=== PATIENT | female | born 1945 | race Caucasian/White ===

== ENCOUNTER → 2017-02-26 | Outpatient (CLI) | payer MEDICARE, OTHER ==
[2017-02-26 15:29] LABS: ALT 35 U/L (9-52); AST 38 U/L (14-36); Alkaline Phosphatase 56 U/L (38-126); Anion Gap 5 mmol/L; Blood Urea Nitrogen 11 mg/dL (7-17); Calcium 9.7 mg/dL (8.4-10.2); Carbon Dioxide 25 mmol/L (22-30); Chloride 109 mmol/L (98-107); Glucose 95 mg/dL (74-99); Non-African American GFR(MDRD) >60 (>60 ml/min/1.73 sqM); Potassium 4.2 mmol/L (3.5-5.1); Sodium 139 mmol/L (137-145); Total Bilirubin 0.4 mg/dL (0.2-1.3)
[2017-02-26 15:39] LABS: Basophils % (A) 1 %; CH 31.1; CHCM 33.1; Eosinophils # (A) 0.1 k/uL (0-0.7); Eosinophils % (A) 2 %; HCT 43.7 % (34.0-46.0); HDW 2.26; Luc # (Auto) 0.21; Luc % (Auto) 3; Lymphocytes # (A) 1.8 k/uL (1.0-4.8); Lymphocytes % (A) 27 %; MCH 30.2 pg (25.0-35.0); MCHC 32.1 g/dL (31.0-37.0); MCV 94.2 fL (80.0-100.0); Mean Platelet Volume 6.7; Monocytes # (A) 0.4 k/uL (0-1.0); Monocytes % (A) 6 %; Neutrophils # (A) 4.3 k/uL (1.3-7.7); Neutrophils % (A) 62 %; RBC 4.64 m/uL (3.80-5.40); RDW 14.4 % (11.5-15.5); WBC 6.8 k/uL (3.8-10.6); WBC (Perox) 6.38
== END | disposition home or self-care (01) ==
LOC: LABWHC1 14:59
PROVIDERS: ATTEND Internal Medicine Hematology & Oncology
DX: C50.919 Malignant neoplasm of unspecified site of unspecified female breast (principal); I67.89 Other cerebrovascular disease; I10 Essential (primary) hypertension; E78.5 Hyperlipidemia, unspecified
CPT/HCPCS: 36415; 80053; 85025; 86300

== ENCOUNTER → 2017-02-26 | Outpatient (CLI) | payer MEDICARE, OTHER ==
--- NOTE | 2017-02-26 14:30 | MM ---
Reason for exam: additional evaluation requested from prior study. Last mammogram was performed 1 year ago. History: Patient is postmenopausal, has history of breast cancer at age 61, and has history of high-risk lesion on a previous biopsy at age 56. Family history of breast cancer in paternal grandmother, breast cancer in 2 paternal aunts, and breast cancer in paternal cousin. Excisional biopsy of the left breast, June 22, 2008. Mastectomy of the left breast, July 01, 2007. Malignant excisional biopsy of the left breast, June 03, 2007. High risk excisional biopsy of the left breast, June 09, 2002. Excisional biopsy of the right breast, 2000. Benign stereotactic core biopsy of the left breast, January 22, 2000. Took estrogen for 20 years beginning at age 41. Took progesterone for 20 years beginning at age 41. Taking antineoplastic for 3 years beginning at age 65. Physical Findings: Nurse did not find any significant physical abnormalities on exam. MG 3D Diag Mammo W/Cad RT CC and MLO view(s) were taken of the right breast. Prior study comparison: February 20, 2016, right breast MG 3d diag mammo w/cad RT. February 14, 2015, right breast MG diagnostic mammo RT w CAD. August 12, 2014, right breast MG diagnostic mammo RT w CAD. There are scattered fibroglandular densities. No significant new findings when compared with previous films. These results were verbally communicated with the patient and result sheet given to the patient on 02/26/17. ASSESSMENT: Benign, BI-RAD 2 RECOMMENDATION: Follow-up diagnostic mammogram of the right breast in 1 year.
--- NOTE | 2017-02-26 15:15 | BD ---
EXAMINATION TYPE: MG DEXA axial skeleton. DATE OF EXAM: 02/26/2017 2:56 PM COMPARISON: NONE CLINICAL HISTORY: Osteoporosis, postmenopausal female Height: 64 IN Weight: 142 LBS FRAX RISK QUESTIONS: Alcohol (3 or more units per day): NO Family History (Parent hip fracture): NO Glucocorticoids (More than 3mos): NO (Ex: prednisone, prednisolone, methylprednisolone, dexamethasone, and hydrocortisone). History of Fracture in Adulthood: NO Secondary Osteoporosis: 1. Type 1 Diabetes: NO 2. Hyperthyroidism: NO 3. Menopause before 45: AGE 41 4. Malnutrition: NO 5. Chronic liver disease: NO Rheumatoid Arthritis: NO Current Tobacco Use: YES RISK FACTORS HISTORY OF: Smoke tobacco: YES Diet low in dairy products/other sources of calcium: YES Postmenopausal woman: AGE 41 Take estrogen and/or progesterone medications: NOT NOW How long: AGE 24 - 33 CONTROL Lost more than 2 inches in height since high school: PT IN [place] DID NOT MEASURE HER TODAY Frequent falls: PT IN [place] MEDICATIONS: BONE DENSITY MEDICATIONS: ALENDRONATE. PT HAS TAKEN FOR 2 YRS Additional Medications: ACCUPRIL, ADVAIR, AMOTRIPTOLINE, FLONASE, NAPROSYN, PLAVIX, RESTORIL, SINGULA IR, WELCHOL, ALENDRONATE, VIT B, FOLIC ACID, MAGNESIUM, VIT D3, VIT E, ZERTEC Additional History: BREAST CANCER WITH CHEMO EXAM MEASUREMENTS: Bone mineral densitometry was performed using the [employer] System. Bone mineral density as measured about the Lumbar spine is: ----- L1-L4(G/cm2): 1.220 T Score Values are as follows: ----- L2: -0.3 ----- L3: 1.2 ----- L4: 0.3 ----- L1-L4: 0.3 Bone mineral density has: Increased 3.7% since study of: 08/12/2014 Bone mineral density about the R hip (g/cm2): 0.881 Bone mineral density about the L hip (g/cm2): 0.673 T Score values are as follows: -----R Neck: -1.1 -----L Neck: -2.6 -----R Total: -0.9 -----L Total: -2.4 Bone mineral density has: Increased 3.6% since study of: 08/12/2014 IMPRESSION: Osteoporosis NOTE: T-SCORE=SD OF THE YOUNG ADULT MEAN.
== END | disposition home or self-care (01) ==
LOC: RADMAMWWP 13:39
PROVIDERS: ATTEND Family Medicine
DX: M81.0 Age-related osteoporosis without current pathological fracture (principal); Z85.3 Personal history of malignant neoplasm of breast
CPT/HCPCS: 77080; G0206; G0279

== ENCOUNTER → 2017-03-07 | Outpatient (CLI) | payer MEDICARE, OTHER ==
--- NOTE | 2017-03-08 06:49 | XR ---
EXAMINATION TYPE: XR chest 2V DATE OF EXAM: 03/07/2017 HISTORY: I10,E785,[id number],I6789 HTN,Hx breast Ca,CVA. REFERENCE: Previous study dated 12/28/2015. FINDINGS: The lungs are overinflated. Surgical clips project over the left side of the thorax as well as the left axilla. Lungs are clear. Pleural spaces are clear. Heart size is normal. IMPRESSION: COPD.
== END | disposition home or self-care (01) ==
LOC: RADXRYALE 10:53
PROVIDERS: ATTEND Internal Medicine Hematology & Oncology
DX: J44.9 Chronic obstructive pulmonary disease, unspecified (principal); C50.919 Malignant neoplasm of unspecified site of unspecified female breast; I10 Essential (primary) hypertension; E78.5 Hyperlipidemia, unspecified; I63.9 Cerebral infarction, unspecified
CPT/HCPCS: 71020

== ENCOUNTER → 2017-06-13 | Outpatient (CLI) | payer MEDICARE, OTHER ==
--- NOTE | 2017-06-13 13:48 | US ---
EXAMINATION TYPE: US pelvic complete DATE OF EXAM: 06/13/2017 COMPARISON: NONE CLINICAL HISTORY: N89.8 Vaginal Discharge. Greenish vaginal discharge, partial hysterectomy TECHNIQUE: Transvaginal (TV) and Transabdominal (TA) Date of LMP: unknown EXAM MEASUREMENTS: Uterus: Surgically absent Endometrial Stripe: Surgically absent Right Ovary: unable to visualize Left Ovary: unable to visualize Complex area noted ML pelvis during TV exam, unable to visualize any peristalsing at this time ? et iology IMPRESSION: 1. Postoperative pelvis. 2. Complex area deep within the pelvis may reflect nonperistalsing bowel however I cannot exclude mas s. CT of the abdomen and pelvis is advised.
== END | disposition home or self-care (01) ==
LOC: RADUSWWP 12:42
PROVIDERS: ATTEND Family Medicine
DX: N89.8 Other specified noninflammatory disorders of vagina (principal); Z98.890 Other specified postprocedural states
CPT/HCPCS: 76830; 76856

== ENCOUNTER 2023-09-07 01:29 | Inpatient (IN) | payer MEDICARE, OTHER ==
[2023-09-07 01:36] LABS: Glucose,Whole Blood 301 mg/dL (70-110)
[2023-09-07] MEDS ORDERED: DEXAMETHASONE SOD PHOSPHATE 10 MG/ML 1 ML VIAL IV STA (01:40)
[2023-09-07] MEDS ORDERED: DILTIAZEM DRIP BOLUS FROM BAG 1 MG SOLN IV ONE (01:42)
[2023-09-07] MEDS ORDERED: IPRATROPIUM 0.5 MG/2.5 ML NEBU INHALATION STA (01:52)
[2023-09-07] MEDS ORDERED: ALBUTEROL NEBULIZED 2.5 MG/3 ML INHALATION STA (01:52)
[2023-09-07 01:56] LABS: Basophils # (A) 0.1 k/uL (0-0.2); Basophils % (A) 0 %; Eosinophils # (A) 0.1 k/uL (0-0.7); Eosinophils % (A) 0 %; HCT 37.4 % (34.0-46.0); HGB 11.9 gm/dL (11.4-16.0); Hypochromasia Slight; Lymphocytes # (A) 2.1 k/uL (1.0-4.8); Lymphocytes % (A) 10 %; MCH 30.7 pg (25.0-35.0); MCHC 31.7 g/dL (31.0-37.0); MCV 96.9 fL (80.0-100.0); Mean Platelet Volume 7.5; Monocytes # (A) 0.7 k/uL (0-1.0); Monocytes % (A) 3 %; Neutrophils # (A) 18.9 k/uL (1.3-7.7); Neutrophils % (A) 85 %; Platelet Count 511 k/uL (150-450); RBC 3.86 m/uL (3.80-5.40); RDW 14.2 % (11.5-15.5); WBC 22.2 k/uL (3.8-10.6)
[2023-09-07] MEDS: DILTIAZEM 125 MG in SODIUM CHLORIDE 0.9% 100 ML IV SCH (01:56)
[2023-09-07] MEDS ORDERED: HEPARIN SODIUM 1,000 UN/ML (10ML VL) IV ONE (01:57)
[2023-09-07] MEDS ORDERED: HEPARIN SODIUM 1,000 UN/ML (10ML VL) IV PRN (01:57)
--- NOTE | 2023-09-07 01:59 | ED ---
General Adult HPI - General Chief complaint: Shortness of Breath Stated complaint: Difficulty Breathing Time Seen by Provider: 09/07/23 01:40 Source: EMS Mode of arrival: EMS - History of Present Illness Initial comments: Dictation was produced using [employer] dictation software. please excuse any grammatical, word or spelling errors. Chief Complaint: 77-year-old female presents emergency for dyspnea History of Present Illness: She is a 69-year-old female presents emergency department with dyspnea. [facility] She was sent here for respiratory failure. Patient allegedly has a history of COPD. She is brought in by EMS. He is concerned that patient was having a COPD exacerbation she was given multiple breathing treatments. States that her oxygenation was well maintained at a normal range. They report that patient has been intubated for this in the past. Patient denies any chest pain. She states that she has shortness of breath. She does also report cough. Patient is not taking any anticoagulation medications. The ROS documented in this emergency department record has been reviewed and confirmed by me. Those systems with pertinent positive or negative responses have been documented in the HPI. All other systems are other negative and/or noncontributory. - Related Data Allergies Allergy/AdvReac Type Severity Reaction Status Date / Time Penicillins Allergy Rash/Hives Verified 09/07/23 01:45 Review of Systems ROS Statement: Those systems with pertinent positive or pertinent negative responses have been documented in the HPI. ROS Other: All systems not noted in ROS Statement are negative. General Exam - General Exam Comments Initial Comments: PHYSICAL EXAM: General Impression: Dyspneic, alert HEENT: Normocephalic atraumatic, extra-ocular movements intact, pupils equal and reactive to light bilaterally, mucous membranes moist. Cardiovascular: Heart regular rate and rhythm Chest: Diffuse rhonchi, on BiPAP Abdomen: abdomen soft, non-tender, non-distended, no organomegaly Musculoskeletal: Pulses present and equal in all extremities, no peripheral edema Motor: no focal deficits noted Neurological: CN II-XII grossly intact, no focal motor or sensory deficits noted Skin: Intact with no visualized rashes Psych: Normal affect and mood Course Vital Signs 09/07/23 09/07/23 09/07/23 01:30 01:40 01:41 Temperature 97.6 F Pulse Rate 167 H Respiratory 45 H Rate Blood Pressure 133/70 O2 Sat by Pulse 98 Oximetry Fraction of 100 100 Inspired Oxygen (FIO2) 09/07/23 09/07/23 09/07/23 01:50 02:29 03:00 Temperature Pulse Rate 147 H 124 H Respiratory 32 H 22 Rate Blood Pressure 90/35 89/49 O2 Sat by Pulse 98 98 Oximetry Fraction of 80 Inspired Oxygen (FIO2) 09/07/23 09/07/23 09/07/23 03:58 04:00 04:02 Temperature Pulse Rate 126 H 126 H 128 H Respiratory 29 H Rate Blood Pressure O2 Sat by Pulse 99 Oximetry Fraction of Inspired Oxygen (FIO2) 09/07/23 09/07/23 09/07/23 04:08 05:00 06:09 Temperature Pulse Rate 133 H 121 H 131 H Respiratory 24 24 24 Rate Blood Pressure 127/71 90/55 114/62 O2 Sat by Pulse 97 99 98 Oximetry Fraction of Inspired Oxygen (FIO2) Medical Decision Making - Medical Decision Making Was pt. sent in by a medical professional or institution (, PA, CHIEF OF HOSPITAL MEDICINE, urgent ca re, hospital, or snf...) When possible be specific @ -correction Did you speak to anyone other than the patient for history (EMS, parent, family, police, friend...)? What history was obtained from this source @ -No Did you review nursing and triage notes (agree or disagree)? Why? @ -I reviewed and agree with nursing and triage notes Were old charts reviewed (outside hosp., previous admission, EMS record, old EKG, old radiological studies, urgent care reports/EKG's, snf records)? Report findings @ -No old charts were reviewed Differential Diagnosis (chest pain, altered mental status, abdominal pain women, abdominal pain men, vaginal bleeding, musculoskeletal, weakness, fever, dyspnea, syncope, headache, dizziness, GI bleed, back pain, seizure, CVA, palpatations, mental health)? @ -Differential Dyspnea: Coronary syndrome, arrhythmia, tamponade, asthma, COPD, pulmonary embolism, pneumonia, pneumothorax, pulmonary effusion, anaphylaxis, diabetic ketoacidosis, flailed chest, pulmonary contusion, diaphragmatic rupture, anemia, neuromuscular, this is not meant to be an all-inclusive list. EKG interpreted by me (3pts min.). @ -My EKG interpretation: Ventricular rate 133, sinus tachycardia,. Interval 34, QRS 85, QTc 431. No IN prolongation, no QTC prolongation, no ST or T-wave changes noted. No old EKG for comparison Overall, this EKG is unremarkable X-rays interpreted by me (1pt min.). @Chest x-ray shows left lower lobe opacity CT interpreted by me (1pt min.). @ -CT angiography shows no pulmonary embolism resume to be findings suspicious for pneumonia U/S interpreted by me (1pt. min.). @ -None done What testing was considered but not performed or refused? (CT, X-rays, U/S, labs)? Why? @ -None What meds were considered but not given or refused? Why? @ -None Did you discuss the management of the patient with other professionals (jaqueline zeng i.e. , PA, CHIEF OF HOSPITAL MEDICINE, lab, RT, psych nurse, health care social worker, esol instructor, teacher, wildlife officer, rifle case repairer)? Give summary @ with hospitalist for admission Was smoking cessation discussed for >3mins.? @ -No Was critical care preformed (if so, how long)? @ -yes, 33 minutes Were there social determinants of health that impacted care today? How? (Homelessness, low income, unemployed, alcoholism, drug addiction, transportation, low edu. Level, literacy, decrease access to med. care, senior living, rehab)? @ -No Was there de-escalation of care discussed even if they declined (Discuss DNR or withdrawal of care, Hospice)? DNR status @ -No What co-morbidities impacted this encounter? (DM, HTN, Smoking, COPD, CAD, Cancer, CVA, ARF, Chemo, Hep., AIDS, mental health diagnosis, sleep apnea, morbid obesity)? @ -None Was patient admitted / discharged? Hospital course, mention meds given and route, prescriptions, significant lab abnormalities, going to OR and other pertinent info. @ -69-year-old female presents emergency department with A. fib RVR and d yspnea. Patient's history of emphysema and COPD. Patient presented to the emergency Department with significant respiratory distress. She is placed on BiPAP. Patient given breathing treatments. After several minutes of BiPAP treatment her respiratory symptoms improved. Her presentation initially was A. fib with RVR however after some time with Cardizem her rhythm changed to sinus tachycardia. Laboratory evaluation obtained. Leukocytosis 22.2, crit panel is unremarkable. D-dimer is elevated 1.08. Patient has pCO2 52. Vital signs shows lactic acidosis of 4.9. Troponin of 0.136 of unclear significance likely is reactive from pulmonary infection. BNP of 9000. testing is negative. She started on antibiotics for infiltrate seen on imaging studies. Patient will be admitted to stepdown. Consultations made to cardiology and pulmonology Undiagnosed new problem with uncertain prognosis? @ -No Drug Therapy requiring intensive monitoring for toxicity (Heparin, Nitro, Insulin, Cardizem)? @ -No Were any procedures done? @ -No Diagnosis/symptom? Acute, or Chronic, or Acute on Chronic? Uncomplicated (without systemic symptoms) or Complicated (systemic symptoms)? @ -1. Pneumonia, 2. A. fib with RVR Side effects of treatment? @ -No Exacerbation, Progression, or Severe Exacerbation? @ -No Poses a threat to life or bodily function? How? (Chest pain, USA, ND, pneumonia, PE, COPD, DKA, ARF, appy, cholecystitis, CVA, Diverticulitis, Homicidal, Suicidal, threat to staff... and all critical care pts) @ -yes - Lab Data Result diagrams: 09/07/23 01:40 09/07/23 01:40 Lab Results 09/07/23 09/07/23 09/07/23 Range/Units 01:35 01:40 01:40 WBC 22.2 H (3.8-10.6) k/uL RBC 3.86 (3.80-5.40) m/uL Hgb 11.9 (11.4-16.0) gm/dL Hct 37.4 (34.0-46.0) % MCV 96.9 (80.0-100.0) fL MCH 30.7 (25.0-35.0) pg MCHC 31.7 (31.0-37.0) g/dL RDW 14.2 (11.5-15.5) % Plt Count 511 H (150-450) k/uL MPV 7.5 Neutrophils % 85 % Lymphocytes % 10 % Monocytes % 3 % Eosinophils % 0 % Basophils % 0 % Neutrophils # 18.9 H (1.3-7.7) k/uL Lymphocytes # 2.1 (1.0-4.8) k/uL Monocytes # 0.7 (0-1.0) k/uL Eosinophils # 0.1 (0-0.7) k/uL Basophils # 0.1 (0-0.2) k/uL Hypochromasia Slight PT 10.3 (10.0-12.5) sec INR 0.9 (<1.2) APTT 23.2 (22.0-30.0) sec D-Dimer 1.08 H (<0.60) mg/L FEU VBG pH (7.31-7.41) VBG pCO2 (37-51) mmHg VBG HCO3 (24-28) mmol/L Sodium (137-145) mmol/L Potassium (3.5-5.1) mmol/L Chloride (98-107) mmol/L Carbon Dioxide (22-30) mmol/L Anion Gap mmol/L BUN (7-17) mg/dL Creatinine (0.52-1.04) mg/dL Est GFR (CKD-EPI)AfAm (>60 ml/min/1.73 sqM) Est GFR (CKD-EPI)NonAf (>60 ml/min/1.73 sqM) Glucose (74-99) mg/dL POC Glucose (mg/dL) 301 H (70-110) mg/dL POC Glu Electro Plater ID Grant Evans Lactic Ac Sepsis Rflx Plasma Lactic Acid Thong (0.7-2.0) mmol/L Calcium (8.4-10.2) mg/dL Magnesium (1.6-2.3) mg/dL Total Bilirubin (0.2-1.3) mg/dL AST (14-36) U/L ALT (4-34) U/L Alkaline Phosphatase (38-126) U/L Troponin I (0.000-0.034) ng/mL NT-Pro-B Natriuret Pep pg/mL Total Protein (6.3-8.2) g/dL Albumin (3.5-5.0) g/dL Influenza Type A (PCR) (Not Detectd) Influenza Type B (PCR) (Not Detectd) RSV (PCR) (Not Detectd) SARS-CoV-2 (PCR) (Not Detectd) Blood Type Blood Type Confirm Blood Type Recheck Bld Type Recheck Status Antibody Screen Spec Expiration Date 09/07/23 09/07/23 09/07/23 Range/Units 01:40 01:40 01:40 WBC (3.8-10.6) k/uL RBC (3.80-5.40) m/uL Hgb (11.4-16.0) gm/dL Hct (34.0-46.0) % MCV (80.0-100.0) fL MCH (25.0-35.0) pg MCHC (31.0-37.0) g/dL RDW (11.5-15.5) % Plt Count (150-450) k/uL MPV Neutrophils % % Lymphocytes % % Monocytes % % Eosinophils % % Basophils % % Neutrophils # (1.3-7.7) k/uL Lymphocytes # (1.0-4.8) k/uL Monocytes # (0-1.0) k/uL Eosinophils # (0-0.7) k/uL Basophils # (0-0.2) k/uL Hypochromasia PT (10.0-12.5) sec INR (<1.2) APTT (22.0-30.0) sec D-Dimer (<0.60) mg/L FEU VBG pH (7.31-7.41) VBG pCO2 (37-51) mmHg VBG HCO3 (24-28) mmol/L Sodium 132 L (137-145) mmol/L Potassium 4.8 (3.5-5.1) mmol/L Chloride 93 L (98-107) mmol/L Carbon Dioxide 25 (22-30) mmol/L Anion Gap 14 mmol/L BUN 9 (7-17) mg/dL Creatinine 0.51 L (0.52-1.04) mg/dL Est GFR (CKD-EPI)AfAm >90 (>60 ml/min/1.73 sqM) Est GFR (CKD-EPI)NonAf >90 (>60 ml/min/1.73 sqM) Glucose 304 H (74-99) mg/dL POC Glucose (mg/dL) (70-110) mg/dL POC Glu Electro Plater ID Lactic Ac Sepsis Rflx Plasma Lactic Acid Thong 4.9 H* (0.7-2.0) mmol/L Calcium 8.7 (8.4-10.2) mg/dL Magnesium 1.8 (1.6-2.3) mg/dL Total Bilirubin 0.5 (0.2-1.3) mg/dL AST 29 (14-36) U/L ALT 19 (4-34) U/L Alkaline Phosphatase 67 (38-126) U/L Troponin I 0.136 H* (0.000-0.034) ng/mL NT-Pro-B Natriuret Pep 9530 pg/mL Total Protein 6.5 (6.3-8.2) g/dL Albumin 3.5 (3.5-5.0) g/dL Influenza Type A (PCR) (Not Detectd) Influenza Type B (PCR) (Not Detectd) RSV (PCR) (Not Detectd) SARS-CoV-2 (PCR) (Not Detectd) Blood Type Blood Type Confirm Blood Type Recheck Bld Type Recheck Status Antibody Screen Spec Expiration Date 09/07/23 09/07/23 09/07/23 Range/Units 01:53 02:33 03:29 WBC (3.8-10.6) k/uL RBC (3.80-5.40) m/uL Hgb (11.4-16.0) gm/dL Hct (34.0-46.0) % MCV (80.0-100.0) fL MCH (25.0-35.0) pg MCHC (31.0-37.0) g/dL RDW (11.5-15.5) % Plt Count (150-450) k/uL MPV Neutrophils % % Lymphocytes % % Monocytes % % Eosinophils % % Basophils % % Neutrophils # (1.3-7.7) k/uL Lymphocytes # (1.0-4.8) k/uL Monocytes # (0-1.0) k/uL Eosinophils # (0-0.7) k/uL Basophils # (0-0.2) k/uL Hypochromasia PT (10.0-12.5) sec INR (<1.2) APTT (22.0-30.0) sec D-Dimer (<0.60) mg/L FEU VBG pH 7.34 (7.31-7.41) VBG pCO2 52 H (37-51) mmHg VBG HCO3 28 (24-28) mmol/L Sodium (137-145) mmol/L Potassium (3.5-5.1) mmol/L Chloride (98-107) mmol/L Carbon Dioxide (22-30) mmol/L Anion Gap mmol/L BUN (7-17) mg/dL Creatinine (0.52-1.04) mg/dL Est GFR (CKD-EPI)AfAm (>60 ml/min/1.73 sqM) Est GFR (CKD-EPI)NonAf (>60 ml/min/1.73 sqM) Glucose (74-99) mg/dL POC Glucose (mg/dL) (70-110) mg/dL POC Glu Electro Plater ID Lactic Ac Sepsis Rflx Y Plasma Lactic Acid Thong (0.7-2.0) mmol/L Calcium (8.4-10.2) mg/dL Magnesium (1.6-2.3) mg/dL Total Bilirubin (0.2-1.3) mg/dL AST (14-36) U/L ALT (4-34) U/L Alkaline Phosphatase (38-126) U/L Troponin I (0.000-0.034) ng/mL NT-Pro-B Natriuret Pep pg/mL Total Protein (6.3-8.2) g/dL Albumin (3.5-5.0) g/dL Influenza Type A (PCR) Not Detected (Not Detectd) Influenza Type B (PCR) Not Detected (Not Detectd) RSV (PCR) Not Detected (Not Detectd) SARS-CoV-2 (PCR) Not Detected (Not Detectd) Blood Type Blood Type Confirm Blood Type Recheck Bld Type Recheck Status Antibody Screen Spec Expiration Date 09/07/23 09/07/23 Range/Units 03:36 04:01 WBC (3.8-10.6) k/uL RBC (3.80-5.40) m/uL Hgb (11.4-16.0) gm/dL Hct (34.0-46.0) % MCV (80.0-100.0) fL MCH (25.0-35.0) pg MCHC (31.0-37.0) g/dL RDW (11.5-15.5) % Plt Count (150-450) k/uL MPV Neutrophils % % Lymphocytes % % Monocytes % % Eosinophils % % Basophils % % Neutrophils # (1.3-7.7) k/uL Lymphocytes # (1.0-4.8) k/uL Monocytes # (0-1.0) k/uL Eosinophils # (0-0.7) k/uL Basophils # (0-0.2) k/uL Hypochromasia PT (10.0-12.5) sec INR (<1.2) APTT (22.0-30.0) sec D-Dimer (<0.60) mg/L FEU VBG pH (7.31-7.41) VBG pCO2 (37-51) mmHg VBG HCO3 (24-28) mmol/L Sodium (137-145) mmol/L Potassium (3.5-5.1) mmol/L Chloride (98-107) mmol/L Carbon Dioxide (22-30) mmol/L Anion Gap mmol/L BUN (7-17) mg/dL Creatinine (0.52-1.04) mg/dL Est GFR (CKD-EPI)AfAm (>60 ml/min/1.73 sqM) Est GFR (CKD-EPI)NonAf (>60 ml/min/1.73 sqM) Glucose (74-99) mg/dL POC Glucose (mg/dL) (70-110) mg/dL POC Glu Electro Plater ID Lactic Ac Sepsis Rflx Plasma Lactic Acid Thong (0.7-2.0) mmol/L Calcium (8.4-10.2) mg/dL Magnesium (1.6-2.3) mg/dL Total Bilirubin (0.2-1.3) mg/dL AST (14-36) U/L ALT (4-34) U/L Alkaline Phosphatase (38-126) U/L Troponin I (0.000-0.034) ng/mL NT-Pro-B Natriuret Pep pg/mL Total Protein (6.3-8.2) g/dL Albumin (3.5-5.0) g/dL Influenza Type A (PCR) (Not Detectd) Influenza Type B (PCR) (Not Detectd) RSV (PCR) (Not Detectd) SARS-CoV-2 (PCR) (Not Detectd) Blood Type O Positive Blood Type Confirm O Positive Blood Type Recheck No Previous Record Bld Type Recheck Status CABO Indicated Antibody Screen NEGATIVE Spec Expiration Date 09/10/2023 - 6681 Disposition Clinical Impression: Pneumonia, Atrial fibrillation with RVR Disposition: ADMITTED IP TO THIS [facility] Condition: Serious Referrals: Viktoria Calhoun DO [Primary Care Provider] - 1-2 days Decision Time: 06:21
[2023-09-07 02:14] LABS: VBG PH 7.34 (7.31-7.41)
[2023-09-07 02:25] LABS: ALT 19 U/L (4-34); AST 29 U/L (14-36); African American GFR (CKD) >90 (>60 ml/min/1.73 sqM); Albumin 3.5 g/dL (3.5-5.0); Alkaline Phosphatase 67 U/L (38-126); Anion Gap 14 mmol/L; Blood Urea Nitrogen 9 mg/dL (7-17); Calcium 8.7 mg/dL (8.4-10.2); Carbon Dioxide 25 mmol/L (22-30); Chloride 93 mmol/L (98-107); Glucose 304 mg/dL (74-99); Magnesium 1.8 mg/dL (1.6-2.3); Non-African American GFR(CKD) >90 (>60 ml/min/1.73 sqM); Potassium 4.8 mmol/L (3.5-5.1); Sodium 132 mmol/L (137-145); Total Bilirubin 0.5 mg/dL (0.2-1.3); Total Protein 6.5 g/dL (6.3-8.2)
[2023-09-07 02:29] LABS: INR 0.9 (<1.2); Partial Thromboplastin Time 23.2 sec (22.0-30.0); Prothrombin Time 10.3 sec (10.0-12.5)
[2023-09-07 02:34] LABS: NT-Pro-B-Type Natriuretic Pept 9530 pg/mL
[2023-09-07] MEDS: HEPARIN SOD,PORK IN 0.45% NACL 25,000 UNIT in 0.45% NACL 1 250ML.BAG IV SCH ×2 (02:36→11:25)
[2023-09-07] MEDS ORDERED: SODIUM CHLORIDE 0.9% 1,000 ML IV STA (03:25)
[2023-09-07] MEDS ORDERED: CEFEPIME 2 GM in SODIUM CHLORIDE 0.9% 100 ML IVPB STA (03:25)
--- NOTE | 2023-09-07 03:27 | XR ---
EXAM: XR Chest, 1 View CLINICAL HISTORY: ITS.REASON XR Reason: dyspnea TECHNIQUE: Frontal view of the chest. COMPARISON: 03/07/2017 FINDINGS: Lungs: Left lower lobe parenchymal opacity new from prior exam concerning for an infectious etiology. Lungs are hyperexpanded consistent with emphysema. Pleural space: Unremarkable. No pneumothorax. No pleural effusions. Heart: Unremarkable. No cardiomegaly. Mediastinum: Unremarkable. Normal mediastinal contour. Bones/joints: No acute osseous abnormalities. IMPRESSION: Left lower lobe parenchymal opacity new from prior exam concerning for an infectious etiology. Emphysema.
[2023-09-07] MEDS ORDERED: IPRATROPIUM-ALBUTEROL 3 ML NEB INHALATION STA (03:33)
--- NOTE | 2023-09-07 06:15 | CT ---
EXAM: CT Angiography Chest With Intravenous Contrast CLINICAL HISTORY: ITS.REASON CT Reason: positive D-dimer TECHNIQUE: Axial computed tomographic angiography images of the chest with intravenous contrast. CTDI is 20.2 mGy and DLP is 382.7 mGy-cm. This CT exam was performed using one or more of the following dose reduction techniques: automated exposure control, adjustment of the mA and/or kV according to patient size, and/or use of iterative reconstruction technique. MIP reconstructed images were created and reviewed. COMPARISON: No relevant prior studies available. FINDINGS: Pulmonary arteries: Unremarkable. No pulmonary arterial filling defects seen. Aorta: Significant atherosclerotic calcifications. No thoracic aortic aneurysm. Great vessels of aortic arch: Significant atherosclerotic calcification, possible severe stenosis at the origin of the left subclavian artery. Possible subclavian steal anatomy. Lungs: Ill-defined nodular opacities in the left lung base. Tree-in- bud opacities in the lingula. Proximally 10 mm right middle lobe nodule, partially obscured by motion artifact. Basal bronchial wall thickening, peribronchial stranding. Significant centrilobular emphysema changes. Apical subpleural scarring. Pleural space: Unremarkable. No significant effusion. No pneumothorax. Heart: Moderate coronary artery atherosclerotic calcifications. Mild thickening of the aortic valve with calcification. No cardiomegaly. No significant pericardial effusion. No evidence of RV dysfunction. Mediastinum: Scattered mediastinal and hilar lymph nodes, with the 8 x 20 mm right hilar node. Thyroid: Asymmetry of the thyroid, with a small right thyroid. Possible 17 mm left thyroid nodule, follow-up elective thyroid ultrasound recommended. Bones/joints: Significant degenerative changes. No acute fracture. No dislocation. Soft tissues: Ventral hernia containing transverse colon and mesentery, partially visualized. Lymph nodes: See above. Kidneys and ureters: Probable renal cortical cysts, partially included on chest CT. Stomach and bowel: Mild gastric distention. Other findings: Heterogeneous parenchyma. IMPRESSION: 1. No pulmonary embolus seen. 2. Probable basal pneumonia or aspiration pneumonitis changes, superimposed upon significant diffuse emphysema. 3. Right middle lobe nodule, difficult to further evaluate at this time, recommend follow-up evaluation when able. 4. Lingular tree-in-bud opacities, suspect unusual pneumonia. 5. Enlarged right hilar lymph node, presumably reactive. 6. Significant atherosclerosis, possible significant proximal left subclavian stenosis and vertebral steal anatomy. 7. Possible large left thyroid nodule, recommend follow-up elective ultrasound of the thyroid. 8. Ventral hernia containing the transverse colon and mesentery without CT evidence of acute complication, incompletely evaluated on chest CT.
[2023-09-07] MEDS ORDERED: NALOXONE 0.4 MG/ML 1 ML VIAL IV PRN (06:21)
--- NOTE | 2023-09-07 06:25 | ED ---
Medical Decision Making - Lab Data Result diagrams: 09/07/23 01:40 09/07/23 01:40 Lab Results 09/07/23 09/07/23 09/07/23 Range/Units 01:35 01:40 01:40 WBC 22.2 H (3.8-10.6) k/uL RBC 3.86 (3.80-5.40) m/uL Hgb 11.9 (11.4-16.0) gm/dL Hct 37.4 (34.0-46.0) % MCV 96.9 (80.0-100.0) fL MCH 30.7 (25.0-35.0) pg MCHC 31.7 (31.0-37.0) g/dL RDW 14.2 (11.5-15.5) % Plt Count 511 H (150-450) k/uL MPV 7.5 Neutrophils % 85 % Lymphocytes % 10 % Monocytes % 3 % Eosinophils % 0 % Basophils % 0 % Neutrophils # 18.9 H (1.3-7.7) k/uL Lymphocytes # 2.1 (1.0-4.8) k/uL Monocytes # 0.7 (0-1.0) k/uL Eosinophils # 0.1 (0-0.7) k/uL Basophils # 0.1 (0-0.2) k/uL Hypochromasia Slight PT 10.3 (10.0-12.5) sec INR 0.9 (<1.2) APTT 23.2 (22.0-30.0) sec D-Dimer 1.08 H (<0.60) mg/L FEU VBG pH (7.31-7.41) VBG pCO2 (37-51) mmHg VBG HCO3 (24-28) mmol/L Sodium (137-145) mmol/L Potassium (3.5-5.1) mmol/L Chloride (98-107) mmol/L Carbon Dioxide (22-30) mmol/L Anion Gap mmol/L BUN (7-17) mg/dL Creatinine (0.52-1.04) mg/dL Est GFR (CKD-EPI)AfAm (>60 ml/min/1.73 sqM) Est GFR (CKD-EPI)NonAf (>60 ml/min/1.73 sqM) Glucose (74-99) mg/dL POC Glucose (mg/dL) 301 H (70-110) mg/dL POC Glu Director Of Midwifery/Staff Midwife ID Grant Evans Lactic Ac Sepsis Rflx Plasma Lactic Acid Thong (0.7-2.0) mmol/L Calcium (8.4-10.2) mg/dL Magnesium (1.6-2.3) mg/dL Total Bilirubin (0.2-1.3) mg/dL AST (14-36) U/L ALT (4-34) U/L Alkaline Phosphatase (38-126) U/L Troponin I (0.000-0.034) ng/mL NT-Pro-B Natriuret Pep pg/mL Total Protein (6.3-8.2) g/dL Albumin (3.5-5.0) g/dL Influenza Type A (PCR) (Not Detectd) Influenza Type B (PCR) (Not Detectd) RSV (PCR) (Not Detectd) SARS-CoV-2 (PCR) (Not Detectd) Blood Type Blood Type Confirm Blood Type Recheck Bld Type Recheck Status Antibody Screen Spec Expiration Date 09/07/23 09/07/23 09/07/23 Range/Units 01:40 01:40 01:40 WBC (3.8-10.6) k/uL RBC (3.80-5.40) m/uL Hgb (11.4-16.0) gm/dL Hct (34.0-46.0) % MCV (80.0-100.0) fL MCH (25.0-35.0) pg MCHC (31.0-37.0) g/dL RDW (11.5-15.5) % Plt Count (150-450) k/uL MPV Neutrophils % % Lymphocytes % % Monocytes % % Eosinophils % % Basophils % % Neutrophils # (1.3-7.7) k/uL Lymphocytes # (1.0-4.8) k/uL Monocytes # (0-1.0) k/uL Eosinophils # (0-0.7) k/uL Basophils # (0-0.2) k/uL Hypochromasia PT (10.0-12.5) sec INR (<1.2) APTT (22.0-30.0) sec D-Dimer (<0.60) mg/L FEU VBG pH (7.31-7.41) VBG pCO2 (37-51) mmHg VBG HCO3 (24-28) mmol/L Sodium 132 L (137-145) mmol/L Potassium 4.8 (3.5-5.1) mmol/L Chloride 93 L (98-107) mmol/L Carbon Dioxide 25 (22-30) mmol/L Anion Gap 14 mmol/L BUN 9 (7-17) mg/dL Creatinine 0.51 L (0.52-1.04) mg/dL Est GFR (CKD-EPI)AfAm >90 (>60 ml/min/1.73 sqM) Est GFR (CKD-EPI)NonAf >90 (>60 ml/min/1.73 sqM) Glucose 304 H (74-99) mg/dL POC Glucose (mg/dL) (70-110) mg/dL POC Glu Director Of Midwifery/Staff Midwife ID Lactic Ac Sepsis Rflx Plasma Lactic Acid Thong 4.9 H* (0.7-2.0) mmol/L Calcium 8.7 (8.4-10.2) mg/dL Magnesium 1.8 (1.6-2.3) mg/dL Total Bilirubin 0.5 (0.2-1.3) mg/dL AST 29 (14-36) U/L ALT 19 (4-34) U/L Alkaline Phosphatase 67 (38-126) U/L Troponin I 0.136 H* (0.000-0.034) ng/mL NT-Pro-B Natriuret Pep 9530 pg/mL Total Protein 6.5 (6.3-8.2) g/dL Albumin 3.5 (3.5-5.0) g/dL Influenza Type A (PCR) (Not Detectd) Influenza Type B (PCR) (Not Detectd) RSV (PCR) (Not Detectd) SARS-CoV-2 (PCR) (Not Detectd) Blood Type Blood Type Confirm Blood Type Recheck Bld Type Recheck Status Antibody Screen Spec Expiration Date 09/07/23 09/07/23 09/07/23 Range/Units 01:53 02:33 03:29 WBC (3.8-10.6) k/uL RBC (3.80-5.40) m/uL Hgb (11.4-16.0) gm/dL Hct (34.0-46.0) % MCV (80.0-100.0) fL MCH (25.0-35.0) pg MCHC (31.0-37.0) g/dL RDW (11.5-15.5) % Plt Count (150-450) k/uL MPV Neutrophils % % Lymphocytes % % Monocytes % % Eosinophils % % Basophils % % Neutrophils # (1.3-7.7) k/uL Lymphocytes # (1.0-4.8) k/uL Monocytes # (0-1.0) k/uL Eosinophils # (0-0.7) k/uL Basophils # (0-0.2) k/uL Hypochromasia PT (10.0-12.5) sec INR (<1.2) APTT (22.0-30.0) sec D-Dimer (<0.60) mg/L FEU VBG pH 7.34 (7.31-7.41) VBG pCO2 52 H (37-51) mmHg VBG HCO3 28 (24-28) mmol/L Sodium (137-145) mmol/L Potassium (3.5-5.1) mmol/L Chloride (98-107) mmol/L Carbon Dioxide (22-30) mmol/L Anion Gap mmol/L BUN (7-17) mg/dL Creatinine (0.52-1.04) mg/dL Est GFR (CKD-EPI)AfAm (>60 ml/min/1.73 sqM) Est GFR (CKD-EPI)NonAf (>60 ml/min/1.73 sqM) Glucose (74-99) mg/dL POC Glucose (mg/dL) (70-110) mg/dL POC Glu Director Of Midwifery/Staff Midwife ID Lactic Ac Sepsis Rflx Y Plasma Lactic Acid Thong (0.7-2.0) mmol/L Calcium (8.4-10.2) mg/dL Magnesium (1.6-2.3) mg/dL Total Bilirubin (0.2-1.3) mg/dL AST (14-36) U/L ALT (4-34) U/L Alkaline Phosphatase (38-126) U/L Troponin I (0.000-0.034) ng/mL NT-Pro-B Natriuret Pep pg/mL Total Protein (6.3-8.2) g/dL Albumin (3.5-5.0) g/dL Influenza Type A (PCR) Not Detected (Not Detectd) Influenza Type B (PCR) Not Detected (Not Detectd) RSV (PCR) Not Detected (Not Detectd) SARS-CoV-2 (PCR) Not Detected (Not Detectd) Blood Type Blood Type Confirm Blood Type Recheck Bld Type Recheck Status Antibody Screen Spec Expiration Date 09/07/23 09/07/23 Range/Units 03:36 04:01 WBC (3.8-10.6) k/uL RBC (3.80-5.40) m/uL Hgb (11.4-16.0) gm/dL Hct (34.0-46.0) % MCV (80.0-100.0) fL MCH (25.0-35.0) pg MCHC (31.0-37.0) g/dL RDW (11.5-15.5) % Plt Count (150-450) k/uL MPV Neutrophils % % Lymphocytes % % Monocytes % % Eosinophils % % Basophils % % Neutrophils # (1.3-7.7) k/uL Lymphocytes # (1.0-4.8) k/uL Monocytes # (0-1.0) k/uL Eosinophils # (0-0.7) k/uL Basophils # (0-0.2) k/uL Hypochromasia PT (10.0-12.5) sec INR (<1.2) APTT (22.0-30.0) sec D-Dimer (<0.60) mg/L FEU VBG pH (7.31-7.41) VBG pCO2 (37-51) mmHg VBG HCO3 (24-28) mmol/L Sodium (137-145) mmol/L Potassium (3.5-5.1) mmol/L Chloride (98-107) mmol/L Carbon Dioxide (22-30) mmol/L Anion Gap mmol/L BUN (7-17) mg/dL Creatinine (0.52-1.04) mg/dL Est GFR (CKD-EPI)AfAm (>60 ml/min/1.73 sqM) Est GFR (CKD-EPI)NonAf (>60 ml/min/1.73 sqM) Glucose (74-99) mg/dL POC Glucose (mg/dL) (70-110) mg/dL POC Glu Director Of Midwifery/Staff Midwife ID Lactic Ac Sepsis Rflx Plasma Lactic Acid Thong (0.7-2.0) mmol/L Calcium (8.4-10.2) mg/dL Magnesium (1.6-2.3) mg/dL Total Bilirubin (0.2-1.3) mg/dL AST (14-36) U/L ALT (4-34) U/L Alkaline Phosphatase (38-126) U/L Troponin I (0.000-0.034) ng/mL NT-Pro-B Natriuret Pep pg/mL Total Protein (6.3-8.2) g/dL Albumin (3.5-5.0) g/dL Influenza Type A (PCR) (Not Detectd) Influenza Type B (PCR) (Not Detectd) RSV (PCR) (Not Detectd) SARS-CoV-2 (PCR) (Not Detectd) Blood Type O Positive Blood Type Confirm O Positive Blood Type Recheck No Previous Record Bld Type Recheck Status CABO Indicated Antibody Screen NEGATIVE Spec Expiration Date 09/10/2023 - 2335 Disposition Clinical Impression: Pneumonia, Atrial fibrillation with RVR Disposition: ADMITTED IP TO THIS HOSP Condition: Serious Referrals: Viktoria Calhoun DO [Primary Care Provider] - 1-2 days Procedures - Sepsis Sepsis Focused Exam #1 Time Sepsis Criteria Met: 06:24 Sepsis Focused Exam Date: 09/07/23 Sepsis Focused Exam Time: 06:24 Sepsis Focused Exam Complete: Yes Vital Signs & RN Notes Reviewed: Yes Capillary Refill: < 2 Seconds: Fingers, Toes Peripheral Pulses: Normal: Radial (R), Radial (L), Posterior Tibialis (R), Posterior Tibialis (L), Dorsalis Pedis (R), Dorsalis Pedis (L) Skin Color: Normal for Patient Respiratory Exam: respiratory distress, wheezes Cardiovascular Exam: tachycardia
[2023-09-07] MEDS: SODIUM CHLORIDE 0.9% 1,000 ML IV SCH (06:39)
[2023-09-07] MEDS ORDERED: PNEUMONIA PROTOCOL UTILIZED 1 EACH MISC PO PRN (10:44)
[2023-09-07] MEDS ORDERED: ACETAMINOPHEN TAB 325 MG TAB PO PRN ×2 (10:44→12:47)
[2023-09-07] MEDS ORDERED: IPRATROPIUM-ALBUTEROL 3 ML NEB INHALATION PRN (10:45)
[2023-09-07] MEDS ORDERED: ALBUTEROL NEBULIZED 2.5 MG/3 ML INHALATION PRN (10:45)
--- NOTE | 2023-09-07 11:19 | XR ---
EXAMINATION TYPE: XR chest 2V DATE OF EXAM: 09/07/2023 COMPARISON: 09/07/2023 INDICATION: Pneumonia TECHNIQUE: Frontal and lateral views of the chest are obtained. FINDINGS: The heart size is normal. The pulmonary vasculature is normal. On the lateral projection some mild infiltrate appears to be present at the lung base. Hyperinflation with flattening of the diaphragms is evident.. IMPRESSION: 1. Mild left lower lobe posterior infiltrate. Correlate for atelectasis and pneumonia. Continued foll ow-up is recommended. 2. COPD
[2023-09-07] MEDS ORDERED: ONDANSETRON 4 MG/2 ML VIAL IVP PRN (11:29)
[2023-09-07] MEDS: IPRATROPIUM-ALBUTEROL 3 ML NEB INHALATION SCH ×3 (11:33→21:22)
[2023-09-07] MEDS: metroNIDAZOLE-NS PMX 500 MG in SALINE 1 100ML.BAG IVPB SCH ×2 (11:35→21:09)
--- NOTE | 2023-09-07 12:20 | P.CNPUL ---
History of Present Illness Consult date: 09/07/23 Requesting physician: Dmitry Nevarez Reason for consult: dyspnea, COPD Chief complaint: Shortness of breath cough, congestion History of present illness: This is a 77-year-old female patient who resides at [facility] and has a history of oxygen dependent chronic obstructive pulmonary disease was brought into the emergency room early this morning with complaints of increasing shortness of breath or chest x-ray shows a mild left lower lobe posterior infiltrate. Evidence of COPD. CT angiogram ruled out pulmonary embolism. Probable basal pneumonia or aspiration pneumonitis changes upon significant diffuse emphysema. White count 22.2. Hemoglobin 11.9. Platelets 511. D-dimer 1.08. Potassium 4.8. Sodium 132. Bicarb 25. BUN 9. Creatinine 0.51. Glucose 301. Troponin 0.136. ProBNP 9530. Viral screen negative. She is seen today in consultation in the emergency department. Currently sitting up in a stretcher. Awake and alert. Maintaining O2 saturations in the upper 90s on 5 L/m per nasal cannula. Afebrile. Hemodynamically stable. Somewhat of a poor historian. EKG reveals atrial fibrillation with a rapid ventricular response, left bundle branch block. Review of Systems REVIEW OF SYSTEMS: CONSTITUTIONAL: Denies any recent significant weight loss or weight gain. EYES: Denies change in vision. EARS, NOSE, MOUTH, THROAT: Denies headaches, denies sore throat. CARDIOVASCULAR: Denies chest pain, palpitations or syncopal episodes. RESPIRATORY: Positive for shortness of breath, cough, congestion no hemoptysis. GASTROINTESTINAL: Denies change in appetite, denies abdominal pain GENITOURINARY: Denies hematuria, denies infections. MUSKULOSKELETAL: Denies pain, denies swelling. INTEGUMENTARY: Denies rash, denies eczema. NEUROLOGICAL: Denies recent memory loss, no recent seizure activity. PSYCHIATRIC: Denies anxiety, denies depression. HEMATOLOGIC/LYMPHATIC: Denies anemia, denies enlarged lymph nodes. Medications and Allergies Home Medications Medication Instructions Recorded Confirmed Type Acetaminophen [Tylenol 8 Hour] 650 mg PO BID 09/07/23 09/07/23 History Acetaminophen [Tylenol 8 Hour] 650 mg PO BID PRN 09/07/23 09/07/23 History Albuterol Inhaler [Ventolin Hfa 2 puff INHALATION RT-Q6H PRN 09/07/23 09/07/23 History Inhaler] Benzonatate [Tessalon Perle] 200 mg PO TID@0700,1300,1900 09/07/23 09/07/23 History Cetirizine HCl [Zyrtec] 10 mg PO DAILY 09/07/23 09/07/23 History Clopidogrel [Plavix] 75 mg PO Q2D 09/07/23 09/07/23 History Diclofenac Sodium Gel [Voltaren 1% 1 applic TOPICAL TID PRN 09/07/23 09/07/23 History Gel] Diltiazem Oral [Cardizem Oral] 30 mg PO TID@0700,1300,1900 09/07/23 09/07/23 History Famotidine [Pepcid] 20 mg PO DAILY 09/07/23 09/07/23 History Fluticasone Nasal [place] [Flonase 1 spr EA NOSTRIL DAILY@0700 09/07/23 09/07/23 History Nasal [place]] Fluticasone Propion/Salmeterol 1 puff INHALATION RT-BID@0700,1900 09/07/23 09/07/23 History [Advair 250-50 Diskus] Gabapentin [Neurontin] 200 mg PO TID@0700,1300,1900 09/07/23 09/07/23 History Healthshake 1 dose PO TID-W/MEALS 09/07/23 09/07/23 History Ipratropium-Albuterol Nebulize 3 ml INHALATION RT-Q4H PRN 09/07/23 09/07/23 History [Duoneb 0.5 mg-3 mg/3 ml Soln] L.acidoph,Paracasei, B.lactis 1 cap PO DAILY 09/07/23 09/07/23 History [Probiotic] Meclizine [Antivert] 12.5 mg PO Q8H PRN 09/07/23 09/07/23 History Melatonin 3 mg PO HS@199909/07/23 09/07/23 History Metoprolol Tartrate [Lopressor] 50 mg PO BID@0700,1900 09/07/23 09/07/23 History Montelukast [Singulair] 10 mg PO HS@199909/07/23 09/07/23 History Multivitamins, Thera [Multivitamin 1 tab PO DAILY 09/07/23 09/07/23 History (formulary)] Sodium Chloride [[place]] 1 spr EA NOSTRIL DIRECTED PRN 09/07/23 09/07/23 History guaiFENesin [guaiFENesin Oral 200 mg PO Q4H PRN 09/07/23 09/07/23 History Solution] Allergies Allergy/AdvReac Type Severity Reaction Status Date / Time adhesive tape Allergy Unknown Verified 09/07/23 10:52 atorvastatin [From Lipitor] Allergy Unknown Verified 09/07/23 10:52 bacitracin Allergy Unknown Verified 09/07/23 10:52 doxycycline Allergy Unknown Verified 09/07/23 10:52 lovastatin [From Mevacor] Allergy Unknown Verified 09/07/23 10:52 nitrofurantoin Allergy Unknown Verified 09/07/23 10:52 [From Macrobid] Penicillins Allergy Rash/Hives Verified 09/07/23 10:52 simvastatin [From Zocor] Allergy Unknown Verified 09/07/23 10:52 [id number] Reductase Allergy Unknown Verified 09/07/23 10:52 Inhibitor Physical Exam Vitals: Vital Signs Temp Pulse Resp BP Pulse Ox FiO2 09/07/23 12:05 97.7 F 114 H 18 111/61 98 09/07/23 11:45 123 H 20 127/70 96 09/07/23 11:44 123 H 09/07/23 11:33 122 H 09/07/23 10:10 120 H 20 123/71 97 09/07/23 09:13 123 H 18 95 09/07/23 08:41 96 09/07/23 08:14 97.8 F 122 H 20 130/80 98 09/07/23 06:09 131 H 24 114/62 98 09/07/23 05:00 121 H 24 90/55 99 09/07/23 04:08 133 H 24 127/71 97 09/07/23 04:02 128 H 09/07/23 04:00 126 H 29 H 99 09/07/23 03:58 126 H 09/07/23 03:00 124 H 22 89/49 98 09/07/23 02:29 147 H 32 H 90/35 98 09/07/23 01:50 80 09/07/23 01:41 100 09/07/23 01:40 97.6 F 167 H 45 H 133/70 98 09/07/23 01:30 100 Intake and Output 09/06/23 09/07/23 09/07/23 22:59 06:59 14:59 Intake Total 3.333 67.183 Balance 3.333 67.183 Intake: Intake, IV Titration 3.333 67.183 Amount Diltiazem 125 mg In 3.333 Sodium Chloride 0.9% 100 ml @ 5 MG/HR 5 mls/hr IV .Q24H GRACE Rx#:[id number] Heparin Sod,Pork in 0.45% 67.183 NaCl 25,000 unit In 0.45 % NaCl 1 250ml.bag @ 12 UNITS/KG/HR 7.62 mls/hr IV .Q24H GRACE Rx#: [id number] Other: Weight 63.503 kg GENERAL EXAM: Alert, 77-year-old female, on 5 L nasal cannula, comfortable in no apparent distress. HEAD: Normocephalic. EYES: Normal reaction of pupils, equal size. NOSE: Clear with pink turbinates. THROAT: No erythema or exudates. NECK: No masses, no JVD. CHEST: No chest wall deformity. LUNGS: Equal air entry with few scattered rhonchi, end expiratory wheeze, diminished. CVS: S1 and S2 normal with no audible murmur, regular rhythm. ABDOMEN: Ostomy in place. No hepatosplenomegaly, normal bowel sounds, no guarding or rigidity. SPINE: No scoliosis or deformity SKIN: No rashes CENTRAL NERVOUS SYSTEM: No focal deficits, tone is normal in all 4 extremities. EXTREMITIES: There is no peripheral edema. No clubbing, no cyanosis. Peripheral pulses are intact. Results - Laboratory Findings CBC and BMP: 09/07/23 01:40 09/07/23 01:40 PT/INR, D-dimer PT 10.3 sec (10.0-12.5) 09/07/23 01:40 INR 0.9 (<1.2) 09/07/23 01:40 D-Dimer 1.08 mg/L FEU (<0.60) H 09/07/23 01:40 Abnormal lab findings: Abnormal Labs 09/07/23 09/07/23 09/07/23 01:35 01:40 01:40 WBC 22.2 H Plt Count 511 H Neutrophils # 18.9 H APTT D-Dimer 1.08 H VBG pCO2 Sodium Chloride Creatinine Glucose POC Glucose (mg/dL) 301 H Plasma Lactic Acid Thong Troponin I 09/07/23 09/07/23 09/07/23 01:40 01:40 01:40 WBC Plt Count Neutrophils # APTT D-Dimer VBG pCO2 Sodium 132 L Chloride 93 L Creatinine 0.51 L Glucose 304 H POC Glucose (mg/dL) Plasma Lactic Acid Thong 4.9 H* Troponin I 0.136 H* 09/07/23 09/07/23 01:53 09:20 WBC Plt Count Neutrophils # APTT 40.4 H D-Dimer VBG pCO2 52 H Sodium Chloride Creatinine Glucose POC Glucose (mg/dL) Plasma Lactic Acid Thong Troponin I - Diagnostic Findings Chest x-ray: image reviewed CT scan - chest: image reviewed Assessment and Plan Assessment: Acute on chronic hypoxemic respiratory failure secondary to an acute exacerbation of chronic obstructive pulmonary disease possibly complicated by a left lower lobe pneumonia. Viral screen negative. Pulmonary embolism ruled out Leukocytosis secondary to above Hyperglycemia Atrial fibrillation with a rapid ventricular response Acute exacerbation of suspected systolic versus diastolic congestive heart failure Former smoker History of bowel resection status post ostomy Plan: The patient was seen and evaluated Chest x-ray, CT angiogram, labs and medications reviewed Add DuoNeb inhalations, add Symbicort Continue antibiotics for now Check a pro-calcitonin Currently on a heparin drip Cardiology consult pending Titrate the FiO2 as tolerated We will continue to follow and make further recommendations based on her clinical status I have personally seen and examined the patient, performed the documentation and the assessment and plan as written. Number of minutes spent on the visit: 20.
[2023-09-07] MEDS ORDERED: ALBUTEROL HFA INHALER INHALATION PRN (12:47)
[2023-09-07] MEDS ORDERED: guaiFENesin SYRUP 100MG/5ML 200 MG/10 ML CUP PO PRN (12:47)
--- NOTE | 2023-09-07 12:50 | P.HPIM ---
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 Workup initiated in ER included chest x-ray, CT angiogram which was negative for pulmonary embolism. CT chest did show basal pneumonia or changes consistent with aspiration pneumonitis, right middle lobe lung nodule was noted as well, large left thyroid nodule seen * Hard work obtained on admission showed WBC of 22.2 hemoglobin 11.9 platelet count of 511, INR of 0.9 d-dimer 1.08 * Venous blood gas obtained pH 7.34 pCO2 52 * Serum chemistry showed sodium 132 potassium 4.8 chloride 90 3B UN 9 creatinine 0.51 glucose of 304 plasma lactic to 1.7 magnesium of 1.8 * Further workup in ER included an EKG which showed atrial fibrillation with rapid monitor response * Patient was given IV Cardizem push, started on IV antibiotics, received IV steroids in ED and placed on 6 L of oxygen * Patient to be admitted to progressive care unit with consultation from cardiology as well as pulmonary medicine REVIEW OF SYSTEMS: Shortness of breath, cough, palpitations, weakness CONSTITUTIONAL: No fever, no malaise, no fatigue. HEENT: No recent visual problems or hearing problems. Denied any sore throat. CARDIOVASCULAR: No chest pain, orthopnea, PND, no palpitations, no syncope. PULMONARY: Shortness of breath, cough, palpitations, weakness GASTROINTESTINAL: No diarrhea, no nausea, no vomiting, no abdominal pain. NEUROLOGICAL: No headaches, no weakness, no numbness. HEMATOLOGICAL: Denies any bleeding or petechiae. GENITOURINARY: Denies any burning micturition, frequency, or urgency. MUSCULOSKELETAL/RHEUMATOLOGICAL: Denies any joint pain, swelling, or any muscle pain. ENDOCRINE: Denies any polyuria or polydipsia. The rest of the 14-point review of systems is negative. PHYSICAL EXAMINATION: GENERAL: The patient is alert and oriented x3, ill appearance, nasal cannula in place, respiratory distress noted HEENT: Pupils are round and equally reacting to light. EOMI. CARDIOVASCULAR: S1 and S2 present. Irregular, tachycardia noted, PULMONARY: Decreased breath sounds bilaterally, nasal cannula in place ABDOMEN: Soft, nontender, nondistended, colostomy in place MUSCULOSKELETAL: No joint swelling or deformity. EXTREMITIES: No cyanosis, clubbing, or pedal edema. NEUROLOGICAL: Gross neurological examination did not reveal any focal deficits. SKIN: No rashes. Medications and Allergies Home Medications Medication Instructions Recorded Confirmed Type Acetaminophen [Tylenol 8 Hour] 650 mg PO BID 09/07/23 09/07/23 History Acetaminophen [Tylenol 8 Hour] 650 mg PO BID PRN 09/07/23 09/07/23 History Albuterol Inhaler [Ventolin Hfa 2 puff INHALATION RT-Q6H PRN 09/07/23 09/07/23 History Inhaler] Benzonatate [Tessalon Perle] 200 mg PO TID@0700,1300,1900 09/07/23 09/07/23 History Cetirizine HCl [Zyrtec] 10 mg PO DAILY 09/07/23 09/07/23 History Clopidogrel [Plavix] 75 mg PO Q2D 09/07/23 09/07/23 History Diclofenac Sodium Gel [Voltaren 1% 1 applic TOPICAL TID PRN 09/07/23 09/07/23 History Gel] Diltiazem Oral [Cardizem Oral] 30 mg PO TID@0700,1300,1900 09/07/23 09/07/23 History Famotidine [Pepcid] 20 mg PO DAILY 09/07/23 09/07/23 History Fluticasone Nasal [place] [Flonase 1 spr EA NOSTRIL DAILY@0700 09/07/23 09/07/23 History Nasal [place]] Fluticasone Propion/Salmeterol 1 puff INHALATION RT-BID@0700,1900 09/07/23 09/07/23 History [Advair 250-50 Diskus] Gabapentin [Neurontin] 200 mg PO TID@0700,1300,1900 09/07/23 09/07/23 History Healthshake 1 dose PO TID-W/MEALS 09/07/23 09/07/23 History Ipratropium-Albuterol Nebulize 3 ml INHALATION RT-Q4H PRN 09/07/23 09/07/23 History [Duoneb 0.5 mg-3 mg/3 ml Soln] L.acidoph,Paracasei, B.lactis 1 cap PO DAILY 09/07/23 09/07/23 History [Probiotic] Meclizine [Antivert] 12.5 mg PO Q8H PRN 09/07/23 09/07/23 History Melatonin 3 mg PO HS@199909/07/23 09/07/23 History Metoprolol Tartrate [Lopressor] 50 mg PO BID@0700,1900 09/07/23 09/07/23 History Montelukast [Singulair] 10 mg PO HS@199909/07/23 09/07/23 History Multivitamins, Thera [Multivitamin 1 tab PO DAILY 09/07/23 09/07/23 History (formulary)] Sodium Chloride [[place]] 1 spr EA NOSTRIL DIRECTED PRN 09/07/23 09/07/23 History guaiFENesin [guaiFENesin Oral 200 mg PO Q4H PRN 09/07/23 09/07/23 History Solution] Allergies Allergy/AdvReac Type Severity Reaction Status Date / Time adhesive tape Allergy Unknown Verified 09/07/23 10:52 atorvastatin [From Lipitor] Allergy Unknown Verified 09/07/23 10:52 bacitracin Allergy Unknown Verified 09/07/23 10:52 doxycycline Allergy Unknown Verified 09/07/23 10:52 lovastatin [From Mevacor] Allergy Unknown Verified 09/07/23 10:52 nitrofurantoin Allergy Unknown Verified 09/07/23 10:52 [From Macrobid] Penicillins Allergy Rash/Hives Verified 09/07/23 10:52 simvastatin [From Zocor] Allergy Unknown Verified 09/07/23 10:52 Rycdjiz-[id number]-ZcF Reductase Allergy Unknown Verified 09/07/23 10:52 Inhibitor Physical Exam Vitals: Vital Signs Temp Pulse Resp BP Pulse Ox FiO2 09/07/23 12:05 97.7 F 114 H 18 111/61 98 09/07/23 11:45 123 H 20 127/70 96 09/07/23 11:44 123 H 09/07/23 11:33 122 H 09/07/23 10:10 120 H 20 123/71 97 09/07/23 09:13 123 H 18 95 09/07/23 08:41 96 12/02/23 08:14 97.8 F 122 H 20 130/80 98 09/07/23 06:09 131 H 24 114/62 98 09/07/23 05:00 121 H 24 90/55 99 09/07/23 04:08 133 H 24 127/71 97 09/07/23 04:02 128 H 09/07/23 04:00 126 H 29 H 99 09/07/23 03:58 126 H 09/07/23 03:00 124 H 22 89/49 98 09/07/23 02:29 147 H 32 H 90/35 98 09/07/23 01:50 80 09/07/23 01:41 100 09/07/23 01:40 97.6 F 167 H 45 H 133/70 98 09/07/23 01:30 100 Intake and Output 09/06/23 09/07/23 09/07/23 22:59 06:59 14:59 Intake Total 3.333 67.183 Balance 3.333 67.183 Intake: Intake, IV Titration 3.333 67.183 Amount Diltiazem 125 mg In 3.333 Sodium Chloride 0.9% 100 ml @ 5 MG/HR 5 mls/hr IV .Q24H [facility] Rx#:[id number] Heparin Sod,Pork in 0.45% 67.183 NaCl 25,000 unit In 0.45 % NaCl 1 250ml.bag @ 12 UNITS/KG/HR 7.62 mls/hr IV .Q24H [facility] Rx#: [id number] Other: Weight 63.503 kg Results CBC & Chem 7: 09/07/23 01:40 09/07/23 01:40 Labs: Abnormal Lab Results - Last 24 Hours (Table) 09/07/23 09/07/23 09/07/23 Range/Units 01:35 01:40 01:40 WBC 22.2 H (3.8-10.6) k/uL Plt Count 511 H (150-450) k/uL Neutrophils # 18.9 H (1.3-7.7) k/uL APTT (22.0-30.0) sec D-Dimer 1.08 H (<0.60) mg/L FEU VBG pCO2 (37-51) mmHg Sodium (137-145) mmol/L Chloride (98-107) mmol/L Creatinine (0.52-1.04) mg/dL Glucose (74-99) mg/dL POC Glucose (mg/dL) 301 H (70-110) mg/dL Plasma Lactic Acid Thong (0.7-2.0) mmol/L Troponin I (0.000-0.034) ng/mL 09/07/23 09/07/23 09/07/23 Range/Units 01:40 01:40 01:40 WBC (3.8-10.6) k/uL Plt Count (150-450) k/uL Neutrophils # (1.3-7.7) k/uL APTT (22.0-30.0) sec D-Dimer (<0.60) mg/L FEU VBG pCO2 (37-51) mmHg Sodium 132 L (137-145) mmol/L Chloride 93 L (98-107) mmol/L Creatinine 0.51 L (0.52-1.04) mg/dL Glucose 304 H (74-99) mg/dL POC Glucose (mg/dL) (70-110) mg/dL Plasma Lactic Acid Thong 4.9 H* (0.7-2.0) mmol/L Troponin I 0.136 H* (0.000-0.034) ng/mL 09/07/23 09/07/23 Range/Units 01:53 09:20 WBC (3.8-10.6) k/uL Plt Count (150-450) k/uL Neutrophils # (1.3-7.7) k/uL APTT 40.4 H (22.0-30.0) sec D-Dimer (<0.60) mg/L FEU VBG pCO2 52 H (37-51) mmHg Sodium (137-145) mmol/L Chloride (98-107) mmol/L Creatinine (0.52-1.04) mg/dL Glucose (74-99) mg/dL POC Glucose (mg/dL) (70-110) mg/dL Plasma Lactic Acid Thong (0.7-2.0) mmol/L Troponin I (0.000-0.034) ng/mL Assessment and Plan Assessment: Assessment and plan * Acute on chronic hypoxic respiratory failure with acute exacerbation of COPD * Left lower lobe pneumonia * Sepsis secondary to pneumonia * Elevated troponin rule out ACS versus type II MT * Atrial fibrillation with rapid ventricular response * History of bowel resection status post colostomy * Recent COVID-19 infection * In regards to hypoxic respiratory failure, COPD exacerbation, continue patient on IV antibiotics on Levaquin/azithromycin/Flagyl * In regards to left lower lobe pneumonia, follow-up on sputum cultures, urine Legionella continue antibiotic * In regards to elevated troponin, continue IV heparin, continue Plavix cardiology consulted, continue IV Cardizem drip * In regards to recent COVID-19 infection patient tested negative for Covid on admission, continue supportive treatment * CODE STATUS is full code Time with Patient: Greater than 30
[2023-09-07] MEDS: FAMOTIDINE 20 MG TAB PO SCH (13:12)
[2023-09-07] MEDS: GABAPENTIN 100 MG CAP PO SCH ×2 (13:12→20:55)
[2023-09-07] MEDS: BENZONATATE 100 MG CAP PO SCH ×2 (13:12→20:56)
[2023-09-07] MEDS: methylPREDNISolone SOD SUCCI 40 MG/ML 1 ML VIAL IV SCH ×2 (13:13→21:15)
--- NOTE | 2023-09-07 15:18 | P.CRDCN ---
History of Present Illness Consult date: 09/07/23 History of present illness: HISTORY OF PRESENTING ILLNESS 77-year-old with PMH of COPD, on chronic oxygen, recent coronary infection, severe asthma, protein calorie malnutrition, generalized weakness, history of CVA, resident of a long term. She was brought to the hospital because of worsening shortness of breath and generalized weakness. On admission she was noticed to be in atrial fibrillation with rapid ventricular response. She received IV Cardizem and her heart rate has been controlled since. Hemoglobin 11, W BC 22, sodium 132, potassium 4.8, BUN 9, creatinine 0.5. Troponin was elevated at 0.136. Repeat was 0.5 Admission admission lactate was 4.9, repeat 1.7, BNP was [address] chest showed concerns of pneumonia. It also showed left subclavian artery stenosis with concerns of left subclavian steal. Large thyroid nodule. REVIEW OF SYSTEMS 14 point review of system is negative except what is mentioned above in HPI. PHYSICAL EXAMINATION Vital signs reviewed. Head: Normocephalic. Eyes: Sclerae nonicteric. Neck: Brisk carotid upstroke, no jugular venous distention. Lungs: Clear to auscultation. Heart: Regular rate and rhythm, S1-S2, no S3, no murmur or rub. Abdomen: Soft nontender, positive bowel sounds no organomegaly. Extremities: No edema, intact distal pulses. Neuro: Alert, oritented, no focal deficits ASSESSMENT Nstemi, likely type II Atrial fibrillation with rapid ventricular response Shortness of breath and generalized weakness due to left lower lobe Pneumonia, suspect Post viral Frailty and debility Recent over 90 infection PLAN Continue IV Cardizem drip Continue IV heparin drip Obtain an echocardiogram Discontinue Plavix, start aspirin Betty metoprolol 50 mg twice a day Medications and Allergies Home Medications Medication Instructions Recorded Confirmed Type Acetaminophen [Tylenol 8 Hour] 650 mg PO BID 09/07/23 09/07/23 History Acetaminophen [Tylenol 8 Hour] 650 mg PO BID PRN 09/07/23 09/07/23 History Albuterol Inhaler [Ventolin Hfa 2 puff INHALATION RT-Q6H PRN 09/07/23 09/07/23 History Inhaler] Benzonatate [Tessalon Perle] 200 mg PO TID@0700,1300,1900 09/07/23 09/07/23 History Cetirizine HCl [Zyrtec] 10 mg PO DAILY 09/07/23 09/07/23 History Clopidogrel [Plavix] 75 mg PO Q2D 09/07/23 09/07/23 History Diclofenac Sodium Gel [Voltaren 1% 1 applic TOPICAL TID PRN 09/07/23 09/07/23 History Gel] Diltiazem Oral [Cardizem Oral] 30 mg PO TID@0700,1300,1900 09/07/23 09/07/23 History Famotidine [Pepcid] 20 mg PO DAILY 09/07/23 09/07/23 History Fluticasone Nasal [place] [Flonase 1 spr EA NOSTRIL DAILY@0700 09/07/23 09/07/23 History Nasal [place]] Fluticasone Propion/Salmeterol 1 puff INHALATION RT-BID@0700,1900 09/07/23 09/07/23 History [Advair 250-50 Diskus] Gabapentin [Neurontin] 200 mg PO TID@0700,1300,1900 09/07/23 09/07/23 History Healthshake 1 dose PO TID-W/MEALS 09/07/23 09/07/23 History Ipratropium-Albuterol Nebulize 3 ml INHALATION RT-Q4H PRN 09/07/23 09/07/23 History [Duoneb 0.5 mg-3 mg/3 ml Soln] L.acidoph,Paracasei, B.lactis 1 cap PO DAILY 09/07/23 09/07/23 History [Probiotic] Meclizine [Antivert] 12.5 mg PO Q8H PRN 09/07/23 09/07/23 History Melatonin 3 mg PO HS@199909/07/23 09/07/23 History Metoprolol Tartrate [Lopressor] 50 mg PO BID@0700,1900 09/07/23 09/07/23 History Montelukast [Singulair] 10 mg PO HS@199909/07/23 09/07/23 History Multivitamins, Thera [Multivitamin 1 tab PO DAILY 09/07/23 09/07/23 History (formulary)] Sodium Chloride [[place]] 1 spr EA NOSTRIL DIRECTED PRN 09/07/23 09/07/23 History guaiFENesin [guaiFENesin Oral 200 mg PO Q4H PRN 09/07/23 09/07/23 History Solution] Allergies Allergy/AdvReac Type Severity Reaction Status Date / Time adhesive tape Allergy Unknown Verified 09/07/23 10:52 atorvastatin [From Lipitor] Allergy Unknown Verified 09/07/23 10:52 bacitracin Allergy Unknown Verified 09/07/23 10:52 doxycycline Allergy Unknown Verified 09/07/23 10:52 lovastatin [From Mevacor] Allergy Unknown Verified 09/07/23 10:52 nitrofurantoin Allergy Unknown Verified 09/07/23 10:52 [From Macrobid] Penicillins Allergy Rash/Hives Verified 09/07/23 10:52 simvastatin [From Zocor] Allergy Unknown Verified 09/07/23 10:52 Jawnzos-IRY-WwX Reductase Allergy Unknown Verified 09/07/23 10:52 Inhibitor Physical Exam Vitals: Vital Signs Temp Pulse Resp BP Pulse Ox FiO2 09/07/23 14:08 98.4 F 115 H 18 115/66 97 09/07/23 13:07 121 H 20 101/61 97 09/07/23 12:05 97.7 F 114 H 18 111/61 98 09/07/23 11:45 123 H 20 127/70 96 09/07/23 11:44 123 H 09/07/23 11:33 122 H 09/07/23 10:10 120 H 20 123/71 97 09/07/23 09:13 123 H 18 95 09/07/23 08:41 96 09/07/23 08:14 97.8 F 122 H 20 130/80 98 09/07/23 06:09 131 H 24 114/62 98 09/07/23 05:00 121 H 24 90/55 99 09/07/23 04:08 133 H 24 127/71 97 09/07/23 04:02 128 H 09/07/23 04:00 126 H 29 H 99 09/07/23 03:58 126 H 09/07/23 03:00 124 H 22 89/49 98 09/07/23 02:29 147 H 32 H 90/35 98 09/07/23 01:50 80 09/07/23 01:41 100 09/07/23 01:40 97.6 F 167 H 45 H 133/70 98 09/07/23 01:30 100 Intake and Output 09/07/23 09/07/23 09/07/23 06:59 14:59 22:59 Intake Total 3.333 67.183 Balance 3.333 67.183 Intake: Intake, IV Titration 3.333 67.183 Amount Diltiazem 125 mg In 3.333 Sodium Chloride 0.9% 100 ml @ 5 MG/HR 5 mls/hr IV .Q24H [facility] Rx#:[id number] Heparin Sod,Pork in 0.45% 67.183 NaCl 25,000 unit In 0.45 % NaCl 1 250ml.bag @ 12 UNITS/KG/HR 7.62 mls/hr IV .Q24H [facility] Rx#: [id number] Other: Weight 63.503 kg Results 09/07/23 01:40 09/07/23 01:40 Cardiac Enzymes 09/07/23 09/07/23 09/07/23 Range/Units 01:40 01:40 13:24 AST 29 (14-36) U/L Troponin I 0.136 H* 0.534 H* (0.000-0.034) ng/mL Coagulation 09/07/23 09/07/23 Range/Units 01:40 09:20 PT 10.3 (10.0-12.5) sec APTT 23.2 40.4 H (22.0-30.0) sec CBC 09/07/23 Range/Units 01:40 WBC 22.2 H (3.8-10.6) k/uL RBC 3.86 (3.80-5.40) m/uL Hgb 11.9 (11.4-16.0) gm/dL Hct 37.4 (34.0-46.0) % Plt Count 511 H (150-450) k/uL Comprehensive Metabolic Panel 09/07/23 Range/Units 01:40 Sodium 132 L (137-145) mmol/L Potassium 4.8 (3.5-5.1) mmol/L Chloride 93 L (98-107) mmol/L Carbon Dioxide 25 (22-30) mmol/L BUN 9 (7-17) mg/dL Creatinine 0.51 L (0.52-1.04) mg/dL Glucose 304 H (74-99) mg/dL Calcium 8.7 (8.4-10.2) mg/dL AST 29 (14-36) U/L ALT 19 (4-34) U/L Alkaline Phosphatase 67 (38-126) U/L Total Protein 6.5 (6.3-8.2) g/dL Albumin 3.5 (3.5-5.0) g/dL Current Medications Generic Name Dose Route Start Last Admin Trade Name Freq PRN Reason Stop Dose Admin Acetaminophen 650 mg 09/07/23 10:44 Acetaminophen Tab 325 Mg Tab PO Q4HR PRN Fever and/ or Pain Albuterol Sulfate 2.5 mg 09/07/23 10:45 Albuterol Nebulized 2.5 Mg/3 Ml INHALATION RT-Q2H PRN Shortness Of Breath Or Wheezing Albuterol Sulfate 2 puff 09/07/23 12:47 Albuterol Hfa Inhaler INHALATION RT-Q6H PRN COPD Albuterol/Ipratropium 3 ml 09/07/23 12:00 09/07/23 11:33 Ipratropium-Albuterol 3 Ml Neb INHALATION 3 ml RT-QID [facility] Administration Albuterol/Ipratropium 3 ml 09/07/23 10:45 Ipratropium-Albuterol 3 Ml Neb INHALATION RT-Q2H PRN Shortness Of Breath Or Wheezing Aspirin 81 mg 09/08/23 09:00 Aspirin 81 Mg PO DAILY [facility] Azithromycin 500 mg 09/08/23 09:00 Azithromycin 500 Mg Tab PO 09/09/23 09:01 DAILY [facility] Protocol Benzonatate 200 mg 09/07/23 13:00 09/07/23 13:12 Benzonatate 100 Mg Cap PO 200 mg TID@0700,1300,1900 [facility] Administration Budesonide/Formoterol Fumarate 2 puff 09/07/23 20:00 Symbicort 160-4.5 Mcg Inhaler INHALATION RT-BID [facility] Famotidine 20 mg 09/07/23 13:00 09/07/23 13:12 Famotidine 20 Mg Tab PO 20 mg DAILY [facility] Administration Fluticasone Propionate 1 spray 09/08/23 07:00 Fluticasone 50mcg/[place] Nasal 16gm EA NOSTRIL DAILY@0700 [facility] Gabapentin 200 mg 09/07/23 13:00 09/07/23 13:12 Gabapentin 100 Mg Cap PO 200 mg TID@0700,1300,1900 [facility] Administration Guaifenesin 200 mg 09/07/23 12:47 Guaifenesin Syrup 100mg/5ml 200 Mg/10 Ml Cup PO Q4H PRN Cough Heparin Sodium (Porcine) 0 unit 09/07/23 01:57 09/07/23 11:23 Heparin Sodium 1,000 Un/Ml (10ml Vl) IV 1,587.5 unit PER PROTOCOL PRN Administration Low PTT Protocol Diltiazem HCl 125 mg/ Sodium 125 mls @ 5 mls/hr 09/07/23 01:45 09/07/23 02:36 Chloride IV 0 mg/hr .Q24H [facility] 0 mls/hr Infusion 5 MG/HR Heparin Sodium/Sodium Chloride 250 mls @ 7.62 mls/hr 09/07/23 02:00 09/07/23 11:25 25,000 unit/ Sodium Chloride IV 14 units/kg/hr .Q24H [facility] 8.89 mls/hr Administration Protocol 12 UNITS/KG/HR Sodium Chloride 1,000 mls @ 20 mls/hr 09/07/23 06:30 09/07/23 06:39 Saline 0.9% IV 20 mls/hr .Q24H [facility] Administration Metronidazole 500 mg/ IV 100 mls @ 100 mls/hr 09/07/23 11:00 09/07/23 11:35 Solution IVPB 100 mls/hr Q8H [facility] Administration Protocol Levofloxacin 750 mg 09/08/23 09:00 Levofloxacin 750 Mg Tab PO 09/11/23 09:01 Q24H [facility] Protocol Loratadine 10 mg 09/08/23 09:00 Loratadine 10 Mg Tab PO DAILY [facility] Melatonin 3 mg 09/07/23 20:00 Melatonin 3 Mg Tablet PO HS@1999 [facility] Methylprednisolone Sodium Succinate 40 mg 09/07/23 13:00 09/07/23 13:13 Methylprednisolone Sod Succi 40 Mg/Ml 1 Ml Vial IV 40 mg Q12HR [facility] Administration Metoprolol Tartrate 50 mg 09/07/23 19:00 Metoprolol Tartrate 50 Mg Tab PO BID@0700,1900 [facility] Miscellaneous Information 1 each 09/07/23 10:44 Pneumonia Protocol Utilized 1 Each Misc PO ONCE PRN Per Protocol Montelukast Sodium 10 mg 09/07/23 20:00 Montelukast 10 Mg Tab PO HS@1999 [facility] Naloxone HCl 0.2 mg 09/07/23 06:21 Naloxone 0.4 Mg/Ml 1 Ml Vial IV Q2M PRN Opioid Reversal Ondansetron HCl 4 mg 09/07/23 11:29 09/07/23 11:33 Ondansetron 4 Mg/2 Ml Vial IVP 4 mg Q6HR PRN Administration Nausea And Vomiting Intake and Output 09/07/23 09/07/23 09/07/23 06:59 14:59 22:59 Intake Total 3.333 67.183 Balance 3.333 67.183 Intake: Intake, IV Titration 3.333 67.183 Amount Diltiazem 125 mg In 3.333 Sodium Chloride 0.9% 100 ml @ 5 MG/HR 5 mls/hr IV .Q24H [facility] Rx#:[id number] Heparin Sod,Pork in 0.45% 67.183 NaCl 25,000 unit In 0.45 % NaCl 1 250ml.bag @ 12 UNITS/KG/HR 7.62 mls/hr IV .Q24H [facility] Rx#: [id number] Other: Weight 63.503 kg 09/07/23 01:40 09/07/23 01:40
[2023-09-07] MEDS ORDERED: SYMBICORT 80-4.5 MCG INHALER INHALATION SCH (20:00)
[2023-09-07] MEDS: MONTELUKAST 10 MG TAB PO SCH (20:56)
[2023-09-07] MEDS: METOPROLOL TARTRATE 50 MG TAB PO SCH (20:57)
[2023-09-07] MEDS: MELATONIN 3 MG TABLET PO SCH (20:57)
[2023-09-07] MEDS: SYMBICORT 160-4.5 MCG INHALER INHALATION SCH (21:22)
[2023-09-07 21:26] LABS: Glucose,Whole Blood 165 mg/dL (70-110)
[2023-09-08] MEDS: DILTIAZEM 125 MG in SODIUM CHLORIDE 0.9% 100 ML IV SCH (01:04)
[2023-09-08] MEDS: metroNIDAZOLE-NS PMX 500 MG in SALINE 1 100ML.BAG IVPB SCH ×3 (03:25→21:33)
[2023-09-08] MEDS ORDERED: SODIUM CHLORIDE 0.9% 500 ML 500 ML IV ONE (05:50)
[2023-09-08] MEDS: IPRATROPIUM-ALBUTEROL 3 ML NEB INHALATION SCH ×4 (07:58→19:45)
[2023-09-08] MEDS: SYMBICORT 160-4.5 MCG INHALER INHALATION SCH ×3 (07:58→19:45)
[2023-09-08] MEDS ORDERED: AZITHROMYCIN 500 MG TAB PO SCH (09:00)
[2023-09-08] MEDS ORDERED: CLOPIDOGREL 75 MG TAB PO SCH (09:00)
[2023-09-08] MEDS: SODIUM CHLORIDE 0.9% 1,000 ML IV SCH (09:34)
[2023-09-08] MEDS: BENZONATATE 100 MG CAP PO SCH ×3 (09:35→21:19)
[2023-09-08] MEDS: FAMOTIDINE 20 MG TAB PO SCH (09:35)
[2023-09-08] MEDS: methylPREDNISolone SOD SUCCI 40 MG/ML 1 ML VIAL IV SCH ×2 (09:35→21:30)
[2023-09-08] MEDS: LEVOFLOXACIN 750 MG TAB PO SCH (09:35)
[2023-09-08] MEDS: ASPIRIN 81 MG PO SCH (09:35)
[2023-09-08] MEDS: GABAPENTIN 100 MG CAP PO SCH ×3 (09:35→21:18)
[2023-09-08] MEDS: METOPROLOL TARTRATE 50 MG TAB PO SCH ×2 (09:35→21:21)
[2023-09-08] MEDS: LORATADINE 10 MG TAB PO SCH (09:35)
[2023-09-08] MEDS: FLUTICASONE 50MCG/SPRAY NASAL 16GM EA NOSTRIL SCH (09:36)
[2023-09-08 10:12] LABS: HCT 30.9 % (34.0-46.0); HGB 10.3 gm/dL (11.4-16.0); MCH 31.9 pg (25.0-35.0); MCHC 33.3 g/dL (31.0-37.0); MCV 95.7 fL (80.0-100.0); Mean Platelet Volume 8.2; Platelet Count 456 k/uL (150-450); RBC 3.23 m/uL (3.80-5.40); RDW 14.4 % (11.5-15.5); WBC 15.4 k/uL (3.8-10.6)
--- NOTE | 2023-09-08 12:34 | P.PN ---
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 Workup initiated in ER included chest x-ray, CT angiogram which was negative for pulmonary embolism. CT chest did show basal pneumonia or changes consistent with aspiration pneumonitis, right middle lobe lung nodule was noted as well, large left thyroid nodule seen * Hard work obtained on admission showed WBC of 22.2 hemoglobin 11.9 platelet count of 511, INR of 0.9 d-dimer 1.08 * Venous blood gas obtained pH 7.34 pCO2 52 * Serum chemistry showed sodium 132 potassium 4.8 chloride 90 3B UN 9 creatinine 0.51 glucose of 304 plasma lactic to 1.7 magnesium of 1.8 * Further workup in ER included an EKG which showed atrial fibrillation with rapid monitor response * Patient was given IV Cardizem push, started on IV antibiotics, received IV steroids in ED and placed on 6 L of oxygen * Patient to be admitted to progressive care unit with consultation from cardiology as well as pulmonary medicine * 09/08/2023: Patient seen and evaluated bedside patient in ER room 16, on 4 L of oxygen through nasal cannula, patient states her breathing has improved, patient was on Cardizem drip which will be weaned off cardiology following continue oral medications including metoprolol, continue IV antibiotics including Levaquin and Flagyl pointed QTC levels. Echocardiogram ordered as well. Blood work pending at this time including CBC and specimen metabolic panel REVIEW OF SYSTEMS: Shortness of breath, cough, palpitations, weakness improved CONSTITUTIONAL: No fever, no malaise, no fatigue. HEENT: No recent visual problems or hearing problems. Denied any sore throat. CARDIOVASCULAR: No chest pain, orthopnea, PND, no palpitations, no syncope. PULMONARY: Shortness of breath, cough, palpitations, weakness GASTROINTESTINAL: No diarrhea, no nausea, no vomiting, no abdominal pain. NEUROLOGICAL: No headaches, no weakness, no numbness. HEMATOLOGICAL: Denies any bleeding or petechiae. GENITOURINARY: Denies any burning micturition, frequency, or urgency. MUSCULOSKELETAL/RHEUMATOLOGICAL: Denies any joint pain, swelling, or any muscle pain. ENDOCRINE: Denies any polyuria or polydipsia. The rest of the 14-point review of systems is negative. PHYSICAL EXAMINATION: GENERAL: The patient is alert and oriented x3, ill appearance, nasal cannula in place, respiratory distress resolved HEENT: Pupils are round and equally reacting to light. EOMI. CARDIOVASCULAR: S1 and S2 present. Irregular, tachycardia noted, PULMONARY: Decreased breath sounds bilaterally, nasal cannula in place ABDOMEN: Soft, nontender, nondistended, colostomy in place MUSCULOSKELETAL: No joint swelling or deformity. EXTREMITIES: No cyanosis, clubbing, or pedal edema. NEUROLOGICAL: Gross neurological examination did not reveal any focal deficits. SKIN: No rashes. Objective - Vital Signs Vital signs: Vital Signs Temp 98.2 F 09/07/23 16:00 Pulse 96 09/08/23 12:20 Resp 18 09/08/23 10:00 BP 124/69 09/08/23 10:00 Pulse Ox 98 09/08/23 10:00 FiO2 80 09/07/23 01:50 Intake & Output 09/07/23 09/08/23 09/08/23 18:59 06:59 18:59 Intake Total 167.183 126.238 Balance 167.183 126.238 Weight 63.503 kg Intake: Intake, IV Titration 67.183 126.238 Amount Heparin Sod,Pork in 0.45% 67.183 126.238 NaCl 25,000 unit In 0.45 % NaCl 1 250ml.bag @ 12 UNITS/KG/HR 7.62 mls/hr IV .Q24H [facility] Rx#: [id number] Oral 100 Other: Voiding Method Diaper # Voids 2 - Labs CBC & Chem 7: 09/08/23 09:21 09/07/23 01:40 Labs: Abnormal Lab Results - Last 24 Hours (Table) 09/07/23 09/07/23 09/07/23 Range/Units 09:20 13:24 17:54 WBC (3.8-10.6) k/uL RBC (3.80-5.40) m/uL Hgb (11.4-16.0) gm/dL Hct (34.0-46.0) % Plt Count (150-450) k/uL APTT 57.2 H (22.0-30.0) sec POC Glucose (mg/dL) (70-110) mg/dL Troponin I 0.534 H* (0.000-0.034) ng/mL Procalcitonin 0.12 H (0.02-0.09) ng/mL 09/07/23 09/08/23 09/08/23 Range/Units 21:23 09:21 09:21 WBC 15.4 H (3.8-10.6) k/uL RBC 3.23 L (3.80-5.40) m/uL Hgb 10.3 L (11.4-16.0) gm/dL Hct 30.9 L (34.0-46.0) % Plt Count 456 H (150-450) k/uL APTT 77.2 H (22.0-30.0) sec POC Glucose (mg/dL) 165 H (70-110) mg/dL Troponin I (0.000-0.034) ng/mL Procalcitonin (0.02-0.09) ng/mL Assessment and Plan Assessment: Assessment and plan * Acute on chronic hypoxic respiratory failure with acute exacerbation of COPD * Left lower lobe pneumonia * Sepsis secondary to pneumonia * Elevated troponin rule out ACS versus type II CO * Atrial fibrillation with rapid ventricular response * History of bowel resection status post colostomy * Recent COVID-19 infection * In regards to hypoxic respiratory failure, COPD exacerbation, continue patient on IV antibiotics on Levaquin//Flagyl, IV Solu-Medrol. Appreciate input from pulmonary medicine * In regards to left lower lobe pneumonia, follow-up on sputum cultures, urine Legionella continue antibiotic, day 2 of antibiotic * In regards to elevated troponin, continue IV heparin, continue Plavix cardiology consulted, will wean off IV Cardizem drip as tolerated * In regards to recent COVID-19 infection patient tested negative for Covid on admission, continue supportive treatment * In regards to history of ostomy continue with ostomy care * CODE STATUS is full code Time with Patient: Greater than 30
--- NOTE | 2023-09-08 13:20 | P.PN ---
Subjective Progress Note Date: 09/08/23 Principal diagnosis: Shortness of breath. This is a 77-year-old female patient who resides at [facility] and has a history of oxygen dependent chronic obstructive pulmonary disease was brought into the emergency room early this morning with complaints of increasing short ness of breath or chest x-ray shows a mild left lower lobe posterior infiltrate. Evidence of COPD. CT angiogram ruled out pulmonary embolism. Probable basal pneumonia or aspiration pneumonitis changes upon significant diffuse emphysema. White count 22.2. Hemoglobin 11.9. Platelets 511. D-dimer 1.08. Potassium 4.8. Sodium 132. Bicarb 25. BUN 9. Creatinine 0.51. Glucose 301. Troponin 0.136. ProBNP 9530. Viral screen negative. She is seen today in consultation in the emergency department. Currently sitting up in a stretcher. Awake and alert. Maintaining O2 saturations in the upper 90s on 5 L/m per nasal cannula. Afebrile. Hemodynamically stable. Somewhat of a poor historian. EKG reveals atrial fibrillation with a rapid ventricular response, left bundle branch block. Progress note dated 09/08/2023. 77-year-old female seen in the emergency department again, room 16. She was seen in consultation yesterday. She has a history of oxygen-dependent COPD, and was brought to the emergency department with complaints of increasing shortness of breath. She actually thought that she was at [facility]. She was CT angiogram that ruled out pulmonary embolism. She had a chest x-ray which revealed a mild left lower lobe infiltrate. Currently, the patient is on 5 L of oxygen. She is receiving IV heparin. The patient is getting antibiotics in the form of Levaquin. Her pro-calcitonin level was 0.12. She was admitted with a diagnosis of COPD exacerbation, plus or minus pneumonia. White count was 15.4, hemoglobin 10.3, hematocrit 30.9, and platelet count 456,000. Objective - Vital Signs Vital signs: Vital Signs Temp 98.2 F 09/07/23 16:00 Pulse 96 09/08/23 12:20 Resp 20 09/08/23 12:00 BP 114/65 09/08/23 12:00 Pulse Ox 95 09/08/23 12:00 FiO2 80 09/07/23 01:50 Intake & Output 09/07/23 09/08/23 09/08/23 18:59 06:59 18:59 Intake Total 167.183 126.238 Balance 167.183 126.238 Weight 63.503 kg Intake: Intake, IV Titration 67.183 126.238 Amount Heparin Sod,Pork in 0.45% 67.183 126.238 NaCl 25,000 unit In 0.45 % NaCl 1 250ml.bag @ 12 UNITS/KG/HR 7.62 mls/hr IV .Q24H [facility] Rx#: [id number] Oral 100 Other: Voiding Method Diaper # Voids 2 - Exam Mild respiratory difficulty, oriented, currently on 5 L of oxygen. No audible wheezing. HEENT examination is grossly unremarkable. Neck supple. Full range of motion. No adenopathy thyromegaly or neck vein distention. Cardiovascular examination reveals regular rhythm rate. S1-S2 normal. No S3 or S4. No discernible murmur noted. Heart rate 90 bpm. Lungs reveal scattered expiratory rhonchi and wheezes. No crackles. Breath sounds equal bilaterally. Saturations are 95% on 5 L. Abdomen soft bowel sounds are heard. No masses or tenderness. Extremities are intact. No cyanosis clubbing or edema. Skin is without rash or lesion. Neurologic examination is brief but nonfocal. - Labs CBC & Chem 7: 09/08/23 09:21 09/07/23 01:40 Labs: Abnormal Lab Results - Last 24 Hours (Table) 09/07/23 09/07/23 09/07/23 Range/Units 09:20 13:24 17:54 WBC (3.8-10.6) k/uL RBC (3.80-5.40) m/uL Hgb (11.4-16.0) gm/dL Hct (34.0-46.0) % Plt Count (150-450) k/uL APTT 57.2 H (22.0-30.0) sec POC Glucose (mg/dL) (70-110) mg/dL Troponin I 0.534 H* (0.000-0.034) ng/mL Procalcitonin 0.12 H (0.02-0.09) ng/mL 09/07/23 09/08/23 09/08/23 Range/Units 21:23 09:21 09:21 WBC 15.4 H (3.8-10.6) k/uL RBC 3.23 L (3.80-5.40) m/uL Hgb 10.3 L (11.4-16.0) gm/dL Hct 30.9 L (34.0-46.0) % Plt Count 456 H (150-450) k/uL APTT 77.2 H (22.0-30.0) sec POC Glucose (mg/dL) 165 H (70-110) mg/dL Troponin I (0.000-0.034) ng/mL Procalcitonin (0.02-0.09) ng/mL Assessment and Plan Assessment: Acute on chronic hypoxemic respiratory failure secondary to an acute exacerbation of chronic obstructive pulmonary disease possibly complicated by a left lower lobe pneumonia. Viral screen negative. Pulmonary embolism ruled out. Leukocytosis secondary to above. Hyperglycemia. Atrial fibrillation with a rapid ventricular response. Acute exacerbation of suspected systolic versus diastolic congestive heart failure. Former smoker. History of bowel resection, status post ostomy. Plan: Plan dated 09/08/2023. The patient continues on oxygen, updrafts, Tessalon Perles, and antibiotics. The patient also continues on Solu-Medrol. Will continue to follow, and make recommendations were appropriate. 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 Actually, the patient thought she was at [facility], mostly for saw her in the emergency department yesterday. She was disappointed that she was at [facility]. Anyway, she appears to be a bit more stable today than yesterday. Prognosis is guarded. Time with Patient: Less than 30
[2023-09-08 13:21] LABS: African American GFR (CKD) >90 (>60 ml/min/1.73 sqM); Anion Gap 10 mmol/L; Blood Urea Nitrogen 20 mg/dL (7-17); Calcium 8.6 mg/dL (8.4-10.2); Carbon Dioxide 27 mmol/L (22-30); Chloride 103 mmol/L (98-107); Glucose 137 mg/dL (74-99); Non-African American GFR(CKD) 90 (>60 ml/min/1.73 sqM); Potassium 4.3 mmol/L (3.5-5.1); Sodium 140 mmol/L (137-145)
[2023-09-08 13:57] LABS: C Reactive Protein 13.7 mg/dL (<1.0)
--- NOTE | 2023-09-08 19:30 | CA ---
Transthoracic Echo Report Name: Dolly Cano Age: 77 Gender: F : 1945 Exam Date: 09/07/2023 13:41 Exam Location: [facility] Ht (in): 65 Wt (lb): 140 Ordering Physician: Kike Carballo MD [id number]) Attending/Referring Phys: Organizational Development Specialist Juana Henry RDCS Procedure CPT: Indications: CHF and NSTEMI Cardiac Hx: Technical Quality: Good Contrast 1: Total Dose (mL): Contrast 2: Total Dose (mL): MEASUREMENTS (Male / Female) Normal Values 2D ECHO LV Diastolic Diameter PLAX 4.6 cm 4.2 - 5.9 / 3.9 - 5.3 cm LV Systolic Diameter PLAX 3.0 cm IVS Diastolic Thickness 1.2 cm 0.6 - 1.0 / 0.6 - 0.9 cm LVPW Diastolic Thickness 1.2 cm 0.6 - 1.0 / 0.6 - 0.9 cm LV Relative Wall Thickness 0.5 RV Internal Dim ED PLAX 2.1 cm LVOT Diameter 2.0 cm LA Systolic Diameter LX 3.1 cm 3.0 - 4.0 / 2.7 - 3.8 cm LV Diastolic Volume MOD BP 65.1 cm??? 67 - 155 / 56 - 104 cm??? LV Systolic Volume MOD BP 38.0 cm??? 22 - 58 / 19 - 49 cm??? LV Ejection Fraction MOD BP 41.5 % >= 55 % LV Cardiac Index MOD BP 1862.1 cm???/min???m??? LV Diastolic Volume MOD 4C 70.9 cm??? LV Systolic Volume MOD 4C 39.7 cm??? LV Ejection Fraction MOD 4C 43.9 % LV Cardiac Index MOD 4C 2145.6 cm???/min???m??? LV Diastolic Length 4C 7.0 cm LV Systolic Length 4C 7.3 cm LV Diastolic Volume MOD 2C 55.9 cm??? LV Systolic Volume MOD 2C 37.3 cm??? LV Ejection Fraction MOD 2C 33.2 % LV Cardiac Index MOD 2C 1279.4 cm???/min???m??? LV Diastolic Length 2C 7.5 cm LV Systolic Length 2C 7.4 cm LA Volume 44.2 cm??? 18 - 58 / 22 - 52 cm??? LA Volume Index 25.8 cm???/m??? 16 - 28 cm???/m??? M-MODE Aortic Root Diameter MM 2.8 cm MV E Point Septal Separation 0.8 cm DOPPLER AV Peak Velocity 147.3 cm/s AV Peak Gradient 8.7 mmHg AV Mean Velocity 98.0 cm/s AV Mean Gradient 4.4 mmHg AV Velocity Time Integral 26.1 cm AI Peak Velocity 388.5 cm/s AI Peak Gradient 60.4 mmHg AI Pressure Half Time 331.8 ms MV Peak Velocity 184.5 cm/s MV Peak Gradient 13.6 mmHg MV Mean Velocity 91.5 cm/s MV Mean Gradient 4.7 mmHg MV Velocity Time Integral 31.0 cm MV Area PHT 5.7 cm??? MV Deceleration Time 73.3 ms MV E' Velocity 7.2 cm/s TR Peak Velocity 269.7 cm/s TR Peak Gradient 29.1 mmHg Right Ventricular Systolic Press 35.0 mmHg FINDINGS Left Ventricle Left ventricular ejection fraction is estimated at 35-40 %. Left ventricular cavity size normal. . Moderately decreased left ventricular ejection fraction. Anteroapical and Apical culp akinesis Right Ventricle Normal right ventricular size. Mild pulmonary hypertension. Right Atrium Normal right atrial size. Left Atrium Normal left atrial size. Mitral Valve Mitral valve thickened. Moderate mitral annular calcification. Mild mitral regurgitation. Aortic Valve Trileaflet aortic valve. Aortic valve sclerosis. Moderate aortic regurgitation. Tricuspid Valve Structurally normal tricuspid valve. Mild tricuspid regurgitation. Pulmonic Valve Pulmonic valve not well visualized. Pericardium No pericardial effusion. Aorta Normal size aortic root and proximal ascending aorta. CONCLUSIONS Left ventricular ejection fraction is estimated at 35 %. Normal LV cavity size Anteroapical and Apical culp akinesis. Moderate mitral annular calcification, mild MR Elevated LV filling pressures Sclerotic aortic valve with moderate aortic regurg Previewed by: Dr Kike Carballo (Electronically Signed) Final Date: 08 September 2023 19:29
--- NOTE | 2023-09-08 19:40 | P.PN ---
Subjective Progress Note Date: 09/08/23 Progress note Patient is seen and examined at bedside the same. She continues to be in atrial fibrillation with heart rate around 100 beats a minute. She still appears weak. She reports mild shortness of breath which is slightly getting better. HPI 77-year-old with PMH of COPD, on chronic oxygen, recent coronary infection, severe asthma, protein calorie malnutrition, generalized weakness, history of CVA, resident of a group home. She was brought to the hospital because of worsening shortness of breath and generalized weakness. On admission she was noticed to be in atrial fibrillation with rapid ventricular response. She received IV Cardizem and her heart rate has been controlled since. Hemoglobin 11, W BC 22, sodium 132, potassium 4.8, BUN 9, creatinine 0.5. Troponin was elevated at 0.136. Repeat was 0.5 Admission admission lactate was 4.9, repeat 1.7, BNP was [address] chest showed concerns of pneumonia. It also showed left subclavian artery stenosis with concerns of left subclavian steal. Large thyroid nodule. REVIEW OF SYSTEMS 14 point review of system is negative except what is mentioned above in HPI. PHYSICAL EXAMINATION Vital signs reviewed. Head: Normocephalic. Eyes: Sclerae nonicteric. Neck: Brisk carotid upstroke, no jugular venous distention. Lungs: Clear to auscultation. Heart: Regular rate and rhythm, S1-S2, no S3, no murmur or rub. Abdomen: Soft nontender, positive bowel sounds no organomegaly. Extremities: No edema, intact distal pulses. Neuro: Alert, oritented, no focal deficits ASSESSMENT Nstemi, likely type II Mild CHF exacerbation with elevated LV filling pressures Cardiomyopathy, unknown etiology, EF 35% anteroapical and apical hypokinesia Moderate aortic regurgitation Atrial fibrillation with rapid ventricular response Shortness of breath and generalized weakness due to left lower lobe Pneumonia, suspect Post viral and mild CHF exacerbation Anemia Frailty and debility Recent COVID-19 infection Echo Showed an EF of 35% with anteroapical and apical wall hypokinesia. Moderate aortic regurgitation, elevated LV filling pressures PLAN Suspected to be stress cardiomyopathy but ischemic cardiomyopathy cannot be ruled out. Patient will need an inpatient heart catheterization once optimized from respiratory stand point on Saturday. Discontinue Cardizem drip. Continue metoprolol 50 mg twice a day Aspirin and atorvastatin Continue IV heparin drip Start amiodarone 400 mg twice a day for 7 days for rhythm control strategy due to cardiomyopathy Monitor for QTC. Repeat ECG for next 2-3 days as patient is on Levaquin. Would request primary team to re-evaluate antibiotic Start Lasix 40 mg IV daily for next 2 days. Monitor renal function Objective - Vital Signs Vital signs: Vital Signs Temp 98.2 F 09/07/23 16:00 Pulse 101 H 09/08/23 15:48 Resp 20 09/08/23 12:00 BP 114/65 09/08/23 12:00 Pulse Ox 95 09/08/23 12:00 FiO2 80 09/07/23 01:50 Intake & Output 09/08/23 09/08/23 09/09/23 06:59 18:59 06:59 Intake Total 126.238 Balance 126.238 Weight 63.503 kg Intake: Intake, IV Titration 126.238 Amount Heparin Sod,Pork in 0.45% 126.238 NaCl 25,000 unit In 0.45 % NaCl 1 250ml.bag @ 12 UNITS/KG/HR 7.62 mls/hr IV .Q24H [facility] Rx#: [id number] - Labs CBC & Chem 7: 09/08/23 09:21 09/08/23 09:21 Labs: Abnormal Lab Results - Last 24 Hours (Table) 09/07/23 09/07/23 09/08/23 Range/Units 09:20 21:23 09:21 WBC 15.4 H (3.8-10.6) k/uL RBC 3.23 L (3.80-5.40) m/uL Hgb 10.3 L (11.4-16.0) gm/dL Hct 30.9 L (34.0-46.0) % Plt Count 456 H (150-450) k/uL APTT (22.0-30.0) sec BUN (7-17) mg/dL Glucose (74-99) mg/dL POC Glucose (mg/dL) 165 H (70-110) mg/dL C-Reactive Protein (<1.0) mg/dL Procalcitonin 0.12 H (0.02-0.09) ng/mL 09/08/23 09/08/23 Range/Units 09:21 09:21 WBC (3.8-10.6) k/uL RBC (3.80-5.40) m/uL Hgb (11.4-16.0) gm/dL Hct (34.0-46.0) % Plt Count (150-450) k/uL APTT 77.2 H (22.0-30.0) sec BUN 20 H (7-17) mg/dL Glucose 137 H (74-99) mg/dL POC Glucose (mg/dL) (70-110) mg/dL C-Reactive Protein 13.7 H (<1.0) mg/dL Procalcitonin (0.02-0.09) ng/mL
[2023-09-08] MEDS: MELATONIN 3 MG TABLET PO SCH (21:20)
[2023-09-08] MEDS: MONTELUKAST 10 MG TAB PO SCH (21:21)
[2023-09-08] MEDS: AMIODARONE 200 MG TAB PO SCH (21:21)
[2023-09-08] MEDS: FUROSEMIDE 10 MG/ML 4 ML VIAL IV SCH (21:27)
[2023-09-09] MEDS: HEPARIN SOD,PORK IN 0.45% NACL 25,000 UNIT in 0.45% NACL 1 250ML.BAG IV SCH (01:20)
[2023-09-09] MEDS: metroNIDAZOLE-NS PMX 500 MG in SALINE 1 100ML.BAG IVPB SCH ×3 (02:26→18:26)
[2023-09-09] MEDS: SODIUM CHLORIDE 0.9% 1,000 ML IV SCH (06:36)
[2023-09-09] MEDS: GABAPENTIN 100 MG CAP PO SCH ×3 (06:37→18:26)
[2023-09-09] MEDS: BENZONATATE 100 MG CAP PO SCH ×3 (06:37→18:26)
[2023-09-09] MEDS: METOPROLOL TARTRATE 50 MG TAB PO SCH ×2 (06:38→18:26)
[2023-09-09] MEDS: FLUTICASONE 50MCG/SPRAY NASAL 16GM EA NOSTRIL SCH (06:45)
[2023-09-09 07:51] LABS: HCT 32.3 % (34.0-46.0); HGB 10.3 gm/dL (11.4-16.0); Hypochromasia Slight; MCH 31.3 pg (25.0-35.0); MCHC 31.9 g/dL (31.0-37.0); MCV 97.9 fL (80.0-100.0); Mean Platelet Volume 7.6; Platelet Count 435 k/uL (150-450); RDW 14.1 % (11.5-15.5); WBC 11.5 k/uL (3.8-10.6)
[2023-09-09 08:08] LABS: African American GFR (CKD) >90 (>60 ml/min/1.73 sqM); Anion Gap 7 mmol/L; Blood Urea Nitrogen 18 mg/dL (7-17); Calcium 8.5 mg/dL (8.4-10.2); Carbon Dioxide 28 mmol/L (22-30); Chloride 102 mmol/L (98-107); Glucose 136 mg/dL (74-99); Non-African American GFR(CKD) 86 (>60 ml/min/1.73 sqM); Potassium 4.1 mmol/L (3.5-5.1); Sodium 137 mmol/L (137-145)
[2023-09-09] MEDS: SYMBICORT 160-4.5 MCG INHALER INHALATION SCH ×2 (08:51→20:23)
[2023-09-09] MEDS: IPRATROPIUM-ALBUTEROL 3 ML NEB INHALATION SCH ×4 (08:51→20:23)
[2023-09-09] MEDS: LEVOFLOXACIN 750 MG TAB PO SCH (09:18)
[2023-09-09] MEDS: FAMOTIDINE 20 MG TAB PO SCH (09:18)
[2023-09-09] MEDS: AMIODARONE 200 MG TAB PO SCH ×2 (09:18→21:14)
[2023-09-09] MEDS: LORATADINE 10 MG TAB PO SCH (09:18)
[2023-09-09] MEDS: ASPIRIN 81 MG PO SCH (09:18)
[2023-09-09] MEDS: FUROSEMIDE 10 MG/ML 4 ML VIAL IV SCH (09:27)
[2023-09-09] MEDS: methylPREDNISolone SOD SUCCI 40 MG/ML 1 ML VIAL IV SCH ×2 (09:30→21:14)
--- NOTE | 2023-09-09 10:03 | P.PN ---
Subjective Progress Note Date: 09/09/23 This is a 77-year-old female patient who resides at [facility] and has a history of oxygen dependent chronic obstructive pulmonary disease was brought into the emergency room early this morning with complaints of increasing shortness of breath or chest x-ray shows a mild left lower lobe posterior infiltrate. Evidence of COPD. CT angiogram ruled out pulmonary embolism. Probable basal pneumonia or aspiration pneumonitis changes upon significant diffuse emphysema. White count 22.2. Hemoglobin 11.9. Platelets 511. D-dimer 1.08. Potassium 4.8. Sodium 132. Bicarb 25. BUN 9. Creatinine 0.51. Glucose 301. Troponin 0.136. ProBNP 9530. Viral screen negative. She is seen today in consultation in the emergency department. Currently sitting up in a stretcher. Awake and alert. Maintaining O2 saturations in the upper 90s on 5 L/m per nasal cannula. Afebrile. Hemodynamically stable. Somewhat of a poor historian. EKG reveals atrial fibrillation with a rapid ventricular response, left bundle branch block. Progress note dated 09/08/2023. 77-year-old female seen in the emergency department again, room 16. She was seen in consultation yesterday. She has a history of oxygen-dependent COPD, and was brought to the emergency department with complaints of increasing shortness of breath. She actually thought that she was at [facility]. She was CT angiogram that ruled out pulmonary embolism. She had a chest x-ray which revealed a mild left lower lobe infiltrate. Currently, the patient is on 5 L of oxygen. She is receiving IV heparin. The patient is getting antibiotics in the form of Levaquin. Her pro-calcitonin level was 0.12. She was admitted with a diagnosis of COPD exacerbation, plus or minus pneumonia. White count was 15.4, hemoglobin 10.3, hematocrit 30.9, and platelet count 456,000. On today's evaluation of 09/09/2023, the patient is being seen for a follow-up that she is known to have advanced oxygen-dependent COPD and she was ho spitalized a few days ago for worsening shortness of breath and COPD exacerbation. I reviewed the CAT scan of the chest and it shows questionable limited infiltration of the left lung base. There is advanced emphysema changes bilaterally. The patient also has a ventral hernia containing the transverse colon enemas density without evidence of any obstruction. There is significant atherosclerotic changes of the proximal left subclavian area possibly stenosis and vertebral steal advanced to me. The patient also has a large left thyroid nodule. The patient has a WBC count of 11.5, hemoglobin of 10.3, the echocardiogram that was done on 09/07/2023 showed a ejection fraction of 30-45%. There is some antral septic in wall akinesis and moderate mitral annular calcification and regurgitation and elevated left ventricular end-diastolic pressure. There is also evidence of moderate aortic regurgitation. The patient is currently on DuoNeb updrafts, she is on IV Solu-Medrol 40 mg every 12 hours. She is on Levaquin and Flagyl combination. She is on anticoagulation with Eliquis 5 mg by mouth twice a day. That EKG showing a normal sinus rhythm. Objective - Vital Signs Vital signs: Vital Signs Temp 98.3 F 09/09/23 07:28 Pulse 91 09/09/23 09:21 Resp 18 09/09/23 09:21 BP 120/67 09/09/23 09:21 Pulse Ox 97 09/09/23 09:21 FiO2 80 09/07/23 01:50 Intake & Output 09/08/23 09/09/23 09/09/23 18:59 06:59 18:59 Intake Total 123.762 Balance 123.762 Intake: Intake, IV Titration 123.762 Amount Heparin Sod,Pork in 0.45% 123.762 NaCl 25,000 unit In 0.45 % NaCl 1 250ml.bag @ 12 UNITS/KG/HR 7.62 mls/hr IV .Q24H [facility] Rx#: [id number] - Exam Mild respiratory difficulty, oriented, currently on 5 L of oxygen. No audible wheezing. HEENT examination is grossly unremarkable. Neck supple. Full range of motion. No adenopathy thyromegaly or neck vein distention. Cardiovascular examination reveals regular rhythm rate. S1-S2 normal. No S3 or S4. No discernible murmur noted. Lungs reveal scattered expiratory rhonchi and wheezes. No crackles. Breath sounds equal bilaterally. Abdomen soft bowel sounds are heard. No masses or tenderness. Extremities are intact. No cyanosis clubbing or edema. Skin is without rash or lesion. Neurologic examination is brief but nonfocal. - Labs CBC & Chem 7: 09/09/23 07:16 09/09/23 07:16 Labs: Abnormal Lab Results - Last 24 Hours (Table) 09/08/23 09/08/23 09/08/23 Range/Units 09:21 09:21 09:21 WBC 15.4 H (3.8-10.6) k/uL RBC 3.23 L (3.80-5.40) m/uL Hgb 10.3 L (11.4-16.0) gm/dL Hct 30.9 L (34.0-46.0) % Plt Count 456 H (150-450) k/uL APTT 77.2 H (22.0-30.0) sec BUN 20 H (7-17) mg/dL Glucose 137 H (74-99) mg/dL C-Reactive Protein 13.7 H (<1.0) mg/dL 09/09/23 09/09/23 09/09/23 Range/Units 07:16 07:16 07:16 WBC 11.5 H (3.8-10.6) k/uL RBC 3.30 L (3.80-5.40) m/uL Hgb 10.3 L (11.4-16.0) gm/dL Hct 32.3 L (34.0-46.0) % Plt Count (150-450) k/uL APTT 39.6 H (22.0-30.0) sec BUN 18 H (7-17) mg/dL Glucose 136 H (74-99) mg/dL C-Reactive Protein (<1.0) mg/dL Assessment and Plan Plan: Acute on chronic hypoxemic respiratory failure secondary to an acute exacerbation of chronic obstructive pulmonary disease possibly complicated by a left lower lobe pneumonia. Viral screen negative. Pulmonary embolism ruled out. Acute on chronic hypoxic respiratory failure. The patient utilizes oxygen at 4 L at home. She was brought in for 5 L and currently she is weaned down to 4 L nasal cannula with a pulse ox of 97%. Leukocytosis secondary to above. Improving Hyperglycemia. Atrial fibrillation with a rapid ventricular response. Current cardiac rhythm is sinus and the patient is on anticoagulation with Eliquis and the patient is also on metoprolol at a dose of 50 mg by mouth twice a day and amiodarone 4 mg by mouth twice a day. Acute exacerbation of suspected systolic versus diastolic congestive heart failure. The patient has an ejection fraction of 35% and the patient has elevated lipids 2 and diastolic pressure and moderate aortic regurgitation Former smoker. History of bowel resection, status post ostomy. Plan: Continue same management Patient is on bronchodilators and steroids Patient is on Levaquin and Flagyl Patient is on oral Lasix 40 mg by mouth daily FiO2 has been weaned down to 4 L We'll follow
[2023-09-09] MEDS: APIXABAN 5 MG TAB PO SCH ×2 (10:26→21:14)
[2023-09-09] MEDS: lisinopriL 5 MG TAB PO SCH (10:26)
[2023-09-09] MEDS: DAPAGLIFLOZIN PROPANEDIOL 10 MG TABLET PO SCH (10:26)
--- NOTE | 2023-09-09 13:25 | P.PN ---
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 Workup initiated in ER included chest x-ray, CT angiogram which was negative for pulmonary embolism. CT chest did show basal pneumonia or changes consistent with aspiration pneumonitis, right middle lobe lung nodule was noted as well, large left thyroid nodule seen * Hard work obtained on admission showed WBC of 22.2 hemoglobin 11.9 platelet count of 511, INR of 0.9 d-dimer 1.08 * Venous blood gas obtained pH 7.34 pCO2 52 * Serum chemistry showed sodium 132 potassium 4.8 chloride 90 3B UN 9 creatinine 0.51 glucose of 304 plasma lactic to 1.7 magnesium of 1.8 * Further workup in ER included an EKG which showed atrial fibrillation with rapid monitor response * Patient was given IV Cardizem push, started on IV antibiotics, received IV steroids in ED and placed on 6 L of oxygen * Patient to be admitted to progressive care unit with consultation from cardiology as well as pulmonary medicine * 09/08/2023: Patient seen and evaluated bedside patient in ER room 16, on 4 L of oxygen through nasal cannula, patient states her breathing has improved, patient was on Cardizem drip which will be weaned off cardiology following continue oral medications including metoprolol, continue IV antibiotics including Levaquin and Flagyl pointed QTC levels. Echocardiogram ordered as well. Blood work pending at this time including CBC and specimen metabolic panel * 09/09/2023: Patient seen and evaluated bedside, patient is alert and oriented 4, seen by cardiology, patient seen by pulmonary medicine as well patient states her breathing has improved. Echocardiogram shows ejection fraction of 30-45%. Continue patient on IV steroids, continue current antibiotic Levaquin and Flagyl she is on anticoagulation with Eliquis. Followed by pulmonary medicine and cardiology REVIEW OF SYSTEMS: Shortness of breath, cough, palpitations, weakness improved CONSTITUTIONAL: No fever, no malaise, no fatigue. HEENT: No recent visual problems or hearing problems. Denied any sore throat. CARDIOVASCULAR: No chest pain, orthopnea, PND, no palpitations, no syncope. PULMONARY: Shortness of breath, cough, palpitations, weakness GASTROINTESTINAL: No diarrhea, no nausea, no vomiting, no abdominal pain. NEUROLOGICAL: No headaches, no weakness, no numbness. HEMATOLOGICAL: Denies any bleeding or petechiae. GENITOURINARY: Denies any burning micturition, frequency, or urgency. MUSCULOSKELETAL/RHEUMATOLOGICAL: Denies any joint pain, swelling, or any muscle pain. ENDOCRINE: Denies any polyuria or polydipsia. The rest of the 14-point review of systems is negative. PHYSICAL EXAMINATION: GENERAL: The patient is alert and oriented x3, ill appearance, nasal cannula in place, respiratory distress resolved HEENT: Pupils are round and equally reacting to light. EOMI. CARDIOVASCULAR: S1 and S2 present. Rate normal, rhythm irregular PULMONARY: Decreased breath sounds bilaterally, nasal cannula in place ABDOMEN: Soft, nontender, nondistended, colostomy in place MUSCULOSKELETAL: No joint swelling or deformity. EXTREMITIES: No cyanosis, clubbing, or pedal edema. NEUROLOGICAL: Gross neurological examination did not reveal any focal deficits. SKIN: No rashes. Objective - Vital Signs Vital signs: Vital Signs Temp 97.4 F L 09/09/23 11:05 Pulse 87 09/09/23 12:15 Resp 16 09/09/23 12:15 BP 104/64 09/09/23 12:15 Pulse Ox 99 09/09/23 12:15 FiO2 80 09/07/23 01:50 Intake & Output 09/08/23 09/09/23 09/09/23 18:59 06:59 18:59 Intake Total 123.762 Balance 123.762 Intake: Intake, IV Titration 123.762 Amount Heparin Sod,Pork in 0.45% 123.762 NaCl 25,000 unit In 0.45 % NaCl 1 250ml.bag @ 12 UNITS/KG/HR 7.62 mls/hr IV .Q24H [facility] Rx#: [id number] Other: Voiding Method Diaper - Labs CBC & Chem 7: 09/09/23 07:16 09/09/23 07:16 Labs: Abnormal Lab Results - Last 24 Hours (Table) 09/08/23 09/09/23 09/09/23 Range/Units 09:21 07:16 07:16 WBC 11.5 H (3.8-10.6) k/uL RBC 3.30 L (3.80-5.40) m/uL Hgb 10.3 L (11.4-16.0) gm/dL Hct 32.3 L (34.0-46.0) % APTT (22.0-30.0) sec BUN 20 H 18 H (7-17) mg/dL Glucose 137 H 136 H (74-99) mg/dL C-Reactive Protein 13.7 H (<1.0) mg/dL 09/09/23 Range/Units 07:16 WBC (3.8-10.6) k/uL RBC (3.80-5.40) m/uL Hgb (11.4-16.0) gm/dL Hct (34.0-46.0) % APTT 39.6 H (22.0-30.0) sec BUN (7-17) mg/dL Glucose (74-99) mg/dL C-Reactive Protein (<1.0) mg/dL Assessment and Plan Assessment: Assessment and plan * Acute on chronic hypoxic respiratory failure with acute exacerbation of COPD * Left lower lobe pneumonia * Sepsis secondary to pneumonia * Elevated troponin rule out ACS versus type II ND * Atrial fibrillation with rapid ventricular response * History of bowel resection status post colostomy * Recent COVID-19 infection * In regards to hypoxic respiratory failure, COPD exacerbation, continue patient on IV antibiotics on Levaquin//Flagyl, IV Solu-Medrol. Appreciate input from pulmonary medicine * In regards to left lower lobe pneumonia, follow-up on sputum cultures, urine Legionella negative continue antibiotic, day 3 of antibiotic * In regards to elevated troponin, continue IV heparin, continue Plavix cardiology consulted>> weaned off Cardizem, continue amiodarone aspirin, Eliquis, metoprolol * In regards to recent COVID-19 infection patient tested negative for Covid on admission, continue supportive treatment * In regards to history of ostomy continue with ostomy care * She will need physical therapy occupational therapy evaluation * CODE STATUS is full code Time with Patient: Greater than 30
--- NOTE | 2023-09-09 13:44 | CDI ---
Documentation Clarification Form Date: 09/09/2023 01:21:28 PM From: Mariluz Betancourt Phone: [phone] Admit Date: 09/07/2023 06:24:00 AM Patient Name: Dolly Cano Visit Number: [id number] Discharge Date: ATTENTION: The Clinical Documentation Specialists (CDI) and [facility] Coding Staff appreciate your assistance in clarifying documentation. Please respond to the clarification below the line at the bottom and electronically sign. The CDI & [facility] Coding staff will review the response and follow-up if needed. Please note: Queries are made part of the Legal Health Record. If you have any questions, please contact the author of this message via ITS. Dr. Kike Carballo Your patient has the documented diagnosis of unspecified CHF 07/09, Cardiology note. Additional information regarding the type, acuity of CHF is requested. History/Risk Factors: 77 year old female presents to the ED for with shortness of breath. Medical history of: Severe asthma, COPD and history of CVA. 09/07, Cardiology consult. Clinical Indicators: VS/Pulse OX: 09/07: B/P 133/70; HR 167; Temp 97.6 F Axillary; SpO2 98% CPAP BNP: 09/07 9530 Echocardiogram Results:09/07 Left ventricular ejection fraction is estimated 35% Normal LV cavity size Anteroapical and Apical culp akinesis. Moderat mitral calcification, mild MR. Elevated LV filling pressures. Sclerotic aortic valve with moderate aortic regurg. Chest X Ray: 09/07 Left lower lobe parenchymal opacity Treatment: 09/08 - 09/09 Lasix 40mg Daily, 09/07 Lopressor 50mg PO BID In your professional opinion, can you please clarify the type of CHF if known? [ x ] Acute Systolic Heart Failure (reduced EF) [ ] Other, please specify [ ] Unable to determine (Template Last Revised: November 2020) MTDD
--- NOTE | 2023-09-09 13:51 | P.PN ---
Subjective Progress Note Date: 09/09/23 HPI 77-year-old with PMH of COPD, on chronic oxygen, recent coronary infection, severe asthma, protein calorie malnutrition, generalized weakness, history of CVA, resident of a retirement. She was brought to the hospital because of worsening shortness of breath and generalized weakness. On admission she was noticed to be in atrial fibrillation with rapid ventricular response. She received IV Cardizem and her heart rate has been controlled since. Hemoglobin 11, W BC 22, sodium 132, potassium 4.8, BUN 9, creatinine 0.5. Troponin was elevated at 0.136. Repeat was 0.5 Admission admission lactate was 4.9, repeat 1.7, BNP was [address] chest showed concerns of pneumonia. It also showed left subclavian artery stenosis with concerns of left subclavian steal. Large thyroid nodule. Progress note Patient is seen and examined at bedside the same. She continues to be in atrial fibrillation with heart rate around 100 beats a minute. She still appears weak. She reports mild shortness of breath which is slightly getting better. 09/09 Patient is seen today in the emergency center as follow-up. Patient states that she is feeling better today. Case was discussed with Dr. ANISA Macias. Patient also gives history that she had Covid at the early August. She denies any previous [place]. She was a smoker for 53 years and quit 5 years ago. She is currently on O2 at 4 L which is her baseline at home. She denies any lower extremity edema. Patient has been afebrile, blood pressure 104/64, heart rate in the 80s and 90s, pulse ox 99% on 4 L nasal cannula. Repeat blood work today reveals WBC 11.5, hemoglobin 10.3, electrolytes are normal. BUN 18 creatinine 0.64. Patient is been maintained on IV Lasix 40 mg daily. PHYSICAL EXAMINATION Vital signs reviewed. Head: Normocephalic. Eyes: Sclerae nonicteric. Neck: Brisk carotid upstroke, no jugular venous distention. Lungs: Clear to auscultation. Heart: Regular rate and rhythm, S1-S2, no S3, no murmur or rub. Abdomen: Soft nontender, positive bowel sounds no organomegaly. Extremities: No edema, intact distal pulses. Neuro: Alert, oritented, no focal deficits ASSESSMENT Nstemi, likely type II Mild CHF exacerbation with elevated LV filling pressures Cardiomyopathy, unknown etiology, EF 35% anteroapical and apical hypokinesia Moderate aortic regurgitation Atrial fibrillation with rapid ventricular response Shortness of breath and generalized weakness due to left lower lobe Pneumonia, suspect Post viral and mild CHF exacerbation Anemia Frailty and debility Recent COVID-19 infection Echo Showed an EF of 35% with anteroapical and apical wall hypokinesia. Moderate aortic regurgitation, elevated LV filling pressures PLAN Suspected to be stress cardiomyopathy but ischemic cardiomyopathy cannot be ruled out. Patient will need an heart catheterization once optimized from respiratory stand point. Continue metoprolol 50 mg twice a day Aspirin and atorvastatin discontinueIV heparin drip and start patient on eliquis 5 mg twice daily Transition IV Lasix to oral Start patient on lisinopril 5 g daily and Farxiga 10 mg daily Continue amiodarone 400 mg twice a day for 7 days for rhythm control strategy due to cardiomyopathy Monitor for QTC. Repeat ECG for next 2-3 days as patient is on Levaquin. Would request primary team to re-evaluate antibiotic Monitor renal function Nurse practitioner note has been reviewed, I agree with the documented findings and plan of care. Patient was seen and examined. Objective - Vital Signs Vital signs: Vital Signs Temp 98.3 F 09/09/23 07:28 Pulse 94 09/09/23 07:28 Resp 18 09/09/23 07:28 BP 125/73 09/09/23 07:28 Pulse Ox 99 09/09/23 07:28 FiO2 80 09/07/23 01:50 Intake & Output 09/08/23 09/09/23 09/09/23 18:59 06:59 18:59 Intake Total 123.762 Balance 123.762 Intake: Intake, IV Titration 123.762 Amount Heparin Sod,Pork in 0.45% 123.762 NaCl 25,000 unit In 0.45 % NaCl 1 250ml.bag @ 12 UNITS/KG/HR 7.62 mls/hr IV .Q24H [facility] Rx#: [id number] - Labs CBC & Chem 7: 09/09/23 07:16 09/09/23 07:16 Labs: Abnormal Lab Results - Last 24 Hours (Table) 09/08/23 09/08/23 09/08/23 Range/Units 09:21 09:21 09:21 WBC 15.4 H (3.8-10.6) k/uL RBC 3.23 L (3.80-5.40) m/uL Hgb 10.3 L (11.4-16.0) gm/dL Hct 30.9 L (34.0-46.0) % Plt Count 456 H (150-450) k/uL APTT 77.2 H (22.0-30.0) sec BUN 20 H (7-17) mg/dL Glucose 137 H (74-99) mg/dL C-Reactive Protein 13.7 H (<1.0) mg/dL 09/09/23 09/09/23 09/09/23 Range/Units 07:16 07:16 07:16 WBC 11.5 H (3.8-10.6) k/uL RBC 3.30 L (3.80-5.40) m/uL Hgb 10.3 L (11.4-16.0) gm/dL Hct 32.3 L (34.0-46.0) % Plt Count (150-450) k/uL APTT 39.6 H (22.0-30.0) sec BUN 18 H (7-17) mg/dL Glucose 136 H (74-99) mg/dL C-Reactive Protein (<1.0) mg/dL
[2023-09-09] MEDS: MELATONIN 3 MG TABLET PO SCH (21:15)
[2023-09-09] MEDS: MONTELUKAST 10 MG TAB PO SCH (21:15)
[2023-09-10] MEDS: metroNIDAZOLE-NS PMX 500 MG in SALINE 1 100ML.BAG IVPB SCH ×3 (03:34→18:54)
[2023-09-10] MEDS: FLUTICASONE 50MCG/SPRAY NASAL 16GM EA NOSTRIL SCH (06:49)
[2023-09-10] MEDS: BENZONATATE 100 MG CAP PO SCH ×3 (06:49→18:54)
[2023-09-10] MEDS: METOPROLOL TARTRATE 50 MG TAB PO SCH ×2 (06:49→18:55)
[2023-09-10] MEDS: GABAPENTIN 100 MG CAP PO SCH ×3 (06:49→18:54)
[2023-09-10] MEDS: SODIUM CHLORIDE 0.9% 1,000 ML IV SCH (06:50)
[2023-09-10] MEDS: IPRATROPIUM-ALBUTEROL 3 ML NEB INHALATION SCH ×4 (08:48→20:54)
[2023-09-10] MEDS: SYMBICORT 160-4.5 MCG INHALER INHALATION SCH ×3 (08:48→21:02)
[2023-09-10] MEDS: lisinopriL 5 MG TAB PO SCH (09:11)
[2023-09-10] MEDS: LEVOFLOXACIN 750 MG TAB PO SCH (09:11)
[2023-09-10] MEDS: methylPREDNISolone SOD SUCCI 40 MG/ML 1 ML VIAL IV SCH ×2 (09:11→20:09)
[2023-09-10] MEDS: FUROSEMIDE 40 MG TAB PO SCH (09:11)
[2023-09-10] MEDS: ASPIRIN 81 MG PO SCH (09:11)
[2023-09-10] MEDS: DAPAGLIFLOZIN PROPANEDIOL 10 MG TABLET PO SCH (09:11)
[2023-09-10] MEDS: APIXABAN 5 MG TAB PO SCH ×2 (09:12→20:09)
[2023-09-10] MEDS: FAMOTIDINE 20 MG TAB PO SCH (09:12)
[2023-09-10] MEDS: AMIODARONE 200 MG TAB PO SCH ×2 (09:12→20:09)
[2023-09-10] MEDS: LORATADINE 10 MG TAB PO SCH (09:12)
--- NOTE | 2023-09-10 09:17 | P.PN ---
Subjective Progress Note Date: 09/10/23 This is a 77-year-old female patient who resides at [facility] and has a history of oxygen dependent chronic obstructive pulmonary disease was brought into the emergency room early this morning with complaints of increasing shortness of breath or chest x-ray shows a mild left lower lobe posterior infiltrate. Evidence of COPD. CT angiogram ruled out pulmonary embolism. Probable basal pneumonia or aspiration pneumonitis changes upon significant diffuse emphysema. White count 22.2. Hemoglobin 11.9. Platelets 511. D-dimer 1.08. Potassium 4.8. Sodium 132. Bicarb 25. BUN 9. Creatinine 0.51. Glucose 301. Troponin 0.136. ProBNP 9530. Viral screen negative. She is seen today in consultation in the emergency department. Currently sitting up in a stretcher. Awake and alert. Maintaining O2 saturations in the upper 90s on 5 L/m per nasal cannula. Afebrile. Hemodynamically stable. Somewhat of a poor historian. EKG reveals atrial fibrillation with a rapid ventricular response, left bundle branch block. Progress note dated 09/08/2023. 77-year-old female seen in the emergency department again, room 16. She was seen in consultation yesterday. She has a history of oxygen-dependent COPD, and was brought to the emergency department with complaints of increasing shortness of breath. She actually thought that she was at [facility]. She was CT angiogram that ruled out pulmonary embolism. She had a chest x-ray which revealed a mild left lower lobe infiltrate. Currently, the patient is on 5 L of oxygen. She is receiving IV heparin. The patient is getting antibiotics in the form of Levaquin. Her pro-calcitonin level was 0.12. She was admitted with a diagnosis of COPD exacerbation, plus or minus pneumonia. White count was 15.4, hemoglobin 10.3, hematocrit 30.9, and platelet count 456,000. On today's evaluation of 09/09/2023, the patient is being seen for a follow-up that she is known to have advanced oxygen-dependent COPD and she was ho spitalized a few days ago for worsening shortness of breath and COPD exacerbation. I reviewed the CAT scan of the chest and it shows questionable limited infiltration of the left lung base. There is advanced emphysema changes bilaterally. The patient also has a ventral hernia containing the transverse colon enemas density without evidence of any obstruction. There is significant atherosclerotic changes of the proximal left subclavian area possibly stenosis and vertebral steal advanced to me. The patient also has a large left thyroid nodule. The patient has a WBC count of 11.5, hemoglobin of 10.3, the echocardiogram that was done on 09/07/2023 showed a ejection fraction of 30-45%. There is some antral septic in wall akinesis and moderate mitral annular calcification and regurgitation and elevated left ventricular end-diastolic pressure. There is also evidence of moderate aortic regurgitation. The patient is currently on DuoNeb updrafts, she is on IV Solu-Medrol 40 mg every 12 hours. She is on Levaquin and Flagyl combination. She is on anticoagulation with Eliquis 5 mg by mouth twice a day. That EKG showing a normal sinus rhythm. On 09/10/2023, I'm seeing the patient for a follow-up. The patient is being treated for a COPD exacerbation and the patient also has a left lower lobe pneumonia. The patient's is currently on oxygen and she is on 4 L of O2 nasal cannula. The patient is on bronchodilators. The patient is also on steroids. She has significant emphysema with chronic hypoxic respiratory failure. She also has CHF with impaired ejection fraction of 35%. No nausea. No vomiting. No diarrhea. No altered mentation. Current antibiotic coverage includes a combination of Levaquin and Flagyl. Her blood work shows edematous count of 11.5, hemoglobin was 10.3, BUN is at 80 with a creatinine of 0.6 and a sodium level is at 137. Legionella urine antigen was negative. The viral screen was also negative. Echocardiogram done on 09/07/2023 showed ejection fraction of 35-40%, anteroapical and apical wall akinesis, moderate mitral valve annular calcification with mild regurgitation and elevation in the left ventricular end- diastolic pressure. Objective - Vital Signs Vital signs: Vital Signs Temp 98.0 F 09/10/23 09:08 Pulse 86 09/10/23 09:08 Resp 16 09/10/23 09:08 BP 93/48 09/10/23 09:08 Pulse Ox 96 09/10/23 09:08 FiO2 80 09/07/23 01:50 Intake & Output 09/09/23 09/10/23 09/10/23 18:59 06:59 18:59 Other: Voiding Method Diaper Diaper # Voids 1 2 - Exam Mild respiratory difficulty, oriented, currently on 5 L of oxygen. No audible wheezing. HEENT examination is grossly unremarkable. Neck supple. Full range of motion. No adenopathy thyromegaly or neck vein distention. Cardiovascular examination reveals regular rhythm rate. S1-S2 normal. No S3 or S4. No discernible murmur noted. Lungs reveal scattered expiratory rhonchi and wheezes. No crackles. Breath sounds equal bilaterally. Abdomen soft bowel sounds are heard. No masses or tenderness. Extremities are intact. No cyanosis clubbing or edema. Skin is without rash or lesion. Neurologic examination is brief but nonfocal. - Labs CBC & Chem 7: 09/09/23 07:16 09/09/23 07:16 Assessment and Plan Plan: Acute on chronic hypoxemic respiratory failure secondary to an acute exacerbation of chronic obstructive pulmonary disease possibly complicated by a left lower lobe pneumonia. Viral screen negative. Pulmonary embolism ruled out. She remains on 4 L of oxygen by nasal cannula. She is being she reports acute COPD exacerbation and a limited left basilar pneumonia. Acute on chronic hypoxic respiratory failure. The patient utilizes oxygen at 4 L at home. Oxygenation is back to its baseline Increase shortness of breath secondary to above along with some cough and congestion Leukocytosis secondary to above. Improving Hyperglycemia, related to steroid use Atrial fibrillation with a rapid ventricular response. Current cardiac rhythm is sinus and the patient is on anticoagulation with Eliquis and the patient is also on metoprolol at a dose of 50 mg by mouth twice a day and amiodarone 4 mg by mouth twice a day. Acute exacerbation of suspected systolic versus diastolic congestive heart failure. The patient has an ejection fraction of 35% and the patient has elevated lipids 2 and diastolic pressure and moderate aortic regurgitation Former smoker. History of bowel resection, status post ostomy. Plan: Clinically improved somewhat compared to yesterday We'll continue same management Collected sputum Gram stain and culture Incentive spirometer Continue same management Patient is on bronchodilators and steroids Patient is on Levaquin and Flagyl Patient is on oral Lasix 40 mg by mouth daily FiO2 has been weaned down to 4 L We'll follow
[2023-09-10 10:40] LABS: African American GFR (CKD) >90 (>60 ml/min/1.73 sqM); Anion Gap 11 mmol/L; Blood Urea Nitrogen 21 mg/dL (7-17); C Reactive Protein 2.9 mg/dL (<1.0); Calcium 8.5 mg/dL (8.4-10.2); Carbon Dioxide 29 mmol/L (22-30); Chloride 100 mmol/L (98-107); Glucose 121 mg/dL (74-99); Non-African American GFR(CKD) 87 (>60 ml/min/1.73 sqM); Sodium 140 mmol/L (137-145)
[2023-09-10 10:41] LABS: Potassium 4.3 mmol/L (3.5-5.1)
[2023-09-10 11:50] LABS: HCT 34.9 % (34.0-46.0); HGB 11.3 gm/dL (11.4-16.0); Hypochromasia Slight; MCH 31.6 pg (25.0-35.0); MCHC 32.3 g/dL (31.0-37.0); MCV 97.8 fL (80.0-100.0); Mean Platelet Volume 7.4; Platelet Count 424 k/uL (150-450); RBC 3.57 m/uL (3.80-5.40); RDW 14.2 % (11.5-15.5); WBC 10.4 k/uL (3.8-10.6)
[2023-09-10] MEDS: ATORVASTATIN 40 MG TAB PO SCH (11:55)
[2023-09-10] MEDS ORDERED: PSEUDOEPHEDRINE 30 MG TAB PO PRN (14:03)
--- NOTE | 2023-09-10 14:03 | P.PN ---
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 Workup initiated in ER included chest x-ray, CT angiogram which was negative for pulmonary embolism. CT chest did show basal pneumonia or changes consistent with aspiration pneumonitis, right middle lobe lung nodule was noted as well, large left thyroid nodule seen * Hard work obtained on admission showed WBC of 22.2 hemoglobin 11.9 platelet count of 511, INR of 0.9 d-dimer 1.08 * Venous blood gas obtained pH 7.34 pCO2 52 * Serum chemistry showed sodium 132 potassium 4.8 chloride 90 3B UN 9 creatinine 0.51 glucose of 304 plasma lactic to 1.7 magnesium of 1.8 * Further workup in ER included an EKG which showed atrial fibrillation with rapid monitor response * Patient was given IV Cardizem push, started on IV antibiotics, received IV steroids in ED and placed on 6 L of oxygen * Patient to be admitted to progressive care unit with consultation from cardiology as well as pulmonary medicine * 09/08/2023: Patient seen and evaluated bedside patient in ER room 16, on 4 L of oxygen through nasal cannula, patient states her breathing has improved, patient was on Cardizem drip which will be weaned off cardiology following continue oral medications including metoprolol, continue IV antibiotics including Levaquin and Flagyl pointed QTC levels. Echocardiogram ordered as well. Blood work pending at this time including CBC and specimen metabolic panel * 09/09/2023: Patient seen and evaluated bedside, patient is alert and oriented 4, seen by cardiology, patient seen by pulmonary medicine as well patient states her breathing has improved. Echocardiogram shows ejection fraction of 30-45%. Continue patient on IV steroids, continue current antibiotic Levaquin and Flagyl she is on anticoagulation with Eliquis. Followed by pulmonary medicine and cardiology * 09/10/2023: Patient seen and evaluated bedside, inflammation markers improving patient on 4 L of oxygen, continue Mucinex, WBC count improved as well care plan discussed with patient in detail, REVIEW OF SYSTEMS: Shortness of breath, cough, palpitations, weakness improved CONSTITUTIONAL: No fever, no malaise, no fatigue. HEENT: No recent visual problems or hearing problems. Denied any sore throat. CARDIOVASCULAR: No chest pain, orthopnea, PND, no palpitations, no syncope. PULMONARY: Shortness of breath, cough, palpitations, weakness GASTROINTESTINAL: No diarrhea, no nausea, no vomiting, no abdominal pain. NEUROLOGICAL: No headaches, no weakness, no numbness. HEMATOLOGICAL: Denies any bleeding or petechiae. GENITOURINARY: Denies any burning micturition, frequency, or urgency. MUSCULOSKELETAL/RHEUMATOLOGICAL: Denies any joint pain, swelling, or any muscle pain. ENDOCRINE: Denies any polyuria or polydipsia. The rest of the 14-point review of systems is negative. PHYSICAL EXAMINATION: GENERAL: The patient is alert and oriented x3, ill appearance, nasal cannula in place, respiratory distress resolved HEENT: Pupils are round and equally reacting to light. EOMI. CARDIOVASCULAR: S1 and S2 present. Rate normal, rhythm irregular PULMONARY: Decreased breath sounds bilaterally, nasal cannula in place ABDOMEN: Soft, nontender, nondistended, colostomy in place MUSCULOSKELETAL: No joint swelling or deformity. EXTREMITIES: No cyanosis, clubbing, or pedal edema. NEUROLOGICAL: Gross neurological examination did not reveal any focal deficits. SKIN: No rashes. Objective - Vital Signs Vital signs: Vital Signs Temp 98.0 F 09/10/23 09:08 Pulse 95 09/10/23 12:00 Resp 18 09/10/23 12:00 BP 112/65 09/10/23 12:00 Pulse Ox 97 09/10/23 12:00 FiO2 80 09/07/23 01:50 Intake & Output 09/09/23 09/10/23 09/10/23 18:59 06:59 18:59 Output Total 0 Balance 0 Output: Urine 0 Other: Voiding Method Diaper Diaper Diaper # Voids 1 2 - Labs CBC & Chem 7: 09/10/23 11:37 09/10/23 08:36 Labs: Abnormal Lab Results - Last 24 Hours (Table) 09/10/23 09/10/23 Range/Units 08:36 11:37 RBC 3.57 L (3.80-5.40) m/uL Hgb 11.3 L (11.4-16.0) gm/dL BUN 21 H (7-17) mg/dL Glucose 121 H (74-99) mg/dL C-Reactive Protein 2.9 H (<1.0) mg/dL Assessment and Plan Assessment: Assessment and plan * Acute on chronic hypoxic respiratory failure with acute exacerbation of COPD * Left lower lobe pneumonia * Sepsis secondary to pneumonia * Elevated troponin rule out ACS versus type II IA * Atrial fibrillation with rapid ventricular response * History of bowel resection status post colostomy * Recent COVID-19 infection * In regards to hypoxic respiratory failure, COPD exacerbation, continue patient on IV antibiotics on Levaquin//Flagyl, IV Solu-Medrol. Appreciate input from pulmonary medicine * In regards to left lower lobe pneumonia, follow-up on sputum cultures, urine Legionella negative continue antibiotic, day 4 of antibiotic total 5 day course * In regards to elevated troponin, continue IV heparin, continue Plavix cardiology consulted>> weaned off Cardizem, continue amiodarone aspirin, Eliquis, metoprolol * In regards to recent COVID-19 infection patient tested negative for Covid on admission, continue supportive treatment * In regards to history of ostomy continue with ostomy care * She will need physical therapy occupational therapy evaluation * CODE STATUS is full code
--- NOTE | 2023-09-10 14:41 | P.PN ---
Subjective Progress Note Date: 09/10/23 HPI 77-year-old with PMH of COPD, on chronic oxygen, recent coronary infection, severe asthma, protein calorie malnutrition, generalized weakness, history of CVA, resident of a care home. She was brought to the hospital because of worsening shortness of breath and generalized weakness. On admission she was noticed to be in atrial fibrillation with rapid ventricular response. She received IV Cardizem and her heart rate has been controlled since. Hemoglobin 11, W BC 22, sodium 132, potassium 4.8, BUN 9, creatinine 0.5. Troponin was elevated at 0.136. Repeat was 0.5 Admission admission lactate was 4.9, repeat 1.7, BNP was [address] chest showed concerns of pneumonia. It also showed left subclavian artery stenosis with concerns of left subclavian steal. Large thyroid nodule. Progress note Patient is seen and examined at bedside the same. She continues to be in atrial fibrillation with heart rate around 100 beats a minute. She still appears weak. She reports mild shortness of breath which is slightly getting better. 09/09 Patient is seen today in the emergency center as follow-up. Patient states that she is feeling better today. Patient also gives history that she had Covid at the early August. She denies any previous CA. She was a smoker for 53 years and quit 5 years ago. She is currently on O2 at 4 L which is her baseline at home. She denies any lower extremity edema. Patient has been afebrile, blood pressure 104/64, heart rate in the 80s and 90s, pulse ox 99% on 4 L nasal cannula. Repeat blood work today reveals WBC 11.5, hemoglobin 10.3, electrolytes are normal. BUN 18 creatinine 0.64. Patient is been maintained on IV Lasix 40 mg daily. 09/10 Patient is seen today on the cardiac stepdown unit. She states her shortness of breath is better. She denies having any chest pain. Repeat blood work reveals WBC 10.4, hemoglobin 11.3. Sodium 140, potassium 4.3, BUN 21 creatinine 0.62. Patient has been afebrile, heart rate 95, blood pressure 112/65, pulse ox 97% on 4 L nasal cannula. Patient is currently being treated for COPD exacerbation and left lower lobe pneumonia followed by pulmonary medicine. PHYSICAL EXAMINATION Vital signs reviewed. Head: Normocephalic. Eyes: Sclerae nonicteric. Neck: Brisk carotid upstroke, no jugular venous distention. Lungs: Clear to auscultation. Heart: Regular rate and rhythm, S1-S2, no S3, no murmur or rub. Abdomen: Soft nontender, positive bowel sounds no organomegaly. Extremities: No edema, intact distal pulses. Neuro: Alert, oritented, no focal deficits ASSESSMENT Nstemi, likely type II Acute on chronic systolic heart failure Cardiomyopathy, unknown etiology, EF 35% anteroapical and apical hypokinesia Moderate aortic regurgitation Atrial fibrillation with rapid ventricular response Shortness of breath and generalized weakness due to left lower lobe Pneumonia, suspect Post viral, COPD exacerbation and mild CHF exacerbation Anemia Frailty and debility Recent COVID-19 infection Echo Showed an EF of 35% with anteroapical and apical wall hypokinesia. Moderate aortic regurgitation, elevated LV filling pressures PLAN Continue patient's current cardiac medications: Amiodarone 400 mg twice daily, eliquis 5 mg twice daily, aspirin 81 mg daily, Lipitor 40 mg daily, Farxiga grams daily, Lasix 40 mg daily oral, lisinopril 5 mg daily, Lopressor 50 mg twice daily Possible stress cardiomyopathy but ischemic cardiomyopathy cannot be ruled out. Patient will need an heart catheterization once optimized from respiratory stand point. Monitor for QTC. Repeat ECG for next 2-3 days as patient is on Levaquin. Would request primary team to re-evaluate antibiotic Monitor renal function Nurse practitioner note has been reviewed, I agree with the documented findings and plan of care. Patient was seen and examined. Objective - Vital Signs Vital signs: Vital Signs Temp 98.0 F 09/10/23 09:08 Pulse 86 09/10/23 09:08 Resp 16 09/10/23 09:08 BP 93/48 09/10/23 09:08 Pulse Ox 96 09/10/23 09:08 FiO2 80 09/07/23 01:50 Intake & Output 09/09/23 09/10/23 09/10/23 18:59 06:59 18:59 Output Total 0 Balance 0 Output: Urine 0 Other: Voiding Method Diaper Diaper # Voids 1 2 - Labs CBC & Chem 7: 09/10/23 11:37 09/10/23 08:36 Labs: Abnormal Lab Results - Last 24 Hours (Table) 09/10/23 Range/Units 08:36 BUN 21 H (7-17) mg/dL Glucose 121 H (74-99) mg/dL C-Reactive Protein 2.9 H (<1.0) mg/dL
[2023-09-10] MEDS: MELATONIN 3 MG TABLET PO SCH (20:09)
[2023-09-10] MEDS: MONTELUKAST 10 MG TAB PO SCH (20:09)
[2023-09-11] MEDS: metroNIDAZOLE-NS PMX 500 MG in SALINE 1 100ML.BAG IVPB SCH ×3 (03:39→18:49)
[2023-09-11] MEDS: SODIUM CHLORIDE 0.9% 1,000 ML IV SCH (06:12)
[2023-09-11] MEDS: BENZONATATE 100 MG CAP PO SCH ×3 (06:37→18:49)
[2023-09-11] MEDS: FLUTICASONE 50MCG/SPRAY NASAL 16GM EA NOSTRIL SCH (06:37)
[2023-09-11] MEDS: GABAPENTIN 100 MG CAP PO SCH ×3 (06:37→18:49)
[2023-09-11] MEDS: METOPROLOL TARTRATE 50 MG TAB PO SCH ×2 (06:37→18:48)
[2023-09-11] MEDS: SYMBICORT 160-4.5 MCG INHALER INHALATION SCH ×2 (07:42→21:21)
[2023-09-11] MEDS: IPRATROPIUM-ALBUTEROL 3 ML NEB INHALATION SCH ×4 (07:42→21:21)
[2023-09-11] MEDS ORDERED: ALPRAZolam 0.5 MG TAB PO PRN (08:41)
[2023-09-11] MEDS ORDERED: NITROGLYCERIN SL TABS 0.4 MG TAB SUBLINGUAL PRN (08:41)
[2023-09-11] MEDS ORDERED: ALPRAZolam 0.25 MG TAB PO PRN (08:41)
[2023-09-11] MEDS: DAPAGLIFLOZIN PROPANEDIOL 10 MG TABLET PO SCH (09:02)
[2023-09-11] MEDS: FAMOTIDINE 20 MG TAB PO SCH (09:03)
[2023-09-11] MEDS: lisinopriL 5 MG TAB PO SCH (09:03)
[2023-09-11] MEDS: LEVOFLOXACIN 750 MG TAB PO SCH (09:03)
[2023-09-11] MEDS: FUROSEMIDE 40 MG TAB PO SCH (09:03)
[2023-09-11] MEDS: AMIODARONE 200 MG TAB PO SCH ×2 (09:03→20:02)
[2023-09-11] MEDS: ASPIRIN 81 MG PO SCH (09:03)
[2023-09-11] MEDS: ATORVASTATIN 40 MG TAB PO SCH (09:03)
[2023-09-11] MEDS: LORATADINE 10 MG TAB PO SCH (09:03)
[2023-09-11] MEDS: methylPREDNISolone SOD SUCCI 40 MG/ML 1 ML VIAL IV SCH ×2 (09:04→20:02)
[2023-09-11 10:36] LABS: HCT 31.6 % (34.0-46.0); HGB 10.5 gm/dL (11.4-16.0); Hypochromasia Slight; MCH 31.8 pg (25.0-35.0); MCHC 33.1 g/dL (31.0-37.0); MCV 96.1 fL (80.0-100.0); Mean Platelet Volume 7.7; Platelet Count 418 k/uL (150-450); RBC 3.29 m/uL (3.80-5.40); RDW 14.3 % (11.5-15.5)
[2023-09-11 10:45] LABS: African American GFR (CKD) >90 (>60 ml/min/1.73 sqM); Anion Gap 9 mmol/L; Blood Urea Nitrogen 18 mg/dL (7-17); Calcium 8.2 mg/dL (8.4-10.2); Carbon Dioxide 30 mmol/L (22-30); Chloride 99 mmol/L (98-107); Glucose 96 mg/dL (74-99); Non-African American GFR(CKD) 81 (>60 ml/min/1.73 sqM); Potassium 3.8 mmol/L (3.5-5.1); Sodium 138 mmol/L (137-145)
--- NOTE | 2023-09-11 11:53 | P.PN ---
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 Workup initiated in ER included chest x-ray, CT angiogram which was negative for pulmonary embolism. CT chest did show basal pneumonia or changes consistent with aspiration pneumonitis, right middle lobe lung nodule was noted as well, large left thyroid nodule seen * Hard work obtained on admission showed WBC of 22.2 hemoglobin 11.9 platelet count of 511, INR of 0.9 d-dimer 1.08 * Venous blood gas obtained pH 7.34 pCO2 52 * Serum chemistry showed sodium 132 potassium 4.8 chloride 90 3B UN 9 creatinine 0.51 glucose of 304 plasma lactic to 1.7 magnesium of 1.8 * Further workup in ER included an EKG which showed atrial fibrillation with rapid monitor response * Patient was given IV Cardizem push, started on IV antibiotics, received IV steroids in ED and placed on 6 L of oxygen * Patient to be admitted to progressive care unit with consultation from cardiology as well as pulmonary medicine * 09/08/2023: Patient seen and evaluated bedside patient in ER room 16, on 4 L of oxygen through nasal cannula, patient states her breathing has improved, patient was on Cardizem drip which will be weaned off cardiology following continue oral medications including metoprolol, continue IV antibiotics including Levaquin and Flagyl pointed QTC levels. Echocardiogram ordered as well. Blood work pending at this time including CBC and specimen metabolic panel * 09/09/2023: Patient seen and evaluated bedside, patient is alert and oriented 4, seen by cardiology, patient seen by pulmonary medicine as well patient states her breathing has improved. Echocardiogram shows ejection fraction of 30-45%. Continue patient on IV steroids, continue current antibiotic Levaquin and Flagyl she is on anticoagulation with Eliquis. Followed by pulmonary medicine and cardiology * 09/10/2023: Patient seen and evaluated bedside, inflammation markers improving patient on 4 L of oxygen, continue Mucinex, WBC count improved as well care plan discussed with patient in detail * 09/11/2023: Patient seen and evaluated and bedside, patient states her breathing has improved, she is on 4 L of oxygen which is close to baseline, follow-up hemoglobin 10.4, CBC 10, cardiology planning cardiac catheterization REVIEW OF SYSTEMS: Shortness of breath, cough, palpitations, weakness improved CONSTITUTIONAL: No fever, no malaise, no fatigue. HEENT: No recent visual problems or hearing problems. Denied any sore throat. CARDIOVASCULAR: No chest pain, orthopnea, PND, no palpitations, no syncope. PULMONARY: Shortness of breath, cough, palpitations, weakness GASTROINTESTINAL: No diarrhea, no nausea, no vomiting, no abdominal pain. NEUROLOGICAL: No headaches, no weakness, no numbness. HEMATOLOGICAL: Denies any bleeding or petechiae. GENITOURINARY: Denies any burning micturition, frequency, or urgency. MUSCULOSKELETAL/RHEUMATOLOGICAL: Denies any joint pain, swelling, or any muscle pain. ENDOCRINE: Denies any polyuria or polydipsia. PHYSICAL EXAMINATION: GENERAL: The patient is alert and oriented x3, ill appearance, nasal cannula in place, respiratory distress resolved HEENT: Pupils are round and equally reacting to light. EOMI. CARDIOVASCULAR: S1 and S2 present. Rate normal, rhythm irregular PULMONARY: Decreased breath sounds bilaterally, nasal cannula in place ABDOMEN: Soft, nontender, nondistended, colostomy in place MUSCULOSKELETAL: No joint swelling or deformity. EXTREMITIES: No cyanosis, clubbing, or pedal edema. NEUROLOGICAL: Gross neurological examination did not reveal any focal deficits. SKIN: No rashes. Objective - Vital Signs Vital signs: Vital Signs Temp 98.0 F 09/10/23 09:08 Pulse 84 09/11/23 11:19 Resp 18 09/11/23 04:00 BP 118/63 09/11/23 04:00 Pulse Ox 95 09/11/23 07:44 FiO2 80 09/07/23 01:50 Intake & Output 09/10/23 09/11/23 09/11/23 18:59 06:59 18:59 Intake Total 240 Output Total 400 500 200 Balance -400 -500 40 Intake: Oral 240 Output: Urine 400 500 200 Other: Voiding Method Diaper Diaper External Catheter - Labs CBC & Chem 7: 09/11/23 09:55 09/11/23 09:55 Labs: Abnormal Lab Results - Last 24 Hours (Table) 09/10/23 09/11/23 09/11/23 Range/Units 11:37 09:55 09:55 RBC 3.57 L 3.29 L (3.80-5.40) m/uL Hgb 11.3 L 10.5 L (11.4-16.0) gm/dL Hct 31.6 L (34.0-46.0) % BUN 18 H (7-17) mg/dL Calcium 8.2 L (8.4-10.2) mg/dL Microbiology - Last 24 Hours (Table) 09/10/23 11:20 Gram Stain - Preliminary Sputum Assessment and Plan Assessment: Assessment and plan * Acute on chronic hypoxic respiratory failure with acute exacerbation of COPD * Left lower lobe pneumonia * Sepsis secondary to pneumonia * Elevated troponin rule out ACS versus type II MO * Atrial fibrillation with rapid ventricular response * History of bowel resection status post colostomy * Recent COVID-19 infection * In regards to hypoxic respiratory failure, COPD exacerbation, continue patient on IV antibiotics on Levaquin//Flagyl COMPLETED>> IV Solu-Medrol. Appreciate input from pulmonary medicine * In regards to left lower lobe pneumonia, follow-up on sputum cultures, urine Legionella negative antibiotic course COMPLETED * In regards to elevated troponin, continue IV heparin, continue Plavix cardiology consulted>> weaned off Cardizem, continue amiodarone aspirin, Eliquis, metoprolol * In regards to recent COVID-19 infection patient tested negative for Covid on admission, continue supportive treatment * In regards to history of ostomy continue with ostomy care * She will need physical therapy occupational therapy evaluation>> will need discharge to subacute rehab * CODE STATUS is full code Time with Patient: Greater than 30
--- NOTE | 2023-09-11 12:47 | P.PN ---
Subjective Progress Note Date: 09/11/23 HPI 77-year-old with PMH of COPD, on chronic oxygen, recent coronary infection, severe asthma, protein calorie malnutrition, generalized weakness, history of CVA, resident of a alf. She was brought to the hospital because of worsening shortness of breath and generalized weakness. On admission she was noticed to be in atrial fibrillation with rapid ventricular response. She received IV Cardizem and her heart rate has been controlled since. Hemoglobin 11, W BC 22, sodium 132, potassium 4.8, BUN 9, creatinine 0.5. Troponin was elevated at 0.136. Repeat was 0.5 Admission admission lactate was 4.9, repeat 1.7, BNP was [address] chest showed concerns of pneumonia. It also showed left subclavian artery stenosis with concerns of left subclavian steal. Large thyroid nodule. Progress note Patient is seen and examined at bedside the same. She continues to be in atrial fibrillation with heart rate around 100 beats a minute. She still appears weak. She reports mild shortness of breath which is slightly getting better. 09/09 Patient is seen today in the emergency center as follow-up. Patient states that she is feeling better today. Patient also gives history that she had Covid at the early August. She denies any previous [facility]. She was a smoker for 53 years and quit 5 years ago. She is currently on O2 at 4 L which is her baseline at home. She denies any lower extremity edema. Patient has been afebrile, blood pressure 104/64, heart rate in the 80s and 90s, pulse ox 99% on 4 L nasal cannula. Repeat blood work today reveals WBC 11.5, hemoglobin 10.3, electrolytes are normal. BUN 18 creatinine 0.64. Patient is been maintained on IV Lasix 40 mg daily. 09/10 Patient is seen today on the cardiac stepdown unit. She states her shortness of breath is better. She denies having any chest pain. Repeat blood work reveals WBC 10.4, hemoglobin 11.3. Sodium 140, potassium 4.3, BUN 21 creatinine 0.62. Patient has been afebrile, heart rate 95, blood pressure 112/65, pulse ox 97% on 4 L nasal cannula. Patient is currently being treated for COPD exacerbation and left lower lobe pneumonia followed by pulmonary medicine. 09/11 Patient is seen today in follow-up. She states that she did not sleep well. She is complaining of some mid chest chest pain with tenderness. She continues to have a cough and chest pain is worse with coughing. She also complains of upper respiratory congestion. Telemetry is sinus rhythm. Heart rate is in the 70s and 80s, blood pressure 118/63, pulse ox 98% on 4 L. Repeat blood work reveals hemoglobin 10.5, potassium 3.8, BUN 18 creatinine 0.72. PHYSICAL EXAMINATION Vital signs reviewed. Head: Normocephalic. Eyes: Sclerae nonicteric. Neck: Brisk carotid upstroke, no jugular venous distention. Lungs: Clear to auscultation. Heart: Regular rate and rhythm, S1-S2, no S3, no murmur or rub. Abdomen: Soft nontender, positive bowel sounds no organomegaly. Extremities: No edema, intact distal pulses. Neuro: Alert, oritented, no focal deficits ASSESSMENT Nstemi, likely type II Acute on chronic systolic heart failure Cardiomyopathy, unknown etiology, EF 35% anteroapical and apical hypokinesia Moderate aortic regurgitation Atrial fibrillation with rapid ventricular response Shortness of breath and generalized weakness due to left lower lobe Pneumonia, suspect Post viral, COPD exacerbation and mild CHF exacerbation Anemia Frailty and debility Recent COVID-19 infection Echo Showed an EF of 35% with anteroapical and apical wall hypokinesia. Moderate aortic regurgitation, elevated LV filling pressures PLAN Continue patient's current cardiac medications: Amiodarone 400 mg twice daily, aspirin 81 mg daily, Lipitor 40 mg daily, Farxiga 10 mg daily, Lasix 40 mg daily oral, lisinopril 5 mg daily, Lopressor 50 mg twice daily Discontinue eliquis Nothing by mouth after midnight Patient scheduled for cardiac catheterization tomorrow with Dr. Carballo. Repeat blood work in the morning. Nurse practitioner note has been reviewed, I agree with the documented findings and plan of care. Patient was seen and examined. Objective - Vital Signs Vital signs: Vital Signs Temp 98.0 F 09/10/23 09:08 Pulse 84 09/11/23 07:54 Resp 18 09/11/23 04:00 BP 118/63 09/11/23 04:00 Pulse Ox 95 09/11/23 07:44 FiO2 80 09/07/23 01:50 Intake & Output 09/10/23 09/11/23 09/11/23 18:59 06:59 18:59 Output Total 400 500 Balance -400 -500 Output: Urine 400 500 Other: Voiding Method Diaper Diaper External Catheter - Labs CBC & Chem 7: 09/11/23 09:55 09/11/23 09:55 Labs: Abnormal Lab Results - Last 24 Hours (Table) 09/10/23 09/10/23 Range/Units 08:36 11:37 RBC 3.57 L (3.80-5.40) m/uL Hgb 11.3 L (11.4-16.0) gm/dL BUN 21 H (7-17) mg/dL Glucose 121 H (74-99) mg/dL C-Reactive Protein 2.9 H (<1.0) mg/dL Microbiology - Last 24 Hours (Table) 09/10/23 11:20 Gram Stain - Preliminary Sputum
[2023-09-11] MEDS ORDERED: guaiFENesin 600 MG TABLET.ER PO PRN (15:23)
--- NOTE | 2023-09-11 16:13 | P.PN ---
Subjective Progress Note Date: 09/11/23 This is a 77-year-old female patient who resides at [facility] and has a history of oxygen dependent chronic obstructive pulmonary disease was brought into the emergency room early this morning with complaints of increasing shortness of breath or chest x-ray shows a mild left lower lobe posterior infiltrate. Evidence of COPD. CT angiogram ruled out pulmonary embolism. Probable basal pneumonia or aspiration pneumonitis changes upon significant diffuse emphysema. White count 22.2. Hemoglobin 11.9. Platelets 511. D-dimer 1.08. Potassium 4.8. Sodium 132. Bicarb 25. BUN 9. Creatinine 0.51. Glucose 301. Troponin 0.136. ProBNP 9530. Viral screen negative. She is seen today in consultation in the emergency department. Currently sitting up in a stretcher. Awake and alert. Maintaining O2 saturations in the upper 90s on 5 L/m per nasal cannula. Afebrile. Hemodynamically stable. Somewhat of a poor historian. EKG reveals atrial fibrillation with a rapid ventricular response, left bundle branch block. Progress note dated 09/08/2023. 77-year-old female seen in the emergency department again, room 16. She was seen in consultation yesterday. She has a history of oxygen-dependent COPD, and was brought to the emergency department with complaints of increasing shortness of breath. She actually thought that she was at [facility]. She was CT angiogram that ruled out pulmonary embolism. She had a chest x-ray which revealed a mild left lower lobe infiltrate. Currently, the patient is on 5 L of oxygen. She is receiving IV heparin. The patient is getting antibiotics in the form of Levaquin. Her pro-calcitonin level was 0.12. She was admitted with a diagnosis of COPD exacerbation, plus or minus pneumonia. White count was 15.4, hemoglobin 10.3, hematocrit 30.9, and platelet count 456,000. On today's evaluation of 09/09/2023, the patient is being seen for a follow-up that she is known to have advanced oxygen-dependent COPD and she was ho spitalized a few days ago for worsening shortness of breath and COPD exacerbation. I reviewed the CAT scan of the chest and it shows questionable limited infiltration of the left lung base. There is advanced emphysema changes bilaterally. The patient also has a ventral hernia containing the transverse colon enemas density without evidence of any obstruction. There is significant atherosclerotic changes of the proximal left subclavian area possibly stenosis and vertebral steal advanced to me. The patient also has a large left thyroid nodule. The patient has a WBC count of 11.5, hemoglobin of 10.3, the echocardiogram that was done on 09/07/2023 showed a ejection fraction of 30-45%. There is some antral septic in wall akinesis and moderate mitral annular calcification and regurgitation and elevated left ventricular end-diastolic pressure. There is also evidence of moderate aortic regurgitation. The patient is currently on DuoNeb updrafts, she is on IV Solu-Medrol 40 mg every 12 hours. She is on Levaquin and Flagyl combination. She is on anticoagulation with Eliquis 5 mg by mouth twice a day. That EKG showing a normal sinus rhythm. On 09/10/2023, I'm seeing the patient for a follow-up. The patient is being treated for a COPD exacerbation and the patient also has a left lower lobe pneumonia. The patient's is currently on oxygen and she is on 4 L of O2 nasal cannula. The patient is on bronchodilators. The patient is also on steroids. She has significant emphysema with chronic hypoxic respiratory failure. She also has CHF with impaired ejection fraction of 35%. No nausea. No vomiting. No diarrhea. No altered mentation. Current antibiotic coverage includes a combination of Levaquin and Flagyl. Her blood work shows edematous count of 11.5, hemoglobin was 10.3, BUN is at 80 with a creatinine of 0.6 and a sodium level is at 137. Legionella urine antigen was negative. The viral screen was also negative. Echocardiogram done on 09/07/2023 showed ejection fraction of 35-40%, anteroapical and apical wall akinesis, moderate mitral valve annular calcification with mild regurgitation and elevation in the left ventricular end- diastolic pressure. On today's evaluation to 2022, the patient is being seen for a follow-up. Remains on 4 L of Oxymizer nasal cannula. Remains on a combination of Levaquin and Flagyl regarding left lower lobe pulmonary infiltrate and the patient also being treated for an acute COPD exacerbation. She remains on DuoNeb updrafts. She remains on IV Solu-Medrol 40 mg every 12 hours. Overall, she is feeling somewhat improved. Water Sander on the case and the patient is scheduled to undergo a cardiac catheterization tomorrow morning. Meanwhile, the patient remains on aspirin, metoprolol 50 mg twice a day. The patient lasix 40 mg by mouth daily, lipitor 40 mg by mouth daily and amiodarone 400 mg by mouth daily. the patient is also on farxiga. Echo of the heart showed impaired LV function with an ejection fraction of 35%. The patient has also moderate degree of aortic regurgitation. BUN is at 18 with a creatinine of 0.7. Hemoglobin is at 10.5. Hemodynamically stable. Blood pressure is stable. Objective - Vital Signs Vital signs: Vital Signs Temp 98.0 F 09/10/23 09:08 Pulse 84 09/11/23 07:54 Resp 18 09/11/23 04:00 BP 118/63 09/11/23 04:00 Pulse Ox 95 09/11/23 07:44 FiO2 80 09/07/23 01:50 Intake & Output 09/10/23 09/11/23 09/11/23 18:59 06:59 18:59 Intake Total 240 Output Total 400 500 200 Balance -400 -500 40 Intake: Oral 240 Output: Urine 400 500 200 Other: Voiding Method Diaper Diaper External Catheter - Exam Mild respiratory difficulty, oriented, currently on 5 L of oxygen. No audible wheezing. HEENT examination is grossly unremarkable. Neck supple. Full range of motion. No adenopathy thyromegaly or neck vein distention. Cardiovascular examination reveals regular rhythm rate. S1-S2 normal. No S3 or S4. No discernible murmur noted. Lungs reveal scattered expiratory rhonchi and wheezes. No crackles. Breath sounds equal bilaterally. Abdomen soft bowel sounds are heard. No masses or tenderness. Extremities are intact. No cyanosis clubbing or edema. Skin is without rash or lesion. Neurologic examination is brief but nonfocal. - Labs CBC & Chem 7: 09/11/23 09:55 09/11/23 09:55 Labs: Abnormal Lab Results - Last 24 Hours (Table) 09/10/23 09/10/23 09/11/23 Range/Units 08:36 11:37 09:55 RBC 3.57 L 3.29 L (3.80-5.40) m/uL Hgb 11.3 L 10.5 L (11.4-16.0) gm/dL Hct 31.6 L (34.0-46.0) % BUN 21 H (7-17) mg/dL Glucose 121 H (74-99) mg/dL C-Reactive Protein 2.9 H (<1.0) mg/dL Microbiology - Last 24 Hours (Table) 09/10/23 11:20 Gram Stain - Preliminary Sputum Assessment and Plan Plan: Acute on chronic hypoxemic respiratory failure secondary to an acute exacerbation of chronic obstructive pulmonary disease possibly complicated by a left lower lobe pneumonia. Viral screen negative. Pulmonary embolism ruled out. She remains on 4 L of oxygen by nasal cannula. She is being she reports acute COPD exacerbation and a limited left basilar pneumonia. Clinically improving Acute on chronic hypoxic respiratory failure. The patient utilizes oxygen at 4 L at home. Oxygenation is back to its baseline Increase shortness of breath secondary to above along with some cough and congestion Leukocytosis secondary to above. Improving Hyperglycemia, related to steroid use Atrial fibrillation with a rapid ventricular response. Current cardiac rhythm is sinus and the patient is on anticoagulation with Eliquis and the patient is also on metoprolol at a dose of 50 mg by mouth twice a day and amiodarone 4 mg by mouth twice a day. Acute exacerbation of suspected systolic versus diastolic congestive heart failure. The patient has an ejection fraction of 35% and the patient has rusty vated lipids 2 and diastolic pressure and moderate aortic regurgitation Former smoker. History of bowel resection, status post ostomy. Plan: Clinically stable and improving We'll continue same management Collected sputum Gram stain and culture, still negative Incentive spirometer Continue same management Patient is on bronchodilators and steroids Patient is on Levaquin and Flagyl Patient is on oral Lasix 40 mg by mouth daily FiO2 has been weaned down to 4 L Continue same cardiac medications including aspirin, metoprolol, amiodarone, and the patient is also on diuretics with Lasix. Cardiac catheterization for diagnostic purposes to be done tomorrow. We'll follow
[2023-09-11 18:37] LABS: Glucose,Whole Blood 209 mg/dL (70-110)
[2023-09-11] MEDS: MONTELUKAST 10 MG TAB PO SCH (20:02)
[2023-09-11] MEDS: MELATONIN 3 MG TABLET PO SCH (20:02)
[2023-09-12] MEDS ORDERED: ATORVASTATIN 80 MG TAB PO ONE (05:00)
[2023-09-12] MEDS ORDERED: ASPIRIN 325 MG TAB PO ONE (05:00)
[2023-09-12] MEDS: metroNIDAZOLE-NS PMX 500 MG in SALINE 1 100ML.BAG IVPB SCH ×3 (05:17→19:08)
[2023-09-12] MEDS: ATORVASTATIN 40 MG TAB PO SCH (06:15)
[2023-09-12] MEDS: ASPIRIN 81 MG PO SCH (06:15)
[2023-09-12] MEDS: METOPROLOL TARTRATE 50 MG TAB PO SCH ×2 (06:24→19:08)
[2023-09-12] MEDS: BENZONATATE 100 MG CAP PO SCH ×3 (06:25→19:07)
[2023-09-12] MEDS: FAMOTIDINE 20 MG TAB PO SCH (06:25)
[2023-09-12] MEDS: LORATADINE 10 MG TAB PO SCH (06:25)
[2023-09-12] MEDS: lisinopriL 5 MG TAB PO SCH (06:25)
[2023-09-12] MEDS: methylPREDNISolone SOD SUCCI 40 MG/ML 1 ML VIAL IV SCH ×2 (06:25→20:40)
[2023-09-12] MEDS ORDERED: HEPARIN SODIUM,PORCINE 10,000 UNIT in SODIUM CHLORIDE 0.9% 1,000 ML IRRIGATION PRN (07:00)
[2023-09-12] MEDS ORDERED: HEPARIN SODIUM,PORCINE (1 ML) 2,500 UNIT in SODIUM CHLORIDE 0.9% 250 ML IRRIGATION PRN (07:00)
[2023-09-12] MEDS ORDERED: HEPARIN SODIUM 1,000 UN/ML (10ML VL) ONE (07:36)
[2023-09-12] MEDS ORDERED: fentaNYL (PF) 50 MCG/ML 2 ML AMP ONE (07:37)
[2023-09-12] MEDS ORDERED: IV FLUID CONTINUATION 1,000 ML IV ONE (07:40)
[2023-09-12] MEDS ORDERED: fentaNYL (PF) 50 MCG/ML 2 ML AMP IVP ONE (07:56)
[2023-09-12] MEDS ORDERED: MIDAZOLAM 2 MG/2 ML VIAL IVP ONE (07:57)
[2023-09-12] MEDS ORDERED: LIDOCAINE 1% INJ 10MG/ML (20 ML MDV) SQ ONE (08:01)
[2023-09-12] MEDS ORDERED: VERAPAMIL SYRINGE (5 MG/10 ML) INTRAARTER ONE (08:03)
[2023-09-12] MEDS ORDERED: HEPARIN SODIUM 1,000 UN/ML (10ML VL) IV ONE (08:07)
[2023-09-12] MEDS ORDERED: IOPAMIDOL-370 100ML BTL INJ ONE (08:18)
[2023-09-12] MEDS ORDERED: RX INFO: IV CONTRAST WAS GIVEN 1 EACH MISC MISCELLANE PRN (08:37)
--- NOTE | 2023-09-12 08:37 | P.CARDCATH ---
Date of Procedure: 09/12/23 Description of Procedure: DIAGNOSTIC CORONARY ANGIOGRAPHY and LEFT HEART CATH REPORT PROCEDURES PERFORMED: Left heart catheterization Selective coronary angiography Moderate conscious sedation 24 mins Ultrasound assisted Right radial access INDICATION: Nstemi 77-year-old female who recently had COVID-19 pneumonia was readmitted to the hospital because of worsening shortness of breath. There was also concern of post viral pneumonia. Admission she had evidence of elevated troponin with nonspecific T-wave inversions. Her echocardiogram showed severely reduced EF in the range of 30-35% with anteroapical hypokinesia. CONSENT: I have discussed the risks, benefits and alternative therapies for the above-mentioned procedure, sedation/analgesia and necessary blood product administration (if indicated, as they pertain to this patient). The patient has indicated understanding and acceptance of the risks and procedures discussed. Conscious Sedation: Patient's ECG, heart rate, blood pressure, pulse oximetry was monitored throughout the duration of procedure under my direct supervision. [1] mg Versed and 25 mg Fentanyl were used for induction of moderate conscious sedation. Total duration of moderate concious sedation 24 minutes. PROCEDURE: After explaining the risks, benefits and alternatives of the above mentioned procedures in detail to the patient, informed consent was obtained. Patient was taken to the catheterization lab, prepped and draped in usual sterile fashion using universal precuations. Barbow and karma test were performed to confirm adequate perfusion to fingers. Ultrasound was used to identify the radial artery. 1% lidocaine was infiltrated over the right radial artery. A 6-Mosotho sheath was placed and secured in the right radial artery using modified Seldinger technique. The sheath was flushed and 5 mg verapamil was administered intra-arterially. J tipped wire was advanced under fluoroscopic guidance. Once the wire tip reached aortic root 3600 units of IV heparin was given. Over the wire JL3.5 diagnostic catheter was advanced. It could not engage the left coronary artery selectively. This catheter was exchanged for a JL 4.5 diagnostic catheter. Wire was removed, catheter was flushed and manipulated under fluoroscopy to selectively engaged the left coronary ostium. Left coronary angioplasty was performed in different angiographic projections. This catheter was exchanged for a JR4 diagnostic catheter over the wire. The catheter was flushed and manipulated to cross the aortic valve. LV pressures were obtained. Pullback was performed across aortic valve and catheter was manipulated to selectively engage the right coronary ostium under fluoroscopic guidance. Right coronary angiography was performed in different angiographic projections. Catheter was removed over the wire. Radial sheath was flushed. The right radial sheath was removed and a TR band was placed with excellent patent hemostasis was achieved. The patient tolerated the procedure well. Patient was transported back to the post catheterization holding area in stable condition. Angiographic images were reviewed in detail. HEMODYNAMICS: Aortic Pressure: 120/60 mmHg. LV pressure: 120/10 mmHg. LVEDP 20 mmHg. There was no gradient across aortic valve SELECTIVE CORONARY ARTERIOGRAPHY: LEFT MAIN: The left main is a large caliber vessel which triifurcates into the LAD, Ramus and circumflex. Distal left main has an eccentric calcific focal 20% disease. LEFT ANTERIOR DESCENDING CORONARY ARTERY: LAD is a large caliber vessel which wraps around to the apex. Proximal and mid LAD has calcific tender 20% luminal irregularities. It gives rise to a medium-sized diagonal branch which appears angiographically normal. LEFT CIRCUMFLEX CORONARY ARTERY: It is nondominant vessel. Left circumflex is a moderate caliber vessel. It appears angiographically normal. It gives a small OM1 branch which appears normal. LCx continues to form the second OM branch is medium-sized and appears angiographically normal RAMUS: 2 mm vessel appears angiographically normal. RIGHT CORONARY ARTERY: Dominant vessel. Ostial RCA has 20% calcific stenosis. Proximal RCA is angiographically normal. Mid RCA has calcific 10% luminal irregularities. Distal part of mid RCA has an eccentric 10-20% calcific disease. Still RCA appears angiographically normal. It gives rise to PDA and PL branches which appears to have mild luminal irregularities. It gives a small marginal branch The right coronary artery is a large caliber vessel which gives PDA and PLV branch. IMPRESSION: Mild nonobstructive coronary artery disease Elevated LVEDP of 20 mmHg Anteroapical hypokinesia, stress-induced cardiomyopathy. Cannot rule out COVID related Cardiomyopathy PLAN: Aggressive risk factor modification per most recent ACC/AHA guidelines. 100 cc fluids for 3 hours Follow-up in the office in 1-2 weeks after discharge. Performing Physician Kike Carballo MD
[2023-09-12] MEDS ORDERED: SODIUM CHLORIDE 0.9% 1,000 ML IV SCH (08:45)
[2023-09-12] MEDS: GABAPENTIN 100 MG CAP PO SCH ×3 (08:47→19:07)
[2023-09-12] MEDS: SYMBICORT 160-4.5 MCG INHALER INHALATION SCH ×2 (08:54→19:50)
[2023-09-12] MEDS: IPRATROPIUM-ALBUTEROL 3 ML NEB INHALATION SCH ×4 (08:54→19:50)
[2023-09-12 09:51] LABS: HCT 29.9 % (34.0-46.0); HGB 9.5 gm/dL (11.4-16.0); Hypochromasia Moderate; MCH 31.3 pg (25.0-35.0); MCHC 31.9 g/dL (31.0-37.0); MCV 98.2 fL (80.0-100.0); Mean Platelet Volume 8.3; Platelet Count 351 k/uL (150-450); RBC 3.05 m/uL (3.80-5.40); RDW 14.5 % (11.5-15.5); WBC 8.8 k/uL (3.8-10.6)
[2023-09-12 10:10] LABS: African American GFR (CKD) >90 (>60 ml/min/1.73 sqM); Anion Gap 7 mmol/L; Blood Urea Nitrogen 15 mg/dL (7-17); Carbon Dioxide 27 mmol/L (22-30); Chloride 107 mmol/L (98-107); Non-African American GFR(CKD) >90 (>60 ml/min/1.73 sqM); Potassium 3.1 mmol/L (3.5-5.1); Sodium 141 mmol/L (137-145)
[2023-09-12 10:15] LABS: Glucose 107 mg/dL (74-99)
[2023-09-12] MEDS: SODIUM CHLORIDE 0.9% 1,000 ML IV SCH (12:10)
[2023-09-12] MEDS: AMIODARONE 200 MG TAB PO SCH ×2 (12:27→20:40)
[2023-09-12] MEDS: FLUTICASONE 50MCG/SPRAY NASAL 16GM EA NOSTRIL SCH (12:27)
[2023-09-12] MEDS: FUROSEMIDE 40 MG TAB PO SCH (12:27)
[2023-09-12] MEDS: guaiFENesin 600 MG TABLET.ER PO SCH ×2 (12:33→20:40)
[2023-09-12] MEDS: DAPAGLIFLOZIN PROPANEDIOL 10 MG TABLET PO SCH (12:33)
--- NOTE | 2023-09-12 12:44 | P.PN ---
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 Workup initiated in ER included chest x-ray, CT angiogram which was negative for pulmonary embolism. CT chest did show basal pneumonia or changes consistent with aspiration pneumonitis, right middle lobe lung nodule was noted as well, large left thyroid nodule seen * Hard work obtained on admission showed WBC of 22.2 hemoglobin 11.9 platelet count of 511, INR of 0.9 d-dimer 1.08 * Venous blood gas obtained pH 7.34 pCO2 52 * Serum chemistry showed sodium 132 potassium 4.8 chloride 90 3B UN 9 creatinine 0.51 glucose of 304 plasma lactic to 1.7 magnesium of 1.8 * Further workup in ER included an EKG which showed atrial fibrillation with rapid monitor response * Patient was given IV Cardizem push, started on IV antibiotics, received IV steroids in ED and placed on 6 L of oxygen * Patient to be admitted to progressive care unit with consultation from cardiology as well as pulmonary medicine * 09/08/2023: Patient seen and evaluated bedside patient in ER room 16, on 4 L of oxygen through nasal cannula, patient states her breathing has improved, patient was on Cardizem drip which will be weaned off cardiology following continue oral medications including metoprolol, continue IV antibiotics including Levaquin and Flagyl pointed QTC levels. Echocardiogram ordered as well. Blood work pending at this time including CBC and specimen metabolic panel * 09/09/2023: Patient seen and evaluated bedside, patient is alert and oriented 4, seen by cardiology, patient seen by pulmonary medicine as well patient states her breathing has improved. Echocardiogram shows ejection fraction of 30-45%. Continue patient on IV steroids, continue current antibiotic Levaquin and Flagyl she is on anticoagulation with Eliquis. Followed by pulmonary medicine and cardiology * 09/10/2023: Patient seen and evaluated bedside, inflammation markers improving patient on 4 L of oxygen, continue Mucinex, WBC count improved as well care plan discussed with patient in detail * 09/11/2023: Patient seen and evaluated and bedside, patient states her breathing has improved, she is on 4 L of oxygen which is close to baseline, follow-up hemoglobin 10.4, CBC 10, cardiology planning cardiac catheterization * 09/12/2023: Patient seen and evaluated bedside, patient is status was cardiac catheterization, medical management recommended. Hemoglobin reviewed is 9.5, potassium 3.1 that is replaced, patient to be monitored overnight and discharged to rehab likely 09/13/23 REVIEW OF SYSTEMS: Shortness of breath, cough, palpitations, weakness improved CONSTITUTIONAL: No fever, no malaise, no fatigue. HEENT: No recent visual problems or hearing problems. Denied any sore throat. CARDIOVASCULAR: No chest pain, orthopnea, PND, no palpitations, no syncope. PULMONARY: Shortness of breath, cough, palpitations, weakness GASTROINTESTINAL: No diarrhea, no nausea, no vomiting, no abdominal pain. NEUROLOGICAL: No headaches, no weakness, no numbness. HEMATOLOGICAL: Denies any bleeding or petechiae. GENITOURINARY: Denies any burning micturition, frequency, or urgency. MUSCULOSKELETAL/RHEUMATOLOGICAL: Denies any joint pain, swelling, or any muscle pain. ENDOCRINE: Denies any polyuria or polydipsia. PHYSICAL EXAMINATION: GENERAL: The patient is alert and oriented x3, ill appearance, nasal cannula in place, respiratory distress resolved HEENT: Pupils are round and equally reacting to light. EOMI. CARDIOVASCULAR: S1 and S2 present. Rate normal, rhythm irregular PULMONARY: Decreased breath sounds bilaterally, nasal cannula in place ABDOMEN: Soft, nontender, nondistended, colostomy in place MUSCULOSKELETAL: No joint swelling or deformity. EXTREMITIES: No cyanosis, clubbing, or pedal edema. NEUROLOGICAL: Gross neurological examination did not reveal any focal deficits. SKIN: No rashes. Objective - Vital Signs Vital signs: Vital Signs Temp 98.4 F 09/11/23 16:00 Pulse 88 09/12/23 11:54 Resp 16 09/12/23 04:00 BP 133/63 09/12/23 04:00 Pulse Ox 98 09/12/23 04:00 FiO2 80 09/07/23 01:50 Intake & Output 09/11/23 09/12/23 09/12/23 18:59 06:59 18:59 Intake Total 420 200 Output Total 200 240 Balance 220 -240 200 Intake: IV 200 Oral 420 Output: Urine 200 240 Other: Voiding Method Diaper Diaper External Catheter External Catheter - Labs CBC & Chem 7: 09/12/23 08:57 09/12/23 08:57 Labs: Abnormal Lab Results - Last 24 Hours (Table) 09/11/23 09/12/23 09/12/23 Range/Units 18:36 08:57 08:57 RBC 3.05 L (3.80-5.40) m/uL Hgb 9.5 L (11.4-16.0) gm/dL Hct 29.9 L (34.0-46.0) % Potassium 3.1 L (3.5-5.1) mmol/L Creatinine 0.50 L (0.52-1.04) mg/dL Glucose 107 H (74-99) mg/dL POC Glucose (mg/dL) 209 H (70-110) mg/dL Calcium 7.0 L (8.4-10.2) mg/dL Microbiology - Last 24 Hours (Table) 09/10/23 11:20 Gram Stain - Preliminary Sputum Assessment and Plan 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% * Atrial fibrillation with rapid ventricular response * History of bowel resection status post colostomy * Recent COVID-19 infection * In regards to hypoxic respiratory failure, COPD exacerbation, continue patient on IV antibiotics on Levaquin//Flagyl COMPLETED>> IV Solu-Medrol. Appreciate input from pulmonary medicine * In regards to left lower lobe pneumonia, follow-up on sputum cultures, urine Legionella negative antibiotic course COMPLETED * In regards to elevated troponin,, IV heparin discontinued, continue medical management continue amiodarone aspirin, metoprolol * In regards to recent COVID-19 infection patient tested negative for Covid on admission, continue supportive treatment * In regards to history of ostomy continue with ostomy care * She will need physical therapy occupational therapy evaluation>> will need discharge to subacute rehab * CODE STATUS is full code Time with Patient: Greater than 30
--- NOTE | 2023-09-12 14:43 | P.PN ---
Subjective Progress Note Date: 09/12/23 This is a 77-year-old female patient who resides at [facility] and has a history of oxygen dependent chronic obstructive pulmonary disease was brought into the emergency room early this morning with complaints of increasing shortness of breath or chest x-ray shows a mild left lower lobe posterior infiltrate. Evidence of COPD. CT angiogram ruled out pulmonary embolism. Probable basal pneumonia or aspiration pneumonitis changes upon significant diffuse emphysema. White count 22.2. Hemoglobin 11.9. Platelets 511. D-dimer 1.08. Potassium 4.8. Sodium 132. Bicarb 25. BUN 9. Creatinine 0.51. Glucose 301. Troponin 0.136. ProBNP 9530. Viral screen negative. She is seen today in consultation in the emergency department. Currently sitting up in a stretcher. Awake and alert. Maintaining O2 saturations in the upper 90s on 5 L/m per nasal cannula. Afebrile. Hemodynamically stable. Somewhat of a poor historian. EKG reveals atrial fibrillation with a rapid ventricular response, left bundle branch block. Progress note dated 09/08/2023. 77-year-old female seen in the emergency department again, room 16. She was seen in consultation yesterday. She has a history of oxygen-dependent COPD, and was brought to the emergency department with complaints of increasing shortness of breath. She actually thought that she was at [facility]. She was CT angiogram that ruled out pulmonary embolism. She had a chest x-ray which revealed a mild left lower lobe infiltrate. Currently, the patient is on 5 L of oxygen. She is receiving IV heparin. The patient is getting antibiotics in the form of Levaquin. Her pro-calcitonin level was 0.12. She was admitted with a diagnosis of COPD exacerbation, plus or minus pneumonia. White count was 15.4, hemoglobin 10.3, hematocrit 30.9, and platelet count 456,000. On today's evaluation of 09/09/2023, the patient is being seen for a follow-up that she is known to have advanced oxygen-dependent COPD and she was ho spitalized a few days ago for worsening shortness of breath and COPD exacerbation. I reviewed the CAT scan of the chest and it shows questionable limited infiltration of the left lung base. There is advanced emphysema changes bilaterally. The patient also has a ventral hernia containing the transverse colon enemas density without evidence of any obstruction. There is significant atherosclerotic changes of the proximal left subclavian area possibly stenosis and vertebral steal advanced to me. The patient also has a large left thyroid nodule. The patient has a WBC count of 11.5, hemoglobin of 10.3, the echocardiogram that was done on 09/07/2023 showed a ejection fraction of 30-45%. There is some antral septic in wall akinesis and moderate mitral annular calcification and regurgitation and elevated left ventricular end-diastolic pressure. There is also evidence of moderate aortic regurgitation. The patient is currently on DuoNeb updrafts, she is on IV Solu-Medrol 40 mg every 12 hours. She is on Levaquin and Flagyl combination. She is on anticoagulation with Eliquis 5 mg by mouth twice a day. That EKG showing a normal sinus rhythm. On 09/10/2023, I'm seeing the patient for a follow-up. The patient is being treated for a COPD exacerbation and the patient also has a left lower lobe pneumonia. The patient's is currently on oxygen and she is on 4 L of O2 nasal cannula. The patient is on bronchodilators. The patient is also on steroids. She has significant emphysema with chronic hypoxic respiratory failure. She also has CHF with impaired ejection fraction of 35%. No nausea. No vomiting. No diarrhea. No altered mentation. Current antibiotic coverage includes a combination of Levaquin and Flagyl. Her blood work shows edematous count of 11.5, hemoglobin was 10.3, BUN is at 80 with a creatinine of 0.6 and a sodium level is at 137. Legionella urine antigen was negative. The viral screen was also negative. Echocardiogram done on 09/07/2023 showed ejection fraction of 35-40%, anteroapical and apical wall akinesis, moderate mitral valve annular calcification with mild regurgitation and elevation in the left ventricular end- diastolic pressure. On today's evaluation to 2022, the patient is being seen for a follow-up. Remains on 4 L of Oxymizer nasal cannula. Remains on a combination of Levaquin and Flagyl regarding left lower lobe pulmonary infiltrate and the patient also being treated for an acute COPD exacerbation. She remains on DuoNeb updrafts. She remains on IV Solu-Medrol 40 mg every 12 hours. Overall, she is feeling somewhat improved. Field Identification Specialist on the case and the patient is scheduled to undergo a cardiac catheterization tomorrow morning. Meanwhile, the patient remains on aspirin, metoprolol 50 mg twice a day. The patient lasix 40 mg by mouth daily, lipitor 40 mg by mouth daily and amiodarone 400 mg by mouth daily. the patient is also on farxiga. Echo of the heart showed impaired LV function with an ejection fraction of 35%. The patient has also moderate degree of aortic regurgitation. BUN is at 18 with a creatinine of 0.7. Hemoglobin is at 10.5. Hemodynamically stable. Blood pressure is stable. On 09/12/2023, the patient is stable and the patient has no specific complaints. She is reporting less shortness of breath compared to yesterday. She is free of any chest pain. Cardiac catheterization was done and the patient was found to nonocclusive disease and the patient was not given any intervention. Medical treatment will be continued per cardiology recommendation. The patient is currently on oral Lasix 40 mg by mouth daily. Repeat blood work from today shows a WBC count of 8.8, hemoglobin 9.5, BUN is a 50 with a creatinine of 0.5 and a sodium level is at 141. The sputum sample was negative for any bacterial growth. She remains on bronchodilators. She remains on IV Solu-Medrol 40 mg every 12 hours. Objective - Vital Signs Vital signs: Vital Signs Temp 98.4 F 09/11/23 16:00 Pulse 85 09/12/23 04:00 Resp 16 09/12/23 04:00 BP 133/63 09/12/23 04:00 Pulse Ox 98 09/12/23 04:00 FiO2 80 09/07/23 01:50 Intake & Output 09/11/23 09/12/23 09/12/23 18:59 06:59 18:59 Intake Total 420 200 Output Total 200 240 Balance 220 -240 200 Intake: IV 200 Oral 420 Output: Urine 200 240 Other: Voiding Method Diaper Diaper External Catheter External Catheter - Exam Mild respiratory difficulty, oriented, currently on 5 L of oxygen. No audible wheezing. HEENT examination is grossly unremarkable. Neck supple. Full range of motion. No adenopathy thyromegaly or neck vein distention. Cardiovascular examination reveals regular rhythm rate. S1-S2 normal. No S3 or S4. No discernible murmur noted. Lungs reveal scattered expiratory rhonchi and wheezes. No crackles. Breath sounds equal bilaterally. Abdomen soft bowel sounds are heard. No masses or tenderness. Extremities are intact. No cyanosis clubbing or edema. Skin is without rash or lesion. Neurologic examination is brief but nonfocal. - Labs CBC & Chem 7: 09/12/23 08:57 09/12/23 08:57 Labs: Abnormal Lab Results - Last 24 Hours (Table) 09/11/23 09/12/23 09/12/23 Range/Units 18:36 08:57 08:57 RBC 3.05 L (3.80-5.40) m/uL Hgb 9.5 L (11.4-16.0) gm/dL Hct 29.9 L (34.0-46.0) % Potassium 3.1 L (3.5-5.1) mmol/L Creatinine 0.50 L (0.52-1.04) mg/dL Glucose 107 H (74-99) mg/dL POC Glucose (mg/dL) 209 H (70-110) mg/dL Calcium 7.0 L (8.4-10.2) mg/dL Microbiology - Last 24 Hours (Table) 09/10/23 11:20 Gram Stain - Preliminary Sputum Assessment and Plan Plan: Acute on chronic hypoxemic respiratory failure secondary to an acute exacerbation of chronic obstructive pulmonary disease possibly complicated by a left lower lobe pneumonia. Viral screen negative. Pulmonary embolism ruled out. She remains on 4 L of oxygen by nasal cannula. She is being she reports acute COPD exacerbation and a limited left basilar pneumonia. Clinically improving, the patient completed a course of Levaquin Acute on chronic hypoxic respiratory failure. The patient utilizes oxygen at 4 L at home. Oxygenation is back to its baseline Increase shortness of breath secondary to above along with some cough and congestion, improving Leukocytosis secondary to above. Improving Hyperglycemia, related to steroid use Atrial fibrillation with a rapid ventricular response. Current cardiac rhythm is sinus and the patient is on anticoagulation with Eliquis and the patient is also on metoprolol at a dose of 50 mg by mouth twice a day and amiodarone 4 mg by mouth twice a day. Acute exacerbation of suspected systolic versus diastolic congestive heart failure. The patient has an ejection fraction of 35% and diastolic pressure and moderate aortic regurgitation Former smoker. History of bowel resection, status post ostomy Nonocclusive coronary artery disease with elevated left ventricle end-diastolic pressure. This could be related to her CHF and valvular heart disease. Moderate degree of mitral regurgitation Plan: Clinically stable and improving We'll continue same management Collected sputum Gram stain and culture, still negative Incentive spirometer Continue same management Patient is on bronchodilators and steroids Discontinue Flagyl Patient is on oral Lasix 40 mg by mouth daily FiO2 has been weaned down to 4 L, wean FiO2 to maintain saturation 90% Continue same cardiac medications including aspirin, metoprolol, amiodarone, and the patient is also on diuretics with Lasix. Cardiac catheterization for diagnostic purposes and the patient was found to have nonobstructive coronary artery disease We'll switch this patient to oral prednisone as of tomorrow We'll follow
[2023-09-12] MEDS: POTASSIUM CHLORIDE 10 MEQ in WATER FOR INJECTION 1 100ML.BAG IVPB SCH ×2 (15:29→16:23)
[2023-09-12] MEDS ORDERED: Potassium Replacement Protocol 1 EACH MISC MISCELLANE PRN (17:42)
[2023-09-12] MEDS: POTASSIUM CHLORIDE ER 20 MEQ TAB.ER PO SCH ×2 (19:07→20:40)
[2023-09-12] MEDS: MONTELUKAST 10 MG TAB PO SCH (19:09)
[2023-09-12] MEDS: MELATONIN 3 MG TABLET PO SCH (19:13)
[2023-09-13] MEDS: metroNIDAZOLE-NS PMX 500 MG in SALINE 1 100ML.BAG IVPB SCH ×2 (03:55→14:10)
[2023-09-13] MEDS: BENZONATATE 100 MG CAP PO SCH ×2 (06:45→14:10)
[2023-09-13] MEDS: GABAPENTIN 100 MG CAP PO SCH ×2 (06:45→14:10)
[2023-09-13] MEDS: METOPROLOL TARTRATE 50 MG TAB PO SCH (06:46)
[2023-09-13] MEDS: FLUTICASONE 50MCG/SPRAY NASAL 16GM EA NOSTRIL SCH (06:46)
[2023-09-13] MEDS: SODIUM CHLORIDE 0.9% 1,000 ML IV SCH (07:00)
[2023-09-13] MEDS: SYMBICORT 160-4.5 MCG INHALER INHALATION SCH (07:45)
[2023-09-13] MEDS: IPRATROPIUM-ALBUTEROL 3 ML NEB INHALATION SCH ×3 (07:45→15:16)
[2023-09-13] MEDS ORDERED: APIXABAN 5 MG TAB PO SCH (09:00)
[2023-09-13] MEDS: ATORVASTATIN 40 MG TAB PO SCH (09:59)
[2023-09-13] MEDS: FAMOTIDINE 20 MG TAB PO SCH (09:59)
[2023-09-13] MEDS: ASPIRIN 81 MG PO SCH (09:59)
[2023-09-13] MEDS: FUROSEMIDE 40 MG TAB PO SCH (09:59)
[2023-09-13] MEDS: guaiFENesin 600 MG TABLET.ER PO SCH (09:59)
[2023-09-13] MEDS: lisinopriL 5 MG TAB PO SCH (09:59)
[2023-09-13] MEDS: LORATADINE 10 MG TAB PO SCH (09:59)
[2023-09-13] MEDS: DAPAGLIFLOZIN PROPANEDIOL 10 MG TABLET PO SCH (09:59)
[2023-09-13] MEDS: AMIODARONE 200 MG TAB PO SCH (09:59)
[2023-09-13] MEDS: methylPREDNISolone SOD SUCCI 40 MG/ML 1 ML VIAL IV SCH (10:00)
[2023-09-13] MEDS ORDERED: predniSONE 20 MG TAB PO SCH (11:00)
[2023-09-13 11:25] VITALS: TEMP 97.9
[2023-09-13 12:37] LABS: HCT 34.5 % (34.0-46.0); HGB 11.2 gm/dL (11.4-16.0); Hypochromasia Slight; MCH 31.7 pg (25.0-35.0); MCHC 32.4 g/dL (31.0-37.0); Mean Platelet Volume 7.9; Platelet Count 370 k/uL (150-450); RBC 3.52 m/uL (3.80-5.40); RDW 14.5 % (11.5-15.5)
[2023-09-13 12:40] VITALS: BMI 23.3
--- NOTE | 2023-09-13 12:43 | P.DS ---
Providers Date of admission: 09/07/23 06:24 Expected date of discharge: 09/13/23 Attending physician: Dmitry Nevarez Consults: 09/07/23 06:21 Consult Physician Routine Consulting Provider: Jasbir Perry Consult Reason/Comments: respiratory failure Do you want consulting provider notified?: Yes Consult Physician Routine Consulting Provider: René Antunez Consult Reason/Comments: elevated troponin, afib Do you want consulting provider notified?: Yes Primary care physician: Viktoria Calhoun DO Hospital Course: 77-year-old patient with past medical history significant for COPD oxygen dependent, history of recent Covid 19, history of severe asthma, severe protein calorie malnutrition, generalized muscle weakness, post COVID-19 condition, 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 Workup initiated in ER included chest x- ray, CT angiogram which was negative for pulmonary embolism. CT chest did show basal pneumonia or changes consistent with aspiration pneumonitis, right middle lobe lung nodule was noted as well, large left thyroid nodule seen * Hard work obtained on admission showed WBC of 22.2 hemoglobin 11.9 platelet count of 511, INR of 0.9 d-dimer 1.08 * Venous blood gas obtained pH 7.34 pCO2 52 * Serum chemistry showed sodium 132 potassium 4.8 chloride 90 3B UN 9 creatinine 0.51 glucose of 304 plasma lactic to 1.7 magnesium of 1.8 * Further workup in ER included an EKG which showed atrial fibrillation with rapid monitor response * Patient was given IV Cardizem push, started on IV antibiotics, received IV steroids in ED and placed on 6 L of oxygen * Patient to be admitted to progressive care unit with consultation from cardiology as well as pulmonary medicine * 09/08/2023: Patient seen and evaluated bedside patient in ER room 16, on 4 L of oxygen through nasal cannula, patient states her breathing has improved, patient was on Cardizem drip which will be weaned off cardiology following continue oral medications including metoprolol, continue IV antibiotics including Levaquin and Flagyl pointed QTC levels. Echocardiogram ordered as well. Blood work pending at this time including CBC and specimen metabolic panel * 09/09/2023: Patient seen and evaluated bedside, patient is alert and oriented 4, seen by cardiology, patient seen by pulmonary medicine as well patient states her breathing has improved. Echocardiogram shows ejection fraction of 30-45%. Continue patient on IV steroids, continue current antibiotic Levaquin and Flagyl she is on anticoagulation with Eliquis. Followed by pulmonary medicine and cardiology * 09/10/2023: Patient seen and evaluated bedside, inflammation markers improving patient on 4 L of oxygen, continue Mucinex, WBC count improved as well care plan discussed with patient in detail * 09/11/2023: Patient seen and evaluated and bedside, patient states her breathing has improved, she is on 4 L of oxygen which is close to baseline, follow-up hemoglobin 10.4, CBC 10, cardiology planning cardiac catheterization * 09/12/2023: Patient seen and evaluated bedside, patient is status was cardiac catheterization, medical management recommended. Hemoglobin reviewed is 9.5, potassium 3.1 that is replaced, patient to be monitored overnight and discharged to rehab likely 09/13/23 * 09/13/2023: Patient seen and evaluated bedside, symptoms have improved, plan to discharge to rehab facility. Patient on aspirin, Eliquis and amiodarone, further recommendations from cardiology. Patient completed course of antibiotic while inpatient. Patient had episode of hypokalemia 09/12., potassium was corrected REVIEW OF SYSTEMS: Shortness of breath, cough, palpitations, weakness improved CONSTITUTIONAL: No fever, no malaise, no fatigue. HEENT: No recent visual problems or hearing problems. Denied any sore throat. CARDIOVASCULAR: No chest pain, orthopnea, PND, no palpitations, no syncope. PULMONARY: Shortness of breath, cough, palpitations, weakness GASTROINTESTINAL: No diarrhea, no nausea, no vomiting, no abdominal pain. NEUROLOGICAL: No headaches, no weakness, no numbness. HEMATOLOGICAL: Denies any bleeding or petechiae. GENITOURINARY: Denies any burning micturition, frequency, or urgency. MUSCULOSKELETAL/RHEUMATOLOGICAL: Denies any joint pain, swelling, or any muscle pain. ENDOCRINE: Denies any polyuria or polydipsia. PHYSICAL EXAMINATION: GENERAL: The patient is alert and oriented x3, , nasal cannula in place, respiratory distress resolved HEENT: Pupils are round and equally reacting to light. EOMI. CARDIOVASCULAR: S1 and S2 present. Rate normal, rhythm irregular PULMONARY: Improved breath sounds bilaterally ABDOMEN: Soft, nontender, nondistended, colostomy in place MUSCULOSKELETAL: No joint swelling or deformity. EXTREMITIES: No cyanosis, clubbing, or pedal edema. NEUROLOGICAL: Gross neurological examination did not reveal any focal deficits. SKIN: No rashes. 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% * Atrial fibrillation with rapid ventricular response * History of bowel resection status post colostomy * Recent COVID-19 infection * In regards to hypoxic respiratory failure, COPD exacerbation, continue patient on IV antibiotics on Levaquin//Flagyl COMPLETED>> received IV Solu-Medrol, transition to prednisone, prescription provided upon discharge Appreciate input from pulmonary medicine * In regards to left lower lobe pneumonia, follow-up on sputum cultures, urine Legionella negative antibiotic course COMPLETED * In regards to elevated troponin,, IV heparin discontinued, continue medical management continue amiodarone aspirin, metoprolol * In regards to recent COVID-19 infection patient tested negative for Covid on admission, continue supportive treatment * In regards to atrial fibrillation patient was started on amiodarone 400 mg twice a day total 7 days, patient given 2 additional days upon discharge, then continue amiodarone 200 mg daily, continue metoprolol, Cardizem discontinued * In regards to history of ostomy continue with ostomy care * She will need physical therapy occupational therapy evaluation>> will need discharge to subacute rehab Patient Condition at Discharge: Serious Plan - Discharge Summary Discharge Rx Participant: No New Discharge Prescriptions: New Furosemide [Lasix] 40 mg PO DAILY tab lisinopriL [Zestril] 5 mg PO DAILY tab Amiodarone [Cordarone] See Taper PO DAILY 30 Days #34 tab Potassium Chloride [K-Tab ER] 20 meq PO DAILY 30 Days #30 tab Aspirin 81 mg PO DAILY tab Apixaban [Eliquis] 5 mg PO BID tab predniSONE [Deltasone] 40 mg PO DAILY 5 Days #10 tab Continue Diclofenac Sodium Gel [Voltaren 1% Gel] 1 applic TOPICAL TID PRN PRN Reason: Right Hand Pain guaiFENesin [guaiFENesin Oral Solution] 200 mg PO Q4H PRN PRN Reason: Cough Meclizine [Antivert] 12.5 mg PO Q8H PRN PRN Reason: Vertigo Albuterol Inhaler [Ventolin Hfa Inhaler] 2 puff INHALATION RT-Q6H PRN PRN Reason: COPD Healthshake 1 dose PO TID-W/MEALS Montelukast [Singulair] 10 mg PO HS@1999 L.acidoph,Paracasei, B.lactis [Probiotic] 1 cap PO DAILY Multivitamins, Thera [Multivitamin (formulary)] 1 tab PO DAILY Fluticasone Nasal Grace [Flonase Nasal Grace] 1 spr EA NOSTRIL DAILY@0700 Famotidine [Pepcid] 20 mg PO DAILY Gabapentin [Neurontin] 200 mg PO TID@0700,1300,1900 3 Days #18 cap Sodium Chloride [[place] Grace] 1 spr EA NOSTRIL DIRECTED PRN PRN Reason: Congestion Acetaminophen [Tylenol 8 Hour] 650 mg PO BID PRN PRN Reason: Pain Ipratropium-Albuterol Nebulize [Duoneb 0.5 mg-3 mg/3 ml Soln] 3 ml INHALATION RT-Q4H PRN PRN Reason: Shortness Of Breath Or Wheezing Benzonatate [Tessalon Perle] 200 mg PO TID@0700,1300,1900 Metoprolol Tartrate [Lopressor] 50 mg PO BID@0700,1900 Acetaminophen [Tylenol 8 Hour] 650 mg PO BID Fluticasone Propion/Salmeterol [Advair 250-50 Diskus] 1 puff INHALATION RT- BID@0700,1900 Melatonin 3 mg PO HS@2000 Cetirizine HCl [Zyrtec] 10 mg PO DAILY Discontinued Diltiazem Oral [Cardizem Oral] 30 mg PO TID@0700,1300,1900 Clopidogrel [Plavix] 75 mg PO Q2D Discharge Medication List Acetaminophen [Tylenol 8 Hour] 650 mg PO BID 09/07/23 [History] Acetaminophen [Tylenol 8 Hour] 650 mg PO BID PRN 09/07/23 [History] Albuterol Inhaler [Ventolin Hfa Inhaler] 2 puff INHALATION RT-Q6H PRN 09/07/23 [History] Benzonatate [Tessalon Perle] 200 mg PO TID@0700,1300,1900 09/07/23 [History] Cetirizine HCl [Zyrtec] 10 mg PO DAILY 09/07/23 [History] Diclofenac Sodium Gel [Voltaren 1% Gel] 1 applic TOPICAL TID PRN 09/07/23 [History] Famotidine [Pepcid] 20 mg PO DAILY 09/07/23 [History] Fluticasone Nasal Grace [Flonase Nasal Grace] 1 spr EA NOSTRIL DAILY@0700 09/07/23 [History] Fluticasone Propion/Salmeterol [Advair 250-50 Diskus] 1 puff INHALATION RT- BID@0700,1900 09/07/23 [History] Healthshake 1 dose PO TID-W/MEALS 09/07/23 [History] Ipratropium-Albuterol Nebulize [Duoneb 0.5 mg-3 mg/3 ml Soln] 3 ml INHALATION RT-Q4H PRN 09/07/23 [History] L.acidoph,Paracasei, B.lactis [Probiotic] 1 cap PO DAILY 09/07/23 [History] Meclizine [Antivert] 12.5 mg PO Q8H PRN 09/07/23 [History] Melatonin 3 mg PO HS@199909/07/23 [History] Metoprolol Tartrate [Lopressor] 50 mg PO BID@0700,1900 09/07/23 [History] Montelukast [Singulair] 10 mg PO HS@199909/07/23 [History] Multivitamins, Thera [Multivitamin (formulary)] 1 tab PO DAILY 09/07/23 [History] Sodium Chloride [[place] Grace] 1 spr EA NOSTRIL DIRECTED PRN 09/07/23 [History] guaiFENesin [guaiFENesin Oral Solution] 200 mg PO Q4H PRN 09/07/23 [History] Amiodarone [Cordarone] See Taper PO DAILY 30 Days #34 tab 09/13/23 [Rx] Apixaban [Eliquis] 5 mg PO BID tab 09/13/23 [Rx] Aspirin 81 mg PO DAILY tab 09/13/23 [Rx] Furosemide [Lasix] 40 mg PO DAILY tab 09/13/23 [Rx] Gabapentin [Neurontin] 200 mg PO TID@0700,1300,1900 3 Days #18 cap 09/13/23 [Rx] Potassium Chloride [K-Tab ER] 20 meq PO DAILY 30 Days #30 tab 09/13/23 [Rx] lisinopriL [Zestril] 5 mg PO DAILY tab 09/13/23 [Rx] predniSONE [Deltasone] 40 mg PO DAILY 5 Days #10 tab 09/13/23 [Rx] Follow up Appointment(s)/Referral(s): Viktoria Calhoun DO [Primary Care Provider] - 1-2 days Levy Cox MD [STAFF PHYSICIAN] - 1 Week Discharge Disposition: TRANSFER TO SNF/ECF
--- NOTE | 2023-09-13 12:51 | P.PN ---
Subjective Progress Note Date: 09/13/23 This is a 77-year-old female patient who resides at [facility] and has a history of oxygen dependent chronic obstructive pulmonary disease was brought into the emergency room early this morning with complaints of increasing shortness of breath or chest x-ray shows a mild left lower lobe posterior infiltrate. Evidence of COPD. CT angiogram ruled out pulmonary embolism. Probable basal pneumonia or aspiration pneumonitis changes upon significant diffuse emphysema. White count 22.2. Hemoglobin 11.9. Platelets 511. D-dimer 1.08. Potassium 4.8. Sodium 132. Bicarb 25. BUN 9. Creatinine 0.51. Glucose 301. Troponin 0.136. ProBNP 9530. Viral screen negative. She is seen today in consultation in the emergency department. Currently sitting up in a stretcher. Awake and alert. Maintaining O2 saturations in the upper 90s on 5 L/m per nasal cannula. Afebrile. Hemodynamically stable. Somewhat of a poor historian. EKG reveals atrial fibrillation with a rapid ventricular response, left bundle branch block. Progress note dated 09/08/2023. 77-year-old female seen in the emergency department again, room 16. She was seen in consultation yesterday. She has a history of oxygen-dependent COPD, and was brought to the emergency department with complaints of increasing shortness of breath. She actually thought that she was at [facility]. She was CT angiogram that ruled out pulmonary embolism. She had a chest x-ray which revealed a mild left lower lobe infiltrate. Currently, the patient is on 5 L of oxygen. She is receiving IV heparin. The patient is getting antibiotics in the form of Levaquin. Her pro-calcitonin level was 0.12. She was admitted with a diagnosis of COPD exacerbation, plus or minus pneumonia. White count was 15.4, hemoglobin 10.3, hematocrit 30.9, and platelet count 456,000. On today's evaluation of 09/09/2023, the patient is being seen for a follow-up that she is known to have advanced oxygen-dependent COPD and she was ho spitalized a few days ago for worsening shortness of breath and COPD exacerbation. I reviewed the CAT scan of the chest and it shows questionable limited infiltration of the left lung base. There is advanced emphysema changes bilaterally. The patient also has a ventral hernia containing the transverse colon enemas density without evidence of any obstruction. There is significant atherosclerotic changes of the proximal left subclavian area possibly stenosis and vertebral steal advanced to me. The patient also has a large left thyroid nodule. The patient has a WBC count of 11.5, hemoglobin of 10.3, the echocardiogram that was done on 09/07/2023 showed a ejection fraction of 30-45%. There is some antral septic in wall akinesis and moderate mitral annular calcification and regurgitation and elevated left ventricular end-diastolic pressure. There is also evidence of moderate aortic regurgitation. The patient is currently on DuoNeb updrafts, she is on IV Solu-Medrol 40 mg every 12 hours. She is on Levaquin and Flagyl combination. She is on anticoagulation with Eliquis 5 mg by mouth twice a day. That EKG showing a normal sinus rhythm. On 09/10/2023, I'm seeing the patient for a follow-up. The patient is being treated for a COPD exacerbation and the patient also has a left lower lobe pneumonia. The patient's is currently on oxygen and she is on 4 L of O2 nasal cannula. The patient is on bronchodilators. The patient is also on steroids. She has significant emphysema with chronic hypoxic respiratory failure. She also has CHF with impaired ejection fraction of 35%. No nausea. No vomiting. No diarrhea. No altered mentation. Current antibiotic coverage includes a combination of Levaquin and Flagyl. Her blood work shows edematous count of 11.5, hemoglobin was 10.3, BUN is at 80 with a creatinine of 0.6 and a sodium level is at 137. Legionella urine antigen was negative. The viral screen was also negative. Echocardiogram done on 09/07/2023 showed ejection fraction of 35-40%, anteroapical and apical wall akinesis, moderate mitral valve annular calcification with mild regurgitation and elevation in the left ventricular end- diastolic pressure. On today's evaluation to 2022, the patient is being seen for a follow-up. Remains on 4 L of Oxymizer nasal cannula. Remains on a combination of Levaquin and Flagyl regarding left lower lobe pulmonary infiltrate and the patient also being treated for an acute COPD exacerbation. She remains on DuoNeb updrafts. She remains on IV Solu-Medrol 40 mg every 12 hours. Overall, she is feeling somewhat improved. Joint Cutter on the case and the patient is scheduled to undergo a cardiac catheterization tomorrow morning. Meanwhile, the patient remains on aspirin, metoprolol 50 mg twice a day. The patient lasix 40 mg by mouth daily, lipitor 40 mg by mouth daily and amiodarone 400 mg by mouth daily. the patient is also on farxiga. Echo of the heart showed impaired LV function with an ejection fraction of 35%. The patient has also moderate degree of aortic regurgitation. BUN is at 18 with a creatinine of 0.7. Hemoglobin is at 10.5. Hemodynamically stable. Blood pressure is stable. On 09/12/2023, the patient is stable and the patient has no specific complaints. She is reporting less shortness of breath compared to yesterday. She is free of any chest pain. Cardiac catheterization was done and the patient was found to nonocclusive disease and the patient was not given any intervention. Medical treatment will be continued per cardiology recommendation. The patient is currently on oral Lasix 40 mg by mouth daily. Repeat blood work from today shows a WBC count of 8.8, hemoglobin 9.5, BUN is a 50 with a creatinine of 0.5 and a sodium level is at 141. The sputum sample was negative for any bacterial growth. She remains on bronchodilators. She remains on IV Solu-Medrol 40 mg every 12 hours. on today's evaluation of 09/13/2023, the patient is currently feeling much improved. She is recovering from COPD exacerbation left lower lobe pneumonia. Cardiac catheterization was completed and was essentially negative for any significant coronary artery disease and the patient is currently feeling the chest pain. The patient will be also taken off the IV Solu-Medrol started on a prednisone burst taper. Lactic to get discharged home today.White cell count at 16, hemoglobin 11.2 and a platelet count of 317. Electrolytes from yesterday were all within normal limits. Is currently on 4 L of O2 nasal cannula with a pulse ox of 99%. The rest of the hemodynamics are all stable at this point in time. Objective - Vital Signs Vital signs: Vital Signs Temp 98 F 09/13/23 04:00 Pulse 74 09/13/23 07:57 Resp 16 09/13/23 04:00 BP 117/66 09/13/23 04:00 Pulse Ox 100 09/13/23 04:00 FiO2 80 09/07/23 01:50 Intake & Output 09/12/23 09/13/23 09/13/23 18:59 06:59 18:59 Intake Total 680 780 240 Output Total 400 925 Balance 280 -145 240 Intake: IV 200 Intake, IV Titration 240 Amount Sodium Chloride 0.9% 1, 240 000 ml @ 20 mls/hr IV . Q24H [facility] Rx#:[id number] Oral 480 540 240 Output: Urine 400 650 Stool 275 Other: Voiding Method Diaper Diaper External Catheter External Catheter # Voids 1 - Exam Mild respiratory difficulty, oriented, currently on 5 L of oxygen. No audible wheezing. HEENT examination is grossly unremarkable. Neck supple. Full range of motion. No adenopathy thyromegaly or neck vein distention. Cardiovascular examination reveals regular rhythm rate. S1-S2 normal. No S3 or S4. No discernible murmur noted. Lungs reveal scattered expiratory rhonchi and wheezes. No crackles. Breath sounds equal bilaterally. Abdomen soft bowel sounds are heard. No masses or tenderness. Extremities are intact. No cyanosis clubbing or edema. Skin is without rash or lesion. Neurologic examination is brief but nonfocal. - Labs CBC & Chem 7: 09/13/23 11:32 09/12/23 08:57 Labs: Microbiology - Last 24 Hours (Table) 09/10/23 11:20 Gram Stain - Final Sputum Sputum Culture - Final Verenice sp,not albicans/galbr Assessment and Plan Plan: Acute on chronic hypoxemic respiratory failure secondary to an acute exacerbation of chronic obstructive pulmonary disease possibly complicated by a left lower lobe pneumonia. Viral screen negative. Pulmonary embolism ruled out. She remains on 4 L of oxygen by nasal cannula. She is being she reports acute COPD exacerbation and a limited left basilar pneumonia. Clinically improving, the patient completed a course of Levaquin Acute on chronic hypoxic respiratory failure. The patient utilizes oxygen at 4 L at home. Oxygenation is back to its baseline Increase shortness of breath secondary to above along with some cough and congestion, improving Leukocytosis secondary to above. Improving Hyperglycemia, related to steroid use Atrial fibrillation with a rapid ventricular response. Current cardiac rhythm is sinus and the patient is on anticoagulation with Eliquis and the patient is also on metoprolol at a dose of 50 mg by mouth twice a day and amiodarone 4 mg by mouth twice a day. Acute exacerbation of suspected systolic versus diastolic congestive heart failure. The patient has an ejection fraction of 35% and diastolic pressure and moderate aortic regurgitation Former smoker. History of bowel resection, status post ostomy Nonocclusive coronary artery disease with elevated left ventricle end-diastolic pressure. This could be related to her CHF and valvular heart disease. Moderate degree of mitral regurgitation Plan: Clinically stable and ipatient is much improved at this point in time. Stop the IV Solu-Medrol and start the patient prednisone burst taper starting with 40 mg Completed the course of antibiotics Patient has home O2 and bronchodilators The patient follows up with Dr. Macias, her contract associate manager. Continue same cardiac medications including aspirin, metoprolol, amiodarone, and the patient is also on diuretics with Lasix. Cardiac catheterization for diagnostic purposes and the patient was found to have nonobstructive coronary artery disease Patient is stable for discharge from pulmonary standpoint.
[2023-09-13 13:03] LABS: African American GFR (CKD) >90 (>60 ml/min/1.73 sqM); Anion Gap 9 mmol/L; Blood Urea Nitrogen 19 mg/dL (7-17); Calcium 8.1 mg/dL (8.4-10.2); Carbon Dioxide 28 mmol/L (22-30); Chloride 101 mmol/L (98-107); Glucose 124 mg/dL (74-99); Non-African American GFR(CKD) 88 (>60 ml/min/1.73 sqM); Potassium 3.8 mmol/L (3.5-5.1); Sodium 138 mmol/L (137-145)
--- NOTE | 2023-09-13 13:09 | P.DS ---
Providers Date of admission: 09/07/23 06:24 Expected date of discharge: 09/13/23 Attending physician: Dmitry Nevarez Consults: 09/07/23 06:21 Consult Physician Routine Consulting Provider: Jasbir Perry Consult Reason/Comments: respiratory failure Do you want consulting provider notified?: Yes Consult Physician Routine Consulting Provider: René Antunez Consult Reason/Comments: elevated troponin, afib Do you want consulting provider notified?: Yes Primary care physician: Viktoria Calhoun DO Hospital Course: 77-year-old patient with past medical history significant for COPD oxygen dependent, history of recent Covid 19, history of severe asthma, severe protein calorie malnutrition, generalized muscle weakness, post COVID-19 condition, 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 Workup initiated in ER included chest x- ray, CT angiogram which was negative for pulmonary embolism. CT chest did show basal pneumonia or changes consistent with aspiration pneumonitis, right middle lobe lung nodule was noted as well, large left thyroid nodule seen * Hard work obtained on admission showed WBC of 22.2 hemoglobin 11.9 platelet count of 511, INR of 0.9 d-dimer 1.08 * Venous blood gas obtained pH 7.34 pCO2 52 * Serum chemistry showed sodium 132 potassium 4.8 chloride 90 3B UN 9 creatinine 0.51 glucose of 304 plasma lactic to 1.7 magnesium of 1.8 * Further workup in ER included an EKG which showed atrial fibrillation with rapid monitor response * Patient was given IV Cardizem push, started on IV antibiotics, received IV steroids in ED and placed on 6 L of oxygen * Patient to be admitted to progressive care unit with consultation from cardiology as well as pulmonary medicine * 09/08/2023: Patient seen and evaluated bedside patient in ER room 16, on 4 L of oxygen through nasal cannula, patient states her breathing has improved, patient was on Cardizem drip which will be weaned off cardiology following continue oral medications including metoprolol, continue IV antibiotics including Levaquin and Flagyl pointed QTC levels. Echocardiogram ordered as well. Blood work pending at this time including CBC and specimen metabolic panel * 09/09/2023: Patient seen and evaluated bedside, patient is alert and oriented 4, seen by cardiology, patient seen by pulmonary medicine as well patient states her breathing has improved. Echocardiogram shows ejection fraction of 30-45%. Continue patient on IV steroids, continue current antibiotic Levaquin and Flagyl she is on anticoagulation with Eliquis. Followed by pulmonary medicine and cardiology * 09/10/2023: Patient seen and evaluated bedside, inflammation markers improving patient on 4 L of oxygen, continue Mucinex, WBC count improved as well care plan discussed with patient in detail * 09/11/2023: Patient seen and evaluated and bedside, patient states her breathing has improved, she is on 4 L of oxygen which is close to baseline, follow-up hemoglobin 10.4, CBC 10, cardiology planning cardiac catheterization * 09/12/2023: Patient seen and evaluated bedside, patient is status was cardiac catheterization, medical management recommended. Hemoglobin reviewed is 9.5, potassium 3.1 that is replaced, patient to be monitored overnight and discharged to rehab likely 09/13/23 * 09/13/2023: Patient seen and evaluated bedside, symptoms have improved, plan to discharge to rehab facility. Patient on aspirin, Eliquis and amiodarone, further recommendations from cardiology. Patient recieved course of antibiotic while inpatient. Patient had episode of hypokalemia 09/12., potassium was corrected, Given Lavequin for 2 more days REVIEW OF SYSTEMS: Shortness of breath, cough, palpitations, weakness improved CONSTITUTIONAL: No fever, no malaise, no fatigue. HEENT: No recent visual problems or hearing problems. Denied any sore throat. CARDIOVASCULAR: No chest pain, orthopnea, PND, no palpitations, no syncope. PULMONARY: Shortness of breath, cough, palpitations, weakness GASTROINTESTINAL: No diarrhea, no nausea, no vomiting, no abdominal pain. NEUROLOGICAL: No headaches, no weakness, no numbness. HEMATOLOGICAL: Denies any bleeding or petechiae. GENITOURINARY: Denies any burning micturition, frequency, or urgency. MUSCULOSKELETAL/RHEUMATOLOGICAL: Denies any joint pain, swelling, or any muscle pain. ENDOCRINE: Denies any polyuria or polydipsia. PHYSICAL EXAMINATION: GENERAL: The patient is alert and oriented x3, , nasal cannula in place, respiratory distress resolved HEENT: Pupils are round and equally reacting to light. EOMI. CARDIOVASCULAR: S1 and S2 present. Rate normal, rhythm irregular PULMONARY: Improved breath sounds bilaterally ABDOMEN: Soft, nontender, nondistended, colostomy in place MUSCULOSKELETAL: No joint swelling or deformity. EXTREMITIES: No cyanosis, clubbing, or pedal edema. NEUROLOGICAL: Gross neurological examination did not reveal any focal deficits. SKIN: No rashes. 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% * Atrial fibrillation with rapid ventricular response * History of bowel resection status post colostomy * Recent COVID-19 infection * In regards to hypoxic respiratory failure, COPD exacerbation, continue patient on IV antibiotics on Levaquin 2 more days on DC //Flagyl COMPLETED>> received IV Solu-Medrol, transition to prednisone, prescription provided upon discharge Appreciate input from pulmonary medicine, * In regards to left lower lobe pneumonia, follow-up on sputum cultures, urine Legionella negative antibiotic course 2 more days post DC * In regards to elevated troponin,, IV heparin discontinued, continue medical management continue amiodarone aspirin, metoprolol * In regards to recent COVID-19 infection patient tested negative for Covid on admission, continue supportive treatment * In regards to atrial fibrillation patient was started on amiodarone 400 mg twice a day total 7 days, patient given 2 additional days upon discharge, then continue amiodarone 200 mg BID , continue metoprolol, Cardizem discontinued * In regards to history of ostomy continue with ostomy care * She will need physical therapy occupational therapy evaluation>> will need discharge to subacute rehab Patient Condition at Discharge: Serious Plan - Discharge Summary Discharge Rx Participant: No New Discharge Prescriptions: New Furosemide [Lasix] 40 mg PO DAILY tab lisinopriL [Zestril] 5 mg PO DAILY tab Potassium Chloride [K-Tab ER] 20 meq PO DAILY 30 Days #30 tab Amiodarone [Cordarone] See Rx Instructions .ROUTE .COMPLEX 30 Days #34 tab Aspirin 81 mg PO DAILY tab Apixaban [Eliquis] 5 mg PO BID tab predniSONE [Deltasone] 40 mg PO DAILY 5 Days #10 tab Levofloxacin [Levaquin] 750 mg PO DAILY 2 Days #2 tab Continue Diclofenac Sodium Gel [Voltaren 1% Gel] 1 applic TOPICAL TID PRN PRN Reason: Right Hand Pain guaiFENesin [guaiFENesin Oral Solution] 200 mg PO Q4H PRN PRN Reason: Cough Meclizine [Antivert] 12.5 mg PO Q8H PRN PRN Reason: Vertigo Albuterol Inhaler [Ventolin Hfa Inhaler] 2 puff INHALATION RT-Q6H PRN PRN Reason: COPD Healthshake 1 dose PO TID-W/MEALS Montelukast [Singulair] 10 mg PO HS@1999 L.acidoph,Paracasei, B.lactis [Probiotic] 1 cap PO DAILY Multivitamins, Thera [Multivitamin (formulary)] 1 tab PO DAILY Fluticasone Nasal Pheba [Flonase Nasal Pheba] 1 spr EA NOSTRIL DAILY@0700 Famotidine [Pepcid] 20 mg PO DAILY Gabapentin [Neurontin] 200 mg PO TID@0700,1300,1900 3 Days #18 cap Sodium Chloride [[place]] 1 spr EA NOSTRIL DIRECTED PRN PRN Reason: Congestion Acetaminophen [Tylenol 8 Hour] 650 mg PO BID PRN PRN Reason: Pain Ipratropium-Albuterol Nebulize [Duoneb 0.5 mg-3 mg/3 ml Soln] 3 ml INHALATION RT-Q4H PRN PRN Reason: Shortness Of Breath Or Wheezing Benzonatate [Tessalon Perle] 200 mg PO TID@0700,1300,1900 Metoprolol Tartrate [Lopressor] 50 mg PO BID@0700,1900 Acetaminophen [Tylenol 8 Hour] 650 mg PO BID Fluticasone Propion/Salmeterol [Advair 250-50 Diskus] 1 puff INHALATION RT- BID@0700,1900 Melatonin 3 mg PO HS@1999 Cetirizine HCl [Zyrtec] 10 mg PO DAILY Discontinued Diltiazem Oral [Cardizem Oral] 30 mg PO TID@0700,1300,1900 Clopidogrel [Plavix] 75 mg PO Q2D Discharge Medication List Acetaminophen [Tylenol 8 Hour] 650 mg PO BID 09/07/23 [History] Acetaminophen [Tylenol 8 Hour] 650 mg PO BID PRN 09/07/23 [History] Albuterol Inhaler [Ventolin Hfa Inhaler] 2 puff INHALATION RT-Q6H PRN 09/07/23 [History] Benzonatate [Tessalon Perle] 200 mg PO TID@0700,1300,1900 09/07/23 [History] Cetirizine HCl [Zyrtec] 10 mg PO DAILY 09/07/23 [History] Diclofenac Sodium Gel [Voltaren 1% Gel] 1 applic TOPICAL TID PRN 09/07/23 [History] Famotidine [Pepcid] 20 mg PO DAILY 09/07/23 [History] Fluticasone Nasal [place]heba [Flonase Nasal [place]he[place]] 1 spr EA NOSTRIL DAILY@0700 09/07/23 [History] Fluticasone Propion/Salmeterol [Advair 250-50 Diskus] 1 puff INHALATION RT- BID@0700,1900 09/07/23 [History] Healthshake 1 dose PO TID-W/MEALS 09/07/23 [History] Ipratropium-Albuterol Nebulize [Duoneb 0.5 mg-3 mg/3 ml Soln] 3 ml INHALATION RT-Q4H PRN 09/07/23 [History] L.acidoph,Paracasei, B.lactis [Probiotic] 1 cap PO DAILY 09/07/23 [History] Meclizine [Antivert] 12.5 mg PO Q8H PRN 09/07/23 [History] Melatonin 3 mg PO HS@199909/07/23 [History] Metoprolol Tartrate [Lopressor] 50 mg PO BID@0700,1900 09/07/23 [History] Montelukast [Singulair] 10 mg PO HS@199909/07/23 [History] Multivitamins, Thera [Multivitamin (formulary)] 1 tab PO DAILY 09/07/23 [History] Sodium Chloride [[place]] 1 spr EA NOSTRIL DIRECTED PRN 09/07/23 [History] guaiFENesin [guaiFENesin Oral Solution] 200 mg PO Q4H PRN 09/07/23 [History] Amiodarone [Cordarone] See Rx Instructions .ROUTE .COMPLEX 30 Days #34 tab 09/13/23 [Rx] Apixaban [Eliquis] 5 mg PO BID tab 09/13/23 [Rx] Aspirin 81 mg PO DAILY tab 09/13/23 [Rx] Furosemide [Lasix] 40 mg PO DAILY tab 09/13/23 [Rx] Gabapentin [Neurontin] 200 mg PO TID@0700,1300,1900 3 Days #18 cap 09/13/23 [Rx] Levofloxacin [Levaquin] 750 mg PO DAILY 2 Days #2 tab 09/13/23 [Rx] Potassium Chloride [K-Tab ER] 20 meq PO DAILY 30 Days #30 tab 09/13/23 [Rx] lisinopriL [Zestril] 5 mg PO DAILY tab 09/13/23 [Rx] predniSONE [Deltasone] 40 mg PO DAILY 5 Days #10 tab 09/13/23 [Rx] Follow up Appointment(s)/Referral(s): Kike Carballo MD [Medical Doctor] - 1 Week Viktoria Calhoun DO [Primary Care Provider] - 1-2 days Discharge Disposition: TRANSFER TO SNF/ECF
--- NOTE | 2023-09-13 13:46 | P.PN ---
Subjective Progress Note Date: 09/13/23 HPI 77-year-old with PMH of COPD, on chronic oxygen, recent coronary infection, severe asthma, protein calorie malnutrition, generalized weakness, history of CVA, resident of a retirement. She was brought to the hospital because of worsening shortness of breath and generalized weakness. On admission she was noticed to be in atrial fibrillation with rapid ventricular response. She received IV Cardizem and her heart rate has been controlled since. Hemoglobin 11, W BC 22, sodium 132, potassium 4.8, BUN 9, creatinine 0.5. Troponin was elevated at 0.136. Repeat was 0.5 Admission admission lactate was 4.9, repeat 1.7, BNP was [address] chest showed concerns of pneumonia. It also showed left subclavian artery stenosis with concerns of left subclavian steal. Large thyroid nodule. Progress note Patient is seen and examined at bedside the same. She continues to be in atrial fibrillation with heart rate around 100 beats a minute. She still appears weak. She reports mild shortness of breath which is slightly getting better. 09/09 Patient is seen today in the emergency center as follow-up. Patient states that she is feeling better today. Patient also gives history that she had Covid at the early August. She denies any previous OH. She was a smoker for 53 years and quit 5 years ago. She is currently on O2 at 4 L which is her baseline at home. She denies any lower extremity edema. Patient has been afebrile, blood pressure 104/64, heart rate in the 80s and 90s, pulse ox 99% on 4 L nasal cannula. Repeat blood work today reveals WBC 11.5, hemoglobin 10.3, electrolytes are normal. BUN 18 creatinine 0.64. Patient is been maintained on IV Lasix 40 mg daily. 09/10 Patient is seen today on the cardiac stepdown unit. She states her shortness of breath is better. She denies having any chest pain. Repeat blood work reveals WBC 10.4, hemoglobin 11.3. Sodium 140, potassium 4.3, BUN 21 creatinine 0.62. Patient has been afebrile, heart rate 95, blood pressure 112/65, pulse ox 97% on 4 L nasal cannula. Patient is currently being treated for COPD exacerbation and left lower lobe pneumonia followed by pulmonary medicine. 09/11 Patient is seen today in follow-up. She states that she did not sleep well. She is complaining of some mid chest chest pain with tenderness. She continues to have a cough and chest pain is worse with coughing. She also complains of upper respiratory congestion. Telemetry is sinus rhythm. Heart rate is in the 70s and 80s, blood pressure 118/63, pulse ox 98% on 4 L. Repeat blood work reveals hemoglobin 10.5, potassium 3.8, BUN 18 creatinine 0.72. 09/13 Yesterday, patient underwent left heart catheterization with Dr. Carballo that revealed mild nonobstructive coronary artery disease. Elevated LVEDP of 20 mmHg. Anterior apical hypokinesia, stress-induced cardiomyopathy. Cannot rule out Covid related cardiomyopathy. Blood pressure 117/66, heart rate and then 70s, afebrile, pulse ox 100% on 4 L nasal cannula. It has been resumed on eliquis. Patient denies any new complaints today. She is scheduled for discharge home. PHYSICAL EXAMINATION Vital signs reviewed. Head: Normocephalic. Eyes: Sclerae nonicteric. Neck: Brisk carotid upstroke, no jugular venous distention. Lungs: Clear to auscultation. Heart: Regular rate and rhythm, S1-S2, no S3, no murmur or rub. Abdomen: Soft nontender, positive bowel sounds no organomegaly. Extremities: No edema, intact distal pulses. Neuro: Alert, oritented, no focal deficits ASSESSMENT Nstemi, likely type II Acute on chronic systolic heart failure Cardiomyopathy, unknown etiology, EF 35% anteroapical and apical hypokinesia Moderate aortic regurgitation Atrial fibrillation with rapid ventricular response Shortness of breath and generalized weakness due to left lower lobe Pneumonia, suspect Post viral, COPD exacerbation and mild CHF exacerbation Anemia Frailty and debility Recent COVID-19 infection Echo Showed an EF of 35% with anteroapical and apical wall hypokinesia. Moderate aortic regurgitation, elevated LV filling pressures PLAN Continue patient's cardiac medications: Amiodarone 400 mg twice daily, aspirin 81 mg daily, Lipitor 40 mg daily, Farxiga 10 mg daily, Lasix 40 mg daily oral, lisinopril 5 mg daily, Lopressor 50 mg twice daily Eliquis has been resumed Follow-up with Dr. Carballo in one to 2 weeks. Patient is cleared from cardiology for discharge. Nurse practitioner note has been reviewed, I agree with the documented findings and plan of care. Patient was seen and examined. Objective - Vital Signs Vital signs: Vital Signs Temp 98 F 09/13/23 04:00 Pulse 74 09/13/23 07:57 Resp 16 09/13/23 04:00 BP 117/66 09/13/23 04:00 Pulse Ox 100 09/13/23 04:00 FiO2 80 09/07/23 01:50 Intake & Output 09/12/23 09/13/23 09/13/23 18:59 06:59 18:59 Intake Total 680 780 240 Output Total 400 925 Balance 280 -145 240 Intake: IV 200 Intake, IV Titration 240 Amount Sodium Chloride 0.9% 1, 240 000 ml @ 20 mls/hr IV . Q24H [facility] Rx#:[id number] Oral 480 540 240 Output: Urine 400 650 Stool 275 Other: Voiding Method Diaper Diaper External Catheter External Catheter # Voids 1 - Labs CBC & Chem 7: 09/13/23 11:32 09/13/23 11:32 Labs: Abnormal Lab Results - Last 24 Hours (Table) 09/12/23 09/12/23 Range/Units 08:57 08:57 RBC 3.05 L (3.80-5.40) m/uL Hgb 9.5 L (11.4-16.0) gm/dL Hct 29.9 L (34.0-46.0) % Potassium 3.1 L (3.5-5.1) mmol/L Creatinine 0.50 L (0.52-1.04) mg/dL Glucose 107 H (74-99) mg/dL Calcium 7.0 L (8.4-10.2) mg/dL Microbiology - Last 24 Hours (Table) 09/10/23 11:20 Gram Stain - Final Sputum Sputum Culture - Final Verenice sp,not albicans/galbr
[2023-09-13 17:21] VITALS: BP 136/64; PULSE 70; RESP 18
== END 2023-09-13 16:34 | DRG 871 ==
LOC: EC 01:29 → 3SCARD 06:24
PROVIDERS: ADMIT Hospitalist; ATTEND Hospitalist
PROC: 5A09357 Assistance with Respiratory Ventilation, Less than 24 Consecutive Hours, Continuous Positive Airway Pressure (ICD-10-PCS; principal; 2023-09-07)
PROC: B2111ZZ Fluoroscopy of Multiple Coronary Arteries using Low Osmolar Contrast (ICD-10-PCS; 2023-09-12)
PROC: 4A023N7 Measurement of Cardiac Sampling and Pressure, Left Heart, Percutaneous Approach (ICD-10-PCS; 2023-09-12 07:30)
DX: A41.9 Sepsis, unspecified organism (principal); I21.A1 Myocardial infarction type 2; J69.0 Pneumonitis due to inhalation of food and vomit; J96.21 Acute and chronic respiratory failure with hypoxia; I50.23 Acute on chronic systolic (congestive) heart failure; I42.9 Cardiomyopathy, unspecified; J44.0 Chronic obstructive pulmonary disease with (acute) lower respiratory infection; J44.1 Chronic obstructive pulmonary disease with (acute) exacerbation; I11.0 Hypertensive heart disease with heart failure; I48.91 Unspecified atrial fibrillation; Z43.3 Encounter for attention to colostomy; J43.9 Emphysema, unspecified; R54 Age-related physical debility; U09.9 Post COVID-19 condition, unspecified; I08.0 Rheumatic disorders of both mitral and aortic valves; D64.9 Anemia, unspecified; E04.1 Nontoxic single thyroid nodule; R91.1 Solitary pulmonary nodule; E87.6 Hypokalemia; I70.8 Atherosclerosis of other arteries; I25.10 Atherosclerotic heart disease of native coronary artery without angina pectoris; I44.7 Left bundle-branch block, unspecified; K43.9 Ventral hernia without obstruction or gangrene; R73.9 Hyperglycemia, unspecified; T38.0X5A Adverse effect of glucocorticoids and synthetic analogues, initial encounter; Z99.81 Dependence on supplemental oxygen; Z79.02 Long term (current) use of antithrombotics/antiplatelets; Z79.51 Long term (current) use of inhaled steroids; Z79.82 Long term (current) use of aspirin; Z79.899 Other long term (current) drug therapy; Z87.891 Personal history of nicotine dependence; Z86.73 Personal history of transient ischemic attack (TIA), and cerebral infarction without residual deficits; Z71.3 Dietary counseling and surveillance; Z88.0 Allergy status to penicillin; Z88.1 Allergy status to other antibiotic agents; Z88.3 Allergy status to other anti-infective agents; Z88.8 Allergy status to other drugs, medicaments and biological substances
CPT/HCPCS: 36415; 71045; 71046; 71275; 76937; 80048; 80053; 82803; 83605; 83735; 83880; 84145; 84443; 84484; 85025; 85027; 85379; 85610; 85730; 86140; 86850; 86900; 86901; 87070; 87205; 87449; 87636; 93005; 93306; 93458; 94640; 94660; 94760; 96365; 96366; 96367; 96368; 96375; 96376; 99291

== ENCOUNTER 2023-10-03 16:07 | Inpatient (IN) | payer MEDICARE, OTHER ==
--- NOTE | 2023-10-03 16:20 | ED ---
SOB HPI - General Chief Complaint: Shortness of Breath Stated Complaint: ADRIENNE Time Seen by Provider: 10/03/23 16:09 Source: EMS Mode of arrival: EMS Limitations: no limitations - History of Present Illness Initial Comments: This patient is a 77-year-old woman with history of COPD who reportedly had COVID-19 infection in August and they state that her respiratory status has not really improved since the end of covid. She noted that the breathing wors ened over the course of today and EMS was called. The patient requested to basically be placed on BiPAP as she is feeling very fatigued from breathing. Patient denies chest pain. Fever was noted. She does have cough with a little bit of sputum. No leg pain or swelling. MD Complaint: shortness of breath Onset/Timin -: days(s) Severity scale (1-10): 0 Consistency: constant Improves With: oxygen Worsens With: exertion Known History Of: COPD Associated Symptoms: cough, sputum production, orthopnea Treatments Prior to Arrival: oxygen, NIPPV - Related Data Home Medications Medication Instructions Recorded Confirmed Albuterol Inhaler [Ventolin Hfa 2 puff INHALATION RT-Q6H PRN 09/07/23 10/03/23 Inhaler] Benzonatate [Tessalon [place]] 200 mg PO TID@0700,1300,1900 09/07/23 10/03/23 Cetirizine HCl [Zyrtec] 10 mg PO DAILY 09/07/23 10/03/23 Famotidine [Pepcid] 20 mg PO DAILY 09/07/23 10/03/23 Fluticasone Nasal [place] [Flonase 1 spr EA NOSTRIL DAILY 09/07/23 10/03/23 Nasal [place]] Fluticasone Propion/Salmeterol 1 puff INHALATION RT-BID@0700,1900 09/07/23 10/03/23 [Advair 250-50 Diskus] Healthshake 1 dose PO TID-W/MEALS 09/07/23 10/03/23 Ipratropium-Albuterol Nebulize 3 ml INHALATION RT-Q4H PRN 09/07/23 10/03/23 [Duoneb 0.5 mg-3 mg/3 ml Soln] Meclizine [Antivert] 12.5 mg PO Q8HR@0700,1300,1900 09/07/23 10/03/23 Melatonin 3 mg PO HS@199909/07/23 10/03/23 Metoprolol Tartrate [Lopressor] 50 mg PO Q12HR@0700,1900 09/07/23 10/03/23 Montelukast [Singulair] 10 mg PO HS@199909/07/23 10/03/23 Multivitamins, Thera [Multivitamin 1 tab PO DAILY 09/07/23 10/03/23 (formulary)] Sodium Chloride [[place]] 1 spr EA NOSTRIL Q2H PRN 09/07/23 10/03/23 Acetaminophen Tab [Tylenol Tab] 500 mg PO BID 10/03/23 10/03/23 Acetaminophen Tab [Tylenol Tab] 500 mg PO BID PRN 10/03/23 10/03/23 Amiodarone [Cordarone] 200 mg PO BID 10/03/23 10/03/23 Apixaban [Eliquis] 5 mg PO Q12HR@0700,1900 10/03/23 10/03/23 Aspirin 81 mg PO HS 10/03/23 10/03/23 Furosemide [Lasix] 20 mg PO DAILY 10/03/23 10/03/23 guaiFENesin [Mucinex] 600 mg PO BID@0700,1900 10/03/23 10/03/23 guaiFENesin-DM 100-10MG/5ML 10 ml PO Q4H PRN 10/03/23 10/03/23 [Robitussin DM] Previous Rx's Medication Instructions Recorded Gabapentin [Neurontin] 200 mg PO TID@0700,1300,1900 3 09/13/23 Days #18 cap Potassium Chloride [K-Tab ER] 20 meq PO DAILY 30 Days #30 tab 09/13/23 lisinopriL [Zestril] 5 mg PO DAILY tab 09/13/23 predniSONE [Deltasone] 40 mg PO DAILY 5 Days #10 tab 09/13/23 Allergies Allergy/AdvReac Type Severity Reaction Status Date / Time adhesive tape Allergy Unknown Verified 10/03/23 17:31 atorvastatin [From Lipitor] Allergy Unknown Verified 10/03/23 17:31 bacitracin Allergy Unknown Verified 10/03/23 17:31 doxycycline Allergy Unknown Verified 10/03/23 17:31 lovastatin [From Mevacor] Allergy Unknown Verified 10/03/23 17:31 nitrofurantoin Allergy Unknown Verified 10/03/23 17:31 [From Macrobid] Penicillins Allergy Rash/Hives Verified 10/03/23 17:31 simvastatin [From Zocor] Allergy Unknown Verified 10/03/23 17:31 Yvdxyen-CUM-[id number] Reductase Allergy Unknown Verified 10/03/23 17:31 Inhibitor Review of Systems ROS Statement: Those systems with pertinent positive or pertinent negative responses have been documented in the HPI. ROS Other: All systems not noted in ROS Statement are negative. Past Medical History Past Medical History: Asthma, COPD, Hyperlipidemia, Hypertension, Respiratory Disorder Additional Past Medical History / Comment(s): asthma, fistulae, colostomy, pulmonary nodule, breast cancer, acute respiratory failure, post covid 10/2022 History of Any Multi-Drug Resistant Organisms: None Reported Past Surgical History: Bowel Resection, Breast Surgery Smoking Status: Former smoker Past Alcohol Use History: None Reported Past Drug Use History: None Reported - Past Family History Mother Family Medical History: AICD/Pacemaker, Dementia Father Family Medical History: Dementia General Exam Limitations: no limitations General appearance: alert, in no apparent distress Head exam: Present: atraumatic, normocephalic Eye exam: Present: normal appearance. Absent: scleral icterus, conjunctival injection Neck exam: Present: normal inspection Respiratory exam: Present: respiratory distress, wheezes, rhonchi, accessory muscle use. Absent: rales, stridor Cardiovascular Exam: Present: normal rhythm, irregular rhythm, normal heart sounds. Absent: systolic murmur, diastolic murmur, rubs, gallop GI/Abdominal exam: Present: soft. Absent: distended, tenderness, guarding, rebound, rigid, mass Extremities exam: Present: normal inspection, normal capillary refill. Absent: pedal edema, calf tenderness Back exam: Present: normal inspection. Absent: CVA tenderness (R), CVA tenderness (L) Neurological exam: Present: alert Skin exam: Present: warm, dry, intact, normal color. Absent: rash Course Vital Signs 10/03/23 10/03/23 10/03/23 16:10 16:14 16:15 Temperature 100.1 F H Pulse Rate 94 Respiratory 31 H 31 H Rate Blood Pressure 112/92 O2 Sat by Pulse 99 Oximetry Fraction of 100 Inspired Oxygen (FIO2) 10/03/23 10/03/23 10/03/23 16:18 16:30 17:30 Temperature Pulse Rate 80 81 105 H Respiratory 22 22 20 Rate Blood Pressure 112/92 117/35 95/36 O2 Sat by Pulse 100 100 Oximetry Fraction of 100 Inspired Oxygen (FIO2) 10/03/23 10/03/23 10/03/23 18:00 18:30 19:15 Temperature 99.8 F H Pulse Rate 101 H 100 94 Respiratory 22 28 H 19 Rate Blood Pressure 113/91 95/63 97/70 O2 Sat by Pulse 100 98 Oximetry Fraction of Inspired Oxygen (FIO2) 10/03/23 10/03/23 10/03/23 20:00 21:14 23:09 Temperature Pulse Rate 102 H 92 Respiratory 18 19 Rate Blood Pressure 95/69 96/48 O2 Sat by Pulse 92 L 99 Oximetry Fraction of 80 Inspired Oxygen (FIO2) 10/03/23 10/04/23 10/04/23 23:23 00:35 03:15 Temperature Pulse Rate 90 91 Respiratory 17 17 Rate Blood Pressure 96/48 101/47 O2 Sat by Pulse 100 97 Oximetry Fraction of 45 Inspired Oxygen (FIO2) 10/04/23 10/04/23 10/04/23 03:54 04:44 04:54 Temperature Pulse Rate 110 H 107 H 103 H Respiratory 20 Rate Blood Pressure 166/96 O2 Sat by Pulse 95 Oximetry Fraction of Inspired Oxygen (FIO2) 10/04/23 05:21 Temperature Pulse Rate 97 Respiratory 20 Rate Blood Pressure 123/67 O2 Sat by Pulse 96 Oximetry Fraction of Inspired Oxygen (FIO2) Medical Decision Making - Medical Decision Making This patient is 77-year-old woman who presents in respiratory distress. The dyspnea appears to be multifactorial. There is deftly component of COPD. I interpreted the chest x-ray as showing possible early right lower lobe infiltrate. The patient also suspected to have some component of underlying CHF. Finally the workup does show RSV infection which seems to be exacerbating patient's underlying COPD. Case discussed with admitting physician and also with the mica spreader on-call, Dr. Ashlee ring was in the department and saw the patient. Was pt. sent in by a medical professional or institution (, PA, PAPER CORE MACHINE OPERATOR, urgent care, hospital, or custodial...) When possible be specific @ -[No] Did you speak to anyone other than the patient for history (EMS, parent, family, police, friend...)? What history was obtained from this source @ -[EMS did give history Did you review nursing and triage notes (agree or disagree)? Why? @ -[I reviewed and agree with nursing and triage notes] Were old charts reviewed (outside hosp., previous admission, EMS record, old EKG, old radiological studies, urgent care reports/EKG's, custodial records)? Report findings @ - old charts were reviewed] Differential Diagnosis (chest pain, altered mental status, abdominal pain women, abdominal pain men, vaginal bleeding, weakness, fever, dyspnea, syncope, headache, dizziness, GI bleed, back pain, seizure, CVA, palpatations, mental health, musculoskeletal)? @ -[Differential Dyspnea: Coronary syndrome, arrhythmia, tamponade, asthma, COPD, pulmonary embolism, pneumonia, pneumothorax, pulmonary effusion, anaphylaxis, diabetic ketoacidosis, flailed chest, pulmonary contusion, diaphragmatic rupture, anemia, neuromuscular, this is not meant to be an all-inclusive list. EKG interpreted by me (3pts min.). @ -[As above] X-rays interpreted by me (1pt min.). @ -[I interpreted as above CT interpreted by me (1pt min.). @ -[None done] U/S interpreted by me (1pt. min.). @ -[None done] What testing was considered but not performed or refused? (CT, X-rays, U/S, labs)? Why? @ -[None] What meds were considered but not given or refused? Why? @ -[None] Did you discuss the management of the patient with other professionals (prof syed i.e. , PA, PAPER CORE MACHINE OPERATOR, lab, RT, psych nurse, mental health social worker, bogger operator, teacher, unarmed security officer, case worker)? Give summary @ -[As above Was smoking cessation discussed for >3mins.? @ -[No] Was critical care preformed (if so, how long)? @ -[No] Were there social determinants of health that impacted care today? How? (Homelessness, low income, unemployed, alcoholism, drug addiction, transportation, low edu. Level, literacy, decrease access to med. care, skilled nursing, rehab)? @ -[No] Was there de-escalation of care discussed even if they declined (Discuss DNR or withdrawal of care, Hospice)? DNR status @ -[No] What co-morbidities impacted this encounter? (DM, HTN, Smoking, COPD, CAD, Cancer, CVA, ARF, Chemo, Hep., AIDS, mental health diagnosis, sleep apnea, morbid obesity)? @ -[COPD. CHF history Was patient admitted / discharged? Hospital course, mention meds given and route, prescriptions, significant lab abnormalities, going to OR and other pertinent info. @ -[See above Undiagnosed new problem with uncertain prognosis? @ -[No] Drug Therapy requiring intensive monitoring for toxicity (Heparin, Nitro, Insulin, Cardizem)? @ -[No] Were any procedures done? @ -[No] Diagnosis/symptom? @ -[Acute dyspnea COPD exacerbation Acute RSV infection Acute, or Chronic, or Acute on Chronic? @ -[Acute on chronic Uncomplicated (without systemic symptoms) or Complicated (systemic symptoms)? @ -[The above conditions, complicated by dyspnea Side effects of treatment? @ -[No] Exacerbation, Progression, or Severe Exacerbation? @ -[Severe exacerbation Poses a threat to life or bodily function? How? (Chest pain, [place], [place], pneumonia, PE, COPD, DKA, ARF, appy, cholecystitis, CVA, Diverticulitis, Homicidal, Suicidal, threat to staff... and all critical care pts) @ -[Yes - Lab Data Result diagrams: 10/03/23 16:23 10/03/23 16:23 Lab Results 10/03/23 10/03/23 10/03/23 Range/Units 16:23 16:23 16:23 WBC 8.9 (3.8-10.6) k/uL RBC 3.52 L (3.80-5.40) m/uL Hgb 11.2 L (11.4-16.0) gm/dL Hct 34.4 (34.0-46.0) % MCV 97.8 (80.0-100.0) fL MCH 31.7 (25.0-35.0) pg MCHC 32.5 (31.0-37.0) g/dL RDW 14.3 (11.5-15.5) % Plt Count 383 (150-450) k/uL MPV 7.6 Neutrophils % 83 % Lymphocytes % 7 % Monocytes % 8 % Eosinophils % 1 % Basophils % 0 % Neutrophils # 7.3 (1.3-7.7) k/uL Lymphocytes # 0.6 L (1.0-4.8) k/uL Monocytes # 0.7 (0-1.0) k/uL Eosinophils # 0.0 (0-0.7) k/uL Basophils # 0.0 (0-0.2) k/uL Hypochromasia Slight PT 10.6 (10.0-12.5) sec INR 1.0 (<1.2) APTT 24.3 (22.0-30.0) sec D-Dimer 0.57 (<0.60) mg/L FEU VBG pH (7.31-7.41) VBG pCO2 (37-51) mmHg VBG HCO3 (24-28) mmol/L Sodium 136 L (137-145) mmol/L Potassium 5.5 H (3.5-5.1) mmol/L Chloride 100 (98-107) mmol/L Carbon Dioxide 27 (22-30) mmol/L Anion Gap 9 mmol/L BUN 24 H (7-17) mg/dL Creatinine 0.83 (0.52-1.04) mg/dL Est GFR (CKD-EPI)AfAm 79 (>60 ml/min/1.73 sqM) Est GFR (CKD-EPI)NonAf 68 (>60 ml/min/1.73 sqM) Glucose 162 H (74-99) mg/dL Lactic Ac Sepsis Rflx Plasma Lactic Acid Thong (0.7-2.0) mmol/L Calcium 9.1 (8.4-10.2) mg/dL Magnesium 2.3 (1.6-2.3) mg/dL Total Bilirubin 0.6 (0.2-1.3) mg/dL AST 33 (14-36) U/L ALT 20 (4-34) U/L Alkaline Phosphatase 44 (38-126) U/L Troponin I (0.000-0.034) ng/mL NT-Pro-B Natriuret Pep 20473 pg/mL Total Protein 6.7 (6.3-8.2) g/dL Albumin 3.8 (3.5-5.0) g/dL Influenza Type A (PCR) (Not Detectd) Influenza Type B (PCR) (Not Detectd) RSV (PCR) (Not Detectd) SARS-CoV-2 (PCR) (Not Detectd) 10/03/23 10/03/23 10/03/23 Range/Units 16:23 16:23 16:23 WBC (3.8-10.6) k/uL RBC (3.80-5.40) m/uL Hgb (11.4-16.0) gm/dL Hct (34.0-46.0) % MCV (80.0-100.0) fL MCH (25.0-35.0) pg MCHC (31.0-37.0) g/dL RDW (11.5-15.5) % Plt Count (150-450) k/uL MPV Neutrophils % % Lymphocytes % % Monocytes % % Eosinophils % % Basophils % % Neutrophils # (1.3-7.7) k/uL Lymphocytes # (1.0-4.8) k/uL Monocytes # (0-1.0) k/uL Eosinophils # (0-0.7) k/uL Basophils # (0-0.2) k/uL Hypochromasia PT (10.0-12.5) sec INR (<1.2) APTT (22.0-30.0) sec D-Dimer (<0.60) mg/L FEU VBG pH (7.31-7.41) VBG pCO2 (37-51) mmHg VBG HCO3 (24-28) mmol/L Sodium (137-145) mmol/L Potassium (3.5-5.1) mmol/L Chloride (98-107) mmol/L Carbon Dioxide (22-30) mmol/L Anion Gap mmol/L BUN (7-17) mg/dL Creatinine (0.52-1.04) mg/dL Est GFR (CKD-EPI)AfAm (>60 ml/min/1.73 sqM) Est GFR (CKD-EPI)NonAf (>60 ml/min/1.73 sqM) Glucose (74-99) mg/dL Lactic Ac Sepsis Rflx Plasma Lactic Acid Thong 2.9 H* (0.7-2.0) mmol/L Calcium (8.4-10.2) mg/dL Magnesium (1.6-2.3) mg/dL Total Bilirubin (0.2-1.3) mg/dL AST (14-36) U/L ALT (4-34) U/L Alkaline Phosphatase (38-126) U/L Troponin I 0.053 H* (0.000-0.034) ng/mL NT-Pro-B Natriuret Pep pg/mL Total Protein (6.3-8.2) g/dL Albumin (3.5-5.0) g/dL Influenza Type A (PCR) Not Detected (Not Detectd) Influenza Type B (PCR) Not Detected (Not Detectd) RSV (PCR) Detected A (Not Detectd) SARS-CoV-2 (PCR) Not Detected (Not Detectd) 10/03/23 10/03/23 10/03/23 Range/Units 16:23 17:47 21:14 WBC (3.8-10.6) k/uL RBC (3.80-5.40) m/uL Hgb (11.4-16.0) gm/dL Hct (34.0-46.0) % MCV (80.0-100.0) fL MCH (25.0-35.0) pg MCHC (31.0-37.0) g/dL RDW (11.5-15.5) % Plt Count (150-450) k/uL MPV Neutrophils % % Lymphocytes % % Monocytes % % Eosinophils % % Basophils % % Neutrophils # (1.3-7.7) k/uL Lymphocytes # (1.0-4.8) k/uL Monocytes # (0-1.0) k/uL Eosinophils # (0-0.7) k/uL Basophils # (0-0.2) k/uL Hypochromasia PT (10.0-12.5) sec INR (<1.2) APTT (22.0-30.0) sec D-Dimer (<0.60) mg/L FEU VBG pH 7.29 L (7.31-7.41) VBG pCO2 60 H (37-51) mmHg VBG HCO3 28 (24-28) mmol/L Sodium (137-145) mmol/L Potassium (3.5-5.1) mmol/L Chloride (98-107) mmol/L Carbon Dioxide (22-30) mmol/L Anion Gap mmol/L BUN (7-17) mg/dL Creatinine (0.52-1.04) mg/dL Est GFR (CKD-EPI)AfAm (>60 ml/min/1.73 sqM) Est GFR (CKD-EPI)NonAf (>60 ml/min/1.73 sqM) Glucose (74-99) mg/dL Lactic Ac Sepsis Rflx Y Plasma Lactic Acid Thong 1.0 (0.7-2.0) mmol/L Calcium (8.4-10.2) mg/dL Magnesium (1.6-2.3) mg/dL Total Bilirubin (0.2-1.3) mg/dL AST (14-36) U/L ALT (4-34) U/L Alkaline Phosphatase (38-126) U/L Troponin I (0.000-0.034) ng/mL NT-Pro-B Natriuret Pep pg/mL Total Protein (6.3-8.2) g/dL Albumin (3.5-5.0) g/dL Influenza Type A (PCR) (Not Detectd) Influenza Type B (PCR) (Not Detectd) RSV (PCR) (Not Detectd) SARS-CoV-2 (PCR) (Not Detectd) - EKG Data -: EKG Interpreted by [place] EKG shows normal: axis (Normal), intervals (QRS duration 141 ms, QTC 418 ms.), QRS complexes (Intraventricular conduction delay.) Rate: normal Interpretation: other (Rhythm appears to be atrial fibrillation with rate approximately 96 bpm) Disposition Clinical Impression: Pneumonia, Atrial fibrillation with RVR, RSV infection, COPD (chronic obstructive pulmonary disease) Disposition: ADMITTED IP TO THIS HOSP Condition: Poor Is patient prescribed a controlled substance at d/c from ED?: No
--- NOTE | 2023-10-03 16:40 | XR ---
EXAMINATION TYPE: XR chest 1V portable DATE OF EXAM: 10/03/2023 4:33 PM CLINICAL INDICATION:Female, 77 years old with history of dyspnea; [facility] COMPARISON: Chest radiographs from 09/07/2023. TECHNIQUE: XR chest 1V portable Frontal view of the chest. FINDINGS: Lungs/Pleura: Airspace opacities project over the right lower lobe. There is flattening of the diaphr agm with increased lucency of the lungs. No evidence of pneumothorax, pleural effusion. Pulmonary vascularity: Unremarkable. Heart/mediastinum: Cardiomediastinal silhouette is unremarkable. Atherosclerotic calcifications are seen in the aorta. Musculoskeletal: No acute osseous pathology. Left axillary surgical clips present. IMPRESSION: 1. Right lower lobe airspace opacities correlate for pneumonia. 2. COPD.
[2023-10-03] MEDS ORDERED: ACETAMINOPHEN TAB 325 MG TAB PO STA (17:06)
[2023-10-03 17:07] LABS: VBG PH 7.29 (7.31-7.41)
[2023-10-03 17:09] LABS: Basophils % (A) 0 %; Eosinophils % (A) 1 %; HCT 34.4 % (34.0-46.0); HGB 11.2 gm/dL (11.4-16.0); Hypochromasia Slight; Lymphocytes # (A) 0.6 k/uL (1.0-4.8); Lymphocytes % (A) 7 %; MCH 31.7 pg (25.0-35.0); MCHC 32.5 g/dL (31.0-37.0); MCV 97.8 fL (80.0-100.0); Mean Platelet Volume 7.6; Monocytes # (A) 0.7 k/uL (0-1.0); Monocytes % (A) 8 %; Neutrophils # (A) 7.3 k/uL (1.3-7.7); Neutrophils % (A) 83 %; Platelet Count 383 k/uL (150-450); RBC 3.52 m/uL (3.80-5.40); RDW 14.3 % (11.5-15.5); WBC 8.9 k/uL (3.8-10.6)
[2023-10-03 17:21] LABS: ALT 20 U/L (4-34); AST 33 U/L (14-36); African American GFR (CKD) 79 (>60 ml/min/1.73 sqM); Albumin 3.8 g/dL (3.5-5.0); Alkaline Phosphatase 44 U/L (38-126); Anion Gap 9 mmol/L; Blood Urea Nitrogen 24 mg/dL (7-17); Calcium 9.1 mg/dL (8.4-10.2); Carbon Dioxide 27 mmol/L (22-30); Chloride 100 mmol/L (98-107); Glucose 162 mg/dL (74-99); Magnesium 2.3 mg/dL (1.6-2.3); Non-African American GFR(CKD) 68 (>60 ml/min/1.73 sqM); Potassium 5.5 mmol/L (3.5-5.1); Sodium 136 mmol/L (137-145); Total Bilirubin 0.6 mg/dL (0.2-1.3); Total Protein 6.7 g/dL (6.3-8.2)
[2023-10-03] MEDS ORDERED: AZITHROMYCIN 500 MG in SODIUM CHLORIDE 0.9% 250 ML IVPB STA (17:21)
[2023-10-03 17:25] LABS: Partial Thromboplastin Time 24.3 sec (22.0-30.0); Prothrombin Time 10.6 sec (10.0-12.5)
[2023-10-03 17:30] LABS: NT-Pro-B-Type Natriuretic Pept 15700 pg/mL
--- NOTE | 2023-10-03 18:26 | P.CNPUL ---
History of Present Illness Consult date: 10/03/23 Reason for consult: dyspnea History of present illness: 77-year-old female patient who presented to the emergency department because of worsening shortness of breath. The patient was in the hospital in early September when she was treated for an acute on top of chronic hypoxic respiratory failure due to COPD exacerbation suspected left lower lobe pneumonia. At that time, the patient underwent a CT angiogram and pulmonary embolism was ruled out. The patient typically utilizes oxygen at 4 L on outpatient basis. She has chronic A. fib, and she has undergone previous bowel resection and she has a functional colostomy. The patient was discharged to a nursing and she was brought back to the hospital because of worsening shortness of breath and she tested positive for RSV. The patient was actively bronchospastic and wheezy. The patient was also placed on a BiPAP at a pressure of 12/5 and FiO2 is being titrated to maintain saturation above 90%. Minimal sputum production. No chest pain. No major swelling lower extremity. She is weak and debilitated. She was febrile. Her blood work showed edematous count of 8.9, hemoglobin 11.2 and platelet count of 383. Troponin was 0.04. Sodium is at 136 with a potassium level of 5.5, BUN is 24 with a creatinine of 0.8. Coagulation profile was within normal. D-dimer was not elevated. Review of the chest x-ray and there is no clear indication for pneumonia although some increased haziness is seen in the right lung base. No signs of any CO2 narcosis and the patient is able to to lerate the BiPAP reasonably well at this point in time. She is a [facility] resident and she is residing in [facility] in [place]. Patient is also known to have CHF with impaired ejection fraction of 35%. The patient had a cardiac catheterization during her last admission the patient was found to have nonocclusive coronary artery disease. Echo Cardizem also revealed moderate degree of aortic regurgitation. She has chronic A. fib. Maintain anticoagulation with Eliquis. Review of Systems CONSTITUTIONAL: Denies any recent significant weight loss or weight gain. EYES: Denies change in vision. EARS, NOSE, MOUTH, THROAT: Denies headaches, denies sore throat. CARDIOVASCULAR: Denies chest pain, palpitations or syncopal episodes. RESPIRATORY: Positive for shortness of breath, cough, congestion no hemoptysis. GASTROINTESTINAL: Denies change in appetite, denies abdominal pain GENITOURINARY: Denies hematuria, denies infections. MUSKULOSKELETAL: Denies pain, denies swelling. INTEGUMENTARY: Denies rash, denies eczema. NEUROLOGICAL: Denies recent memory loss, no recent seizure activity. PSYCHIATRIC: Denies anxiety, denies depression. HEMATOLOGIC/LYMPHATIC: Denies anemia, denies enlarged lymph nodes. Past Medical History Past Medical History: Coronary Artery Disease (CAD), Heart Failure, COPD, Hyperlipidemia, Hypertension, Respiratory Disorder Additional Past Medical History / Comment(s): colostomy, breast cancer, acute respiratory failure, post covid 10/2022 History of Any Multi-Drug Resistant Organisms: None Reported Past Surgical History: Bowel Resection, Breast Surgery Smoking Status: Former smoker Past Alcohol Use History: None Reported Past Drug Use History: None Reported - Past Family History Mother Family Medical History: AICD/Pacemaker, Dementia Father Family Medical History: Dementia Medications and Allergies Home Medications Medication Instructions Recorded Confirmed Type Albuterol Inhaler [Ventolin Hfa 2 puff INHALATION RT-Q6H PRN 09/07/23 10/03/23 History Inhaler] Benzonatate [Tessalon Perle] 200 mg PO TID@0700,1300,1900 09/07/23 10/03/23 History Cetirizine HCl [Zyrtec] 10 mg PO DAILY 09/07/23 10/03/23 History Famotidine [Pepcid] 20 mg PO DAILY 09/07/23 10/03/23 History Fluticasone Nasal [place] [Flonase 1 spr EA NOSTRIL DAILY 09/07/23 10/03/23 History Nasal [place]] Fluticasone Propion/Salmeterol 1 puff INHALATION RT-BID@0700,1900 09/07/23 10/03/23 History [Advair 250-50 Diskus] Healthshake 1 dose PO TID-W/MEALS 09/07/23 10/03/23 History Ipratropium-Albuterol Nebulize 3 ml INHALATION RT-Q4H PRN 09/07/23 10/03/23 History [Duoneb 0.5 mg-3 mg/3 ml Soln] Meclizine [Antivert] 12.5 mg PO Q8HR@0700,1300,1900 09/07/23 10/03/23 History Melatonin 3 mg PO HS@199909/07/23 10/03/23 History Metoprolol Tartrate [Lopressor] 50 mg PO Q12HR@0700,1900 09/07/23 10/03/23 Hi story Montelukast [Singulair] 10 mg PO HS@199909/07/23 10/03/23 History Multivitamins, Thera [Multivitamin 1 tab PO DAILY 09/07/23 10/03/23 History (formulary)] Sodium Chloride [[place]] 1 spr EA NOSTRIL Q2H PRN 09/07/23 10/03/23 History Gabapentin [Neurontin] 200 mg PO TID@0700,1300,1900 3 09/13/23 10/03/23 Rx Days #18 cap Potassium Chloride [K-Tab ER] 20 meq PO DAILY 30 Days #30 tab 09/13/23 10/03/23 Rx lisinopriL [Zestril] 5 mg PO DAILY tab 09/13/23 10/03/23 Rx predniSONE [Deltasone] 40 mg PO DAILY 5 Days #10 tab 09/13/23 10/03/23 Rx Acetaminophen Tab [Tylenol Tab] 500 mg PO BID 10/03/23 10/03/23 History Acetaminophen Tab [Tylenol Tab] 500 mg PO BID PRN 10/03/23 10/03/23 History Amiodarone [Cordarone] 200 mg PO BID 10/03/23 10/03/23 History Apixaban [Eliquis] 5 mg PO Q12HR@0700,1900 10/03/23 10/03/23 History Aspirin 81 mg PO HS 10/03/23 10/03/23 History Furosemide [Lasix] 20 mg PO DAILY 10/03/23 10/03/23 History guaiFENesin [Mucinex] 600 mg PO BID@0700,1900 10/03/23 10/03/23 History guaiFENesin-DM 100-10MG/5ML 10 ml PO Q4H PRN 10/03/23 10/03/23 History [Robitussin DM] Allergies Allergy/AdvReac Type Severity Reaction Status Date / Time adhesive tape Allergy Unknown Verified 10/03/23 17:31 atorvastatin [From Lipitor] Allergy Unknown Verified 10/03/23 17:31 bacitracin Allergy Unknown Verified 10/03/23 17:31 doxycycline Allergy Unknown Verified 10/03/23 17:31 lovastatin [From Mevacor] Allergy Unknown Verified 10/03/23 17:31 nitrofurantoin Allergy Unknown Verified 10/03/23 17:31 [From Macrobid] Penicillins Allergy Rash/Hives Verified 10/03/23 17:31 simvastatin [From Zocor] Allergy Unknown Verified 10/03/23 17:31 Phohonx-AME-VdY Reductase Allergy Unknown Verified 10/03/23 17:31 Inhibitor Physical Exam Vitals: Vital Signs Temp Pulse Resp BP Pulse Ox FiO2 10/03/23 16:30 81 22 117/35 10/03/23 16:18 80 22 112/92 100 100 10/03/23 16:15 100 10/03/23 16:14 31 H 10/03/23 16:10 100.1 F H 94 31 H 112/92 99 Intake and Output 10/03/23 10/03/23 10/03/23 06:59 14:59 22:59 Other: Weight 63.503 kg Mild respiratory difficulty, oriented, patient is having labored breathing and the patient's current on a BiPAP at a pressure of 12/5 cm of water Head exam was generally normal. There was no scleral icterus or corneal arcus. Mucous membranes were moist. HEENT examination is grossly unremarkable. Neck supple. Full range of motion. No adenopathy thyromegaly or neck vein distention. Cardiovascular examination reveals regular rhythm rate. S1-S2 normal. No S3 or S4. No discernible murmur noted. Lungs reveal scattered expiratory rhonchi and wheezes. No crackles. Breath sounds equal bilaterally. Abdomen soft bowel sounds are heard. No masses or tenderness. The patient has an abdominal wall ventral hernia in addition to a colostomy which is functional at this point in time. Extremities are intact. No cyanosis clubbing or edema. Skin is without rash or lesion. Neurologic examination is brief but nonfocal. There is generalized global weakness in all 4 extremities Results - Laboratory Findings CBC and BMP: 10/03/23 16:23 10/03/23 16:23 PT/INR, D-dimer PT 10.6 sec (10.0-12.5) 10/03/23 16: INR 1.0 (<1.2) 10/03/23 16:23 D-Dimer 0.57 mg/L FEU (<0.60) 10/03/23 16:23 Abnormal lab findings: Abnormal Labs 10/03/23 10/03/23 10/03/23 16:23 16:23 16:23 RBC 3.52 L Hgb 11.2 L Lymphocytes # 0.6 L VBG pH VBG pCO2 Sodium 136 L Potassium 5.5 H BUN 24 H Glucose 162 H Plasma Lactic Acid Thong 2.9 H* Troponin I RSV (PCR) 10/03/23 10/03/23 10/03/23 16:23 16:23 16:23 RBC Hgb Lymphocytes # VBG pH 7.29 L VBG pCO2 60 H Sodium Potassium BUN Glucose Plasma Lactic Acid Thong Troponin I 0.053 H* RSV (PCR) Detected A - Diagnostic Findings Chest x-ray: image reviewed Assessment and Plan Plan: Acute COPD exacerbation likely secondary to RSV infection. The patient is actively bronchospastic and wheezy. No clear indication for pneumonia at this point in time. Acute on chronic hypoxic respiratory failure and the patient is currently on a BiPAP at a pressure of 12/5 cm of water COPD, with recent hospitalization for an acute COPD exacerbation and this was back in 09/07/2023. The patient has been maintained on Advair discus and DuoNeb the blood treatments [id number] on outpatient basis. She is also auction dependent Chronic hypoxic respiratory failure maintain on oxygen at 4-5 L/m nasal cannula Hypertension Hyperlipidemia Previous history of Covid 19 infection general 2022 History of breast cancer with a previous mastectomy History of bowel resection and the patient has a colostomy. History of atrial fibrillation, chronic, discharge on a combination of amiodarone, metoprolol and anticoagulation with Eliquis History of congestion heart failure with ejection fraction of 35% along with segmental wall motion abnormalities involving the anteroapical and apical culp Moderate aortic regurgitation with elevated filling pressures based on recent echocardiogram Nonobstructive coronary artery disease based on recent cardiac catheterization that was done on 09/12/2023 Ventral abdominal wall hernia Thyroid nodule Right middle lobe pulmonary nodule measuring 1 cm, identified on a CAT scan of the chest that was done on 09/07/2023 Plan Continue BiPAP for now DuoNeb neb 4 times a day IV Solu-Medrol 60 mg every 6 hours IV fluids to KVO pro-BNP level is nonelevated Gentle diuresis Lasix 20 mg IV every 12 hours Resume all medications including metoprolol 50 mg twice a day, amiodarone 200 mg by mouth twice a day and anticoagulation with [facility] resident with poor baseline performance and functional status We'll continue to follow Time with Patient: Greater than 30
[2023-10-03] MEDS ORDERED: NALOXONE 0.4 MG/ML 1 ML VIAL IVP PRN (21:18)
[2023-10-03] MEDS ORDERED: ACETAMINOPHEN TAB 325 MG TAB PO PRN (21:18)
[2023-10-04] MEDS: IPRATROPIUM-ALBUTEROL 3 ML NEB INHALATION PRN (04:44)
[2023-10-04] MEDS: methylPREDNISolone SOD SUCCI 125 MG/2 ML VIAL IV SCH ×4 (05:24→22:45)
--- NOTE | 2023-10-04 07:14 | P.HPIM ---
History of Present Illness A pleasant 77 years old female with past medical history of stroke. Presents because of worsening dyspnea especially over one day duration. Associated with cough but no chest pain. No abdominal pain and looks soft and she has history of colostomy and back is working with brown stool. No headache dizziness weakness or numbness, no urinary complaints. She denies smoking alcohol or illicit drugs. Patient was hypoxic on admission, she usually wears 4 L of oxygen at home, currently she is on BiPAP which limits history patient A Provided. Rest of Vital Signs Stable Labs Showing WBC of 11.2, Sodium 136, Potassium 5.5 and Creatinine 0.8. Troponin Is Elevated at 0.05. Which Is Always Elevated before BNP Elevated [id number] Viruses back positive for RSV Chest x-ray shows COPD changes with a right lower opacity suspicious for pneumon ia EKG showing atrial fibrillation with a heart rate of 96. Review of Systems Review of systems CONSTITUTIONAL: No fever, no malaise, no fatigue. HEENT: No recent visual problems or hearing problems. Denied any sore throat. CARDIOVASCULAR: No orthopnea, PND, no palpitations, no syncope. PULMONARY: No chest wall tenderness, no hemoptysis. GASTROINTESTINAL: No diarrhea, no nausea, no vomiting, no abdominal pain. Normoactive bowel sounds. NEUROLOGICAL: No headaches, no weakness, no numbness. HEMATOLOGICAL: Denies any bleeding or petechiae. GENITOURINARY: Denies any burning micturition, frequency, or urgency. MUSCULOSKELETAL/RHEUMATOLOGICAL: Denies any joint pain, swelling, or any muscle pain. ENDOCRINE: Denies any polyuria or polydipsia. Past Medical History Past Medical History: Asthma, COPD, Hyperlipidemia, Hypertension, Respiratory Disorder Additional Past Medical History / Comment(s): asthma, fistulae, colostomy, pulmonary nodule, breast cancer, acute respiratory failure, post covid 10/2022 History of Any Multi-Drug Resistant Organisms: None Reported Past Surgical History: Bowel Resection, Breast Surgery Smoking Status: Former smoker Past Alcohol Use History: None Reported Past Drug Use History: None Reported - Past Family History Mother Family Medical History: AICD/Pacemaker, Dementia Father Family Medical History: Dementia Medications and Allergies Home Medications Medication Instructions Recorded Confirmed Type Albuterol Inhaler [Ventolin Hfa 2 puff INHALATION RT-Q6H PRN 09/07/23 10/03/23 History Inhaler] Benzonatate [Tessalon Perle] 200 mg PO TID@0700,1300,1900 09/07/23 10/03/23 History Cetirizine HCl [Zyrtec] 10 mg PO DAILY 09/07/23 10/03/23 History Famotidine [Pepcid] 20 mg PO DAILY 09/07/23 10/03/23 History Fluticasone Nasal [place] [Flonase 1 spr EA NOSTRIL DAILY 09/07/23 10/03/23 History Nasal [place]] Fluticasone Propion/Salmeterol 1 puff INHALATION RT-BID@0700,1900 09/07/23 10/03/23 History [Advair 250-50 Diskus] Healthshake 1 dose PO TID-W/MEALS 09/07/23 10/03/23 History Ipratropium-Albuterol Nebulize 3 ml INHALATION RT-Q4H PRN 09/07/23 10/03/23 History [Duoneb 0.5 mg-3 mg/3 ml Soln] Meclizine [Antivert] 12.5 mg PO Q8HR@0700,1300,1900 09/07/23 10/03/23 History Melatonin 3 mg PO HS@199909/07/23 10/03/23 History Metoprolol Tartrate [Lopressor] 50 mg PO Q12HR@0700,1900 09/07/23 10/03/23 History Montelukast [Singulair] 10 mg PO HS@199909/07/23 10/03/23 History Multivitamins, Thera [Multivitamin 1 tab PO DAILY 09/07/23 10/03/23 History (formulary)] Sodium Chloride [[place]] 1 spr EA NOSTRIL Q2H PRN 09/07/23 10/03/23 History Gabapentin [Neurontin] 200 mg PO TID@0700,1300,1900 3 09/13/23 10/03/23 Rx Days #18 cap Potassium Chloride [K-Tab ER] 20 meq PO DAILY 30 Days #30 tab 09/13/23 10/03/23 Rx lisinopriL [Zestril] 5 mg PO DAILY tab 09/13/23 10/03/23 Rx predniSONE [Deltasone] 40 mg PO DAILY 5 Days #10 tab 09/13/23 10/03/23 Rx Acetaminophen Tab [Tylenol Tab] 500 mg PO BID 10/03/23 10/03/23 History Acetaminophen Tab [Tylenol Tab] 500 mg PO BID PRN 10/03/23 10/03/23 History Amiodarone [Cordarone] 200 mg PO BID 10/03/23 10/03/23 History Apixaban [Eliquis] 5 mg PO Q12HR@0700,1900 10/03/23 10/03/23 History Aspirin 81 mg PO HS 10/03/23 10/03/23 History Furosemide [Lasix] 20 mg PO DAILY 10/03/23 10/03/23 History guaiFENesin [Mucinex] 600 mg PO BID@0700,1900 10/03/23 10/03/23 History guaiFENesin-DM 100-10MG/5ML 10 ml PO Q4H PRN 10/03/23 10/03/23 History [Robitussin DM] Allergies Allergy/AdvReac Type Severity Reaction Status Date / Time adhesive tape Allergy Unknown Verified 10/03/23 17:31 atorvastatin [From Lipitor] Allergy Unknown Verified 10/03/23 17:31 bacitracin Allergy Unknown Verified 10/03/23 17:31 doxycycline Allergy Unknown Verified 10/03/23 17:31 lovastatin [From Mevacor] Allergy Unknown Verified 10/03/23 17:31 nitrofurantoin Allergy Unknown Verified 10/03/23 17:31 [From Macrobid] Penicillins Allergy Rash/Hives Verified 10/03/23 17:31 simvastatin [From Zocor] Allergy Unknown Verified 10/03/23 17:31 Qcngull-[id number]-[id number] Reductase Allergy Unknown Verified 10/03/23 17:31 Inhibitor Physical Exam Vitals: Vital Signs Temp Pulse Resp BP Pulse Ox FiO2 10/04/23 05:21 97 20 123/67 96 10/04/23 04:54 103 H 10/04/23 04:44 107 H 10/04/23 03:54 110 H 20 166/96 95 10/04/23 03:15 45 10/04/23 00:35 91 17 101/47 97 10/03/23 23:23 90 17 96/48 100 10/03/23 23:09 92 19 96/48 99 10/03/23 21:14 102 H 18 95/69 92 L 10/03/23 20:00 80 10/03/23 19:15 94 19 97/70 98 10/03/23 18:30 99.8 F H 100 28 H 95/63 10/03/23 18:00 101 H 22 113/91 100 10/03/23 17:30 105 H 20 95/36 100 10/03/23 16:30 81 22 117/35 10/03/23 16:18 80 22 112/92 100 100 10/03/23 16:15 100 10/03/23 16:14 31 H 10/03/23 16:10 100.1 F H 94 31 H 112/92 99 Intake and Output 10/03/23 10/04/23 10/04/23 22:59 06:59 14:59 Other: Weight 63.503 kg 63.503 kg GENERAL: The patient is alert and oriented x3, not in any acute distress. Well developed, well nourished. HEENT: Pupils are round and equally reacting to light. EOMI. No scleral icterus. No conjunctival pallor. Normocephalic, atraumatic. No pharyngeal erythema. No thyromegaly. CARDIOVASCULAR: S1 and S2 present. No murmurs, rubs, or gallops. -PULMONARY: Chest is clear to auscultation, bilateral expiratory wheezing , no crackles. ABDOMEN: Soft, nontender, nondistended, normoactive bowel sounds. No palpable organomegaly. MUSCULOSKELETAL: No joint swelling or deformity. EXTREMITIES: No cyanosis, clubbing, or pedal edema. -NEUROLOGICAL: Gross neurological examination did not reveal any focal deficits. Currently, the patient to the left and left hemiparesis SKIN: No rashes. no petechiae. Results CBC & Chem 7: 10/03/23 16:23 10/03/23 16:23 Labs: Abnormal Lab Results - Last 24 Hours (Table) 10/03/23 10/03/23 10/03/23 Range/Units 16:23 16: 16: RBC 3.52 L (3.80-5.40) m/uL Hgb 11.2 L (11.4-16.0) gm/dL Lymphocytes # 0.6 L (1.0-4.8) k/uL VBG pH (7.31-7.41) VBG pCO2 (37-51) mmHg Sodium 136 L (137-145) mmol/L Potassium 5.5 H (3.5-5.1) mmol/L BUN 24 H (7-17) mg/dL Glucose 162 H (74-99) mg/dL Plasma Lactic Acid Thong 2.9 H* (0.7-2.0) mmol/L Troponin I (0.000-0.034) ng/mL RSV (PCR) (Not Detectd) 10/03/23 10/03/23 10/03/23 Range/Units 16:23 16:23 16: RBC (3.80-5.40) m/uL Hgb (11.4-16.0) gm/dL Lymphocytes # (1.0-4.8) k/uL VBG pH 7.29 L (7.31-7.41) VBG pCO2 60 H (37-51) mmHg Sodium (137-145) mmol/L Potassium (3.5-5.1) mmol/L BUN (7-17) mg/dL Glucose (74-99) mg/dL Plasma Lactic Acid Thong (0.7-2.0) mmol/L Troponin I 0.053 H* (0.000-0.034) ng/mL RSV (PCR) Detected A (Not Detectd) Thrombosis Risk Factor Assmnt - Choose All That Apply Other Risk Factors: Yes Each Risk Factor Represents 3 Points: Age 75 years or older Thrombosis Risk Factor Assessment Total Risk Factor Score: 3 Thrombosis Risk Factor Assessment Level: Moderate Risk Assessment and Plan Assessment: Acute COPD exacerbation Acute on chronic CHF Acute on chronic hypoxic hypercapnic respiratory failure Acute RSV bronchitis Respiratory acidosis, acute Chronically elevated troponin Chronic atrial fibrillation on a blood thinner History of stroke with left hemiparesis Hypertension. Hyperlipidemia History of breast cancer Plan: Continue with IV Solu-Medrol Continue with BiPAP treatments and oxygen therapy as needed Continue with antibiotic, currently on Zithromax Home dose of all Eliquis Pulmonary team consult, cardiology team consult Further recommendations as per clinical course of the patient DVT prophylaxis: Eliquis GI Prophylaxis: Pepcid PT/OT: Pending Prognosis is guarded
[2023-10-04 07:45] LABS: African American GFR (CKD) >90 (>60 ml/min/1.73 sqM); Anion Gap 11 mmol/L; Blood Urea Nitrogen 22 mg/dL (7-17); Calcium 8.8 mg/dL (8.4-10.2); Carbon Dioxide 26 mmol/L (22-30); Chloride 104 mmol/L (98-107); Glucose 84 mg/dL (74-99); Non-African American GFR(CKD) 84 (>60 ml/min/1.73 sqM); Potassium 4.7 mmol/L (3.5-5.1); Sodium 141 mmol/L (137-145)
[2023-10-04] MEDS: BUDESONIDE 1 MG/2 ML NEBU INHALATION SCH ×2 (08:28→20:41)
[2023-10-04] MEDS: FORMOTEROL FUMARATE 20 MCG/2 ML NEBU INHALATION SCH ×2 (08:28→20:41)
[2023-10-04] MEDS: IPRATROPIUM-ALBUTEROL 3 ML NEB INHALATION SCH ×4 (08:28→20:41)
[2023-10-04] MEDS ORDERED: predniSONE 20 MG TAB PO SCH (09:00)
[2023-10-04] MEDS ORDERED: AMIODARONE 200 MG TAB PO SCH (09:00)
[2023-10-04] MEDS: APIXABAN 5 MG TAB PO SCH ×2 (10:27→18:18)
[2023-10-04] MEDS: GABAPENTIN 100 MG CAP PO SCH ×3 (10:28→18:18)
[2023-10-04] MEDS: METOPROLOL TARTRATE 50 MG TAB PO SCH ×2 (10:28→18:18)
--- NOTE | 2023-10-04 11:38 | CONS ---
CONSULTATION CHIEF COMPLAINT: Elevated troponin. HISTORY OF PRESENT ILLNESS: Dolly is a 77-year-old lady who is admitted to hospital with progressively worsening shortness of breath of one-day duration. She is currently on a BiPAP. Her chest x-ray showed right lower lobe opacity suspicious for pneumonia. Her EKG showed atrial fibrillation with nonspecific ST-T wave changes and intraventricular conduction delay. Her troponin was 0.053 [place] [id number]. Chest x-ray did not show any evidence of congestive heart failure. I have been consulted for elevated troponin, which is probably related to the acute viral illness. The patient's history significant for atrial fibrillation, COPD, hypertension. The patient was admitted to hospital at the beginning of this month and was in atrial fibrillation at that time. She has peripheral arterial disease, including left subclavian stenosis. MEDICATIONS: Medications at home included: 1. Prednisone. 2. Zestril. 3. Robitussin. 4. Mucinex. 5. K-Dur. 6. Singulair. 7. Lopressor. 8. Antivert. 9. DuoNeb. 10.Neurontin. 11.Lasix. 12.Flonase. 13.Advair. 14.Pepcid. 15.Zyrtec. 16.Eliquis. 17.Cordarone. 18.Albuterol. ALLERGIES: Allergic to Lipitor, doxycycline, Mevacor, Macrobid, penicillin, simvastatin, and HMG- CoA reductase inhibitors. REVIEW OF SYSTEMS: I am unable to obtain from the patient who is in respiratory distress. PHYSICAL EXAMINATION: VITAL SIGNS: Heart rate is around 108 beats per minute, O2 saturation is 97%. CHEST: Reveals diminished air entry with bilateral rhonchi. HEART: Reveals first and second heart sounds and a systolic murmur at the apex. ABDOMEN: Soft. EXTREMITIES: Exam of extremities reveals mild edema. Peripheral pulses are felt. IMAGING STUDIES: An echocardiogram at the beginning of this month revealed cardiomyopathy with an ejection fraction of 35% with mild mitral regurgitation and moderate aortic regurgitation. ASSESSMENT: 1. Elevated troponin probably related to respiratory distress and supply demand mismatch, type 2 myocardial infarction. 2. Chronic obstructive pulmonary disease exacerbation secondary to RSV infection. 3. Persistent atrial fibrillation with controlled ventricular rate. PLAN: The patient remains in atrial fibrillation with controlled ventricular rate. She is on Eliquis, which I am going to continue. Use metoprolol for rate control. Stop the amiodarone as she is really not maintaining sinus rhythm. MMODL / IJN: [id number] /
[2023-10-04] MEDS: AZITHROMYCIN 500 MG TAB PO SCH (11:58)
[2023-10-04] MEDS: FAMOTIDINE 20 MG TAB PO SCH (11:58)
[2023-10-04] MEDS: lisinopriL 5 MG TAB PO SCH (11:58)
[2023-10-04] MEDS: FUROSEMIDE 10 MG/ML 2 ML VIAL IV SCH ×2 (15:35→22:44)
--- NOTE | 2023-10-04 16:44 | P.PN ---
Subjective Progress Note Date: 10/04/23 77-year-old female patient who presented to the emergency department because of worsening shortness of breath. The patient was in the hospital in early September when she was treated for an acute on top of chronic hypoxic respiratory failure due to COPD exacerbation suspected left lower lobe pneumonia. At that time, the patient underwent a CT angiogram and pulmonary embolism was ruled out. The patient typically utilizes oxygen at 4 L on outpatient basis. She has chronic A. fib, and she has undergone previous bowel resection and she has a functional colostomy. The patient was discharged to a nursing and she was brought back to the hospital because of worsening shortness of breath and she tested positive for RSV. The patient was actively bronchospastic and wheezy. The patient was also placed on a BiPAP at a pressure of 12/5 and FiO2 is being titrated to maintain saturation above 90%. Minimal sputum production. No chest pain. No major swelling lower extremity. She is weak and debilitated. She was febrile. Her blood work showed edematous count of 8.9, hemoglobin 11.2 and platelet count of 383. Troponin was 0.04. Sodium is at 136 with a potassium level of 5.5, BUN is 24 with a creatinine of 0.8. Coagulation profile was within normal. D-dimer was not elevated. Review of the chest x-ray and there is no clear indication for pneumonia although some increased haziness is seen in the right lung base. No signs of any CO2 narcosis and the patient is able to tolerate the BiPAP reasonably well at this point in time. She is a correction resident and she is residing in [facility] in [place]. Patient is also known to have CHF with impaired ejection fraction of 35%. The patient had a cardiac catheterization during her last admission the patient was found to have nonocclusive coronary artery disease. Echo Cardizem also revealed moderate degree of aortic regurgitation. She has chronic A. fib. Maintain anticoagulation with Eliquis. On today's evaluation of 10/04/2023, the patient was taken off the BiPAP and currently she is on 7 L of oxygen by nasal cannula. Her breathing is improved and she is less short of breath compared to yesterday. She is communicating. Denies having any cough or sputum production. She remains on bronchodilators patient remains on steroids. She has history of chronic A. fib maintained on anticoagulation with Eliquis. Her previous echo also showed moderate degree of regurgitation and she is also known to have nonocclusive coronary artery disease. The patient has a sodium level of 141, potassium level of 4.7, BUN is at 22 and a creatinine of 0.6. Pro-calcitonin level was at 1.96. The patient is in the emergency awaiting transfer to the medical floor. She is on Zithromax empiric antibiotic coverage. She is on bronchodilators with DuoNeb. She is also on accommodation Perforomist and Pulmicort and she is on IV Solu-Medrol. Will gently diurese this patient with Lasix 20 mg IV every 12 hours. The exacerbation of his COPD was related to an RSV infection. There is minimal troponin leak at 0.05. ProBNP level was 15,700. Objective - Vital Signs Vital signs: Vital Signs Temp 97.4 F L 10/04/23 12:02 Pulse 89 10/04/23 12:02 Resp 19 10/04/23 12:02 BP 139/93 10/04/23 12:02 Pulse Ox 98 10/04/23 12:02 FiO2 50 10/04/23 14:57 Intake & Output 10/03/23 10/04/23 10/04/23 18:59 06:59 18:59 Weight 63.503 kg 63.503 kg - Exam Mild respiratory difficulty, oriented, patient is having labored breathing and the patient's current off the BiPAP on 6 L of oxygen by nasal cannula Head exam was generally normal. There was no scleral icterus or corneal arcus. Mucous membranes were moist. HEENT examination is grossly unremarkable. Neck supple. Full range of motion. No adenopathy thyromegaly or neck vein distention. Cardiovascular examination reveals regular rhythm rate. S1-S2 normal. No S3 or S4. No discernible murmur noted. Lungs reveal scattered expiratory rhonchi and wheezes. No crackles. Breath sounds equal bilaterally. Abdomen soft bowel sounds are heard. No masses or tenderness. The patient has an abdominal wall ventral hernia in addition to a colostomy which is functional at this point in time. Extremities are intact. No cyanosis clubbing or edema. Skin is without rash or lesion. Neurologic examination is brief but nonfocal. There is generalized global weakness in all 4 extremities - Labs CBC & Chem 7: 10/03/23 16:23 10/04/23 06:50 Labs: Abnormal Lab Results - Last 24 Hours (Table) 10/03/23 10/03/23 10/03/23 Range/Units 16: 16: 16: RBC 3.52 L (3.80-5.40) m/uL Hgb 11.2 L (11.4-16.0) gm/dL Lymphocytes # 0.6 L (1.0-4.8) k/uL VBG pH (7.31-7.41) VBG pCO2 (37-51) mmHg Sodium 136 L (137-145) mmol/L Potassium 5.5 H (3.5-5.1) mmol/L BUN 24 H (7-17) mg/dL Glucose 162 H (74-99) mg/dL Plasma Lactic Acid Thong 2.9 H* (0.7-2.0) mmol/L Troponin I (0.000-0.034) ng/mL RSV (PCR) (Not Detectd) 10/03/23 10/03/23 10/03/23 Range/Units 16: 16: 16: RBC (3.80-5.40) m/uL Hgb (11.4-16.0) gm/dL Lymphocytes # (1.0-4.8) k/uL VBG pH 7.29 L (7.31-7.41) VBG pCO2 60 H (37-51) mmHg Sodium (137-145) mmol/L Potassium (3.5-5.1) mmol/L BUN (7-17) mg/dL Glucose (74-99) mg/dL Plasma Lactic Acid Thong (0.7-2.0) mmol/L Troponin I 0.053 H* (0.000-0.034) ng/mL RSV (PCR) Detected A (Not Detectd) 10/04/23 Range/Units 06:50 RBC (3.80-5.40) m/uL Hgb (11.4-16.0) gm/dL Lymphocytes # (1.0-4.8) k/uL VBG pH (7.31-7.41) VBG pCO2 (37-51) mmHg Sodium (137-145) mmol/L Potassium (3.5-5.1) mmol/L BUN 22 H (7-17) mg/dL Glucose (74-99) mg/dL Plasma Lactic Acid Thong (0.7-2.0) mmol/L Troponin I (0.000-0.034) ng/mL RSV (PCR) (Not Detectd) Assessment and Plan Plan: Acute COPD exacerbation likely secondary to RSV infection. The patient is actively bronchospastic and wheezy. No clear indication for pneumonia at this point in time. Pro-calcitonin level is elevated and this is essentially a nonspecific finding. Exacerbation essentially related to RSV infection. Acute on chronic hypoxic respiratory failure and the patient is currently on off the BiPAP and the patient is currently on 6 L of oxygen by nasal cannula Elevated proBNP level, consider underlying CHF as the patient is known to have some valvular heart disease. COPD, with recent hospitalization for an acute COPD exacerbation and this was back in 09/07/2023. The patient has been maintained on Advair discus and DuoNeb the blood treatments [id number] on outpatient basis. She is also auction dependent Chronic hypoxic respiratory failure maintain on oxygen at 4-5 L/m nasal cannula Hypertension Hyperlipidemia Previous history of Covid 19 infection general 2022 History of breast cancer with a previous mastectomy History of bowel resection and the patient has a colostomy. History of atrial fibrillation, chronic, discharge on a combination of amiodarone, metoprolol and anticoagulation with Eliquis History of congestion heart failure with ejection fraction of 35% along with segmental wall motion abnormalities involving the anteroapical and apical culp Moderate aortic regurgitation with elevated filling pressures based on recent echocardiogram Nonobstructive coronary artery disease based on recent cardiac catheterization that was done on 09/12/2023 Ventral abdominal wall hernia Thyroid nodule Right middle lobe pulmonary nodule measuring 1 cm, identified on a CAT scan of the chest that was done on 09/07/2023 Plan Keep the patient on 6 L of oxygen by nasal cannula DuoNeb neb 4 times a day Continue performance on Pulmicort IV Solu-Medrol 60 mg every 6 hours IV fluids to KVO pro-BNP level is elevated Continue diuresis Lasix 20 mg IV every 12 hours Resume all medications including metoprolol 50 mg twice a day, amiodarone 200 mg by mouth twice a day and anticoagulation with Eliquis long term resident with poor baseline performance and functional status We'll continue to follow
[2023-10-04] MEDS: ASPIRIN 81 MG PO SCH (22:45)
[2023-10-05] MEDS: IPRATROPIUM-ALBUTEROL 3 ML NEB INHALATION PRN (05:51)
[2023-10-05] MEDS: GABAPENTIN 100 MG CAP PO SCH ×3 (06:40→18:50)
[2023-10-05] MEDS: methylPREDNISolone SOD SUCCI 125 MG/2 ML VIAL IV SCH ×4 (06:41→23:59)
[2023-10-05] MEDS: APIXABAN 5 MG TAB PO SCH ×2 (06:41→18:51)
[2023-10-05] MEDS: METOPROLOL TARTRATE 50 MG TAB PO SCH ×2 (06:41→18:51)
[2023-10-05] MEDS: FORMOTEROL FUMARATE 20 MCG/2 ML NEBU INHALATION SCH ×2 (08:29→20:21)
[2023-10-05] MEDS: BUDESONIDE 1 MG/2 ML NEBU INHALATION SCH ×2 (08:29→20:21)
[2023-10-05] MEDS: IPRATROPIUM-ALBUTEROL 3 ML NEB INHALATION SCH ×4 (08:29→20:21)
[2023-10-05 09:24] LABS: ALT 25 U/L (4-34); AST 28 U/L (14-36); African American GFR (CKD) >90 (>60 ml/min/1.73 sqM); Albumin 3.3 g/dL (3.5-5.0); Alkaline Phosphatase 44 U/L (38-126); Anion Gap 12 mmol/L; Bilirubin, Delta 0.3 mg/dL (0.0-0.2); Blood Urea Nitrogen 24 mg/dL (7-17); Calcium 8.9 mg/dL (8.4-10.2); Carbon Dioxide 27 mmol/L (22-30); Chloride 99 mmol/L (98-107); Glucose 160 mg/dL (74-99); Non-African American GFR(CKD) 78 (>60 ml/min/1.73 sqM); Potassium 4.5 mmol/L (3.5-5.1); Sodium 138 mmol/L (137-145); Total Bilirubin 0.3 mg/dL (0.2-1.3); Total Protein 6.1 g/dL (6.3-8.2)
[2023-10-05 09:25] LABS: HCT 32.6 % (34.0-46.0); HGB 10.4 gm/dL (11.4-16.0); Hypochromasia Slight; MCH 31.3 pg (25.0-35.0); Mean Platelet Volume 8.2; Platelet Count 375 k/uL (150-450); RBC 3.33 m/uL (3.80-5.40); RDW 14.5 % (11.5-15.5)
[2023-10-05 10:36] LABS: Band Neutrophils % 2 %; Lymphocytes # (M) 0.55 k/uL (1.0-4.8); Monocytes # (M) 0.45 k/uL (0-1.0); Myelocytes # (M) 0.05 k/uL (0); Myelocytes % 1 %; Neutrophils % (M) 79 %; Nucleated Red Blood Cells 0 /100 WBC (0-0); Total Cells Counted 200
[2023-10-05] MEDS: FAMOTIDINE 20 MG TAB PO SCH (10:53)
[2023-10-05] MEDS: FUROSEMIDE 10 MG/ML 2 ML VIAL IV SCH (10:53)
[2023-10-05] MEDS: lisinopriL 5 MG TAB PO SCH (10:53)
[2023-10-05] MEDS: AZITHROMYCIN 500 MG TAB PO SCH (10:53)
--- NOTE | 2023-10-05 12:36 | P.PN ---
Subjective Progress Note Date: 10/05/23 77-year-old female patient who presented to the emergency department because of worsening shortness of breath. The patient was in the hospital in early September when she was treated for an acute on top of chronic hypoxic respiratory failure due to COPD exacerbation suspected left lower lobe pneumonia. At that time, the patient underwent a CT angiogram and pulmonary embolism was ruled out. The patient typically utilizes oxygen at 4 L on outpatient basis. She has chronic A. fib, and she has undergone previous bowel resection and she has a functional colostomy. The patient was discharged to a nursing and she was brought back to the hospital because of worsening shortness of breath and she tested positive for RSV. The patient was actively bronchospastic and wheezy. The patient was also placed on a BiPAP at a pressure of 12/5 and FiO2 is being titrated to maintain saturation above 90%. Minimal sputum production. No chest pain. No major swelling lower extremity. She is weak and debilitated. She was febrile. Her blood work showed edematous count of 8.9, hemoglobin 11.2 and platelet count of 383. Troponin was 0.04. Sodium is at 136 with a potassium level of 5.5, BUN is 24 with a creatinine of 0.8. Coagulation profile was within normal. D-dimer was not elevated. Review of the chest x-ray and there is no clear indication for pneumonia although some increased haziness is seen in the right lung base. No signs of any CO2 narcosis and the patient is able to tolerate the BiPAP reasonably well at this point in time. She is a prison resident and [facility] [place] Patient is also known to have CHF with impaired ejection fraction of 35%. The patient had a cardiac catheterization during her last admission the patient was found to have nonocclusive coronary artery disease. Echo Cardizem also revealed moderate degree of aortic regurgitation. She has chronic A. fib. Maintain anticoagulation with Eliquis. On today's evaluation of 10/04/2023, the patient was taken off the BiPAP and currently she is on 7 L of oxygen by nasal cannula. Her breathing is improved and she is less short of breath compared to yesterday. She is communicating. Denies having any cough or sputum production. She remains on bronchodilators patient remains on steroids. She has history of chronic A. fib maintained on anticoagulation with Eliquis. Her previous echo also showed moderate degree of regurgitation and she is also known to have nonocclusive coronary artery disease. The patient has a sodium level of 141, potassium level of 4.7, BUN is at 22 and a creatinine of 0.6. Pro-calcitonin level was at 1.96. The patient is in the emergency awaiting transfer to the medical floor. She is on Zithromax empiric antibiotic coverage. She is on bronchodilators with DuoNeb. She is also on accommodation Perforomist and Pulmicort and she is on IV Solu-Medrol. Will gently diurese this patient with Lasix 20 mg IV every 12 hours. The exacerbation of his COPD was related to an RSV infection. There is minimal troponin leak at 0.05. ProBNP level was 15,700. On today's evaluation of 10/05/2023, the patient is being seen for a follow-up. The patient is feeling better. She is off the BiPAP and the patient is currently on oxygen at 6 L nasal cannula. She is on DuoNeb nebulized treatments [id number]. She is on IV Solu-Medrol 60 mg every 6 hours. He is also on Lasix 20 mg IV every 12 hours. Urine output is not being accurately measured. BUN is at 24 with a creatinine 0.7. The risk was at 5 with a hemoglobin of 10.4 and a platelet count of 375. She is afebrile. She is hemodynamically stable. Noted the patient has chronic hypoxemic respiratory failure and she utilizes oxygen at 4 L/m. Cannula on an outpatient basis. She has also impaired left ventricular ejection fraction of 35%. She has nonocclusive coronary artery disease. Objective - Vital Signs Vital signs: Vital Signs Temp 98.5 F 10/05/23 03:53 Pulse 86 10/05/23 08:53 Resp 20 10/05/23 03:53 BP 136/67 10/05/23 03:53 Pulse Ox 98 10/05/23 03:53 FiO2 50 10/04/23 14:57 Intake & Output 10/04/23 10/05/23 10/05/23 18:59 06:59 18:59 Intake Total 10 30 Balance 10 30 Weight 65 kg Intake: IV 10 Invasive Line 1 10 Oral 30 Other: Voiding Method External Catheter External Catheter # Voids 1 - Exam Mild respiratory difficulty, oriented, patient is having labored breathing and the patient's current off the BiPAP on 6 L of oxygen by nasal cannula Head exam was generally normal. There was no scleral icterus or corneal arcus. Mucous membranes were moist. HEENT examination is grossly unremarkable. Neck supple. Full range of motion. No adenopathy thyromegaly or neck vein distention. Cardiovascular examination reveals regular rhythm rate. S1-S2 normal. No S3 or S4. No discernible murmur noted. Lungs reveal scattered expiratory rhonchi and wheezes. No crackles. Breath so unds equal bilaterally. Abdomen soft bowel sounds are heard. No masses or tenderness. The patient has an abdominal wall ventral hernia in addition to a colostomy which is functional at this point in time. Extremities are intact. No cyanosis clubbing or edema. Skin is without rash or lesion. Neurologic examination is brief but nonfocal. There is generalized global weakness in all 4 extremities - Labs CBC & Chem 7: 10/05/23 08:01 10/05/23 08:01 Labs: Abnormal Lab Results - Last 24 Hours (Table) 10/04/23 10/05/23 10/05/23 Range/Units 06:50 08:01 08:01 RBC 3.33 L (3.80-5.40) m/uL Hgb 10.4 L (11.4-16.0) gm/dL Hct 32.6 L (34.0-46.0) % Lymphocytes # (Manual) 0.55 L (1.0-4.8) k/uL Myelocytes # (Manual) 0.05 H (0) k/uL BUN 24 H (7-17) mg/dL Glucose 160 H (74-99) mg/dL Delta Bilirubin 0.3 H (0.0-0.2) mg/dL Total Protein 6.1 L (6.3-8.2) g/dL Albumin 3.3 L (3.5-5.0) g/dL Procalcitonin 1.96 H (0.02-0.09) ng/mL Microbiology - Last 24 Hours (Table) 10/03/23 16:23 Blood Culture - Preliminary Blood Assessment and Plan Plan: Acute COPD exacerbation likely secondary to RSV infection. The patient is actively bronchospastic and wheezy. No clear indication for pneumonia at this point in time. Pro-calcitonin level is elevated and this is essentially a n onspecific finding. Exacerbation essentially related to RSV infection. Acute on chronic hypoxic respiratory failure and the patient is currently on off the BiPAP and the patient is currently on 6 L of oxygen by nasal cannula Elevated proBNP level, consider underlying CHF as the patient is known to have some valvular heart disease. COPD, with recent hospitalization for an acute COPD exacerbation and this was back in 09/07/2023. The patient has been maintained on Advair discus and DuoNeb the blood treatments [id number] on outpatient basis. She is also auction dependent Chronic hypoxic respiratory failure maintain on oxygen at 4-5 L/m nasal cannula Hypertension Hyperlipidemia Previous history of Covid 19 infection general 2022 History of breast cancer with a previous mastectomy History of bowel resection and the patient has a colostomy. History of atrial fibrillation, chronic, discharge on a combination of amiodarone, metoprolol and anticoagulation with Eliquis History of congestion heart failure with ejection fraction of 35% along with segmental wall motion abnormalities involving the anteroapical and apical culp Moderate aortic regurgitation with elevated filling pressures based on recent echocardiogram Nonobstructive coronary artery disease based on recent cardiac catheterization that was done on 09/12/2023 Ventral abdominal wall hernia Thyroid nodule Right middle lobe pulmonary nodule measuring 1 cm, identified on a CAT scan of the chest that was done on 09/07/2023 Plan Keep the patient on 6 L of oxygen by nasal cannula, clinically improving and we'll continue same treatment for now. DuoNeb neb 4 times a day Continue performance on Pulmicort IV Solu-Medrol 60 mg every 6 hours IV fluids to KVO pro-BNP level is elevated Continue diuresis Lasix 20 mg IV every 12 hours Resume all medications including metoprolol 50 mg twice a day, amiodarone 200 mg by mouth twice a day and anticoagulation with Eliquis residential resident with poor baseline performance and functional status We'll continue to follow
[2023-10-05] MEDS ORDERED: FUROSEMIDE 10 MG/ML 2 ML VIAL IV ONE (12:45)
[2023-10-05] MEDS ORDERED: FUROSEMIDE 10 MG/ML 4 ML VIAL ONE (13:36)
[2023-10-05] MEDS ORDERED: FUROSEMIDE 10 MG/ML 4 ML VIAL IV STA (13:38)
[2023-10-05 13:41] LABS: Glucose,Whole Blood 204 mg/dL (70-110)
--- NOTE | 2023-10-05 14:25 | XR ---
EXAMINATION TYPE: XR chest 1V DATE OF EXAM: 10/05/2023 2:13 PM CLINICAL INDICATION:Female, 77 years old with history of fluid overload respiratory distress; [facility] COMPARISON: Chest radiographs from 10/03/2023. TECHNIQUE: XR chest 1V Frontal view of the chest. FINDINGS: Lungs/Pleura: There is flattening of the diaphragm with increased lucency of the lungs. No evidence o f pneumothorax, pleural effusion or focal consolidation. Pulmonary vascularity: Unremarkable. Heart/mediastinum: Cardiomediastinal silhouette is prominent in size. Left axillary surgical clips. Musculoskeletal: No acute osseous pathology. IMPRESSION: 1. Improved right lower lung airspace opacities. 2. COPD changes.
[2023-10-05] MEDS: LOSARTAN 25 MG TAB PO SCH (16:07)
[2023-10-05] MEDS: BUMETANIDE 1 MG TAB PO SCH (16:07)
--- NOTE | 2023-10-05 20:17 | P.PN ---
Subjective A pleasant 77 years old female with past medical history of stroke. Presents because of worsening dyspnea especially over one day duration. Associa sally with cough but no chest pain. No abdominal pain and looks soft and she has history of colostomy and back is working with brown stool. No headache dizziness weakness or numbness, no urinary complaints. She denies smoking alcohol or illicit drugs. Patient was hypoxic on admission, she usually wears 4 L of oxygen at home, currently she is on BiPAP which limits history patient A Provided. Rest of Vital Signs Stable Labs Showing WBC of 11.2, Sodium 136, Potassium 5.5 and Creatinine 0.8. Troponin Is Elevated at 0.05. Which Is Always Elevated before BNP Elevated [id number] Viruses back positive for RSV Chest x-ray shows COPD changes with a right lower opacity suspicious for pneumonia EKG showing atrial fibrillation with a heart rate of 96. 10/05/2023 Patient is improving slowly and gradually, however she had an episode of increased shortness of breath with some flow from her mouth per staff which was locked. She is on IV Lasix twice daily and extra doses provided. Also she remains on IV Solu-Medrol. Repeat chest x-ray showing improvement per radiologist of the right lower infiltrate however still there is significant therefore going to be labs tomorrow. She is also on Zithromax and home dose of all liquids. Review of systems CONSTITUTIONAL: No fever, no malaise, no fatigue. HEENT: No recent visual problems or hearing problems. Denied any sore throa GASTROINTESTINAL: No diarrhea, no nausea, no vomiting, no abdominal pain. Normoactive bowel sounds. NEUROLOGICAL: No headaches, no weakness, no numbness. HEMATOLOGICAL: Denies any bleeding or petechiae. GENITOURINARY: Denies any burning micturition, frequency, or urgency. Active Medications Generic Name Dose Route Start Last Admin Trade Name Freq PRN Reason Stop Dose Admin Acetaminophen 650 mg 10/03/23 21:18 Acetaminophen Tab 325 Mg Tab PO Q4HR PRN Mild Pain or Fever > 100.5 Albuterol/Ipratropium 3 ml 10/04/23 08:00 10/05/23 16:24 Ipratropium-Albuterol 3 Ml Neb INHALATION 3 ml RT-QID GRACE Administration Albuterol/Ipratropium 3 ml 10/03/23 21:18 10/05/23 05:51 Ipratropium-Albuterol 3 Ml Neb INHALATION 3 ml RT-Q2H PRN Administration Shortness Of Breath Or Wheezing Apixaban 5 mg 10/04/23 07:00 10/05/23 18:51 Apixaban 5 Mg Tab PO 5 mg Q12HR@0700,1900 GRACE Administration Protocol Aspirin 81 mg 10/04/23 21:00 10/04/23 22:45 Aspirin 81 Mg PO 81 mg HS GRACE Administration Azithromycin 500 mg 10/04/23 09:00 10/05/23 10:53 Azithromycin 500 Mg Tab PO 10/06/23 09:01 500 mg DAILY GRACE Administration Protocol Budesonide 1 mg 10/04/23 08:00 10/05/23 08:29 Budesonide 1 Mg/2 Ml Nebu INHALATION 1 mg RT-BID GRACE Administration Bumetanide 1 mg 10/05/23 16:00 10/05/23 16:07 Bumetanide 1 Mg Tab PO 1 mg DAILY GRACE Administration Famotidine 20 mg 10/04/23 09:00 10/05/23 10:53 Famotidine 20 Mg Tab PO 20 mg DAILY GRACE Administration Formoterol Fumarate 20 mcg 10/04/23 08:00 10/05/23 08:29 Formoterol Fumarate 20 Mcg/2 Ml Nebu INHALATION 20 mcg RT-BID GRACE Administration Gabapentin 200 mg 10/04/23 07:00 10/05/23 18:50 Gabapentin 100 Mg Cap PO 200 mg TID@0700,1300,1900 GRACE Administration Lisinopril 5 mg 10/04/23 09:00 10/05/23 10:53 Lisinopril 5 Mg Tab PO 5 mg DAILY GRACE Administration Loratadine 10 mg 10/05/23 19:15 Loratadine 10 Mg Tab PO DAILY [facility] Losartan Potassium 12.5 mg 10/05/23 16:00 10/05/23 16:07 Losartan 25 Mg Tab PO 12.5 mg DAILY GRACE Administration Melatonin 3 mg 10/03/23 21:18 Melatonin 3 Mg Tablet PO HS PRN Insomnia Methylprednisolone Sodium Succinate 60 mg 10/04/23 06:00 10/05/23 18:49 Methylprednisolone Sod Succi 125 Mg/2 Ml Vial IV 60 mg Q6HR GRACE Administration Metoprolol Tartrate 50 mg 10/04/23 07:00 10/05/23 18:51 Metoprolol Tartrate 50 Mg Tab PO 50 mg Q12HR@0700,1900 GRACE Administration Naloxone HCl 0.2 mg 10/03/23 21:18 Naloxone 0.4 Mg/Ml 1 Ml Vial IVP Q2M PRN Opioid Reversal Objective - Vital Signs Vital signs: Vital Signs Temp 98.5 F 10/05/23 03:53 Pulse 80 10/05/23 12:03 Resp 20 10/05/23 03:53 BP 136/67 10/05/23 03:53 Pulse Ox 98 10/05/23 03:53 FiO2 50 10/05/23 12:08 Intake & Output 10/04/23 10/05/23 10/05/23 18:59 06:59 18:59 Intake Total 10 30 Balance 10 30 Weight 65 kg Intake: IV 10 Invasive Line 1 10 Oral 30 Other: Voiding Method External Catheter External Catheter # Voids 1 - Labs CBC & Chem 7: 10/05/23 08:01 10/05/23 08:01 Labs: Abnormal Lab Results - Last 24 Hours (Table) 10/04/23 10/05/23 10/05/23 Range/Units 06:50 08:01 08:01 RBC 3.33 L (3.80-5.40) m/uL Hgb 10.4 L (11.4-16.0) gm/dL Hct 32.6 L (34.0-46.0) % Lymphocytes # (Manual) 0.55 L (1.0-4.8) k/uL Myelocytes # (Manual) 0.05 H (0) k/uL BUN 24 H (7-17) mg/dL Glucose 160 H (74-99) mg/dL POC Glucose (mg/dL) (70-110) mg/dL Delta Bilirubin 0.3 H (0.0-0.2) mg/dL Total Protein 6.1 L (6.3-8.2) g/dL Albumin 3.3 L (3.5-5.0) g/dL Procalcitonin 1.96 H (0.02-0.09) ng/mL 10/05/23 Range/Units 13:38 RBC (3.80-5.40) m/uL Hgb (11.4-16.0) gm/dL Hct (34.0-46.0) % Lymphocytes # (Manual) (1.0-4.8) k/uL Myelocytes # (Manual) (0) k/uL BUN (7-17) mg/dL Glucose (74-99) mg/dL POC Glucose (mg/dL) 204 H (70-110) mg/dL Delta Bilirubin (0.0-0.2) mg/dL Total Protein (6.3-8.2) g/dL Albumin (3.5-5.0) g/dL Procalcitonin (0.02-0.09) ng/mL Microbiology - Last 24 Hours (Table) 10/03/23 16:23 Blood Culture - Preliminary Blood Assessment and Plan Assessment: Acute COPD exacerbation Acute on chronic CHF Acute on chronic hypoxic hypercapnic respiratory failure Acute RSV bronchitis Respiratory acidosis, acute Chronically elevated troponin Chronic atrial fibrillation on a blood thinner History of stroke with left hemiparesis Hypertension. Hyperlipidemia History of breast cancer Plan: Continue with IV Solu-Medrol Continue with BiPAP treatments and oxygen therapy as needed Continue with antibiotic, currently on Zithromax Home dose of all Eliquis Pulmonary team consult, cardiology team consult Further recommendations as per clinical course of the patient DVT prophylaxis: Eliquis GI Prophylaxis: Pepcid PT/OT: Pending Prognosis is guarded
--- NOTE | 2023-10-05 21:16 | P.PN ---
Subjective Progress Note Date: 10/05/23 SUBJECTIVE: Reports slightly less short of breath since the time of admission. BP 126/65, heart rate 83 beats a minute Hemoglobin 10.8, sodium 138, potassium 4.5, creatinine 0.7 PHYSICAL EXAMINATION Vital signs reviewed. Head: Normocephalic. Eyes: Sclerae nonicteric. Neck: Brisk carotid upstroke, no jugular venous distention. Lungs: Clear to auscultation. Heart: Regular rate and rhythm, S1-S2, no S3, no murmur or rub. Abdomen: Soft nontender, positive bowel sounds no organomegaly. Extremities: No edema, intact distal pulses. ASSESSMENT Elevated troponin, likely type II nstemi from demand supply mismatch COPD exacerbation secondary to RSV infection Persistent atrial fibrillation, rate controlled Cardio myopathy with EF 35%, mild MR, moderate AR, normal cardiac cath, likely stress cardiomyopathy h/o CVA PLAN Continue Eliquis. aspirin continue metoprolol 50 mg twice a day Start losartan 12.5 mg for cardiomyopathy. We will uptitrate as blood pressure tolerates We will consider Farxiga prior to discharge discharged Lasix as needed Do not resume amiodarone as patient is maintained in atrial fibrillation and be were not able to achieve rhythm controlled with amiodarone in past Objective - Vital Signs Vital signs: Vital Signs Temp 97.6 F 10/05/23 15:55 Pulse 83 10/05/23 20:42 Resp 18 10/05/23 15:55 BP 131/68 10/05/23 15:55 Pulse Ox 96 10/05/23 16:26 FiO2 50 10/05/23 12:08 Intake & Output 10/05/23 10/05/23 10/06/23 06:59 18:59 06:59 Intake Total 10 150 Output Total 300 200 Balance 10 -150 -200 Weight 65 kg Intake: IV 10 Invasive Line 1 10 Oral 150 Output: Urine 300 200 Other: Voiding Method External Catheter Indwelling Catheter # Voids 1 - Labs CBC & Chem 7: 10/05/23 08:01 10/05/23 08:01 Labs: Abnormal Lab Results - Last 24 Hours (Table) 10/05/23 10/05/23 10/05/23 Range/Units 08:01 08:01 13:38 RBC 3.33 L (3.80-5.40) m/uL Hgb 10.4 L (11.4-16.0) gm/dL Hct 32.6 L (34.0-46.0) % Lymphocytes # (Manual) 0.55 L (1.0-4.8) k/uL Myelocytes # (Manual) 0.05 H (0) k/uL BUN 24 H (7-17) mg/dL Glucose 160 H (74-99) mg/dL POC Glucose (mg/dL) 204 H (70-110) mg/dL Delta Bilirubin 0.3 H (0.0-0.2) mg/dL Total Protein 6.1 L (6.3-8.2) g/dL Albumin 3.3 L (3.5-5.0) g/dL Microbiology - Last 24 Hours (Table) 10/03/23 16:23 Blood Culture - Preliminary Blood
[2023-10-05] MEDS: LORATADINE 10 MG TAB PO SCH (21:33)
[2023-10-05] MEDS: ASPIRIN 81 MG PO SCH (21:33)
[2023-10-06] MEDS: METOPROLOL TARTRATE 50 MG TAB PO SCH ×2 (06:17→17:06)
[2023-10-06] MEDS: APIXABAN 5 MG TAB PO SCH ×2 (06:17→17:06)
[2023-10-06] MEDS: methylPREDNISolone SOD SUCCI 125 MG/2 ML VIAL IV SCH ×3 (06:18→17:06)
[2023-10-06] MEDS: GABAPENTIN 100 MG CAP PO SCH ×3 (06:18→17:06)
[2023-10-06 07:43] LABS: ALT 21 U/L (4-34); AST 21 U/L (14-36); African American GFR (CKD) 51 (>60 ml/min/1.73 sqM); Albumin 3.3 g/dL (3.5-5.0); Alkaline Phosphatase 46 U/L (38-126); Anion Gap 11 mmol/L; Bilirubin, Delta 0.2 mg/dL (0.0-0.2); Bilirubin,Unconjugated 0.1 mg/dL (0.0-1.1); Blood Urea Nitrogen 33 mg/dL (7-17); Calcium 8.7 mg/dL (8.4-10.2); Carbon Dioxide 31 mmol/L (22-30); Chloride 96 mmol/L (98-107); Glucose 163 mg/dL (74-99); HCT 32.9 % (34.0-46.0); HGB 10.7 gm/dL (11.4-16.0); MCH 31.4 pg (25.0-35.0); MCHC 32.6 g/dL (31.0-37.0); MCV 96.4 fL (80.0-100.0); Mean Platelet Volume 8.2; Non-African American GFR(CKD) 44 (>60 ml/min/1.73 sqM); Platelet Count 420 k/uL (150-450); RBC 3.41 m/uL (3.80-5.40); RDW 14.6 % (11.5-15.5); Sodium 138 mmol/L (137-145); Total Bilirubin 0.3 mg/dL (0.2-1.3); WBC 5.9 k/uL (3.8-10.6)
[2023-10-06] MEDS: FORMOTEROL FUMARATE 20 MCG/2 ML NEBU INHALATION SCH ×2 (07:58→19:52)
[2023-10-06] MEDS: IPRATROPIUM-ALBUTEROL 3 ML NEB INHALATION SCH ×4 (07:58→19:52)
[2023-10-06] MEDS: BUDESONIDE 1 MG/2 ML NEBU INHALATION SCH ×2 (07:58→19:52)
[2023-10-06] MEDS: AZITHROMYCIN 500 MG TAB PO SCH (09:50)
[2023-10-06] MEDS: BUMETANIDE 1 MG TAB PO SCH (09:51)
[2023-10-06] MEDS: FAMOTIDINE 20 MG TAB PO SCH (09:51)
[2023-10-06] MEDS: LOSARTAN 25 MG TAB PO SCH (09:51)
[2023-10-06] MEDS: LORATADINE 10 MG TAB PO SCH (09:51)
[2023-10-06 09:58] LABS: Band Neutrophils % 1 %; Eosinophils # (M) 0.06 k/uL (0-0.7); Lymphocytes # (M) 0.65 k/uL (1.0-4.8); Metamyelocytes # (M) 0.12 k/uL (0); Metamyelocytes % 2 %; Monocytes # (M) 0.47 k/uL (0-1.0); Myelocytes # (M) 0.12 k/uL (0); Myelocytes % 2 %; Neutrophils % (M) 77 %; Nucleated Red Blood Cells 0 /100 WBC (0-0); RBC Morphology Normal; Total Cells Counted 200
--- NOTE | 2023-10-06 12:55 | P.PN ---
Subjective Progress Note Date: 10/06/23 77-year-old female patient who presented to the emergency department because of worsening shortness of breath. The patient was in the hospital in early September when she was treated for an acute on top of chronic hypoxic respiratory failure due to COPD exacerbation suspected left lower lobe pneumonia. At that time, the patient underwent a CT angiogram and pulmonary embolism was ruled out. The patient typically utilizes oxygen at 4 L on outpatient basis. She has chronic A. fib, and she has undergone previous bowel resection and she has a functional colostomy. The patient was discharged to a nursing and she was brought back to the hospital because of worsening shortness of breath and she tested positive for RSV. The patient was actively bronchospastic and wheezy. The patient was also placed on a BiPAP at a pressure of 12/5 and FiO2 is being titrated to maintain saturation above 90%. Minimal sputum production. No chest pain. No major swelling lower extremity. She is weak and debilitated. She was febrile. Her blood work showed edematous count of 8.9, hemoglobin 11.2 and platelet count of 383. Troponin was 0.04. Sodium is at 136 with a potassium level of 5.5, BUN is 24 with a creatinine of 0.8. Coagulation profile was within normal. D-dimer was not elevated. Review of the chest x-ray and there is no clear indication for pneumonia although some increased haziness is seen in the right lung base. No signs of any CO2 narcosis and the patient is able to tolerate the BiPAP reasonably well at this point in time. She is a half-way resident and she is residing in [facility] in [place]. Patient is also known to have CHF with impaired ejection fraction of 35%. The patient had a cardiac catheterization during her last admission the patient was found to have nonocclusive coronary artery disease. Echo Cardizem also revealed moderate degree of aortic regurgitation. She has chronic A. fib. Maintain anticoagulation with Eliquis. On today's evaluation of 10/04/2023, the patient was taken off the BiPAP and currently she is on 7 L of oxygen by nasal cannula. Her breathing is improved and she is less short of breath compared to yesterday. She is communicating. Denies having any cough or sputum production. She remains on bronchodilators patient remains on steroids. She has history of chronic A. fib maintained on anticoagulation with Eliquis. Her previous echo also showed moderate degree of regurgitation and she is also known to have nonocclusive coronary artery disease. The patient has a sodium level of 141, potassium level of 4.7, BUN is at 22 and a creatinine of 0.6. Pro-calcitonin level was at 1.96. The patient is in the emergency awaiting transfer to the medical floor. She is on Zithromax empiric antibiotic coverage. She is on bronchodilators with DuoNeb. She is also on accommodation Perforomist and Pulmicort and she is on IV Solu-Medrol. Will gently diurese this patient with Lasix 20 mg IV every 12 hours. The exacerbation of his COPD was related to an RSV infection. There is minimal troponin leak at 0.05. ProBNP level was 15,700. On today's evaluation of 10/05/2023, the patient is being seen for a follow-up. The patient is feeling better. She is off the BiPAP and the patient is currently on oxygen at 6 L nasal cannula. She is on DuoNeb nebulized treatments [id number]. She is on IV Solu-Medrol 60 mg every 6 hours. He is also on Lasix 20 mg IV every 12 hours. Urine output is not being accurately measured. BUN is at 24 with a creatinine 0.7. The risk was at 5 with a hemoglobin of 10.4 and a platelet count of 375. She is afebrile. She is hemodynamically stable. Noted the patient has chronic hypoxemic respiratory failure and she utilizes oxygen at 4 L/m. Cannula on an outpatient basis. She has also impaired left ventricular ejection fraction of 35%. She has nonocclusive coronary artery disease. On 10/06/2023, the patient's condition is stable. She remains on IV Solu- Medrol. She remains on bronchodilators. Oxygen flow is at 5 L with a pulse ox of 99%. Labs from today shows a white cell count of 5.9, hemoglobin of 10.7, platelets of 420, B is a 33 with a creatinine of 1.1 and a sodium level is at 138. The patient is on Bumex 1 mg by mouth daily. The patient is on bronchodilators with DuoNeb updrafts, Perforomist and Pulmicort and the patient is also on IV Solu-Medrol 60 mg every 6 hours. [facility] showed improvement right lower lobe airspace opacity. The patient is on no antibiotics. I'm going to repeat the pro calcitonin level in a.m. She remains on to coagulation with Eliquis. Objective - Vital Signs Vital signs: Vital Signs Temp 98.1 F 10/06/23 05:01 Pulse 89 10/06/23 08:24 Resp 22 10/06/23 05:01 BP 134/60 10/06/23 05:01 Pulse Ox 96 10/06/23 08:01 FiO2 50 10/05/23 12:08 Intake & Output 10/05/23 10/06/23 10/06/23 18:59 06:59 18:59 Intake Total 150 20 240 Output Total 300 350 Balance -150 -330 240 Weight 68 kg Intake: IV 20 Invasive Line 1 10 Invasive Line 2 10 Oral 150 240 Output: Urine 300 350 Other: Voiding Method Indwelling Catheter Indwelling Catheter - Exam Mild respiratory difficulty, oriented, patient is having labored breathing and the patient's current off the BiPAP on 5 L of oxygen by nasal cannula Head exam was generally normal. There was no scleral icterus or corneal arcus. Mucous membranes were moist. HEENT examination is grossly unremarkable. Neck supple. Full range of motion. No adenopathy thyromegaly or neck vein distention. Cardiovascular examination reveals regular rhythm rate. S1-S2 normal. No S3 or S4. No discernible murmur noted. Lungs reveal scattered expiratory rhonchi and wheezes. No crackles. Breath sounds equal bilaterally. Abdomen soft bowel sounds are heard. No masses or tenderness. The patient has an abdominal wall ventral hernia in addition to a colostomy which is functional at this point in time. Extremities are intact. No cyanosis clubbing or edema. Skin is without rash or lesion. Neurologic examination is brief but nonfocal. There is generalized global weakness in all 4 extremities - Labs CBC & Chem 7: 10/06/23 06:29 10/06/23 06:29 Labs: Abnormal Lab Results - Last 24 Hours (Table) 10/05/23 10/05/23 10/06/23 Range/Units 08:01 13:38 06:29 RBC 3.41 L (3.80-5.40) m/uL Hgb 10.7 L (11.4-16.0) gm/dL Hct 32.9 L (34.0-46.0) % Lymphocytes # (Manual) 0.55 L 0.65 L (1.0-4.8) k/uL Metamyelocytes # (Man) 0.12 H (0) k/uL Myelocytes # (Manual) 0.05 H 0.12 H (0) k/uL Chloride (98-107) mmol/L Carbon Dioxide (22-30) mmol/L BUN (7-17) mg/dL Creatinine (0.52-1.04) mg/dL Glucose (74-99) mg/dL POC Glucose (mg/dL) 204 H (70-110) mg/dL Total Protein (6.3-8.2) g/dL Albumin (3.5-5.0) g/dL 10/06/23 Range/Units 06:29 RBC (3.80-5.40) m/uL Hgb (11.4-16.0) gm/dL Hct (34.0-46.0) % Lymphocytes # (Manual) (1.0-4.8) k/uL Metamyelocytes # (Man) (0) k/uL Myelocytes # (Manual) (0) k/uL Chloride 96 L (98-107) mmol/L Carbon Dioxide 31 H (22-30) mmol/L BUN 33 H (7-17) mg/dL Creatinine 1.19 H (0.52-1.04) mg/dL Glucose 163 H (74-99) mg/dL POC Glucose (mg/dL) (70-110) mg/dL Total Protein 6.0 L (6.3-8.2) g/dL Albumin 3.3 L (3.5-5.0) g/dL Microbiology - Last 24 Hours (Table) 10/03/23 16:23 Blood Culture - Preliminary Blood Assessment and Plan Plan: Acute COPD exacerbation likely secondary to RSV infection. The patient is actively bronchospastic and wheezy. No clear indication for pneumonia at this point in time. Pro-calcitonin level is elevated and this is essentially a nonspecific finding. Exacerbation essentially related to RSV infection. The chest x-ray from yesterday showed improvement elevation of the right lung base and the patient remains on bronchodilators and steroids Acute on chronic hypoxic respiratory failure and the patient is currently on off the BiPAP and the patient is currently on 5 L of oxygen by nasal cannula Elevated proBNP level, consider underlying CHF as the patient is known to have some valvular heart disease. The patient is currently on oral Bumex COPD, with recent hospitalization for an acute COPD exacerbation and this was back in 09/07/2023. The patient has been maintained on Advair discus and DuoNeb the blood treatments [id number] on outpatient basis. She is also auction dependent Chronic hypoxic respiratory failure maintain on oxygen at 4-5 L/m nasal cannula Hypertension Hyperlipidemia Previous history of Covid 19 infection general 2022 History of breast cancer with a previous mastectomy History of bowel resection and the patient has a colostomy. History of atrial fibrillation, chronic, discharge on a combination of amiodarone, metoprolol and anticoagulation with Eliquis History of congestion heart failure with ejection fraction of 35% along with segmental wall motion abnormalities involving the anteroapical and apical culp Moderate aortic regurgitation with elevated filling pressures based on recent echocardiogram Nonobstructive coronary artery disease based on recent cardiac catheterization that was done on 09/12/2023 Ventral abdominal wall hernia Thyroid nodule Right middle lobe pulmonary nodule measuring 1 cm, identified on a CAT scan of the chest that was done on 09/07/2023 Plan Keep the patient on 5 L of oxygen by nasal cannula, clinically improving and we'll continue same treatment for now. DuoNeb neb 4 times a day Continue performance on Pulmicort IV Solu-Medrol 60 mg every 6 hours IV fluids to KVO pro-BNP level is elevated Continue diuresis with Bumex 1 mg by mouth daily Repeat pro-calcitonin level Resume all medications including metoprolol 50 mg twice a day, amiodarone 200 mg by mouth twice a day and anticoagulation with [facility] retirement resident with poor baseline performance and functional status We'll continue to follow
--- NOTE | 2023-10-06 15:51 | P.PN ---
Subjective A pleasant 77 years old female with past medical history of stroke. Presents because of worsening dyspnea especially over one day duration. Associa sally with cough but no chest pain. No abdominal pain and looks soft and she has history of colostomy and back is working with brown stool. No headache dizziness weakness or numbness, no urinary complaints. She denies smoking alcohol or illicit drugs. Patient was hypoxic on admission, she usually wears 4 L of oxygen at home, currently she is on BiPAP which limits history patient A Provided. Rest of Vital Signs Stable Labs Showing WBC of 11.2, Sodium 136, Potassium 5.5 and Creatinine 0.8. Troponin Is Elevated at 0.05. Which Is Always Elevated before BNP Elevated [id number] Viruses back positive for RSV Chest x-ray shows COPD changes with a right lower opacity suspicious for pneumonia EKG showing atrial fibrillation with a heart rate of 96. 10/05/2023 Patient is improving slowly and gradually, however she had an episode of increased shortness of breath with some flow from her mouth per staff which was locked. She is on IV Lasix twice daily and extra doses provided. Also she remains on IV Solu-Medrol. Repeat chest x-ray showing improvement per radiologist of the right lower infiltrate however still there is significant therefore going to be labs tomorrow. She is also on Zithromax and home dose of all liquids. 10/06/2023 Patient breathing is improving, her oxygen requirement down to 5 L with saturation of 95% Chest x-ray from yesterday showing improvement opacities in the right lower lobe. Her leukocytosis is also trending down. Patient remains on Zithromax with broadcalcitonin, down 1.9 down to 0.9, therefore we going to continue for 3 more days course. Patient also improving on IV Solu-Medrol 60 mg, IV Lasix 20 mg. And she is continued on home dose of liquids. Objective - Vital Signs Vital signs: Vital Signs Temp 97.3 F L 10/06/23 09:45 Pulse 85 10/06/23 15:21 Resp 16 10/06/23 12:00 BP 124/66 10/06/23 12:00 Pulse Ox 95 10/06/23 12:00 FiO2 50 10/05/23 12:08 Intake & Output 10/05/23 10/06/23 10/06/23 18:59 06:59 18:59 Intake Total 150 20 400 Output Total 300 350 600 Balance -150 -330 -200 Weight 68 kg Intake: IV 20 40 Invasive Line 1 10 20 Invasive Line 2 10 20 Oral 150 360 Output: Urine 300 350 600 Other: Voiding Method Indwelling Catheter Indwelling Catheter Indwelling Catheter - Exam GENERAL: The patient is alert and oriented x3, not in any acute distress. Well developed, well nourished. HEENT: Pupils are round and equally reacting to light. EOMI. No scleral icterus. No conjunctival pallor. Normocephalic, atraumatic. No pharyngeal erythema. No thyromegaly. CARDIOVASCULAR: S1 and S2 present. No murmurs, rubs, or gallops. -PULMONARY: Chest is clear to auscultation, lateral expiratory wheezing , base crackles. ABDOMEN: Soft, nontender, nondistended, normoactive bowel sounds. No palpable organomegaly. MUSCULOSKELETAL: No joint swelling or deformity. EXTREMITIES: No cyanosis, clubbing, or pedal edema. NEUROLOGICAL: Gross neurological examination did not reveal any focal deficits. SKIN: No rashes. no petechiae. - Labs CBC & Chem 7: 10/06/23 06:29 10/06/23 06:29 Labs: Abnormal Lab Results - Last 24 Hours (Table) 10/06/23 10/06/23 10/06/23 Range/Units 06:29 06:29 06:29 RBC 3.41 L (3.80-5.40) m/uL Hgb 10.7 L (11.4-16.0) gm/dL Hct 32.9 L (34.0-46.0) % Lymphocytes # (Manual) 0.65 L (1.0-4.8) k/uL Metamyelocytes # (Man) 0.12 H (0) k/uL Myelocytes # (Manual) 0.12 H (0) k/uL Chloride 96 L (98-107) mmol/L Carbon Dioxide 31 H (22-30) mmol/L BUN 33 H (7-17) mg/dL Creatinine 1.19 H (0.52-1.04) mg/dL Glucose 163 H (74-99) mg/dL Total Protein 6.0 L (6.3-8.2) g/dL Albumin 3.3 L (3.5-5.0) g/dL Procalcitonin 0.93 H (0.02-0.09) ng/mL Microbiology - Last 24 Hours (Table) 10/03/23 16:23 Blood Culture - Preliminary Blood Assessment and Plan Assessment: Acute COPD exacerbation Acute on chronic CHF Acute on chronic hypoxic hypercapnic respiratory failure Acute RSV bronchitis Respiratory acidosis, acute Chronically elevated troponin Chronic atrial fibrillation on a blood thinner History of stroke with left hemiparesis Hypertension. Hyperlipidemia History of breast cancer Plan: Continue with IV Solu-Medrol Continue with BiPAP treatments and oxygen therapy as needed Continue with antibiotic, currently on Zithromax Home dose of all Eliquis Pulmonary team consult, cardiology team consult Further recommendations as per clinical course of the patient DVT prophylaxis: Eliquis GI Prophylaxis: Pepcid PT/OT: Pending Prognosis is guarded
[2023-10-06] MEDS: ASPIRIN 81 MG PO SCH (22:08)
[2023-10-06] MEDS ORDERED: SCOPOLAMINE 1 MG/72 HR PATCH TRANSDERM SCH (22:15)
[2023-10-06] MEDS: MELATONIN 3 MG TABLET PO PRN (22:21)
[2023-10-06] MEDS: IPRATROPIUM-ALBUTEROL 3 ML NEB INHALATION PRN (23:55)
[2023-10-07] MEDS: methylPREDNISolone SOD SUCCI 125 MG/2 ML VIAL IV SCH ×4 (00:10→18:11)
[2023-10-07] MEDS: APIXABAN 5 MG TAB PO SCH ×2 (06:28→18:11)
[2023-10-07] MEDS: GABAPENTIN 100 MG CAP PO SCH ×3 (06:28→18:11)
[2023-10-07] MEDS: METOPROLOL TARTRATE 50 MG TAB PO SCH ×2 (06:28→18:11)
--- NOTE | 2023-10-07 07:39 | XR ---
EXAMINATION TYPE: XR chest 1V DATE OF EXAM: 10/07/2023 COMPARISON: 10/05/2023 INDICATION: Short of breath TECHNIQUE: Single frontal view of the chest is obtained. FINDINGS: The heart size is normal. The pulmonary vasculature is normal. Small left pleural effusion is present and appears stable. Multiple surgical clips are present of the left. Previous right lower lobe infiltrate has resolved IMPRESSION: 1. Small left pleural effusion, stable
[2023-10-07] MEDS: BUMETANIDE 1 MG TAB PO SCH (08:10)
[2023-10-07] MEDS: LOSARTAN 25 MG TAB PO SCH (08:10)
[2023-10-07] MEDS: LORATADINE 10 MG TAB PO SCH (08:11)
[2023-10-07] MEDS: FAMOTIDINE 20 MG TAB PO SCH (08:11)
[2023-10-07] MEDS: IPRATROPIUM-ALBUTEROL 3 ML NEB INHALATION SCH ×4 (08:57→20:25)
[2023-10-07] MEDS: FORMOTEROL FUMARATE 20 MCG/2 ML NEBU INHALATION SCH ×2 (08:58→20:25)
[2023-10-07] MEDS: BUDESONIDE 1 MG/2 ML NEBU INHALATION SCH ×2 (08:58→20:25)
[2023-10-07] MEDS ORDERED: AZITHROMYCIN 500 MG TAB PO SCH (09:00)
[2023-10-07 09:28] LABS: African American GFR (CKD) 40 (>60 ml/min/1.73 sqM); Anion Gap 13 mmol/L; Blood Urea Nitrogen 47 mg/dL (7-17); Calcium 8.7 mg/dL (8.4-10.2); Carbon Dioxide 26 mmol/L (22-30); Chloride 96 mmol/L (98-107); Glucose 198 mg/dL (74-99); Non-African American GFR(CKD) 35 (>60 ml/min/1.73 sqM); Potassium 4.1 mmol/L (3.5-5.1); Sodium 135 mmol/L (137-145)
[2023-10-07 09:47] LABS: Basophils % (A) 0 %; Eosinophils % (A) 0 %; HCT 34.8 % (34.0-46.0); HGB 11.2 gm/dL (11.4-16.0); Hypochromasia Slight; Lymphocytes # (A) 0.5 k/uL (1.0-4.8); Lymphocytes % (A) 7 %; MCH 31.3 pg (25.0-35.0); MCV 97.7 fL (80.0-100.0); Mean Platelet Volume 7.8; Monocytes # (A) 0.4 k/uL (0-1.0); Monocytes % (A) 5 %; Neutrophils # (A) 6.1 k/uL (1.3-7.7); Neutrophils % (A) 86 %; Platelet Count 444 k/uL (150-450); RBC 3.56 m/uL (3.80-5.40); RDW 14.3 % (11.5-15.5)
--- NOTE | 2023-10-07 11:40 | P.PN ---
Subjective A pleasant 77 years old female with past medical history of stroke. Presents because of worsening dyspnea especially over one day duration. Associa sally with cough but no chest pain. No abdominal pain and looks soft and she has history of colostomy and back is working with brown stool. No headache dizziness weakness or numbness, no urinary complaints. She denies smoking alcohol or illicit drugs. Patient was hypoxic on admission, she usually wears 4 L of oxygen at home, currently she is on BiPAP which limits history patient A Provided. Rest of Vital Signs Stable Labs Showing WBC of 11.2, Sodium 136, Potassium 5.5 and Creatinine 0.8. Troponin Is Elevated at 0.05. Which Is Always Elevated before BNP Elevated 20058 Viruses back positive for RSV Chest x-ray shows COPD changes with a right lower opacity suspicious for pneumonia EKG showing atrial fibrillation with a heart rate of 96. 10/05/2023 Patient is improving slowly and gradually, however she had an episode of increased shortness of breath with some flow from her mouth per staff which was locked. She is on IV Lasix twice daily and extra doses provided. Also she remains on IV Solu-Medrol. Repeat chest x-ray showing improvement per radiologist of the right lower infiltrate however still there is significant therefore going to be labs tomorrow. She is also on Zithromax and home dose of all liquids. 10/06/2023 Patient breathing is improving, her oxygen requirement down to 5 L with saturation of 95% Chest x-ray from yesterday showing improvement opacities in the right lower lobe. Her leukocytosis is also trending down. Patient remains on Zithromax with broadcalcitonin, down 1.9 down to 0.9, therefore we going to continue for 3 more days course. Patient also improving on IV Solu-Medrol 60 mg, IV Lasix 20 mg. And she is continued on home dose of liquids. 10/07/2023 Patient is still complaining of from dyspnea and wheezing Remains on 5-6 L oxygen via nasal cannula No chest pain She has Duong catheter in place. Colostomy back is working with a brown stool Patient had extensive secretions last night per bedside nurse and scopolamine patch was started first time for 1 day, this morning she feels little drowsy so we discontinued her scopolamine patch. Patient continue on his IV salmeterol 60 mg and IV Lasix 40 mg twice daily which is stopped now Creatinine went up to 0.9, 1.1 and 1.4 today, we'll check urine analysis. Duong catheter in place. Monitor creatinine of continue to worsen then may consider nephrology consult. No evidence of hypertension. Patient also on Eliquis. Zithromax (discontinued ) Objective - Vital Signs Vital signs: Vital Signs Temp 97.5 F L 10/07/23 08:06 Pulse 90 10/07/23 09:22 Resp 20 10/07/23 08:06 BP 112/55 10/07/23 08:06 Pulse Ox 96 10/07/23 08:06 FiO2 50 10/05/23 12:08 Intake & Output 10/06/23 10/07/23 10/07/23 18:59 06:59 18:59 Intake Total 760 560 Output Total 600 350 100 Balance 160 210 -100 Weight 71.5 kg Intake: IV 40 20 Invasive Line 1 20 10 Invasive Line 2 20 10 Oral 720 540 Output: Urine 600 350 Stool 100 Other: Voiding Method Indwelling Catheter Indwelling Catheter Indwelling Catheter - Exam GENERAL: The patient is alert and oriented x3, not in any acute distress. Well developed, well nourished. HEENT: Pupils are round and equally reacting to light. EOMI. No scleral icterus. No conjunctival pallor. Normocephalic, atraumatic. No pharyngeal erythema. No thyromegaly. CARDIOVASCULAR: S1 and S2 present. No murmurs, rubs, or gallops. -PULMONARY: Chest is clear to auscultation, lateral expiratory wheezing , base crackles. ABDOMEN: Soft, nontender, nondistended, normoactive bowel sounds. No palpable organomegaly. MUSCULOSKELETAL: No joint swelling or deformity. EXTREMITIES: No cyanosis, clubbing, or pedal edema. NEUROLOGICAL: Gross neurological examination did not reveal any focal deficits. SKIN: No rashes. no petechiae. - Labs CBC & Chem 7: 10/07/23 08:24 10/07/23 08:24 Labs: Abnormal Lab Results - Last 24 Hours (Table) 10/06/23 10/07/23 10/07/23 Range/Units 06:29 08:24 08:24 RBC 3.56 L (3.80-5.40) m/uL Hgb 11.2 L (11.4-16.0) gm/dL Lymphocytes # 0.5 L (1.0-4.8) k/uL Sodium 135 L (137-145) mmol/L Chloride 96 L (98-107) mmol/L BUN 47 H (7-17) mg/dL Creatinine 1.44 H (0.52-1.04) mg/dL Glucose 198 H (74-99) mg/dL Procalcitonin 0.93 H (0.02-0.09) ng/mL Microbiology - Last 24 Hours (Table) 10/03/23 16:23 Blood Culture - Preliminary Blood Assessment and Plan Assessment: Acute COPD exacerbation Acute on chronic CHF Acute on chronic hypoxic hypercapnic respiratory failure Acute RSV bronchitis Respiratory acidosis, acute Chronically elevated troponin Chronic atrial fibrillation on a blood thinner History of stroke with left hemiparesis Hypertension. Hyperlipidemia History of breast cancer Plan: Continue with IV Solu-Medrol Continue with BiPAP treatments and oxygen therapy as needed Continue with antibiotic, currently on Zithromax Home dose of all Eliquis Pulmonary team consult, cardiology team consult Further recommendations as per clinical course of the patient DVT prophylaxis: Eliquis GI Prophylaxis: Pepcid PT/OT: Pending Prognosis is guarded
[2023-10-07] MEDS: SODIUM CHLORIDE 0.9% 1,000 ML IV SCH (12:45)
--- NOTE | 2023-10-07 13:46 | P.PN ---
Subjective Progress Note Date: 10/07/23 77-year-old female patient who presented to the emergency department because of worsening shortness of breath. The patient was in the hospital in early September when she was treated for an acute on top of chronic hypoxic respiratory failure due to COPD exacerbation suspected left lower lobe pneumonia. At that time, the patient underwent a CT angiogram and pulmonary embolism was ruled out. The patient typically utilizes oxygen at 4 L on outpatient basis. She has chronic A. fib, and she has undergone previous bowel resection and she has a functional colostomy. The patient was discharged to a nursing and she was brought back to the hospital because of worsening shortness of breath and she tested positive for RSV. The patient was actively bronchospastic and wheezy. The patient was also placed on a BiPAP at a pressure of 12/5 and FiO2 is being titrated to maintain saturation above 90%. Minimal sputum production. No chest pain. No major swelling lower extremity. She is weak and debilitated. She was febrile. Her blood work showed edematous count of 8.9, hemoglobin 11.2 and platelet count of 383. Troponin was 0.04. Sodium is at 136 with a potassium level of 5.5, BUN is 24 with a creatinine of 0.8. Coagulation profile was within normal. D-dimer was not elevated. Review of the chest x-ray and there is no clear indication for pneumonia although some increased haziness is seen in the right lung base. No signs of any CO2 narcosis and the patient is able to tolerate the BiPAP reasonably well at this point in time. She is a senior care resident and she is residing in [facility] in [place]. Patient is also known to have CHF with impaired ejection fraction of 35%. The patient had a cardiac catheterization during her last admission the patient was found to have nonocclusive coronary artery disease. Echo Cardizem also revealed moderate degree of aortic regurgitation. She has chronic A. fib. Maintain anticoagulation with Eliquis. On today's evaluation of 10/04/2023, the patient was taken off the BiPAP and currently she is on 7 L of oxygen by nasal cannula. Her breathing is improved and she is less short of breath compared to yesterday. She is communicating. Denies having any cough or sputum production. She remains on bronchodilators patient remains on steroids. She has history of chronic A. fib maintained on anticoagulation with Eliquis. Her previous echo also showed moderate degree of regurgitation and she is also known to have nonocclusive coronary artery disease. The patient has a sodium level of 141, potassium level of 4.7, BUN is at 22 and a creatinine of 0.6. Pro-calcitonin level was at 1.96. The patient is in the emergency awaiting transfer to the medical floor. She is on Zithromax empiric antibiotic coverage. She is on bronchodilators with DuoNeb. She is also on accommodation Perforomist and Pulmicort and she is on IV Solu-Medrol. Will gently diurese this patient with Lasix 20 mg IV every 12 hours. The exacerbation of his COPD was related to an RSV infection. There is minimal troponin leak at 0.05. ProBNP level was 15,700. On today's evaluation of 10/05/2023, the patient is being seen for a follow-up. The patient is feeling better. She is off the BiPAP and the patient is currently on oxygen at 6 L nasal cannula. She is on DuoNeb nebulized treatments [id number]. She is on IV Solu-Medrol 60 mg every 6 hours. He is also on Lasix 20 mg IV every 12 hours. Urine output is not being accurately measured. BUN is at 24 with a creatinine 0.7. The risk was at 5 with a hemoglobin of 10.4 and a platelet count of 375. She is afebrile. She is hemodynamically stable. Noted the patient has chronic hypoxemic respiratory failure and she utilizes oxygen at 4 L/m. Cannula on an outpatient basis. She has also impaired left ventricular ejection fraction of 35%. She has nonocclusive coronary artery disease. On 10/06/2023, the patient's condition is stable. She remains on IV Solu- Medrol. She remains on bronchodilators. Oxygen flow is at 5 L with a pulse ox of 99%. Labs from today shows a white cell count of 5.9, hemoglobin of 10.7, platelets of 420, B is a 33 with a creatinine of 1.1 and a sodium level is at 138. The patient is on Bumex 1 mg by mouth daily. The patient is on bronchodilators with DuoNeb updrafts, Perforomist and Pulmicort and the patient is also on IV Solu-Medrol 60 mg every 6 hours. The chest x-ray from [facility] showed improvement right lower lobe airspace opacity. The patient is on no antibiotics. I'm going to repeat the pro calcitonin level in a.m. She remains on to coagulation with Eliquis. On 10/07/2023, patient is feeling essentially the same as yesterday. She has been infected with RSV. She has some occasional dizziness patient is also complaining of some urinary shows/retention. A Duong catheter inserted. She is stooling for colostomy. She remains on oxygen at 5 L with a pulse ox of 95%. She remains on bronchodilators. She remains on steroids. She is on oral Bumex. On her blood work, there is a increase in her BUN up to 47 with a creatinine of 1.44. Sodium is at 135. The white cycles at 7 with a hemoglobin of 11. Note that she has CHF and cardio myopathy and an echocardiogram showing an ejection fraction which is reduced at 35%. Moderate mitral annular calcification with mild regurgitation. Left ventricular diastolic pressure was elevated on the previous echocardiogram. Objective - Vital Signs Vital signs: Vital Signs Temp 97.5 F L 10/07/23 08:06 Pulse 78 10/07/23 11:32 Resp 20 10/07/23 11:37 BP 124/61 10/07/23 11:32 Pulse Ox 95 10/07/23 11:37 FiO2 50 10/05/23 12:08 Intake & Output 10/06/23 10/07/23 10/07/23 18:59 06:59 18:59 Intake Total 760 560 Output Total 600 350 100 Balance 160 210 -100 Weight 71.5 kg Intake: IV 40 20 Invasive Line 1 20 10 Invasive Line 2 20 10 Oral 720 540 Output: Urine 600 350 Stool 100 Other: Voiding Method Indwelling Catheter Indwelling Catheter Indwelling Catheter - Exam Mild respiratory difficulty, oriented, patient is having labored breathing and the patient's current off the BiPAP on 5 L of oxygen by nasal cannula Head exam was generally normal. There was no scleral icterus or corneal arcus. Mucous membranes were moist. HEENT examination is grossly unremarkable. Neck supple. Full range of motion. No adenopathy thyromegaly or neck vein distention. Cardiovascular examination reveals regular rhythm rate. S1-S2 normal. No S3 or S4. No discernible murmur noted. Lungs reveal scattered expiratory rhonchi and wheezes. No crackles. Breath sounds equal bilaterally. Abdomen soft bowel sounds are heard. No masses or tenderness. The patient has an abdominal wall ventral hernia in addition to a colostomy which is functional at this point in time. Extremities are intact. No cyanosis clubbing or edema. Skin is without rash or lesion. Neurologic examination is brief but nonfocal. There is generalized global weakness in all 4 extremities - Labs CBC & Chem 7: 10/07/23 08:24 10/07/23 08:24 Labs: Abnormal Lab Results - Last 24 Hours (Table) 10/06/23 10/07/23 10/07/23 Range/Units 06:29 08:24 08:24 RBC 3.56 L (3.80-5.40) m/uL Hgb 11.2 L (11.4-16.0) gm/dL Lymphocytes # 0.5 L (1.0-4.8) k/uL Sodium 135 L (137-145) mmol/L Chloride 96 L (98-107) mmol/L BUN 47 H (7-17) mg/dL Creatinine 1.44 H (0.52-1.04) mg/dL Glucose 198 H (74-99) mg/dL Procalcitonin 0.93 H (0.02-0.09) ng/mL Microbiology - Last 24 Hours (Table) 10/03/23 16:23 Blood Culture - Preliminary Blood Assessment and Plan Plan: Acute COPD exacerbation likely secondary to RSV infection. The patient is actively bronchospastic and wheezy. No clear indication for pneumonia at this point in time. Pro-calcitonin level is elevated and this is essentially a nonspecific finding. Exacerbation essentially related to RSV infection. The chest x-ray from yesterday showed improvement elevation of the right lung base and the patient remains on bronchodilators and steroids Acute on chronic hypoxic respiratory failure and the patient is currently on off the BiPAP and the patient is currently on 5 L of oxygen by nasal cannula Elevated proBNP level, consider underlying CHF as the patient is known to have some valvular heart disease. The patient is currently on oral Bumex COPD, with recent hospitalization for an acute COPD exacerbation and this was back in 09/07/2023. The patient has been maintained on Advair discus and DuoNeb the blood treatments [id number] on outpatient basis. She is also auction dependent Chronic hypoxic respiratory failure maintain on oxygen at 4-5 L/m nasal cannula Hypertension Hyperlipidemia Previous history of Covid 19 infection general 2022 History of breast cancer with a previous mastectomy History of bowel resection and the patient has a colostomy. History of atrial fibrillation, chronic, discharge on a combination of amiod arone, metoprolol and anticoagulation with Eliquis History of congestion heart failure with ejection fraction of 35% along with segmental wall motion abnormalities involving the anteroapical and apical culp Moderate aortic regurgitation with elevated filling pressures based on recent echocardiogram Nonobstructive coronary artery disease based on recent cardiac catheterization that was done on 09/12/2023 Ventral abdominal wall hernia Thyroid nodule Right middle lobe pulmonary nodule measuring 1 cm, identified on a CAT scan of the chest that was done on 09/07/2023 Acute kidney injury and the creatinine is up to 1.4 Plan Hydrate the patient gently with 50 mL an hour normal saline Keep oral Bumex Watch for any signs of pulmonary edema. Her ejection fraction is at 35% Keep the patient on 5 L of oxygen by nasal cannula, clinically improving and we'll continue same treatment for now. 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
[2023-10-07 14:03] LABS: Appearance,Urine Clear (Clear); Bilirubin,Urine Negative (Negative); Blood,Urine Negative (Negative); Color,Urine Colorless; Glucose,Urine (UA) Negative (Negative); Ketones,Urine Negative (Negative); Leukocyte Esterase,Urine Negative (Negative); Nitrite,Urine Negative (Negative); Protein,Urine Negative (Negative); Specific Gravity,Urine 1.008 (1.001-1.035); Urobilinogen,Urine <2.0 mg/dL (<2.0)
--- NOTE | 2023-10-07 16:09 | P.PN ---
Subjective Progress Note Date: 10/07/23 SUBJECTIVE: BP 118/61, heart rate 90 bpm, atrial fibrillation, rate controlled at present on telemetry Hemoglobin 11, creatinine 1.44. Yesterday it was 1.19, on admission it was 0.7. PHYSICAL EXAMINATION Lungs: Crackles audible in bilateral bases Heart: Irregularly irregular, S1-S2, no S3, no murmur or rub. Abdomen: Soft nontender, Extremities: No edema. 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 Aspirin continue metoprolol 50 mg twice a day Stop losartan 12.5 mg and bumex. 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 We will consider Farxiga prior to discharge discharged once kidney function improves Objective - Vital Signs Vital signs: Vital Signs Temp 97.8 F 10/07/23 15:12 Pulse 85 10/07/23 15:12 Resp 20 10/07/23 15:16 BP 118/61 10/07/23 15:12 Pulse Ox 95 10/07/23 15:16 FiO2 50 10/05/23 12:08 Intake & Output 10/06/23 10/07/23 10/07/23 18:59 06:59 18:59 Intake Total 760 560 Output Total 600 350 350 Balance 160 210 -350 Weight 71.5 kg Intake: IV 40 20 Invasive Line 1 20 10 Invasive Line 2 20 10 Oral 720 540 Output: Urine 600 350 250 Stool 100 Other: Voiding Method Indwelling Catheter Indwelling Catheter Indwelling Catheter - Labs CBC & Chem 7: 10/07/23 08:24 10/07/23 08:24 Labs: Abnormal Lab Results - Last 24 Hours (Table) 10/07/23 10/07/23 Range/Units 08:24 08:24 RBC 3.56 L (3.80-5.40) m/uL Hgb 11.2 L (11.4-16.0) gm/dL Lymphocytes # 0.5 L (1.0-4.8) k/uL Sodium 135 L (137-145) mmol/L Chloride 96 L (98-107) mmol/L BUN 47 H (7-17) mg/dL Creatinine 1.44 H (0.52-1.04) mg/dL Glucose 198 H (74-99) mg/dL Microbiology - Last 24 Hours (Table) 10/03/23 16:23 Blood Culture - Preliminary Blood
[2023-10-07] MEDS: MELATONIN 3 MG TABLET PO PRN (19:59)
[2023-10-07] MEDS: ASPIRIN 81 MG PO SCH (19:59)
[2023-10-08] MEDS: methylPREDNISolone SOD SUCCI 125 MG/2 ML VIAL IV SCH ×4 (00:32→17:25)
[2023-10-08] MEDS: METOPROLOL TARTRATE 50 MG TAB PO SCH (06:11)
[2023-10-08] MEDS: GABAPENTIN 100 MG CAP PO SCH ×3 (06:11→17:25)
[2023-10-08] MEDS: APIXABAN 5 MG TAB PO SCH ×2 (06:11→17:25)
[2023-10-08 07:56] LABS: African American GFR (CKD) 54 (>60 ml/min/1.73 sqM); Anion Gap 9 mmol/L; Blood Urea Nitrogen 47 mg/dL (7-17); Calcium 8.4 mg/dL (8.4-10.2); Carbon Dioxide 33 mmol/L (22-30); Chloride 96 mmol/L (98-107); Glucose 148 mg/dL (74-99); Non-African American GFR(CKD) 46 (>60 ml/min/1.73 sqM); Sodium 138 mmol/L (137-145)
[2023-10-08] MEDS: FORMOTEROL FUMARATE 20 MCG/2 ML NEBU INHALATION SCH ×2 (08:11→21:04)
[2023-10-08] MEDS: BUDESONIDE 1 MG/2 ML NEBU INHALATION SCH ×2 (08:11→21:04)
[2023-10-08] MEDS: IPRATROPIUM-ALBUTEROL 3 ML NEB INHALATION SCH ×4 (08:12→21:04)
[2023-10-08] MEDS: LORATADINE 10 MG TAB PO SCH (08:58)
[2023-10-08] MEDS: FAMOTIDINE 20 MG TAB PO SCH (08:58)
[2023-10-08] MEDS: SODIUM CHLORIDE 0.9% 1,000 ML IV SCH (09:00)
[2023-10-08 09:15] LABS: HCT 33.9 % (34.0-46.0); HGB 11.4 gm/dL (11.4-16.0); Hypochromasia Slight; MCH 32.8 pg (25.0-35.0); MCHC 33.6 g/dL (31.0-37.0); MCV 97.5 fL (80.0-100.0); Mean Platelet Volume 7.8; Platelet Count 408 k/uL (150-450); RBC 3.47 m/uL (3.80-5.40); RDW 14.2 % (11.5-15.5); WBC 7.8 k/uL (3.8-10.6)
[2023-10-08] MEDS ORDERED: METOPROLOL TARTRATE 25 MG TAB PO STA (10:26)
[2023-10-08 10:34] LABS: Potassium 4.2 mmol/L (3.5-5.1)
--- NOTE | 2023-10-08 11:12 | CDI ---
Documentation Clarification Form Date: 10/08/2023 10:39:52 AM From: Elva Palacio RN,CCDS Phone: [phone] Admit Date: 10/03/2023 09:18:00 PM Patient Name: Dolly Cano Visit Number: [id number] Discharge Date: ATTENTION: The Clinical Documentation Specialists (CDI) and [facility] Coding Staff appreciate your assistance in clarifying documentation. Please respond to the clarification below the line at the bottom and electronically sign. The CDI & [facility] Coding staff will review the response and follow-up if needed. Please note: Queries are made part of the Legal Health Record. If you have any questions, please contact the author of this message via ITS. Dr. Kellogg E Sheet Your patient has the documented diagnosis of unspecified CHF in the H/P and subsequent progress notes. Additional information regarding the type of CHF is requested. History/Risk Factors: Asthma, COPD, Hyperlipidemia, Hypertension, Respiratory Disorder, CVA, Former smoker Clinical Indicators: 77 years old female presents because of worsening dyspnea hypoxic on admission, she usually wears 4 L of oxygen at home, currently she is on BiPAP. 112/92 94 31 100.1 99% BIPAP BNP: 31421 Echocardiogram Results: (09/07/23) Left ventricular ejection fraction is estimated at 35% Sclerotic aortic valve with moderate aortic regurgitation. Chest X Ray: hypoxic on admission, she usually wears 4 L of oxygen at home, currently she is on BiPAP EKG showing atrial fibrillation with a heart rate of 96. 10/04 Cardiology consult: Chest x-ray did not show any evidence of congestive heart failure. Elevated troponin probably related to respiratory distress and supply demand mismatch, type 2 myocardial infarction. Chronic obstructive pulmonary disease exacerbation secondary to RSV infection. Persistent atrial fibrillation with controlled ventricular rate. Treatment: Monitor O2 Sat's (titrate) Lasix 20 MG IV Once then Q 12HR 10/04-10/05 Lasix 40MG Once 10/05 Bumex 1MG PO Daily 10/05-10/07 Lopressor 50MG PO 10/04-10/08 then 75 MG PO Q 10/08 Cozaar 12.5 MG PO Daily 10/05-10/07 In your professional opinion, can you please clarify the [acuity and type] of CHF if known? [ ] Acute Systolic Heart Failure (reduced EF) [ ] Chronic Systolic Heart Failure (reduced EF) [ x ] Acute on Chronic Systolic Heart Failure (reduced EF) 35-40% [ ] Acute Diastolic Heart Failure (preserved EF) [ ] Chronic Diastolic Heart Failure (preserved EF) [ ] Acute on Chronic Diastolic Heart Failure (preserved EF) [ ] Acute Systolic & Diastolic Heart Failure [ ] Chronic Systolic & Diastolic Heart Failure [ ] Acute on Chronic Heart Failure Systolic & Diastolic Heart Failure [ ] Other, please specify [ ] Unable to determine (Template Last Revised: November 2020) MTDD
[2023-10-08 11:37] LABS: Band Neutrophils % 1 %; Lymphocytes # (M) 0.62 k/uL (1.0-4.8); Metamyelocytes # (M) 0.16 k/uL (0); Metamyelocytes % 2 %; Monocytes # (M) 0.55 k/uL (0-1.0); Myelocytes # (M) 0.31 k/uL (0); Myelocytes % 4 %; Neutrophils % (M) 80 %; Nucleated Red Blood Cells 0 /100 WBC (0-0); Total Cells Counted 200
--- NOTE | 2023-10-08 14:22 | P.PN ---
Subjective Progress Note Date: 10/08/23 SUBJECTIVE: BP 118/61, heart rate 90 bpm, atrial fibrillation, rate controlled at present on telemetry Hemoglobin 11, creatinine 1.44. Yesterday it was 1.19, on admission it was 0.7. 1/ Patient is seen today in follow-up. She states that her breathing is a lot better from yesterday. Telemetry is sinus rhythm. Heart rate is in the 70s and 80s, blood pressure 152/66. Repeat blood work reveals hemoglobin of 11.4. BUN 47 creatinine 1.14. Patient is scheduled for modified barium swallow today. PHYSICAL EXAMINATION Lungs: Crackles audible in bilateral bases Heart: Irregularly irregular, S1-S2, no S3, no murmur or rub. Abdomen: Soft nontender, Extremities: No edema. 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 Aspirin Increase metoprolol to 75 mg twice a day Monitor renal function Further recommendations as patient progresses. Nurse practitioner note has been reviewed, I agree with the documented findings and plan of care. Patient was seen and examined. Objective - Vital Signs Vital signs: Vital Signs Temp 97.5 F L 10/08/23 09:00 Pulse 77 10/08/23 09:00 Resp 20 10/08/23 09:00 BP 149/67 10/08/23 09:00 Pulse Ox 91 L 10/08/23 09:00 FiO2 50 10/05/23 12:08 Intake & Output 10/07/23 10/08/23 10/08/23 18:59 06:59 18:59 Intake Total 240 Output Total 350 400 650 Balance -350 -400 -410 Intake: Oral 240 Output: Urine 250 400 650 Stool 100 Other: Voiding Method Indwelling Catheter External Catheter External Catheter - Labs CBC & Chem 7: 10/08/23 07:24 10/08/23 07:24 Labs: Abnormal Lab Results - Last 24 Hours (Table) 10/08/23 10/08/23 Range/Units 07:24 07:24 RBC 3.47 L (3.80-5.40) m/uL Hct 33.9 L (34.0-46.0) % Chloride 96 L (98-107) mmol/L Carbon Dioxide 33 H (22-30) mmol/L BUN 47 H (7-17) mg/dL Creatinine 1.14 H (0.52-1.04) mg/dL Glucose 148 H (74-99) mg/dL
--- NOTE | 2023-10-08 15:00 | FL ---
EXAMINATION TYPE: FL barium swallow w video DATE OF EXAM: 10/08/2023 COMPARISON: NONE HISTORY: Evaluation for silent aspiration TECHNIQUE: Fluoroscopy. FINDINGS: Fluoroscopic guidance was provided for the procedure performed in conjunction with the [facility] pathology department. Please see complete report forthcoming from the Speech Pathology departmen t. Various consistencies from thin liquid to solids were administered. Fluoroscopy time 3 minutes 54 seconds. DAP: 352.87 Number of images: 0. No aspiration or penetration was evident. No significant pooling was observed in the vallecula. There was normal propulsion of the bolus. Occasional hesitancy was observed during the swallowing. Th is cleared with thin liquids. IMPRESSION: 1. No aspiration or penetration during the exam. 2. Some hesitancy during swallowing with thicker and more solid consistencies.
--- NOTE | 2023-10-08 15:41 | P.PN ---
Subjective Progress Note Date: 10/08/23 77-year-old female patient who presented to the emergency department because of worsening shortness of breath. The patient was in the hospital in early September when she was treated for an acute on top of chronic hypoxic respiratory failure due to COPD exacerbation suspected left lower lobe pneumonia. At that time, the patient underwent a CT angiogram and pulmonary embolism was ruled out. The patient typically utilizes oxygen at 4 L on outpatient basis. She has chronic A. fib, and she has undergone previous bowel resection and she has a functional colostomy. The patient was discharged to a nursing and she was brought back to the hospital because of worsening shortness of breath and she tested positive for RSV. The patient was actively bronchospastic and wheezy. The patient was also placed on a BiPAP at a pressure of 12/5 and FiO2 is being titrated to maintain saturation above 90%. Minimal sputum production. No chest pain. No major swelling lower extremity. She is weak and debilitated. She was febrile. Her blood work showed edematous count of 8.9, hemoglobin 11.2 and platelet count of 383. Troponin was 0.04. Sodium is at 136 with a potassium level of 5.5, BUN is 24 with a creatinine of 0.8. Coagulation profile was within normal. D-dimer was not elevated. Review of the chest x-ray and there is no clear indication for pneumonia although some increased haziness is seen in the right lung base. No signs of any CO2 narcosis and the patient is able to tolerate the BiPAP reasonably well at this point in time. She is a [facility] resident and she is residing in [facility] in [place]. Patient is also known to have CHF with impaired ejection fraction of 35%. The patient had a cardiac catheterization during her last admission the patient was found to have nonocclusive coronary artery disease. Echo Cardizem also revealed moderate degree of aortic regurgitation. She has chronic A. fib. Maintain anticoagulation with Eliquis. On today's evaluation of 10/04/2023, the patient was taken off the BiPAP and currently she is on 7 L of oxygen by nasal cannula. Her breathing is improved and she is less short of breath compared to yesterday. She is communicating. Denies having any cough or sputum production. She remains on bronchodilators patient remains on steroids. She has history of chronic A. fib maintained on anticoagulation with Eliquis. Her previous echo also showed moderate degree of regurgitation and she is also known to have nonocclusive coronary artery disease. The patient has a sodium level of 141, potassium level of 4.7, BUN is at 22 and a creatinine of 0.6. Pro-calcitonin level was at 1.96. The patient is in the emergency awaiting transfer to the medical floor. She is on Zithromax empiric antibiotic coverage. She is on bronchodilators with DuoNeb. She is also on accommodation Perforomist and Pulmicort and she is on IV Solu-Medrol. Will gently diurese this patient with Lasix 20 mg IV every 12 hours. The exacerbation of his COPD was related to an RSV infection. There is minimal troponin leak at 0.05. ProBNP level was 15,700. On today's evaluation of 10/05/2023, the patient is being seen for a follow-up. The patient is feeling better. She is off the BiPAP and the patient is currently on oxygen at 6 L nasal cannula. She is on DuoNeb nebulized treatments [id number]. She is on IV Solu-Medrol 60 mg every 6 hours. He is also on Lasix 20 mg IV every 12 hours. Urine output is not being accurately measured. BUN is at 24 with a creatinine 0.7. The risk was at 5 with a hemoglobin of 10.4 and a platelet count of 375. She is afebrile. She is hemodynamically stable. Noted the patient has chronic hypoxemic respiratory failure and she utilizes oxygen at 4 L/m. Cannula on an outpatient basis. She has also impaired left ventricular ejection fraction of 35%. She has nonocclusive coronary artery disease. On 10/06/2023, the patient's condition is stable. She remains on IV Solu- Medrol. She remains on bronchodilators. Oxygen flow is at 5 L with a pulse ox of 99%. Labs from today shows a white cell count of 5.9, hemoglobin of 10.7, platelets of 420, B is a 33 with a creatinine of 1.1 and a sodium level is at 138. The patient is on Bumex 1 mg by mouth daily. The patient is on bronchodilators with DuoNeb updrafts, Perforomist and Pulmicort and the patient is also on IV Solu-Medrol 60 mg every 6 hours. [facility] showed improvement right lower lobe airspace opacity. The patient is on no antibiotics. I'm going to repeat the pro calcitonin level in a.m. She remains on to coagulation with Eliquis. On 10/07/2023, patient is feeling essentially the same as yesterday. She has been infected with RSV. She has some occasional dizziness patient is also complaining of some urinary shows/retention. A Duong catheter inserted. She is stooling for colostomy. She remains on oxygen at 5 L with a pulse ox of 95%. She remains on bronchodilators. She remains on steroids. She is on oral Bumex. On her blood work, there is a increase in her BUN up to 47 with a creatinine of 1.44. Sodium is at 135. The white cycles at 7 with a hemoglobin of 11. Note that she has CHF and cardio myopathy and an echocardiogram showing an ejection fraction which is reduced at 35%. Moderate mitral annular calcification with mild regurgitation. Left ventricular diastolic pressure was elevated on the previous echocardiogram. The patient is seen today 10/08/2023 in follow-up on the selective care unit. She is currently sitting up in bed. Awake and alert in no acute distress. She is breathing a bit easier today compared to yesterday. She did test positive for RSV. She also has a COPD exacerbation. Barium swallow revealed no evidence of aspiration or penetration during the exam. Blood culture revealed no growth. White count 7.8. Hemoglobin 11.4. Sodium 138. Potassium 4.2. Bicarb 33 BUN 47. Creatinine 1.14. Glucose 148. She remains on bronchodilators, steroids. Anticoagulated with Eliquis. Objective - Vital Signs Vital signs: Vital Signs Temp 98 F 10/08/23 11:27 Pulse 88 10/08/23 15:28 Resp 18 10/08/23 15:28 BP 152/66 10/08/23 11:27 Pulse Ox 94 L 10/08/23 11:27 FiO2 50 10/08/23 11:32 Intake & Output 10/07/23 10/08/23 10/08/23 18:59 06:59 18:59 Intake Total 240 Output Total 350 400 650 Balance -350 -400 -410 Intake: Oral 240 Output: Urine 250 400 650 Stool 100 Other: Voiding Method Indwelling Catheter External Catheter External Catheter - Exam GENERAL EXAM: Alert, 69-year-old female, 4 L nasal cannula, comfortable in no apparent distress. HEAD: Normocephalic. EYES: Normal reaction of pupils, equal size. NOSE: Clear with pink turbinates. THROAT: No erythema or exudates. NECK: No masses, no JVD. CHEST: No chest wall deformity. LUNGS: Equal air entry with faint crackles in left base. CVS: S1 and S2 normal with no audible murmur, regular rhythm. ABDOMEN: No hepatosplenomegaly, normal bowel sounds, no guarding or rigidity. SPINE: No scoliosis or deformity SKIN: No rashes CENTRAL NERVOUS SYSTEM: No focal deficits, tone is normal in all 4 extremities. EXTREMITIES: There is no peripheral edema. No clubbing, no cyanosis. Peripheral pulses are intact. - Labs CBC & Chem 7: 10/08/23 07:24 10/08/23 07:24 Labs: Abnormal Lab Results - Last 24 Hours (Table) 10/08/23 10/08/23 Range/Units 07:24 07:24 RBC 3.47 L (3.80-5.40) m/uL Hct 33.9 L (34.0-46.0) % Lymphocytes # (Manual) 0.62 L (1.0-4.8) k/uL Metamyelocytes # (Man) 0.16 H (0) k/uL Myelocytes # (Manual) 0.31 H (0) k/uL Chloride 96 L (98-107) mmol/L Carbon Dioxide 33 H (22-30) mmol/L BUN 47 H (7-17) mg/dL Creatinine 1.14 H (0.52-1.04) mg/dL Glucose 148 H (74-99) mg/dL Assessment and Plan Assessment: Acute COPD exacerbation likely secondary to RSV infection. The patient is actively bronchospastic and wheezy. No clear indication for pneumonia at this point in time. Pro-calcitonin level is elevated and this is essentially a n onspecific finding. Exacerbation essentially related to RSV infection. Chest x-ray showed improvement with continued elevation of the right lung base and the patient remains on bronchodilators and steroids Acute on chronic hypoxic respiratory failure and the patient is off the BiPAP and currently on 4 L of oxygen by nasal cannula Elevated proBNP level, consider underlying CHF as the patient is known to have some valvular heart disease. The patient is currently on oral Bumex COPD, with recent hospitalization for an acute COPD exacerbation and this was back in 09/07/2023. The patient has been maintained on Advair discus and DuoNeb the blood treatments [id number] on outpatient basis. She is also auction dependent Chronic hypoxic respiratory failure maintain on oxygen at 4-5 L/m nasal cannula Hypertension Hyperlipidemia Previous history of Covid 19 infection History of breast cancer with a previous mastectomy History of bowel resection and the patient has a colostomy. History of atrial fibrillation, chronic, discharge on a combination of amiodarone, metoprolol and anticoagulation with Eliquis History of congestion heart failure with ejection fraction of 35% along with segmental wall motion abnormalities involving the anteroapical and apical culp Moderate aortic regurgitation with elevated filling pressures based on recent echocardiogram Nonobstructive coronary artery disease based on recent cardiac catheterization that was done on 09/12/2023 Ventral abdominal wall hernia Thyroid nodule Right middle lobe pulmonary nodule measuring 1 cm, identified on a CAT scan of the chest that was done on 09/07/2023 Acute kidney injury and the creatinine is 1.14 Plan: The patient was seen and evaluated Labs and medications reviewed Continue with bronchodilators, steroids Anticoagulated with Eliquis Titrate down the FiO2 as tolerated The plan is to return to [facility] post discharge I have personally seen and examined the patient, performed the documentation and the assessment and plan as written. Number of minutes spent on the visit: 10.
[2023-10-08] MEDS: METOPROLOL TARTRATE 25 MG TAB PO SCH (17:25)
[2023-10-08] MEDS: ASPIRIN 81 MG PO SCH (20:29)
[2023-10-08] MEDS: MELATONIN 3 MG TABLET PO PRN (20:29)
[2023-10-09] MEDS: methylPREDNISolone SOD SUCCI 125 MG/2 ML VIAL IV SCH ×5 (00:17→23:24)
[2023-10-09] MEDS: SODIUM CHLORIDE 0.9% 1,000 ML IV SCH ×2 (04:59→17:36)
[2023-10-09] MEDS: GABAPENTIN 100 MG CAP PO SCH ×3 (06:03→17:35)
[2023-10-09] MEDS: APIXABAN 5 MG TAB PO SCH ×2 (06:03→17:35)
[2023-10-09] MEDS: METOPROLOL TARTRATE 25 MG TAB PO SCH ×2 (06:03→17:35)
[2023-10-09] MEDS: FORMOTEROL FUMARATE 20 MCG/2 ML NEBU INHALATION SCH ×2 (08:14→21:04)
[2023-10-09] MEDS: BUDESONIDE 1 MG/2 ML NEBU INHALATION SCH ×2 (08:14→21:04)
[2023-10-09] MEDS: IPRATROPIUM-ALBUTEROL 3 ML NEB INHALATION SCH ×4 (08:14→21:03)
[2023-10-09] MEDS: LORATADINE 10 MG TAB PO SCH (09:10)
[2023-10-09] MEDS: LOSARTAN 25 MG TAB PO SCH (09:10)
[2023-10-09] MEDS: FAMOTIDINE 20 MG TAB PO SCH (09:10)
--- NOTE | 2023-10-09 12:59 | P.PN ---
Subjective Progress Note Date: 10/09/23 Principal diagnosis: Acute exacerbation of COPD and RSV tracheobronchitis 77-year-old female patient who presented to the emergency department because of worsening shortness of breath. The patient was in the hospital in early September when she was treated for an acute on top of chronic hypoxic respiratory failure due to COPD exacerbation suspected left lower lobe pneumonia. At that time, the patient underwent a CT angiogram and pulmonary embolism was ruled out. The patient typically utilizes oxygen at 4 L on outpatient basis. She has chronic A. fib, and she has undergone previous bowel resection and she has a functional colostomy. The patient was discharged to a nursing and she was brought back to the hospital because of worsening shortness of breath and she tested positive for RSV. The patient was actively bronchospastic and wheezy. The patient was also placed on a BiPAP at a pressure of 12/5 and FiO2 is being titrated to maintain saturation above 90%. Minimal sputum production. No chest pain. No major swelling lower extremity. She is weak and debilitated. She was febrile. Her blood work showed edematous count of 8.9, hemoglobin 11.2 and platelet count of 383. Troponin was 0.04. Sodium is at 136 with a potassium level of 5.5, BUN is 24 with a creatinine of 0.8. Coagulation profile was within normal. D-dimer was not elevated. Review of the chest x-ray and there is no clear indication for pneumonia although some increased haziness is seen in the right lung base. No signs of any CO2 narcosis and the patient is able to tolerate the BiPAP reasonably well at this point in time. She is a [facility] resident and she is residing in [facility] in [place]. Patient is also known to have CHF with impaired ejection fraction of 35%. The patient had a cardiac catheterization during her last admission the patient was found to have nonocclusive coronary artery disease. Echo Cardizem also revealed moderate degree of aortic regurgitation. She has chronic A. fib. Maintain anticoagulation with Eliquis. On today's evaluation of 10/04/2023, the patient was taken off the BiPAP and currently she is on 7 L of oxygen by nasal cannula. Her breathing is improved and she is less short of breath compared to yesterday. She is communicating. Denies having any cough or sputum production. She remains on bronchodilators patient remains on steroids. She has history of chronic A. fib maintained on anticoagulation with Eliquis. Her previous echo also showed moderate degree of regurgitation and she is also known to have nonocclusive coronary artery disease. The patient has a sodium level of 141, potassium level of 4.7, BUN is at 22 and a creatinine of 0.6. Pro-calcitonin level was at 1.96. The patient is in the emergency awaiting transfer to the medical floor. She is on Zithromax empiric antibiotic coverage. She is on bronchodilators with DuoNeb. She is also on accommodation Perforomist and Pulmicort and she is on IV Solu-Medrol. Will gently diurese this patient with Lasix 20 mg IV every 12 hours. The exacerbation of his COPD was related to an RSV infection. There is minimal troponin leak at 0.05. ProBNP level was 15,700. On today's evaluation of 10/05/2023, the patient is being seen for a follow-up. The patient is feeling better. She is off the BiPAP and the patient is currently on oxygen at 6 L nasal cannula. She is on DuoNeb nebulized treatments [id number]. She is on IV Solu-Medrol 60 mg every 6 hours. He is also on Lasix 20 mg IV every 12 hours. Urine output is not being accurately measured. BUN is at 24 with a creatinine 0.7. The risk was at 5 with a hemoglobin of 10.4 and a platelet count of 375. She is afebrile. She is hemodynamically stable. Noted the patient has chronic hypoxemic respiratory failure and she utilizes oxygen at 4 L/m. Cannula on an outpatient basis. She has also impaired left ventricular ejection fraction of 35%. She has nonocclusive coronary artery disease. On 10/06/2023, the patient's condition is stable. She remains on IV Solu- Medrol. She remains on bronchodilators. Oxygen flow is at 5 L with a pulse ox of 99%. Labs from today shows a white cell count of 5.9, hemoglobin of 10.7, platelets of 420, B is a 33 with a creatinine of 1.1 and a sodium level is at 138. The patient is on Bumex 1 mg by mouth daily. The patient is on bronchodilators with DuoNeb updrafts, Perforomist and Pulmicort and the patient is also on IV Solu-Medrol 60 mg every 6 hours. The chest x-ray from yesterday showed improvement right lower lobe airspace opacity. The patient is on no antibiotics. I'm going to repeat the pro calcitonin level in a.m. She remains on to coagulation with Eliquis. On 10/07/2023, patient is feeling essentially the same as yesterday. She has been infected with RSV. She has some occasional dizziness patient is also complaining of some urinary shows/retention. A Duong catheter inserted. She is stooling for colostomy. She remains on oxygen at 5 L with a pulse ox of 95%. She remains on bronchodilators. She remains on steroids. She is on oral Bumex. On her blood work, there is a increase in her BUN up to 47 with a creatinine of 1.44. Sodium is at 135. The white cycles at 7 with a hemoglobin of 11. Note that she has CHF and cardio myopathy and an echocardiogram showing an ejection fraction which is reduced at 35%. Moderate mitral annular calcification with mild regurgitation. Left ventricular diastolic pressure was elevated on the previous echocardiogram. The patient is seen today 10/08/2023 in follow-up on the selective care unit. She is currently sitting up in bed. Awake and alert in no acute distress. She is breathing a bit easier today compared to yesterday. She did test positive for RSV. She also has a COPD exacerbation. Barium swallow revealed no evidence of aspiration or penetration during the exam. Blood culture revealed no growth. White count 7.8. Hemoglobin 11.4. Sodium 138. Potassium 4.2. Bicarb 33 BUN 47. Creatinine 1.14. Glucose 148. She remains on bronchodilators, steroids. Anticoagulated with Eliquis. Reevaluated today on 10/09/2023, patient is doing better, breathing easier, nonetheless she continues to have intermittent cough and wheezing. Her barium swallow showed no evidence of aspiration, patient is on 4 L nasal cannula, not in any distress, blood cultures have been negative since 10/03, patient remains on bronchodilators, she is also on methylprednisolone 60 mg every 6 hours, patient is maintained on eliquis. No nap, Perforomist, and Pulmicort steadily improving but not quite ready for discharge Objective - Vital Signs Vital signs: Vital Signs Temp 97.3 F L 10/09/23 08:00 Pulse 69 10/09/23 11:27 Resp 18 10/09/23 08:00 BP 145/83 10/09/23 08:00 Pulse Ox 98 10/09/23 08:15 FiO2 50 10/08/23 11:32 Intake & Output 10/08/23 10/09/23 10/09/23 18:59 06:59 18:59 Intake Total 480 240 Output Total 650 500 200 Balance -170 -500 40 Weight 72.2 kg Intake: Oral 480 240 Output: Urine 650 300 Stool 200 200 Other: Voiding Method External Catheter External Catheter External Catheter # Voids 1 # Bowel Movements 1 - Exam Physical Exam: Revealed 77-year-old female in no distress Head: Atraumatic normocephalic. HEENT:[Neck is supple.] [No neck masses.] [No thyromegaly.] [No JVD.] Chest: [Wheezing bilaterally on forced expiratory maneuver. Cardiac Exam: [Normal S1 and S2, no S3 gallop, no murmur.] Abdomen: [Soft, nontender, no megaly, no rebound, no guarding, normal bowel sounds.] Extremities: [No clubbing, no edema, no cyanosis.] Neurological Exam: [No focal neurologic deficit.] Alert oriented 3 Psychiatric: Normal mood affect and normal mental status examination. Skin: No rashes - Labs CBC & Chem 7: 10/08/23 07:24 10/08/23 07:24 Labs: Microbiology - Last 24 Hours (Table) 10/03/23 16:23 Blood Culture - Final Blood Assessment and Plan Assessment: Impression: Acute COPD exacerbation likely secondary to RSV infection. Acute on chronic hypoxic respiratory failure, secondary to above Elevated proBNP level, consider underlying CHF as the patient is known to have some valvular heart disease. The patient is currently on oral Bumex Chronic hypoxic respiratory failure maintain on oxygen at 4-5 L/m nasal cannula Hypertension Hyperlipidemia Previous history of Covid 19 infection History of breast cancer with a previous mastectomy History of bowel resection and the patient has a colostomy. History of atrial fibrillation, chronic, discharge on a combination of amiodarone, metoprolol and anticoagulation with Eliquis History of congestion heart failure with ejection fraction of 35% along with segmental wall motion abnormalities involving the anteroapical and apical culp Moderate aortic regurgitation with elevated filling pressures based on recent echocardiogram Nonobstructive coronary artery disease based on recent cardiac catheterization that was done on 09/12/2023 Ventral abdominal wall hernia Thyroid nodule Right middle lobe pulmonary nodule measuring 1 cm, identified on a CAT scan of the chest that was done on 09/07/2023 Acute kidney injury and the creatinine is 1.14 Recommendation: Continue bronchodilators Continue steroids continue eliquis Continue diuretics Consider discharge planning once cleared by all consultants, the plan is to return to the medical [facility]. Continue to follow in the meantime Time with Patient: Less than 30
--- NOTE | 2023-10-09 13:27 | P.PN ---
Subjective Progress Note Date: 10/09/23 SUBJECTIVE: BP 118/61, heart rate 90 bpm, atrial fibrillation, rate controlled at present on telemetry Hemoglobin 11, creatinine 1.44. Yesterday it was 1.19, on admission it was 0.7. 10/08 Patient is seen today in follow-up. She states that her breathing is a lot better from yesterday. Telemetry is sinus rhythm. Heart rate is in the 70s and 80s, blood pressure 152/66. Repeat blood work reveals hemoglobin of 11.4. BUN 47 creatinine 1.14. Patient is scheduled for modified barium swallow today. 10/09 Patient is seen today in follow-up. Telemetry has been a sinus rhythm in the 60s to 80s, blood pressure 149/76, pulse ox 95% on 4 L. Patient states that her breathing is okay. She did have a little bit of right-sided chest pain. PHYSICAL EXAMINATION Lungs: Bilateral rhonchi Heart: Irregularly irregular, S1-S2, no S3, no murmur or rub. Abdomen: Soft nontender, Extremities: No edema. 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 Aspirin Increase metoprolol to 75 mg twice a day Add losartan 25 mg daily for blood pressure control Increase Lopressor to 75 mg every 12 hours Monitor blood pressure and heart rate Further recommendations as patient progresses. Nurse practitioner note has been reviewed, I agree with the documented findings and plan of care. Patient was seen and examined. Objective - Vital Signs Vital signs: Vital Signs Temp 97.6 F 10/09/23 04:00 Pulse 68 10/09/23 08:37 Resp 20 10/09/23 04:00 BP 149/76 10/09/23 04:00 Pulse Ox 98 10/09/23 08:15 FiO2 50 10/08/23 11:32 Intake & Output 10/08/23 10/09/23 10/09/23 18:59 06:59 18:59 Intake Total 480 240 Output Total 650 500 Balance -170 -500 240 Weight 72.2 kg Intake: Oral 480 240 Output: Urine 650 300 Stool 200 Other: Voiding Method External Catheter External Catheter # Voids 1 # Bowel Movements 1 - Labs CBC & Chem 7: 10/08/23 07:24 10/08/23 07:24 Labs: Abnormal Lab Results - Last 24 Hours (Table) 10/08/23 Range/Units 07:24 RBC 3.47 L (3.80-5.40) m/uL Hct 33.9 L (34.0-46.0) % Lymphocytes # (Manual) 0.62 L (1.0-4.8) k/uL Metamyelocytes # (Man) 0.16 H (0) k/uL Myelocytes # (Manual) 0.31 H (0) k/uL Microbiology - Last 24 Hours (Table) 10/03/23 16:23 Blood Culture - Final Blood
[2023-10-09] MEDS: ASPIRIN 81 MG PO SCH (20:14)
--- NOTE | 2023-10-10 00:50 | P.PN ---
Subjective A pleasant 77 years old female with past medical history of stroke. Presents because of worsening dyspnea especially over one day duration. Associa sally with cough but no chest pain. No abdominal pain and looks soft and she has history of colostomy and back is working with brown stool. No headache dizziness weakness or numbness, no urinary complaints. She denies smoking alcohol or illicit drugs. Patient was hypoxic on admission, she usually wears 4 L of oxygen at home, currently she is on BiPAP which limits history patient A Provided. Rest of Vital Signs Stable Labs Showing WBC of 11.2, Sodium 136, Potassium 5.5 and Creatinine 0.8. Troponin Is Elevated at 0.05. Which Is Always Elevated before BNP Elevated [id number] Viruses back positive for RSV Chest x-ray shows COPD changes with a right lower opacity suspicious for pneumonia EKG showing atrial fibrillation with a heart rate of 96. 10/05/2023 Patient is improving slowly and gradually, however she had an episode of increased shortness of breath with some flow from her mouth per staff which was locked. She is on IV Lasix twice daily and extra doses provided. Also she remains on IV Solu-Medrol. Repeat chest x-ray showing improvement per radiologist of the right lower infiltrate however still there is significant therefore going to be labs tomorrow. She is also on Zithromax and home dose of all liquids. 10/06/2023 Patient breathing is improving, her oxygen requirement down to 5 L with saturation of 95% Chest x-ray from yesterday showing improvement opacities in the right lower lobe. Her leukocytosis is also trending down. Patient remains on Zithromax with broadcalcitonin, down 1.9 down to 0.9, therefore we going to continue for 3 more days course. Patient also improving on IV Solu-Medrol 60 mg, IV Lasix 20 mg. And she is continued on home dose of liquids. 10/07/2023 Patient is still complaining of from dyspnea and wheezing Remains on 5-6 L oxygen via nasal cannula No chest pain She has Duong catheter in place. Colostomy back is working with a brown stool Patient had extensive secretions last night per bedside nurse and scopolamine patch was started first time for 1 day, this morning she feels little drowsy so we discontinued her scopolamine patch. Patient continue on his IV salmeterol 60 mg and IV Lasix 40 mg twice daily which is stopped now Creatinine went up to 0.9, 1.1 and 1.4 today, we'll check urine analysis. Duong catheter in place. Monitor creatinine of continue to worsen then may consider nephrology consult. No evidence of hypertension. Patient also on Eliquis. Zithromax (discontinued ) 10/08/2023 Wheezing is improving while she is on steroids No chest pain, still has coughing She was placed on some gentle hydration and Lasix was stopped and goes creatinine went up 1.4 She remains on Eliquis and aspirin Objective - Vital Signs Vital signs: Vital Signs Temp 98 F 10/08/23 11:27 Pulse 88 10/08/23 15:28 Resp 18 10/08/23 15:28 BP 152/66 10/08/23 11:27 Pulse Ox 94 L 10/08/23 11:27 FiO2 50 10/08/23 11:32 Intake & Output 10/07/23 10/08/23 10/08/23 18:59 06:59 18:59 Intake Total 240 Output Total 350 400 650 Balance -350 -400 -410 Intake: Oral 240 Output: Urine 250 400 650 Stool 100 Other: Voiding Method Indwelling Catheter External Catheter External Catheter - Exam GENERAL: The patient is alert and oriented x3, not in any acute distress. Well developed, well nourished. HEENT: Pupils are round and equally reacting to light. EOMI. No scleral icterus. No conjunctival pallor. Normocephalic, atraumatic. No pharyngeal erythema. No thyromegaly. CARDIOVASCULAR: S1 and S2 present. No murmurs, rubs, or gallops. -PULMONARY: Chest is clear to auscultation, lateral expiratory wheezing , base crackles. ABDOMEN: Soft, nontender, nondistended, normoactive bowel sounds. No palpable organomegaly. MUSCULOSKELETAL: No joint swelling or deformity. EXTREMITIES: No cyanosis, clubbing, or pedal edema. NEUROLOGICAL: Gross neurological examination did not reveal any focal deficits. SKIN: No rashes. no petechiae. - Labs CBC & Chem 7: 10/08/23 07:24 10/08/23 07:24 Labs: Abnormal Lab Results - Last 24 Hours (Table) 10/08/23 10/08/23 Range/Units 07:24 07:24 RBC 3.47 L (3.80-5.40) m/uL Hct 33.9 L (34.0-46.0) % Lymphocytes # (Manual) 0.62 L (1.0-4.8) k/uL Metamyelocytes # (Man) 0.16 H (0) k/uL Myelocytes # (Manual) 0.31 H (0) k/uL Chloride 96 L (98-107) mmol/L Carbon Dioxide 33 H (22-30) mmol/L BUN 47 H (7-17) mg/dL Creatinine 1.14 H (0.52-1.04) mg/dL Glucose 148 H (74-99) mg/dL Assessment and Plan Assessment: Acute COPD exacerbation Acute on chronic CHF Acute on chronic hypoxic hypercapnic respiratory failure Acute RSV bronchitis Respiratory acidosis, acute Chronically elevated troponin Chronic atrial fibrillation on a blood thinner History of stroke with left hemiparesis Hypertension. Hyperlipidemia History of breast cancer Plan: Continue with IV Solu-Medrol Continue with BiPAP treatments and oxygen therapy as needed Home dose of all Eliquis Pulmonary team consult, cardiology team consult Further recommendations as per clinical course of the patient DVT prophylaxis: Eliquis GI Prophylaxis: Pepcid PT/OT: Pending Prognosis is guarded
--- NOTE | 2023-10-10 00:51 | P.PN ---
Subjective A pleasant 77 years old female with past medical history of stroke. Presents because of worsening dyspnea especially over one day duration. Associa sally with cough but no chest pain. No abdominal pain and looks soft and she has history of colostomy and back is working with brown stool. No headache dizziness weakness or numbness, no urinary complaints. She denies smoking alcohol or illicit drugs. Patient was hypoxic on admission, she usually wears 4 L of oxygen at home, currently she is on BiPAP which limits history patient A Provided. Rest of Vital Signs Stable Labs Showing WBC of 11.2, Sodium 136, Potassium 5.5 and Creatinine 0.8. Troponin Is Elevated at 0.05. Which Is Always Elevated before BNP Elevated [id number]/08/2023 Wheezing is improving while she is on steroids No chest pain, still has coughing She was placed on some gentle hydration and Lasix was stopped and goes creatinine went up 1.4 She remains on Eliquis and aspirin 10/08/2023 Wheezing is improving while she is on steroids No chest pain, still has coughing She was placed on some gentle hydration and Lasix was stopped and goes creatinine went up 1.4 She remains on Eliquis and aspirin Viruses back positive for RSV Chest x-ray shows COPD changes with a right lower opacity suspicious for pneumonia EKG showing atrial fibrillation with a heart rate of 96. 10/05/2023 Patient is improving slowly and gradually, however she had an episode of increased shortness of breath with some flow from her mouth per staff which was locked. She is on IV Lasix twice daily and extra doses provided. Also she remains on IV Solu-Medrol. Repeat chest x-ray showing improvement per radiologist of the right lower infiltrate however still there is significant therefore going to be labs tomorrow. She is also on Zithromax and home dose of all liquids. 10/06/2023 Patient breathing is improving, her oxygen requirement down to 5 L with saturation of 95% Chest x-ray from yesterday showing improvement opacities in the right lower lobe. Her leukocytosis is also trending down. Patient remains on Zithromax with broadcalcitonin, down 1.9 down to 0.9, therefore we going to continue for 3 more days course. Patient also improving on IV Solu-Medrol 60 mg, IV Lasix 20 mg. And she is continued on home dose of liquids. 10/07/2023 Patient is still complaining of from dyspnea and wheezing Remains on 5-6 L oxygen via nasal cannula No chest pain She has Duong catheter in place. Colostomy back is working with a brown stool Patient had extensive secretions last night per bedside nurse and scopolamine patch was started first time for 1 day, this morning she feels little drowsy so we discontinued her scopolamine patch. Patient continue on his IV salmeterol 60 mg and IV Lasix 40 mg twice daily which is stopped now Creatinine went up to 0.9, 1.1 and 1.4 today, we'll check urine analysis. Duong catheter in place. Monitor creatinine of continue to worsen then may consider nephrology consult. No evidence of hypertension. Patient also on Eliquis. Zithromax (discontinued ) 10/08/2023 Wheezing is improving while she is on steroids No chest pain, still has coughing She was placed on some gentle hydration and Lasix was stopped and goes creatinine went up 1.4 She remains on Eliquis and aspirin 10/09/2023 Patient still on 4 L/m which is her home dose. Wheezing is improving every day and today she is breathing easier but not quite ready for discharge She remains on IV Solu-Medrol Creatinine improved to 1.1 We will discontinue normal saline today Metoprolol dose increased to 75 and losartan 25 Objective - Vital Signs Vital signs: Vital Signs Temp 97.3 F L 10/09/23 12:30 Pulse 70 10/09/23 15:33 Resp 18 10/09/23 12:30 BP 161/70 10/09/23 12:30 Pulse Ox 96 10/09/23 12:30 FiO2 50 10/08/23 11:32 Intake & Output 10/08/23 10/09/23 10/09/23 18:59 06:59 18:59 Intake Total 480 358 Output Total 650 500 Balance -170 -500 358 Weight 72.2 kg Intake: Oral 480 358 Output: Urine 650 300 Stool 200 Other: Voiding Method External Catheter External Catheter External Catheter # Voids 1 # Bowel Movements 1 - Exam GENERAL: The patient is alert and oriented x3, not in any acute distress. Well developed, well nourished. HEENT: Pupils are round and equally reacting to light. EOMI. No scleral icterus. No conjunctival pallor. Normocephalic, atraumatic. No pharyngeal erythema. No thyromegaly. CARDIOVASCULAR: S1 and S2 present. No murmurs, rubs, or gallops. -PULMONARY: Chest is clear to auscultation, lateral expiratory wheezing , base crackles. ABDOMEN: Soft, nontender, nondistended, normoactive bowel sounds. No palpable organomegaly. MUSCULOSKELETAL: No joint swelling or deformity. EXTREMITIES: No cyanosis, clubbing, or pedal edema. NEUROLOGICAL: Gross neurological examination did not reveal any focal deficits. SKIN: No rashes. no petechiae. - Labs CBC & Chem 7: 10/08/23 07:24 10/08/23 07:24 Labs: Microbiology - Last 24 Hours (Table) 10/03/23 16:23 Blood Culture - Final Blood Assessment and Plan Assessment: Acute COPD exacerbation Acute on chronic CHF Acute on chronic hypoxic hypercapnic respiratory failure Acute RSV bronchitis Respiratory acidosis, acute Chronically elevated troponin Chronic atrial fibrillation on a blood thinner History of stroke with left hemiparesis Hypertension. Hyperlipidemia History of breast cancer Plan: Continue with IV Solu-Medrol Continue with BiPAP treatments and oxygen therapy as needed Continue with antibiotic, currently on Zithromax Home dose of all Eliquis Pulmonary team consult, cardiology team consult Further recommendations as per clinical course of the patient DVT prophylaxis: Eliquis GI Prophylaxis: Pepcid PT/OT: Pending Prognosis is guarded
[2023-10-10] MEDS: IPRATROPIUM-ALBUTEROL 3 ML NEB INHALATION SCH ×3 (00:56→15:47)
[2023-10-10] MEDS: IPRATROPIUM-ALBUTEROL 3 ML NEB INHALATION PRN ×2 (03:48→08:38)
[2023-10-10] MEDS: APIXABAN 5 MG TAB PO SCH (06:11)
[2023-10-10] MEDS: GABAPENTIN 100 MG CAP PO SCH ×2 (06:11→12:34)
[2023-10-10] MEDS: METOPROLOL TARTRATE 25 MG TAB PO SCH (06:11)
[2023-10-10] MEDS: methylPREDNISolone SOD SUCCI 125 MG/2 ML VIAL IV SCH ×2 (06:11→12:34)
[2023-10-10] MEDS: LORATADINE 10 MG TAB PO SCH (07:53)
[2023-10-10] MEDS: FAMOTIDINE 20 MG TAB PO SCH (07:54)
[2023-10-10] MEDS: LOSARTAN 25 MG TAB PO SCH (07:54)
[2023-10-10] MEDS: FORMOTEROL FUMARATE 20 MCG/2 ML NEBU INHALATION SCH (08:38)
[2023-10-10] MEDS: BUDESONIDE 1 MG/2 ML NEBU INHALATION SCH (08:38)
[2023-10-10 11:48] LABS: African American GFR (CKD) 59 (>60 ml/min/1.73 sqM); Anion Gap 9 mmol/L; Blood Urea Nitrogen 35 mg/dL (7-17); Calcium 8.6 mg/dL (8.4-10.2); Carbon Dioxide 29 mmol/L (22-30); Chloride 101 mmol/L (98-107); Glucose 136 mg/dL (74-99); Non-African American GFR(CKD) 51 (>60 ml/min/1.73 sqM); Potassium 4.2 mmol/L (3.5-5.1); Sodium 139 mmol/L (137-145)
--- NOTE | 2023-10-10 13:57 | P.PN ---
Subjective Progress Note Date: 10/10/23 SUBJECTIVE: BP 118/61, heart rate 90 bpm, atrial fibrillation, rate controlled at present on telemetry Hemoglobin 11, creatinine 1.44. Yesterday it was 1.19, on admission it was 0.7. 10/08 Patient is seen today in follow-up. She states that her breathing is a lot better from yesterday. Telemetry is sinus rhythm. Heart rate is in the 70s and 80s, blood pressure 152/66. Repeat blood work reveals hemoglobin of 11.4. BUN 47 creatinine 1.14. Patient is scheduled for modified barium swallow today. 10/09 Patient is seen today in follow-up. Telemetry has been a sinus rhythm in the 60s to 80s, blood pressure 149/76, pulse ox 95% on 4 L. Patient states that her breathing is okay. She did have a little bit of right-sided chest pain. 10/10 Patient states that her breathing is okay. She denies having any chest pain. Heart rate is been in the 60s and telemetry is sinus rhythm. Blood pressure 167/65. Repeat blood work reveals BUN 35 creatinine 1.05. Yesterday, losartan 25 mg daily was added for blood pressure control. PHYSICAL EXAMINATION Lungs: Bilateral rhonchi Heart: Irregularly irregular, S1-S2, no S3, no murmur or rub. Abdomen: Soft nontender, Extremities: No edema. 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 Aspirin Continue metoprolol 75 mg twice a day Increase losartan 50 mg daily for blood pressure control Monitor blood pressure and heart rate Nurse practitioner note has been reviewed, I agree with the documented findings and plan of care. Patient was seen and examined. Objective - Vital Signs Vital signs: Vital Signs Temp 97.9 F 10/10/23 04:11 Pulse 72 10/10/23 08:59 Resp 20 10/10/23 08:00 BP 167/65 10/10/23 08:00 Pulse Ox 95 10/10/23 08:42 FiO2 50 10/08/23 11:32 Intake & Output 10/09/23 10/10/23 10/10/23 18:59 06:59 18:59 Intake Total 358 370 Output Total 200 500 Balance 158 -500 370 Weight 74 kg Intake: IV 10 Invasive Line 3 10 Oral 358 360 Output: Urine 200 500 Other: Voiding Method External Catheter External Catheter # Voids 1 - Labs CBC & Chem 7: 10/08/23 07:24 10/10/23 09:34 Labs: Microbiology - Last 24 Hours (Table) 10/03/23 16:23 Blood Culture - Final Blood
--- NOTE | 2023-10-10 14:59 | P.DS ---
Providers Date of admission: 10/03/23 21:18 Attending physician: Dmitry Nevarez Consults: 10/04/23 00:31 Consult Physician Routine Consulting Provider: Levy Cox Consult Reason/Comments: CHF exacerbation Do you want consulting provider notified?: Yes 10/04/23 00:32 Consult Physician Routine Consulting Provider: Michael Rosado Consult Reason/Comments: COPD exacerbation Do you want consulting provider notified?: Yes Primary care physician: Viktoria Calhoun DO Hospital Course: Final Diagnosis Acute COPD exacerbation due to acute RSV infection and tracheobronchitis Acute on chronic CHF systolic dysfunction and hx valvular heart disease Acute on chronic hypoxic hypercapnic respiratory failure secondary to above Respiratory acidosis, acute Chronically elevated troponin Chronic atrial fibrillation on a blood thinner History of stroke with left hemiparesis Hypertension. Hyperlipidemia History of breast cancer with mastectomy Hx pulmonary nodule followed outpatient Acute kidney injury prerenal Discharge Disposition Patient is stable for return to [facility] today. Patient to continue on oral steroid taper for the tracheobronchitis. Continue on lasix 20 mg daily. Metoprolol has been increased to 75 mg BID. Losartan increased to 50 mg daily. Patient to follow up with Viktoria Calhoun in 1 to 2 days with return to [facility]. Recommending to follow up with artists' model Dr. Martir Swift in 1 to 2 weeks and also follow up with laceworker Dr. Rosado in 1 week. Repeat labs in 2 to 3 days. Can wean oxygen as tolerated does wear 4L at home but has had adequate oxygen saturations in the mid to high 90s. Hospital Course This is a 77 years old female with past medical history of stroke, heart failure, atrial fibrillation, breast cancer, hypertension, COPD and chronic hyp oxic respiratory failure, and colostomy. Presents because of worsening dyspnea especially over one day duration. Associated with cough but no chest pain. No headache dizziness weakness or numbness, no urinary complaints. Patient was hypoxic on admission, she usually wears 4 L of oxygen at home. Patient was started on BiPAP in the ER, had a white blood cell count of 8.9, potassium 5.5, creatinine 0.8. Had troponin elevation 0.053 and proBNP 15,700. Chest xray on admission shows COPD changes and a right lower lobe opacity concerning for pneumonia. Found to be positive for RSV. Patient noted to have scattered wheezing and was also started on IV steroids. Procalcitonin level 1.96 improved to 0.93. Urinalysis negative. Patient completed course of oral azithromycin. Patient had pulmonary and cardiology consultation in place. Was continued on IV lasix for suspected mild CHF exacerbation, with worsening creatinine, lasix was then held this admission and patient was hydrated and supportive care for the RSV and tracheobronchitis. Cardiology has adjusted blood pressure medications. Had a modified barium swallow as concern for aspiration and there was no aspiration or penetration during the examination, there was some hesitancy during swallowing with thicker and more solid consistencies. Patient will be continued on a heart healthy diet. White count stable at 7.0, hgb 1.2. Sodium 135, BUN 47, creatinine down to 1.05. Currently with no complaints of chest pain, no shortness of breath. Has some wet cough non productive and continues on robitussin. Lungs are diminished there is no wheezing heard on todays examination. Generalized weakness noted in all 4 extremities. Alert x 2-3 at baseline. Stable for return to the ECF today. Hemodynamically she is stable. Please see medication reconciliation for a list of current medications. The impression and plan of care has been dictated by Lauren Reed, Nurse Practitioner as directed. Dr. Shamir MD I have performed a history and physical examination and medical decision making of this patient, discussed the same with the dictator, and agree with the dictators assessment and plan as written, documented as a scribe. Based on total visit time, I have performed more than 50% of this visit. Patient Condition at Discharge: Fair Plan - Discharge Summary Discharge Rx Participant: Yes New Discharge Prescriptions: New Losartan [Cozaar] 50 mg PO DAILY #30 tab predniSONE 0 mg PO DIRECTED 12 Days #37 tab Furosemide [Lasix] 20 mg PO DAILY #30 tab Metoprolol Tartrate [Lopressor] 75 mg PO Q12HR@0700,1900 tab Continue Meclizine [Antivert] 12.5 mg PO Q8HR@0700,1300,1900 Albuterol Inhaler [Ventolin Hfa Inhaler] 2 puff INHALATION RT-Q6H PRN PRN Reason: COPD Healthshake 1 dose PO TID-W/MEALS Montelukast [Singulair] 10 mg PO HS@2000 Multivitamins, Thera [Multivitamin (formulary)] 1 tab PO DAILY Fluticasone Nasal Warne [Flonase Nasal Warne] 1 spr EA NOSTRIL DAILY Famotidine [Pepcid] 20 mg PO DAILY Gabapentin [Neurontin] 200 mg PO TID@0700,1300,1900 3 Days #18 cap Acetaminophen Tab [Tylenol] 500 mg PO BID PRN PRN Reason: Pain guaiFENesin [Mucinex] 600 mg PO BID@0700,1900 Aspirin 81 mg PO HS Sodium Chloride [Dooly Warne] 1 spr EA NOSTRIL Q2H PRN PRN Reason: Congestion Ipratropium-Albuterol Nebulize [Duoneb 0.5 mg-3 mg/3 ml Soln] 3 ml INHALATION RT-Q4H PRN PRN Reason: Shortness Of Breath Or Wheezing Benzonatate [Tessalon Perle] 200 mg PO TID@0700,1300,1900 Fluticasone Propion/Salmeterol [Advair 250-50 Diskus] 1 puff INHALATION RT- BID@0700,1900 Melatonin 3 mg PO HS@2000 Cetirizine HCl [Zyrtec] 10 mg PO DAILY guaiFENesin-DM 100-10MG/5ML [Robitussin DM] 10 ml PO Q4H PRN PRN Reason: Cough Acetaminophen Tab [Tylenol] 500 mg PO BID Apixaban [Eliquis] 5 mg PO Q12HR@0700,1900 Amiodarone [Cordarone] 200 mg PO BID Discontinued lisinopriL [Zestril] 5 mg PO DAILY tab Potassium Chloride [K-Tab ER] 20 meq PO DAILY 30 Days #30 tab Metoprolol Tartrate [Lopressor] 50 mg PO Q12HR@0700,1900 predniSONE [Deltasone] 40 mg PO DAILY 5 Days #10 tab Furosemide [Lasix] 20 mg PO DAILY Discharge Medication List Albuterol Inhaler [Ventolin Hfa Inhaler] 2 puff INHALATION RT-Q6H PRN 09/07/23 [History] Benzonatate [Tessalon Perle] 200 mg PO TID@0700,1300,1900 09/07/23 [History] Cetirizine HCl [Zyrtec] 10 mg PO DAILY 09/07/23 [History] Famotidine [Pepcid] 20 mg PO DAILY 09/07/23 [History] Fluticasone Nasal Warne [Flonase Nasal Warne] 1 spr EA NOSTRIL DAILY 09/07/23 [History] Fluticasone Propion/Salmeterol [Advair 250-50 Diskus] 1 puff INHALATION RT- BID@0700,1900 09/07/23 [History] Healthshake 1 dose PO TID-W/MEALS 09/07/23 [History] Ipratropium-Albuterol Nebulize [Duoneb 0.5 mg-3 mg/3 ml Soln] 3 ml INHALATION RT-Q4H PRN 09/07/23 [History] Meclizine [Antivert] 12.5 mg PO Q8HR@0700,1300,1900 09/07/23 [History] Melatonin 3 mg PO HS@199909/07/23 [History] Montelukast [Singulair] 10 mg PO HS@199909/07/23 [History] Multivitamins, Thera [Multivitamin (formulary)] 1 tab PO DAILY 09/07/23 [History] Sodium Chloride [Dooly Warne] 1 spr EA NOSTRIL Q2H PRN 09/07/23 [History] Gabapentin [Neurontin] 200 mg PO TID@0700,1300,1900 3 Days #18 cap 09/13/23 [Rx] Acetaminophen Tab [Tylenol] 500 mg PO BID 10/03/23 [History] Acetaminophen Tab [Tylenol] 500 mg PO BID PRN 10/03/23 [History] Amiodarone [Cordarone] 200 mg PO BID 10/03/23 [History] Apixaban [Eliquis] 5 mg PO Q12HR@0700,1900 10/03/23 [History] Aspirin 81 mg PO HS 10/03/23 [History] guaiFENesin [Mucinex] 600 mg PO BID@0700,1900 10/03/23 [History] guaiFENesin-DM 100-10MG/5ML [Robitussin DM] 10 ml PO Q4H PRN 10/03/23 [History] Furosemide [Lasix] 20 mg PO DAILY #30 tab 10/10/23 [Rx] Losartan [Cozaar] 50 mg PO DAILY #30 tab 10/10/23 [Rx] Metoprolol Tartrate [Lopressor] 75 mg PO Q12HR@0700,1900 tab 10/10/23 [Rx] predniSONE 0 mg PO DIRECTED 12 Days #37 tab 10/10/23 [Rx] Follow up Appointment(s)/Referral(s): Viktoria Calhoun DO [Primary Care Provider] - 1-2 days Waylon Swift MD [STAFF PHYSICIAN] - 1 Week Michael Rosado MD [STAFF PHYSICIAN] - 1 Week Ambulatory/Diagnostic Orders: Basic Metabolic Panel [LAB.AMB] Location: None Selected Complete Blood Count w/diff [LAB.AMB] Time Frame: 3 Days, Location: None Selected Activity/Diet/Wound Care/Special Instructions: Follow up with cardiology 1 to 2 weeks Continue oral steroid taper Follow up with pulmonary Discharge Disposition: TRANSFER TO SNF/ECF
--- NOTE | 2023-10-10 15:09 | P.PN ---
Subjective Progress Note Date: 10/10/23 Principal diagnosis: Acute exacerbation of COPD and RSV tracheobronchitis 77-year-old female patient who presented to the emergency department because of worsening shortness of breath. The patient was in the hospital in early September when she was treated for an acute on top of chronic hypoxic respiratory failure due to COPD exacerbation suspected left lower lobe pneumonia. At that time, the patient underwent a CT angiogram and pulmonary embolism was ruled out. The patient typically utilizes oxygen at 4 L on outpatient basis. She has chronic A. fib, and she has undergone previous bowel resection and she has a functional colostomy. The patient was discharged to a nursing and she was brought back to the hospital because of worsening shortness of breath and she tested positive for RSV. The patient was actively bronchospastic and wheezy. The patient was also placed on a BiPAP at a pressure of 12/5 and FiO2 is being titrated to maintain saturation above 90%. Minimal sputum production. No chest pain. No major swelling lower extremity. She is weak and debilitated. She was febrile. Her blood work showed edematous count of 8.9, hemoglobin 11.2 and platelet count of 383. Troponin was 0.04. Sodium is at 136 with a potassium level of 5.5, BUN is 24 with a creatinine of 0.8. Coagulation profile was within normal. D-dimer was not elevated. Review of the chest x-ray and there is no clear indication for pneumonia although some increased haziness is seen in the right lung base. No signs of any CO2 narcosis and the patient is able to tolerate the BiPAP reasonably well at this point in time. She is a half-way resident and she is residing in [facility] [place]. Patient is also known to have CHF with impaired ejection fraction of 35%. The patient had a cardiac catheterization during her last admission the patient was found to have nonocclusive coronary artery disease. Echo Cardizem also revealed moderate degree of aortic regurgitation. She has chronic A. fib. Maintain anticoagulation with Eliquis. On today's evaluation of 10/04/2023, the patient was taken off the BiPAP and currently she is on 7 L of oxygen by nasal cannula. Her breathing is improved and she is less short of breath compared to yesterday. She is communicating. Denies having any cough or sputum production. She remains on bronchodilators patient remains on steroids. She has history of chronic A. fib maintained on anticoagulation with Eliquis. Her previous echo also showed moderate degree of regurgitation and she is also known to have nonocclusive coronary artery disease. The patient has a sodium level of 141, potassium level of 4.7, BUN is at 22 and a creatinine of 0.6. Pro-calcitonin level was at 1.96. The patient is in the emergency awaiting transfer to the medical floor. She is on Zithromax empiric antibiotic coverage. She is on bronchodilators with DuoNeb. She is also on accommodation Perforomist and Pulmicort and she is on IV Solu-Medrol. Will gently diurese this patient with Lasix 20 mg IV every 12 hours. The exacerbation of his COPD was related to an RSV infection. There is minimal troponin leak at 0.05. ProBNP level was 15,700. On today's evaluation of 10/05/2023, the patient is being seen for a follow-up. The patient is feeling better. She is off the BiPAP and the patient is currently on oxygen at 6 L nasal cannula. She is on DuoNeb nebulized treatments [id number]. She is on IV Solu-Medrol 60 mg every 6 hours. He is also on Lasix 20 mg IV every 12 hours. Urine output is not being accurately measured. BUN is at 24 with a creatinine 0.7. The risk was at 5 with a hemoglobin of 10.4 and a platelet count of 375. She is afebrile. She is hemodynamically stable. Noted the patient has chronic hypoxemic respiratory failure and she utilizes oxygen at 4 L/m. Cannula on an outpatient basis. She has also impaired left ventricular ejection fraction of 35%. She has nonocclusive coronary artery disease. On 10/06/2023, the patient's condition is stable. She remains on IV Solu- Medrol. She remains on bronchodilators. Oxygen flow is at 5 L with a pulse ox of 99%. Labs from today shows a white cell count of 5.9, hemoglobin of 10.7, platelets of 420, B is a 33 with a creatinine of 1.1 and a sodium level is at 138. The patient is on Bumex 1 mg by mouth daily. The patient is on bronchodilators with DuoNeb updrafts, Perforomist and Pulmicort and the patient is also on IV Solu-Medrol 60 mg every 6 hours. The chest x-ray from yesterday showed improvement right lower lobe airspace opacity. The patient is on no antibiotics. I'm going to repeat the pro calcitonin level in a.m. She remains on to coagulation with Eliquis. On 10/07/2023, patient is feeling essentially the same as yesterday. She has been infected with RSV. She has some occasional dizziness patient is also complaining of some urinary shows/retention. A Duong catheter inserted. She is stooling for colostomy. She remains on oxygen at 5 L with a pulse ox of 95%. She remains on bronchodilators. She remains on steroids. She is on oral Bumex. On her blood work, there is a increase in her BUN up to 47 with a creatinine of 1.44. Sodium is at 135. The white cycles at 7 with a hemoglobin of 11. Note that she has CHF and cardio myopathy and an echocardiogram showing an ejection fraction which is reduced at 35%. Moderate mitral annular calcification with mild regurgitation. Left ventricular diastolic pressure was elevated on the previous echocardiogram. The patient is seen today 10/08/2023 in follow-up on the selective care unit. She is currently sitting up in bed. Awake and alert in no acute distress. She is breathing a bit easier today compared to yesterday. She did test positive for RSV. She also has a COPD exacerbation. Barium swallow revealed no evidence of aspiration or penetration during the exam. Blood culture revealed no growth. White count 7.8. Hemoglobin 11.4. Sodium 138. Potassium 4.2. Bicarb 33 BUN 47. Creatinine 1.14. Glucose 148. She remains on bronchodilators, steroids. Anticoagulated with Eliquis. Reevaluated today on 10/09/2023, patient is doing better, breathing easier, nonetheless she continues to have intermittent cough and wheezing. Her barium swallow showed no evidence of aspiration, patient is on 4 L nasal cannula, not in any distress, blood cultures have been negative since 10/03, patient remains on bronchodilators, she is also on methylprednisolone 60 mg every 6 hours, patient is maintained on eliquis. No nap, Perforomist, and Pulmicort steadily improving but not quite ready for discharge Patient was reevaluated today on 10/10/23, doing well, hardly any pulmonary symptoms, no cough no wheezing, patient is doing great, and I believe I will give the patient for discharge today on the same medications as well as prednisone burst and taper along with bronchodilators. Objective - Vital Signs Vital signs: Vital Signs Temp 97.5 F L 10/10/23 12:46 Pulse 66 10/10/23 12:46 Resp 22 10/10/23 12:46 BP 143/61 10/10/23 12:46 Pulse Ox 93 L 10/10/23 12:46 FiO2 50 10/08/23 11:32 Intake & Output 10/09/23 10/10/23 10/10/23 18:59 06:59 18:59 Intake Total 358 620 Output Total 200 500 Balance 158 -500 620 Weight 74 kg Intake: IV 20 Invasive Line 3 20 Oral 358 600 Output: Urine 200 500 Other: Voiding Method External Catheter External Catheter External Catheter # Voids 1 # Bowel Movements 1 - Exam Physical Exam: Revealed 77-year-old female in no distress Head: Atraumatic normocephalic. HEENT:[Neck is supple.] [No neck masses.] [No thyromegaly.] [No JVD.] Chest: Clear today no crackles or rhonchi or wheezes Cardiac Exam: [Normal S1 and S2, no S3 gallop, no murmur.] Abdomen: [Soft, nontender, no megaly, no rebound, no guarding, normal bowel sounds.] Extremities: [No clubbing, no edema, no cyanosis.] Neurological Exam: [No focal neurologic deficit.] Alert oriented 3 Psychiatric: Normal mood affect and normal mental status examination. Skin: No rashes - Labs CBC & Chem 7: 10/08/23 07:24 10/10/23 09:34 Labs: Abnormal Lab Results - Last 24 Hours (Table) 10/10/23 Range/Units 09:34 BUN 35 H (7-17) mg/dL Creatinine 1.05 H (0.52-1.04) mg/dL Glucose 136 H (74-99) mg/dL Assessment and Plan Assessment: Impression: Acute COPD exacerbation likely secondary to RSV infection. Acute on chronic hypoxic respiratory failure, secondary to above Elevated proBNP level, consider underlying CHF as the patient is known to have some valvular heart disease. The patient is currently on oral Bumex Chronic hypoxic respiratory failure maintain on oxygen at 4-5 L/m nasal cannula Hypertension Hyperlipidemia Previous history of Covid 19 infection History of breast cancer with a previous mastectomy History of bowel resection and the patient has a colostomy. History of atrial fibrillation, chronic, discharge on a combination of amiodarone, metoprolol and anticoagulation with Eliquis History of congestion heart failure with ejection fraction of 35% along with segmental wall motion abnormalities involving the anteroapical and apical culp Moderate aortic regurgitation with elevated filling pressures based on recent echocardiogram Nonobstructive coronary artery disease based on recent cardiac catheterization that was done on 09/12/2023 Ventral abdominal wall hernia Thyroid nodule Right middle lobe pulmonary nodule measuring 1 cm, identified on a CAT scan of the chest that was done on 09/07/2023 Acute kidney injury and the creatinine is 1.14 Recommendation: Continue bronchodilators Continue steroids continue eliquis, patient could be placed on prednisone burst and taper Continue diuretics Will clear for discharge to medical [place].
[2023-10-10 15:45] VITALS: BP 138/65; RESP 20; TEMP 97.9
[2023-10-10 16:07] VITALS: PULSE 74
[2023-10-11] MEDS ORDERED: LOSARTAN 50 MG TAB PO SCH (09:00)
== END 2023-10-10 17:20 | DRG 190 ==
LOC: EC 16:07 → 3SCARD 21:18
PROVIDERS: ADMIT Hospitalist; ATTEND Hospitalist
PROC: 5A09357 Assistance with Respiratory Ventilation, Less than 24 Consecutive Hours, Continuous Positive Airway Pressure (ICD-10-PCS; principal; 2023-10-03)
DX: J44.1 Chronic obstructive pulmonary disease with (acute) exacerbation (principal); I21.A1 Myocardial infarction type 2; I50.23 Acute on chronic systolic (congestive) heart failure; J96.21 Acute and chronic respiratory failure with hypoxia; J96.22 Acute and chronic respiratory failure with hypercapnia; N17.9 Acute kidney failure, unspecified; I48.19 Other persistent atrial fibrillation; I69.354 Hemiplegia and hemiparesis following cerebral infarction affecting left non-dominant side; I45.89 Other specified conduction disorders; J20.5 Acute bronchitis due to respiratory syncytial virus; J44.0 Chronic obstructive pulmonary disease with (acute) lower respiratory infection; I11.0 Hypertensive heart disease with heart failure; I73.9 Peripheral vascular disease, unspecified; Z93.3 Colostomy status; I25.10 Atherosclerotic heart disease of native coronary artery without angina pectoris; I08.0 Rheumatic disorders of both mitral and aortic valves; I70.8 Atherosclerosis of other arteries; E04.1 Nontoxic single thyroid nodule; R33.9 Retention of urine, unspecified; K43.9 Ventral hernia without obstruction or gangrene; R53.81 Other malaise; R91.1 Solitary pulmonary nodule; E78.5 Hyperlipidemia, unspecified; Z99.81 Dependence on supplemental oxygen; Z87.891 Personal history of nicotine dependence; Z11.52 Encounter for screening for COVID-19; Z90.10 Acquired absence of unspecified breast and nipple; Z85.3 Personal history of malignant neoplasm of breast; Z86.16 Personal history of COVID-19; Z79.51 Long term (current) use of inhaled steroids; Z79.899 Other long term (current) drug therapy; Z79.01 Long term (current) use of anticoagulants; Z79.82 Long term (current) use of aspirin; Z88.1 Allergy status to other antibiotic agents; Z88.3 Allergy status to other anti-infective agents; Z88.0 Allergy status to penicillin; Z91.048 Other nonmedicinal substance allergy status; Z88.8 Allergy status to other drugs, medicaments and biological substances
CPT/HCPCS: 36415; 71045; 74230; 80048; 80053; 80076; 81003; 82803; 83605; 83735; 83880; 84145; 84484; 85025; 85379; 85610; 85730; 87040; 87636; 93005; 94640; 94660; 94760; 96365; 96366; 96367; 96375; 99285